=== PATIENT | male | born 1975 | race Caucasian/White ===

== ENCOUNTER 2022-08-27 16:41 | Outpatient (REF) | payer OTHER, SELFPAY ==
[2022-08-27 16:59] LABS: MANUAL DIFF FLAG NO
[2022-08-27 17:05] LABS: Basophils Percent Auto 0.6 % (0-2); Eosinophils Absolute Auto 0.2 X10*3/uL (0.0-0.4); Eosinophils Percent Auto 2.9 % (0-4); Hematocrit 40.1 % (42.0-52.0); Hemoglobin 13.8 g/dl (14.0-18.0); Imm Gran Abs Auto 0.02 X10*3/uL (0.00-0.03); Imm Gran Pct Auto 0.3 % (0.0-0.4); Lymphocytes Absolute Auto 2.1 X10*3/uL (1.2-4.9); Lymphocytes Percent Auto 31.5 % (20-40); Mean Corpuscular HGB Conc 34.4 g/dl (31.0-36.0); Mean Corpuscular Hemoglobin 31.2 pg (27.0-33.0); Mean Corpuscular Volume 90.5 fL (80.0-98.0); Mean Platelet Volume 9.6 fL (9.4-12.4); Monocytes Absolute Auto 0.9 X10*3/uL (0.1-1.2); Monocytes Percent Auto 12.5 % (2-11); Neutrophils Absolute Auto 3.5 x10*3/uL (2.0-8.3); Neutrophils Percent Auto 52.2 % (45-73); Platelet Count 229 X10*3/uL (160-400); Red Blood Count 4.43 X10*6/uL (4.60-5.80); White Blood Count 6.8 X10*3/uL (4.8-10.8)
[2022-08-27 18:05] LABS: Erythrocyte Sedimentation Rate 7 MM/HR (0-15)
[2022-08-27 18:09] LABS: Alanine Aminotransferase 23 U/L (0-40); Albumin Level 4.2 g/dL (3.5-5.0); Alkaline Phosphatase 77 U/L (39-117); Anion Gap 12 (12-20); Bilirubin Total 1.3 mg/dL (0.0-1.0); C Reactive Protein 0.19 mg/dL (< or = 0.50); Chloride 107 mmol/L (96-108); Estimated Glomerular Filt Rate > 60; Potassium 3.8 mmol/L (3.3-5.1); Sodium 141 mmol/L (135-145); Total Protein 6.8 g/dL (6.5-8.0)
[2022-08-27 18:13] LABS: Aspartate Amino Transferase 21 U/L (5-37); Blood Urea Nitrogen 14 mg/dL (9-16); Calcium 9.4 mg/dL (8.4-10.2); Carbon Dioxide 26 mmol/L (22-29); Glucose Random 92 mg/dL (60-115)
[2022-08-28 07:43] LABS: HBS Num1 22.72 mIU/mL (0-7.99); HBc Num1 0.13 S/CO (0.00-0.79); HBsAGNum1 0.37 S/CO (0.00-0.99); Hepatitis B Core Antibody Nonreactive (Nonreactive); Hepatitis B Surface Antigen Negative (Negative); ~Hepatitis B Surface Antibody REACTIVE (Nonreactive)
[2022-08-29 11:18] LABS: TS Negative Control Passed; TS Panel A 2; TS Panel B 1; TS Positive Control Passed; TSpotTB Negative (Negative)
[2022-09-08 00:04] LABS: Adalimumab Drug Level 1.1 mcg/mL; Anti-Adalimumab Antibody 27 AU (<10)
== END 2022-08-27 16:42 | disposition home or self-care (01) ==
LOC: HO.LAB 16:41
PROVIDERS: PCP Internal Medicine; Visit Provider Internal Medicine
DX: Z11.1 Encounter for screening for respiratory tuberculosis (principal); K50.00 Crohn's disease of small intestine without complications; Z79.899 Other long term (current) drug therapy
CPT/HCPCS: 36415; 80053; 80145; 83520; 85025; 85652; 86140; 86481; 86704; 86706; 87340

== ENCOUNTER 2022-08-29 07:47 | Outpatient (REF) | payer OTHER, SELFPAY ==
[2022-08-29 09:09] LABS: CDiff Gene PCR NEGATIVE (Negative)
[2022-08-29 09:11] LABS: Leukocytes Stool Qualitative NEGATIVE (NEGATIVE)
[2022-09-06 22:39] LABS: Calprotectin, Fecal 284 mcg/g
== END 2022-08-29 07:48 | disposition home or self-care (01) ==
LOC: HO.LNP 07:47
PROVIDERS: Visit Provider Internal Medicine
DX: Z13.89 Encounter for screening for other disorder (principal)
CPT/HCPCS: 83993; 87493; 89055

== ENCOUNTER 2022-09-03 09:32 | Outpatient (REF) | payer OTHER, SELFPAY ==
[2022-09-03 11:27] LABS: Adenovirus F 40/41 Not Detected (Not Detect.); Astrovirus Not Detected (Not Detect.); Campylobacter Not Detected (Not Detect.); Cryptosporidium Not Detected (Not Detect.); Cyclospora cayetanensis Not Detected (Not Detect.); E. coli EAEC Not Detected (Not Detect.); E. coli EPEC Not Detected (Not Detect.); E. coli ETEC Not Detected (Not Detect.); E. coli STEC Not Detected (Not Detect.); Entamoeba histolytica Not Detected (Not Detect.); Giardia lamblia Not Detected (Not Detect.); Plesiomonas shigelloides Not Detected (Not Detect.); Salmonella Not Detected (Not Detect.); Shigella sp./EIEC Not Detected (Not Detect.); Vibrio Not Detected (Not Detect.); Vibrio Cholerae Not Detected (Not Detect.); Yersinia enterocolitica Not Detected (Not Detect.)
[2022-09-03 11:28] LABS: Norovirus GI/GII Detected (Not Detect.)
[2022-09-03 11:29] LABS: Rotavirus A Not Detected (Not Detect.); Sapovirus Not Detected (Not Detect.)
== END 2022-09-03 09:33 | disposition home or self-care (01) ==
LOC: HO.LNP 09:32
PROVIDERS: Visit Provider Internal Medicine
DX: Z13.89 Encounter for screening for other disorder (principal)
CPT/HCPCS: 87507

== ENCOUNTER 2022-09-14 07:35 | Outpatient (REF) | payer OTHER, SELFPAY ==
[2022-09-14 08:08] LABS: MANUAL DIFF FLAG NO
[2022-09-14 08:39] LABS: Basophils Percent Auto 0.5 % (0-2); Eosinophils Absolute Auto 0.1 X10*3/uL (0.0-0.4); Eosinophils Percent Auto 1.1 % (0-4); Hemoglobin 13.6 g/dl (14.0-18.0); Imm Gran Abs Auto 0.05 X10*3/uL (0.00-0.03); Imm Gran Pct Auto 0.6 % (0.0-0.4); Lymphocytes Absolute Auto 2.7 X10*3/uL (1.2-4.9); Lymphocytes Percent Auto 30.4 % (20-40); Mean Corpuscular HGB Conc 33.2 g/dl (31.0-36.0); Mean Corpuscular Volume 93.4 fL (80.0-98.0); Mean Platelet Volume 9.6 fL (9.4-12.4); Monocytes Absolute Auto 1.1 X10*3/uL (0.1-1.2); Monocytes Percent Auto 12.8 % (2-11); Neutrophils Absolute Auto 4.8 x10*3/uL (2.0-8.3); Neutrophils Percent Auto 54.6 % (45-73); Platelet Count 236 X10*3/uL (160-400); Red Blood Count 4.39 X10*6/uL (4.60-5.80); Red Cell Distribution Width 13.2 % (11.0-16.0); White Blood Count 8.8 X10*3/uL (4.8-10.8)
[2022-09-14 09:29] LABS: Alanine Aminotransferase 18 U/L (0-40); Albumin Level 3.6 g/dL (3.5-5.0); Alkaline Phosphatase 58 U/L (39-117); Anion Gap 12 (12-20); Aspartate Amino Transferase 14 U/L (5-37); Bilirubin Total 1.2 mg/dL (0.0-1.0); Blood Urea Nitrogen 15 mg/dL (9-16); Calcium 8.6 mg/dL (8.4-10.2); Carbon Dioxide 25 mmol/L (22-29); Chloride 111 mmol/L (96-108); Cholesterol 198 mg/dL; Estimated Glomerular Filt Rate > 60; Glucose Random 104 mg/dL (60-115); HDL Cholesterol 50 mg/dL; LDL Cholesterol Calculated 116 mg/dl; Potassium 3.5 mmol/L (3.3-5.1); Sodium 144 mmol/L (135-145); Total Protein 5.8 g/dL (6.5-8.0); Triglycerides 164 mg/dL
== END 2022-09-14 07:36 | disposition home or self-care (01) ==
LOC: HO.LAB 07:35
PROVIDERS: Absent Provider Internal Medicine; PCP Internal Medicine; Visit Provider Internal Medicine
DX: I10 Essential (primary) hypertension (principal); E78.2 Mixed hyperlipidemia; K50.00 Crohn's disease of small intestine without complications; Z79.624 Long term (current) use of inhibitors of nucleotide synthesis
CPT/HCPCS: 36415; 80053; 80061; 80299; 81335; 85025

== ENCOUNTER 2022-10-24 15:11 | Outpatient (REF) | payer OTHER, SELFPAY ==
[2022-10-24 15:22] LABS: MANUAL DIFF FLAG NO
[2022-10-24 15:41] LABS: Basophils Percent Auto 0.4 % (0-2); Eosinophils Percent Auto 0.2 % (0-4); Hematocrit 38.9 % (42.0-52.0); Hemoglobin 12.9 g/dl (14.0-18.0); Imm Gran Abs Auto 0.04 X10*3/uL (0.00-0.03); Imm Gran Pct Auto 0.5 % (0.0-0.4); Lymphocytes Absolute Auto 1.1 X10*3/uL (1.2-4.9); Lymphocytes Percent Auto 13.7 % (20-40); Mean Corpuscular HGB Conc 33.2 g/dl (31.0-36.0); Mean Corpuscular Hemoglobin 30.6 pg (27.0-33.0); Mean Corpuscular Volume 92.4 fL (80.0-98.0); Mean Platelet Volume 9.1 fL (9.4-12.4); Monocytes Absolute Auto 0.7 X10*3/uL (0.1-1.2); Monocytes Percent Auto 8.3 % (2-11); Neutrophils Absolute Auto 6.3 x10*3/uL (2.0-8.3); Neutrophils Percent Auto 76.9 % (45-73); Platelet Count 257 X10*3/uL (160-400); Red Blood Count 4.21 X10*6/uL (4.60-5.80); Red Cell Distribution Width 13.5 % (11.0-16.0); White Blood Count 8.2 X10*3/uL (4.8-10.8)
[2022-10-24 16:26] LABS: Alanine Aminotransferase 19 U/L (0-40); Alkaline Phosphatase 48 U/L (39-117); Aspartate Amino Transferase 12 U/L (5-37); Bilirubin Direct 0.3 mg/dL (0.0-0.5); Total Protein 6.5 g/dL (6.5-8.0)
[2022-10-24 16:49] LABS: Bilirubin Total 1.5 mg/dL (0.0-1.0)
== END 2022-10-24 15:12 | disposition home or self-care (01) ==
LOC: HO.LAB 15:11
PROVIDERS: PCP Internal Medicine; Visit Provider Internal Medicine
DX: K50.00 Crohn's disease of small intestine without complications (principal); Z79.624 Long term (current) use of inhibitors of nucleotide synthesis
CPT/HCPCS: 36415; 80076; 85025

== ENCOUNTER 2022-11-08 15:17 | Outpatient (REF) | payer OTHER, SELFPAY ==
[2022-11-08 15:26] LABS: MANUAL DIFF FLAG NO
[2022-11-08 15:47] LABS: Basophils Percent Auto 0.6 % (0-2); Eosinophils Absolute Auto 0.2 X10*3/uL (0.0-0.4); Eosinophils Percent Auto 2.9 % (0-4); Hematocrit 40.1 % (42.0-52.0); Hemoglobin 13.1 g/dl (14.0-18.0); Imm Gran Abs Auto 0.03 X10*3/uL (0.00-0.03); Imm Gran Pct Auto 0.4 % (0.0-0.4); Lymphocytes Absolute Auto 1.3 X10*3/uL (1.2-4.9); Lymphocytes Percent Auto 19.7 % (20-40); Mean Corpuscular HGB Conc 32.7 g/dl (31.0-36.0); Mean Corpuscular Hemoglobin 30.1 pg (27.0-33.0); Mean Corpuscular Volume 92.2 fL (80.0-98.0); Mean Platelet Volume 9.7 fL (9.4-12.4); Monocytes Absolute Auto 0.8 X10*3/uL (0.1-1.2); Monocytes Percent Auto 11.9 % (2-11); Neutrophils Absolute Auto 4.4 x10*3/uL (2.0-8.3); Neutrophils Percent Auto 64.5 % (45-73); Platelet Count 239 X10*3/uL (160-400); Red Blood Count 4.35 X10*6/uL (4.60-5.80); White Blood Count 6.8 X10*3/uL (4.8-10.8)
[2022-11-08 17:00] LABS: Alanine Aminotransferase 15 U/L (0-40); Alkaline Phosphatase 52 U/L (39-117); Aspartate Amino Transferase 12 U/L (5-37); Bilirubin Direct 0.3 mg/dL (0.0-0.5); Bilirubin Total 1.2 mg/dL (0.0-1.0); Total Protein 6.8 g/dL (6.5-8.0)
== END 2022-11-08 15:18 | disposition home or self-care (01) ==
LOC: HO.LABR 15:17
PROVIDERS: Visit Provider Internal Medicine
DX: K50.00 Crohn's disease of small intestine without complications (principal); Z79.624 Long term (current) use of inhibitors of nucleotide synthesis
CPT/HCPCS: 36415; 80076; 85025

== ENCOUNTER 2022-11-21 15:00 | Outpatient (REF) | payer OTHER, SELFPAY ==
[2022-11-21 15:12] LABS: MANUAL DIFF FLAG NO
[2022-11-21 16:26] LABS: Basophils Percent Auto 0.6 % (0-2); Eosinophils Absolute Auto 0.2 X10*3/uL (0.0-0.4); Eosinophils Percent Auto 3.4 % (0-4); Hematocrit 38.5 % (42.0-52.0); Hemoglobin 13.2 g/dl (14.0-18.0); Imm Gran Abs Auto 0.03 X10*3/uL (0.00-0.03); Imm Gran Pct Auto 0.4 % (0.0-0.4); Lymphocytes Absolute Auto 1.5 X10*3/uL (1.2-4.9); Lymphocytes Percent Auto 22.2 % (20-40); Mean Corpuscular HGB Conc 34.3 g/dl (31.0-36.0); Mean Corpuscular Hemoglobin 31.1 pg (27.0-33.0); Mean Corpuscular Volume 90.8 fL (80.0-98.0); Mean Platelet Volume 9.7 fL (9.4-12.4); Monocytes Absolute Auto 0.6 X10*3/uL (0.1-1.2); Monocytes Percent Auto 9.6 % (2-11); Neutrophils Absolute Auto 4.3 x10*3/uL (2.0-8.3); Neutrophils Percent Auto 63.8 % (45-73); Platelet Count 275 X10*3/uL (160-400); Red Blood Count 4.24 X10*6/uL (4.60-5.80); Red Cell Distribution Width 14.2 % (11.0-16.0); White Blood Count 6.7 X10*3/uL (4.8-10.8)
[2022-11-21 16:37] LABS: Alanine Aminotransferase 14 U/L (0-40); Albumin Level 3.9 g/dL (3.5-5.0); Alkaline Phosphatase 61 U/L (39-117); Aspartate Amino Transferase 13 U/L (5-37); Bilirubin Direct 0.2 mg/dL (0.0-0.5); Bilirubin Total 0.9 mg/dL (0.0-1.0); Total Protein 6.7 g/dL (6.5-8.0)
== END 2022-11-21 15:01 | disposition home or self-care (01) ==
LOC: HO.LABR 15:00
PROVIDERS: PCP Internal Medicine; Visit Provider Internal Medicine
DX: K50.00 Crohn's disease of small intestine without complications (principal); Z79.624 Long term (current) use of inhibitors of nucleotide synthesis
CPT/HCPCS: 36415; 80076; 85025

== ENCOUNTER 2022-12-27 15:04 | Outpatient (REF) | payer OTHER, SELFPAY ==
[2022-12-27 15:17] LABS: MANUAL DIFF FLAG NO
[2022-12-27 15:31] LABS: Basophils Percent Auto 0.4 % (0-2); Eosinophils Absolute Auto 0.1 X10*3/uL (0.0-0.4); Eosinophils Percent Auto 1.3 % (0-4); Hematocrit 40.1 % (42.0-52.0); Hemoglobin 13.5 g/dl (14.0-18.0); Imm Gran Abs Auto 0.04 X10*3/uL (0.00-0.03); Imm Gran Pct Auto 0.4 % (0.0-0.4); Lymphocytes Absolute Auto 1.6 X10*3/uL (1.2-4.9); Lymphocytes Percent Auto 16.7 % (20-40); Mean Corpuscular HGB Conc 33.7 g/dl (31.0-36.0); Mean Corpuscular Hemoglobin 31.2 pg (27.0-33.0); Mean Corpuscular Volume 92.6 fL (80.0-98.0); Mean Platelet Volume 9.4 fL (9.4-12.4); Monocytes Absolute Auto 0.7 X10*3/uL (0.1-1.2); Monocytes Percent Auto 7.9 % (2-11); Neutrophils Absolute Auto 6.8 x10*3/uL (2.0-8.3); Neutrophils Percent Auto 73.3 % (45-73); Platelet Count 279 X10*3/uL (160-400); Red Blood Count 4.33 X10*6/uL (4.60-5.80); Red Cell Distribution Width 14.8 % (11.0-16.0); White Blood Count 9.3 X10*3/uL (4.8-10.8)
[2022-12-27 16:34] LABS: Alanine Aminotransferase 10 U/L (0-40); Albumin Level 4.3 g/dL (3.5-5.0); Alkaline Phosphatase 65 U/L (39-117); Aspartate Amino Transferase 13 U/L (5-37); Bilirubin Direct 0.5 mg/dL (0.0-0.5); Bilirubin Total 2.2 mg/dL (0.0-1.0); Total Protein 6.9 g/dL (6.5-8.0)
[2023-01-02 14:32] LABS: 6-MMPN <500 (<5700); 6-TGN 282 (235-400)
== END 2022-12-27 15:05 | disposition home or self-care (01) ==
LOC: HO.LAB 15:04
PROVIDERS: PCP Internal Medicine; Visit Provider Internal Medicine
DX: K50.00 Crohn's disease of small intestine without complications (principal); Z79.624 Long term (current) use of inhibitors of nucleotide synthesis
CPT/HCPCS: 36415; 80076; 80299; 85025

== ENCOUNTER 2023-01-20 15:00 | Outpatient (REF) | payer OTHER, SELFPAY ==
[2023-01-20 15:12] LABS: MANUAL DIFF FLAG NO
[2023-01-20 16:27] LABS: Basophils Percent Auto 0.4 % (0-2); Eosinophils Absolute Auto 0.1 X10*3/uL (0.0-0.4); Eosinophils Percent Auto 0.8 % (0-4); Hematocrit 40.5 % (42.0-52.0); Hemoglobin 13.7 g/dl (14.0-18.0); Imm Gran Abs Auto 0.06 X10*3/uL (0.00-0.03); Imm Gran Pct Auto 0.6 % (0.0-0.4); Lymphocytes Absolute Auto 1.6 X10*3/uL (1.2-4.9); Lymphocytes Percent Auto 15.8 % (20-40); Mean Corpuscular HGB Conc 33.8 g/dl (31.0-36.0); Mean Corpuscular Hemoglobin 32.4 pg (27.0-33.0); Mean Corpuscular Volume 95.7 fL (80.0-98.0); Mean Platelet Volume 9.9 fL (9.4-12.4); Monocytes Absolute Auto 0.8 X10*3/uL (0.1-1.2); Monocytes Percent Auto 8.3 % (2-11); Neutrophils Absolute Auto 7.3 x10*3/uL (2.0-8.3); Neutrophils Percent Auto 74.1 % (45-73); Platelet Count 277 X10*3/uL (160-400); Red Blood Count 4.23 X10*6/uL (4.60-5.80); White Blood Count 9.8 X10*3/uL (4.8-10.8)
[2023-01-20 16:57] LABS: Alanine Aminotransferase 10 U/L (0-40); Albumin Level 4.1 g/dL (3.5-5.0); Alkaline Phosphatase 60 U/L (39-117); Aspartate Amino Transferase 15 U/L (5-37); Bilirubin Direct 0.3 mg/dL (0.0-0.5); Bilirubin Total 1.4 mg/dL (0.0-1.0); Total Protein 7.1 g/dL (6.5-8.0)
== END 2023-01-20 15:01 | disposition home or self-care (01) ==
LOC: HO.LABR 15:00
PROVIDERS: PCP Internal Medicine; Visit Provider Internal Medicine
DX: K50.00 Crohn's disease of small intestine without complications (principal); Z79.624 Long term (current) use of inhibitors of nucleotide synthesis
CPT/HCPCS: 36415; 80076; 85025

== ENCOUNTER 2023-04-08 11:32 | Outpatient (REF) | payer OTHER, SELFPAY ==
[2023-04-08 11:45] LABS: MANUAL DIFF FLAG NO
[2023-04-08 12:20] LABS: Basophils Absolute Auto 0.1 X10*3/uL (0.0-0.2); Basophils Percent Auto 0.6 % (0-2); Eosinophils Absolute Auto 0.2 X10*3/uL (0.0-0.4); Eosinophils Percent Auto 2.3 % (0-4); Hematocrit 43.4 % (42.0-52.0); Hemoglobin 14.6 g/dl (14.0-18.0); Imm Gran Abs Auto 0.09 X10*3/uL (0.00-0.03); Lymphocytes Absolute Auto 1.5 X10*3/uL (1.2-4.9); Lymphocytes Percent Auto 16.9 % (20-40); Mean Corpuscular HGB Conc 33.6 g/dl (31.0-36.0); Mean Corpuscular Hemoglobin 31.4 pg (27.0-33.0); Mean Corpuscular Volume 93.3 fL (80.0-98.0); Mean Platelet Volume 9.5 fL (9.4-12.4); Monocytes Absolute Auto 0.8 X10*3/uL (0.1-1.2); Monocytes Percent Auto 9.5 % (2-11); Neutrophils Percent Auto 69.7 % (45-73); Platelet Count 233 X10*3/uL (160-400); Red Blood Count 4.65 X10*6/uL (4.60-5.80); Red Cell Distribution Width 13.6 % (11.0-16.0); White Blood Count 8.7 X10*3/uL (4.8-10.8)
[2023-04-08 12:33] LABS: Alanine Aminotransferase 13 U/L (0-40); Albumin Level 4.4 g/dL (3.5-5.0); Alkaline Phosphatase 78 U/L (39-117); Aspartate Amino Transferase 12 U/L (5-37); Bilirubin Direct 0.3 mg/dL (0.0-0.5); Bilirubin Total 1.3 mg/dL (0.0-1.0); Total Protein 7.4 g/dL (6.5-8.0)
== END 2023-04-08 11:33 | disposition home or self-care (01) ==
LOC: HO.LAB 11:32
PROVIDERS: PCP Internal Medicine; Visit Provider Internal Medicine
DX: K50.00 Crohn's disease of small intestine without complications (principal); R19.7 Diarrhea, unspecified
CPT/HCPCS: 36415; 80076; 85025

== ENCOUNTER 2023-05-22 12:47 | Outpatient (REF) | payer OTHER, SELFPAY | END 2023-05-22 12:48 | disposition home or self-care (01) | LOC: HO.MDS 12:47 | PROVIDERS: PCP Internal Medicine; Visit Provider Internal Medicine | DX: K50.90 Crohn's disease, unspecified, without complications (principal) | CPT/HCPCS: 96365 ==

== ENCOUNTER 2023-07-18 13:13 | Outpatient (REF) | payer OTHER, SELFPAY ==
[2023-07-18 13:23] LABS: MANUAL DIFF FLAG NO
[2023-07-18 14:08] LABS: Basophils Percent Auto 0.3 % (0-2); Eosinophils Absolute Auto 0.1 X10*3/uL (0.0-0.4); Eosinophils Percent Auto 0.7 % (0-4); Hematocrit 39.8 % (42.0-52.0); Hemoglobin 13.5 g/dl (14.0-18.0); Imm Gran Abs Auto 0.04 X10*3/uL (0.00-0.03); Imm Gran Pct Auto 0.5 % (0.0-0.4); Lymphocytes Absolute Auto 1.2 X10*3/uL (1.2-4.9); Lymphocytes Percent Auto 15.6 % (20-40); Mean Corpuscular HGB Conc 33.9 g/dl (31.0-36.0); Mean Corpuscular Hemoglobin 31.7 pg (27.0-33.0); Mean Corpuscular Volume 93.4 fL (80.0-98.0); Mean Platelet Volume 9.8 fL (9.4-12.4); Monocytes Absolute Auto 0.5 X10*3/uL (0.1-1.2); Monocytes Percent Auto 6.4 % (2-11); Neutrophils Absolute Auto 5.7 x10*3/uL (2.0-8.3); Neutrophils Percent Auto 76.5 % (45-73); Platelet Count 235 X10*3/uL (160-400); Red Blood Count 4.26 X10*6/uL (4.60-5.80); Red Cell Distribution Width 13.7 % (11.0-16.0); White Blood Count 7.5 X10*3/uL (4.8-10.8)
[2023-07-18 14:43] LABS: Alanine Aminotransferase 12 U/L (0-40); Albumin Level 4.2 g/dL (3.5-5.0); Alkaline Phosphatase 67 U/L (39-117); Aspartate Amino Transferase 11 U/L (5-37); Bilirubin Direct 0.3 mg/dL (0.0-0.5); Total Protein 7.1 g/dL (6.5-8.0)
== END 2023-07-18 13:14 | disposition home or self-care (01) ==
LOC: HO.LAB 13:13
PROVIDERS: PCP Internal Medicine; Visit Provider Internal Medicine
DX: K50.00 Crohn's disease of small intestine without complications (principal); R19.7 Diarrhea, unspecified
CPT/HCPCS: 36415; 80076; 85025

== ENCOUNTER 2023-09-12 08:45 | Outpatient (REF) | payer OTHER, SELFPAY | END 2023-09-12 08:46 | disposition home or self-care (01) | LOC: HO.LAB 08:45 | PROVIDERS: PCP Internal Medicine; Visit Provider Internal Medicine | DX: K50.00 Crohn's disease of small intestine without complications (principal) | CPT/HCPCS: 36415; 80299; 82542 ==

== ENCOUNTER 2023-11-22 08:40 | Outpatient (REF) | payer OTHER, SELFPAY ==
[2023-11-22 08:50] LABS: MANUAL DIFF FLAG NO
[2023-11-22 09:09] LABS: Basophils Absolute Auto 0.1 X10*3/uL (0.0-0.2); Basophils Percent Auto 0.7 % (0-2); Eosinophils Absolute Auto 0.2 X10*3/uL (0.0-0.4); Eosinophils Percent Auto 2.9 % (0-4); Hematocrit 42.9 % (42.0-52.0); Hemoglobin 14.6 g/dl (14.0-18.0); Imm Gran Abs Auto 0.05 X10*3/uL (0.00-0.03); Imm Gran Pct Auto 0.7 % (0.0-0.4); Lymphocytes Absolute Auto 1.3 X10*3/uL (1.2-4.9); Lymphocytes Percent Auto 17.5 % (20-40); Mean Corpuscular Hemoglobin 31.5 pg (27.0-33.0); Mean Corpuscular Volume 92.5 fL (80.0-98.0); Mean Platelet Volume 9.3 fL (9.4-12.4); Monocytes Absolute Auto 0.9 X10*3/uL (0.1-1.2); Monocytes Percent Auto 12.5 % (2-11); Neutrophils Absolute Auto 4.8 x10*3/uL (2.0-8.3); Neutrophils Percent Auto 65.7 % (45-73); Platelet Count 240 X10*3/uL (160-400); Red Blood Count 4.64 X10*6/uL (4.60-5.80); Red Cell Distribution Width 14.8 % (11.0-16.0); White Blood Count 7.3 X10*3/uL (4.8-10.8)
[2023-11-22 09:30] LABS: Alanine Aminotransferase 10 U/L (0-40); Albumin Level 4.3 g/dL (3.5-5.0); Alkaline Phosphatase 79 U/L (39-117); Aspartate Amino Transferase 9 U/L (5-37); Bilirubin Direct 0.3 mg/dL (0.0-0.5); Bilirubin Total 1.3 mg/dL (0.0-1.0); Total Protein 7.1 g/dL (6.5-8.0)
== END 2023-11-22 08:41 | disposition home or self-care (01) ==
LOC: HO.LAB 08:40
PROVIDERS: PCP Internal Medicine; Visit Provider Internal Medicine
DX: K50.00 Crohn's disease of small intestine without complications (principal)
CPT/HCPCS: 36415; 80076; 85025

== ENCOUNTER 2024-02-28 07:56 | Outpatient (REF) | payer OTHER, SELFPAY ==
[2024-02-28 08:22] LABS: MANUAL DIFF FLAG NO
[2024-02-28 08:55] LABS: Basophils Percent Auto 0.4 % (0-2); Eosinophils Absolute Auto 0.1 X10*3/uL (0.0-0.4); Eosinophils Percent Auto 1.9 % (0-4); Hematocrit 42.4 % (42.0-52.0); Hemoglobin 14.3 g/dl (14.0-18.0); Imm Gran Abs Auto 0.04 X10*3/uL (0.00-0.03); Imm Gran Pct Auto 0.5 % (0.0-0.4); Lymphocytes Absolute Auto 1.2 X10*3/uL (1.2-4.9); Lymphocytes Percent Auto 15.9 % (20-40); Mean Corpuscular HGB Conc 33.7 g/dl (31.0-36.0); Mean Corpuscular Hemoglobin 30.8 pg (27.0-33.0); Mean Corpuscular Volume 91.4 fL (80.0-98.0); Mean Platelet Volume 9.8 fL (9.4-12.4); Monocytes Absolute Auto 0.7 X10*3/uL (0.1-1.2); Monocytes Percent Auto 9.3 % (2-11); Neutrophils Absolute Auto 5.3 x10*3/uL (2.0-8.3); Platelet Count 213 X10*3/uL (160-400); Red Blood Count 4.64 X10*6/uL (4.60-5.80); Red Cell Distribution Width 14.3 % (11.0-16.0); White Blood Count 7.4 X10*3/uL (4.8-10.8)
[2024-02-28 09:45] LABS: Alanine Aminotransferase 14 U/L (0-40); Albumin Level 4.3 g/dL (3.5-5.0); Alkaline Phosphatase 69 U/L (39-117); Aspartate Amino Transferase 15 U/L (5-37); Bilirubin Direct 0.5 mg/dL (0.0-0.5); Bilirubin Total 2.1 mg/dL (0.0-1.0); Total Protein 6.9 g/dL (6.5-8.0)
[2024-02-28 10:00] LABS: Vitamin B12 1502 pg/mL (200-900)
== END 2024-02-28 07:57 | disposition home or self-care (01) ==
LOC: HO.LAB 07:56
PROVIDERS: Visit Provider Internal Medicine
DX: K50.00 Crohn's disease of small intestine without complications (principal)
CPT/HCPCS: 36415; 80076; 80299; 82542; 82607; 85025

== ENCOUNTER 2024-05-08 09:46 | Outpatient (REF) | payer OTHER, SELFPAY ==
--- OUTSIDE RECORDS SUMMARY | 2024-05-08 09:49 | XMS_ITS ---
Author Name [facility] [place] [facility] [place] Address [address] [place] [address] Care Team Providers Care Equipment Inspector Name Role Phone KALEB DUFF Primary Care Provider Unavail able Selected Encounter This section includes the information on record at [place] for the Encounter. Date/Time Encounter Type Encounter Description Reason Provider Source Apr 26, 2024 02:00 PM OFFICE O/P EST HI 40 MIN MENTAL HEALTH CLINIC - IND ICD-10-CM 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, recurrent severe w/o psych features CLAUDE SAAB [facility] Encounter Template Text not used by [place] Assessments - Encounter Diagnoses This section includes the primary and secondary diagnoses documented for the Encounter. Date/Time Primary/Secondary Diagnosis Diagnosis Name Provider Source Apr 27, 2024 12:59 PM PRIMARY Major depressv disorder, recurrent severe w/o psych features CLAUDE SAAB [place] [facility] [place] [facility] Apr 27, 2024 12:59 PM SECONDARY Insomnia, unspecified [facility] [place] [facility] Plan of Treatment: Future Appointments (+ 6 months) and Future Tests (+/- 45 days) The Plan of Treatment section includes future care activities for the patient from all [place] treatmentfacilities. This section includes future appointments and future orders which are active, pending or scheduled. Future Appointments This section includes appointments that were scheduled to occur 6 months from the date of the Encounter, up to a maximum of 20 appointments. The data comes from all [place] [facility] Appointment Date/Time Appointment Type Appointme nt Facility Name Apr 30, 2024 08:30 AM AMBULATORY - PSYCHIATRY [facility] May 05, 2024 02:00 PM AMBULATORY - MEDICINE [facility] May 11, 2024 01:30 PM AMBULATORY - PSYCHIATRY [facility] May 17, 2024 08:30 AM AMBULATORY - PSYCHIATRY [facility] Jun 21, 2024 03:30 PM AMBULATORY - MEDICINE [facility] Active, Pending, and Scheduled Orders This section includes a listing of several types of active, pending, and scheduled orders, including clinic medications orders, diagnostic test orders, procedure orders and consult orders; where the start date of the order is 45 days before the date of the Encounter or 45 days after the date of theEncounter. The data comes from all [facility]. Test Date/Time Test Type Test Details Facility Name Mar 25, 2024 03:20 PM Consult Order COMMUNITY CARE-GI GENERAL Cons [facility] Apr 20, 2024 11:13 AM Consult Order PSYCHOTHERAPY BHIP/[facility] OUTPT Cons [facility] Apr 20, 2024 11:13 AM Consult Order PSYCHOTHERAPY BHIP/[facility] OUTPT Cons [facility] Apr 26, 2024 12:00 AM Laboratory - Chemistry Order TSH BLOOD (SST-SERUM) SP [facility] Social History: Smoking Status (Most current) and Tobacco Use (All prior to encounter date) This section includes the most current, and the historical, smoking and tobacco- related health factors from the [place] facility where the Encounter took place. Current Smoking Status This section includes the most current smoking, or tobacco-related health factor, from the [place] facility where the Encounter took place. Date/Time Current Smoking Status Comment Fely dahl Mar 18, 2024 10:00 AM VA-TOBACCO USE FOR DORI CIGARETTES [facility] Tobacco Use History This section includes a history of the smoking, or tobacco-related health factors, that were collected on or before the date of the Encounter. The data comes from the [place] facility where the Encounter took place. Date/Time Smoking Status/Tobac co Use Comment Facility Mar 18, 2024 10:00 AM [place]-TOBACCO USE FORMER OTHER TYPE Quit more than 15 years ago [place] [facility] Encounter Notes: All associated encounter notes This section contains the clinical notes associated to the Encounter. Date/Time Encounter Note(s) Provider Source Apr 26, 2024 02:08 PM MENTAL HEALTH INITIAL EVALUATION NOTE: LOCAL TITLE: CONSULT REPORT/MENTAL HEALTH INTAKE STANDARD TITLE: MENTAL HEALTH INITIAL EVALUATION NOTE DATE OF NOTE: APR 26, 2024@14:08 ENTRY DATE: APR 26, 2024@14:09:29 AUTHOR: VIOLA SAABIGNER: URGENCY: STATUS: COMPLETED OUTPATIENT MENTAL HEALTH CLINIC: INITIAL ASSESSMENT HPI: BRENNONGLADIS JONES, a 48 y/o male [place] previously diagnosed with MDD presents for Initial Assessment following recent discharge from [facility] acute INpatient unit for severe symptoms of depression and SI with plan. Discharge medications were Fluoxetine 40 mg 1x/day, Hydroxyzine 50 mg PRN and at bedtime and Melatonin 1 tablet at bedtime and discharge diagnosis was (per , MDD, severe, without psychotic features) reports that I'm still dealing with the depression and anxiety but feels that I've been doing better recently since discharge from [facility]. Still has significant [...] years but they doubled the dosage at [facility] to 40 mg; did not notice any [...] this medication was beneficial and well tolerated [place] reports daily use of cannabis. Feels that [...] fleeting thoughts related to the Spillway at [facility] but specifically denied intent or plan and [...] SI with intent and plan Documentation from [facility] is not available for review at this time Suicidal Acts and Self-Harm: SI with intent and plan in February, Denies any other suicide attemtps [place] prepared to take his life the day after Thanksgiving. He wrote a suicide note to his and went to the [facility] with the intention of jumping from the spillway. He self-interrupted when he saw deer. He did not want to defile such a beautiful place. He reported chronic SI without any previous attempts. He was sectioned to [facility] where he was inpatient for 6 days. HISTORY OF VIOLENCE/ASSAULTING OTHERS: denied FAMILY MENTAL HEALTH AND SUBSTANCE USE HISTORY: Not that I'm aware of any Lethal Means Safety Counselling LMSC was conducted. Denied access to firearms SOCIAL HISTORY: Per Uniform Outpatient Mental Health Assessment (04/19/2023), confirmed by during assessment is unaware of any family history in terms of MH issues or substancea buse. Born and raised in [place]. Mother had him at aged 16, at which time his bio father denied paternity. He was then raised believing faustino was bio father until actual bio father called him at age 13. Mom stepana maria around that time but they remained in touch. Both fathers are now . Mom recently moved to [place] with a boyfriend. Xenia and she are in touch but not close. No abuse in home but [place] acknowledges a pattern of being invalidated by mom or feeling like an inconvenience. Xenia has half sister he was raised with but they fell out of touch after father's . He believes she lives in [facility]. Xenia met his Annamarie about four years [...] in some way. 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 Was laid off last summer but has a new job working FT at [employer]. Job is very sedentary, which may be contributing to 's mental health issues. 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 03/18/2024August,CHERYL Tariq Posttraumatic stress disorder F43.1 03/18/2024August,CHERYL Tariq Crohns disease K50.90 03/18/2024August,CHERYL Tariq Depression F32.A 03/18/2024August,CHERYL Tariq Anxiety F41.9 03/18/2024August,CHERYL Tariq Insomnia G47.00 03/18/2024August,CHERYL Tariq ALLERGIES: Data on this list may not be complete. Please check JLV. FACILITY ALLERGY/ADR -------- No Remote Allergy/ADR Data available for this patient [facility] No Known Allergies [...] Neut %: 71.7 Lymph %: 12.1 L Keith %: 13.5 Eos %: 1.6 Baso %: 0.5 Neut, Abs: 5.74 Lymph, Abs: 0.97 L Keith, Abs: 1.08 Eos, Abs: 0.13 Baso, Abs: [...] of active SI is certainly concerning but convincingly denied intent or plan and referred to these as fleeting thoughts that concern infrequently. [place] convincingly denies intent or plan and confirms [...] in treatment and a strong support network. Xenia was also future oriented and goal directed during today's assessment. Demonstration of help-seeking behaviors and familial responsibilities are also strong protective factors. IMPRESSION: Xenia presents as polite, cooperative and treatment motivated [place] specified that symptoms of depression are most significant and salient MH symptom that he would like to prioritize in treatment. Did not notice any additional benefits with increased dose of fluoxetine but also did not note any side effects. [place] reports a strong response to previous trial [...] Will also initiate low dose doxepin as noted that disrupted sleep is also a significant concern at present. declined Problem-Solving Therapy for Suicide Prevention or Cognitive Behavioral Therapy for Suicide Prevention Consult at present. Is scheduled for Intake for both couples therapy as well as individual therapy and prefers to wait to discuss these options with his therapist. [place] was informed that cannabis use could conceivably be exacerbating MH symptoms and encouraged abstinence. confirmed knowledge of [facility] number ([phone]) and convincingly confirmed that he would utilize this resource or report to nearest ED if active SI reemerged. Also confirmed that he would contact This Provider, another HCP or utilize his identified supports in the event of active SI Patient is aware of how to access Walk-In MH clinic in [facility] during weekdays for immediate mental health needs if I am not available. Patient has capacity to make his own medication decisions at present time. agreed to contact This Provider for an earlier appointment if additional symptoms develop, side effects are encountered or additional MH needs emerge before next scheduled visit. declined need for a higher LOC at [...] well as common and severe side effects. comprehended all information discussed, had opportunity to ask questions which were answered to their satisfaction, and voluntarily and without duress agreed to trial as documented. CONTACT AND CRISIS INFO: informed that This Provider can be contacted at , [phone] or via Secure Messaging. We have reviewed the Crisis Hotline (648, dial #1 for line), and the has [...] court of law and presented to a sheet metal erector), and DOD access for active-duty service members. [...] Nurse Practitioner Signed: 04/27/2024 12:58 VIOLA SAAB [facility] [place] [facility]
--- OUTSIDE RECORDS SUMMARY | 2024-05-08 09:49 | XMS_ITS | Encounter Summary ---
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 Date/Time Primary/Secondary Diagnosis Diagnosis Name Provider Source Apr 20, 2024 09:35 AM PRIMARY Major depressv disorder, recurrent severe w/o psych features AJ POTTER [facility] Plan of Treatment: Future Appointments (+ 6 months) and Future Tests (+/- 45 days) The Plan of Treatment section includes future care activities for the patient from all [place] treatmentfacilities. This section includes future appointments and future orders which are active, pending or scheduled. Future Appointments This section includes appointments that were scheduled to occur 6 months from the date of the Encounter, up to a maximum of 20 appointments. The data comes from all [place] treatment facilities. Appointment Date/Time Appointment Type Appointme nt Facility Name Apr 26, 2024 02:00 PM AMBULATORY - PSYCHIATRY [facility] Apr 30, 2024 08:30 AM [facility] May 05, 2024 02:00 PM [facility]AT[facility] MED[facility] May 11, 2024 01:30 PM [facility] May 17, 2024 08:30 AM [facility] Jun 21, 2024 03:30 PM AMBULATORY - MEDICINE [facility] Active, Pending, and Scheduled Orders This section includes a listing of several types of active, pending, and scheduled orders, including clinic medications orders, diagnostic test orders, procedure orders and consult orders; where the start date of the order is 45 days before the date of the Encounter or 45 days after the date of theEncounter. The data comes from all [place] treatment facilities. Test Date/Time Test Type Test Details Facility Name Mar 25, 2024 03:20 PM Consult Order COMMUNITY CARE-GI GENERAL Cons Roof Truss Machine Tender's Choice [facility] Apr 20, 2024 11:13 AM Consult Order PSYCHOTHERAPY BHIP/NHM OUTPT Cons Roof Truss Machine Tender's Choice [facility] Apr 20, 2024 11:13 AM Consult Order PSYCHOTHERAPY BHIP/NHM OUTPT Cons Roof Truss Machine Tender's Choice [facility] Apr 26, 2024 12:00 AM Laboratory - Chemistry Order TSH BLOOD (SST-SERUM) [facility] Lab Results: +/- 30 days of the encounter This section includes the Chemistry and Hematology Lab Results on record with [place] for the patient. Radiology Reports and Pathology Reports are provided separately, in subsequent sections. Lab Results This section contains the Chemistry/Hematology Results that were resulted 30 days before or 30 daysafter the date of the Encounter. Date/Time Source Result Type Result - Unit Interpretation Reference Range Comment Mar 25, 2024 03:26 PM [facility] HEPATITIS A ANTIBODY (IgM) Specimen Type: SERUM Comment: Hepatitis A IgM: IgM anti-HAV [...] after acute Hepatitis A infection. Ordering Provider: JAMES DUFF Report Released Date/Time: Mar 25, 2024 03:17 PM Reporting Lab: [facility] [address] Performing Lab: [facility] [address] HEPATITIS A ANTIBODY (IgM) Non Reactive Non Reactive Mar 25, 2024 03:26 PM [facility] HEPATITIS B SURFACE ANTIBODY (HBsAb)-WH Specimen Type: SERUM No comment entered. Ordering Provider: JAMES DUFF Report Released Date/Time: Mar 25, 2024 03:17 PM Reporting Lab: [facility] [address] Performing Lab: [facility] Mar 25, 2024 03:26 PM [facility] VITAMIN D (25-OH) Specimen Type: SERUM No comment entered. Ordering Provider: JAMES DUFF Report Released Date/Time: Mar 25, 2024 03:17 PM Reporting Lab: [facility] [address] Performing Lab: [facility] [address] VITAMIN D (25-OH) 38 ng/mL 20-50 Mar 25, 2024 03:26 PM [facility] CBC AND DIFF (AUTO) Specimen Type: BLOOD No comment entered. Ordering Provider: JAMES DUFF Report Released Date/Time: Mar 25, 2024 03:17 PM Reporting Lab: [facility] [address] [address] Performing Lab: [place] [address] [address] WBC 8.01 10*3/uL 4.50-11.00 RBC 5.05 10*6/uL [...] 0.6 0.0-0.7 IMMATURE GRAN, ABS 0.05 10*3/uL 0.00-0.06 NRBC % 0.0 0.0-0.0 NRBC, ABS 0.00 10*3/uL 0.00-0.00 Mar 25, 2024 03:26 PM [facility] IRON & TIBC PANEL Specimen Type: SERUM No comment entered. Ordering Provider: JAMES DUFF Report Released Date/Time: Mar 25, 2024 03:17 PM Reporting Lab: [address] [address] Performing Lab: [address] [address] TIBC 458 ug/dL 204-475 IRON 98 ug/dL 40-160 Transferrin Saturation 21.4 20.0-50.0 Transferrin (TRF) 347 mg/dL 200-360 Mar 25, 2024 03:26 PM [facility] FERRITIN Specimen Type: SERUM No comment entered. Ordering Provider: JAMES DUFF Report Released Date/Time: Mar 25, 2024 03:17 PM Reporting Lab: [facility] [address] [facility] [address] Performing Lab: [facility] [address] [facility] [address] FERRITIN 53 ng/mL 20-300 Mar 25, 2024 03:26 PM [facility] HEPATITIS C ANTIBODY (HCV)-ARC Specimen Type: SERUM Comment: Hep C Ab: No HCV antibody detected. If recent infection is suspected or other evidence suggests HCV infection, consider HCV nucleic acid testing Ordering Provider: JAMES DUFF Report Released Date/Time: Mar 25, 2024 03:17 PM Reporting Lab: [facility] [address] [facility] [address] Performing Lab: [facility] [address] [facility] [address] HEPATITIS C ANTIBODY NON-REACTIVE NON-REACTIVE Mar 25, 2024 03:26 PM [facility] BASIC METABOLIC PANEL (non-fasting) Specimen Type: SERUM No comment entered. Ordering Provider: JAMES DUFF Report Released Date/Time: Mar 25, 2024 03:17 PM Reporting Lab: [facility] [address] [facility] [address] Performing Lab: [address] [address] UREA NITROGEN 13 mg/dL 7-25 GLUCOSE 100 mg/dL 65-100 SODIUM 140 mmol/L 135-145 POTASSIUM 3.6 mmol/L 3.5-5.0 CHLORIDE 104 mmol/L 100-110 CO2 24 meq/L 20-30 CREATININE, Serum 0.86 mg/dL 0.50-1.40 eGFR(CKD-EPI 2020) >90 mL/min >60 Mar 25, 2024 03:26 PM [facility] BASIC METABOLIC PANEL (fasting) Specimen Type: SERUM No comment entered. Ordering Provider: JAMES DUFF Report Released Date/Time: Mar 25, 2024 03:17 PM Reporting Lab: [facility] [address] [facility] [address] Performing Lab: [facility] [address] [facility] [address] UREA NITROGEN 13 mg/dL 7-25 GLUCOSE 100 mg/dL 65-100 SODIUM 140 mmol/L 135-145 POTASSIUM 3.6 mmol/L 3.5-5.0 CHLORIDE 104 mmol/L 100-110 CO2 24 meq/L 20-30 CREATININE, Serum 0.86 mg/dL 0.50-1.40 eGFR(CKD-EPI 2020) >90 mL/min >60 Mar 25, 2024 03:26 PM [facility] LIVER FUNCTION Specimen Type: SERUM No comment entered. Ordering Provider: JAMES DUFF Report Released Date/Time: Mar 25, 2024 03:17 PM Reporting Lab: [facility] [address] [facility] [address] Performing Lab: [address] [address] PROTEIN,TOTAL 7.7 g/dL 6.0-8.3 ALBUMIN 4.4 g/dL 3.5-5.0 ALKALINE PHOSPHATASE 80 U/L 40-150 AST 11 U/L 5-34 ALT 14 U/L BILIRUBIN, TOTAL 1.3 mg/dL H 0.2-1.2 BILIRUBIN, DIRECT 0.4 mg/dL 0-0.5 Mar 25, 2024 03:26 PM [facility] LIPID PANEL FASTING Specimen Type: SERUM No comment entered. Ordering Provider: JAMES DUFF Report Released Date/Time: Mar 25, 2024 03:17 PM Reporting Lab: [facility] [address] [facility] [address] Performing Lab: [address] [address] CHOLESTEROL 217 mg/dL H TRIGLYCERIDE 256 mg/dL H 0-150 LDL calculated 121 mg/dL 0-129 CHOL/HDL 4.8 HDL CHOLESTEROL 45 mg/dL 40-60 Mar 25, 2024 03:26 PM [facility] HIV 1&2 Ag/Ab SCREEN Specimen Type: SERUM Comment: Hep C Ab: No HCV antibody detected. If recent infection is suspected or other evidence suggests HCV infection, consider HCV nucleic acid testing Ordering Provider: JAMES DUFF Report Released Date/Time: Mar 25, 2024 03:17 PM Reporting Lab: [address] [address] Performing Lab: [address] [address] HIV 1&2 Ag/Ab SCREEN NON-REACTIVE Nonreactive Social History: Smoking Status (Most current) and Tobacco Use (All prior to encounter date) This section includes the most current, and the historical, smoking and tobacco- related health factors from the [place] facility where the Encounter took place. Current Smoking Status This section includes the most current smoking, or tobacco-related health factor, from the [place] facility where the Encounter took place. Date/Time Current Smoking Status Comment [facility] Mar 18, 2024 10:00 AM VA-TOBACCO USE FOR DORI CIGARETTES [facility] Tobacco Use History This section includes a history of the smoking, or tobacco-related health factors, that were collected on or before the date of the Encounter. The data comes from the [place] facility where the Encounter took place. Date/Time Smoking Status/Tobac co Use Comment Facility Mar 18, 2024 10:00 AM VA-TOBACCO USE FORMER OTHER TYPE Quit more than 15 years ago [facility] Encounter Notes: All associated encounter notes This section contains the clinical notes associated to the Encounter. Date/Time Encounter Note(s) Provider Source Apr 20, 2024 10:47 AM SUICIDE PREVENTION RISK ASSESSMENT SCREENING NOTE: LOCAL TITLE: SUICIDE RISK EVALUATION - COMPREHENSIVE STANDARD TITLE: SUICIDE PREVENTION RISK ASSESSMENT SCREENING NOT DATE OF NOTE: APR 20, 2024@10:47 ENTRY DATE: APR 20, 2024@10:47:58 AUTHOR: AJ POTTER COSIGNER: URGENCY: STATUS: COMPLETED Comprehensive Suicide Risk [...] once every other week on average The [place] did not have suicidal intent at the time of the most recent ideation. The did not have a suicide plan at the time of the most recent ideation. The most recent suicidal ideation was the most severe ideation within the last 30 days. The does not have access to lethal means (firearms) The [place] does not have access to other lethal means. Suicidal Behavior The [place] has not made any suicide attempts since the last [place] Comprehensive Suicide Risk Evaluation was completed. The did not report any prior preparatory behaviors that have not been previously documented. Warning Signs The following warning signs are currently present for the [place]: None noted Additional past warning signs include: [...] and engagement with health care Comment: completed [facility] intake and consults are in for individual counseling, couples counseling, and med consult Reports motivation for medical treatment Comment: [place] feels optimistic about care Access to and engagement with mental health care Reports motivation for mental health treatment Has a significant other Hope for the future Protective personal traits or beliefs Clinical Impressions: The clinical impression of acute risk is Intermediate ACUTE Risk. As evidenced by: Continues to have SI but denies intent or plan. [place] is motivated to begin outpatient MH treatment and has protective factors. The clinical impression of chronic risk is Intermediate CHRONIC Risk. As evidenced by: Agrees to safety plan. Is taking steps to address chronic risk factors and is able to identify protective factors. Suicide Risk Mitigation Plan: This treatment and care plan was developed in collaboration with the [place]. Risk Mitigation Plan: Strategies for Managing Risk in OUTPATIENT setting Suicide Lead Generation Representative alerted for consideration of a Patient Record Flag Category I High Risk for Suicide. Increase frequency of suicide risk and symptom monitoring Consult/Referral to additional services and support Refer to evidence based psychotherapy Refer to psychiatry/medication assessment or management Provide with phone number for [place]'s Crisis Line: Dial [phone] (Press 1), Text to [phone], or Chat Educate on emergency services Re-evaluation: Due to the dynamic nature of some warning signs, risk and protective factors, suicide risk should be routinely re-evaluated. These risk management strategies were chosen to address [place]'s current presentation and feasible treatment options within the system of care. This plan should be re-evaluated over time. /prashanth/ Aj Potter [facility] Inter Com Servicer Signed: 04/20/2024 11:08 AJ POTTER [place] [facility] [place] [facility] Apr 19, 2024 03:21 PM MENTAL HEALTH CONS ULT: LOCAL TITLE: CONSULT REPORT/UNIFORM OUTPATIENT MENTAL HEALTH ASS STANDARD TITLE: MENTAL HEALTH CONSULT DATE OF NOTE: APR 19, 2024@15:21 ENTRY DATE: APR 19, 2024@15:22:09 AUTHOR: AJ POTTER EXP COSIGNER: URGENCY: STATUS: COMPLETED Uniform Outpatient Mental Health Assessment I. IDENTIFYING INFORMATION: GLADIS WILLETT Dec [id number] SERVICE CONNECTED % - NONE FOUND MARITAL STATUS - Referral source: [facility]IC Present at time of intake: [place] [X] Family member [ ] Supportive person(s) Name: Language Preference:Japanese Language Spoken:Japanese II. PRESENTING SITUATION: A. What brings you into Mental Health at this time: I had a recent suicide attempt. Right after Thanksgiving, I was sectioned at [facility] for six days. B. What are some [...] towards beginning or end of day. Prefers [facility]. III: ASSESSMENT: A. Do you have concerns about past or current mental health symptoms or problems: Yes [X] No [ ] If yes, please describe: Xenia is concerned about his mental health given his suicide attempt two months ago that resulted in an inpatient stay at [facility]. Though he hoped to heal during that stay, he realized it was instead geared toward immediate safety and discharge planning. Since discharging, Xenia has met with [facility] counselor 3x for interim care. Describes depressed/anxious [...] is negative for intent or plan. [facility] is active in CPRS and suicide safety plan is on file. Xenia's presentation appears related to how things are going with partner. For example, the suicide attempt came after they were in conflict and partner made a rejecting statement towards him. reports she can get angry, it's hard [...] describe: [X] Hospitalizations (when, where, etc.): recent [facility] stay in early Mar 2024 after suicide attempt [X] Medication trials (what, when, doses, etc.): Upon [facility] D/C: Fluoxetine 40 mg 1x/day, Hydroxyzine 50 [...] checked Regarding the motivation for treatment, estimate [place]'s stage of change with respect to this [...] none Regarding the motivation for treatment, estimate [place]'s stage of change with respect to this [...] or substancea buse. Born and raised in [facility] [place]. Mother had him at aged 16, at which time his bio father denied paternity. He was then raised believing faustino was bio father until actual bio father called him at age 13. Mom carolinad around that time but they remained in touch. Both fathers are now . Mom recently moved to [place] with a boyfriend. Xenia and she are in touch but not close. No abuse in home but [place] acknowledges a pattern of being invalidated by mom or feeling like an inconvenience. Xenia has half sister he was raised with but they fell out of touch after father's . He believes she lives in [facility]. Xenia met his Annamarie about four [...] environmental contaminants): [employer], did a tour in [facility] [place] and saw combat, discharged in 1996, exposure [...] Supports, your healthy or positive relationships: Annamarie, has no close friends otherwise H: What is your educational history or current goals: Graduated HS. May consider further schooling if necessary for employment goals. I. What is your employment history or current goals: [place] would like to enter a helping profession and help Veterans in some way. 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 Was laid off last summer but has a new job working FT at [employer]. Job is very sedentary, which may be contributing to [place]'s mental health issues. J. Do you have a legal history (incarcerations, probation, parole, divorce, child custody issues): remote DUI (20+ years ago) K. What is your level of orthodoxy or spiritual fulfillment: not orthodoxy or spiritual L. How do you culturally [...] Tariq Depression F32.A 03/18/2024August,CHERYL Tariq Anxiety F41.9 03/18/2024AugustCHERYL Insomnia G47.00 03/18/2024August,CHERYL Tariq Other medical problems [...] contact Mood/Affect:Anxious, Responsive and Congruent w/mood, Depressed Energy:Other: says his energy is low. Sleep:Early awakening, [...] SUMMARY AND IMPRESSIONS: 48 y/o male [employer] [place] presents to [facility] to address depressive sx and recent suicide attempt. discharged from [facility] in March 2024 with a new medication regimen and would like to continue med consult and start individual and/or couples counseling. His situation is complicated by Chrons diagnosis and marital conflict. VIII: NEXT STEPS: A: How can we work to meet your goals: would like to put in consults for [...] counseling, and med consult. /prashanth/ JONNY Owen [facility] Inter Com Servicer Signed: 04/20/2024 10:43 AJ POTTER [place] [facility]
--- OUTSIDE RECORDS SUMMARY | 2024-05-08 09:49 | XMS_ITS ---
Author Name [facility] [place] [facility] Address [address] [place] [id number] Care Team Providers Care Etl Data Architect Name Role Phone KALEB DUFF Primary Care Provider Unavail able Selected Encounter This section includes the information on record at [place] for the Encounter. Date/Time Encounter Type Encounter Description Reason Provider Source Apr 19, 2024 01:30 PM Outpatient Encounter [facility] AJ POTTER Encounter Template Text not used by [place] Plan of Treatment: Future Appointments (+ 6 months) and Future Tests (+/- 45 days) The Plan of Treatment section includes future care activities for the patient from all [place] treatmentfacilities. This section includes future appointments and future orders which are active, pending or scheduled. Future Appointments This section includes appointments that were scheduled to occur 6 months from the date of the Encounter, up to a maximum of 20 appointments. The data comes from all [place] treatment facilities. Appointment Date/Time Appointment Type Appointme nt Facility Name Apr 26, 2024 02:00 PM AMBULATORY [place]RY [place] [facility] [place] [facility] Apr 30, 2024 08:30 AM AMBULATORY [place] [facility] [place] [facility] May 05, 2024 02:00 PM AMBULATORY - MEDICINE [place] [facility] [place] [facility] May 11, 2024 01:30 PM AMBULATORY [place] [facility] [place] [facility] May 17, 2024 08:30 AM AMBULATORY - PSYCHIATRY [facility] Jun 21, 2024 03:30 PM AMBULATORY - MEDICINE [facility] Active, Pending, and Scheduled Orders This section includes a listing of several types of active, pending, and scheduled orders, including clinic medications orders, diagnostic test orders, procedure orders and consult orders; where the start date of the order is 45 days before the date of the Encounter or 45 days after the date of theEncounter. The data comes from all [place] treatment facilities. Test Date/Time Test Type Test Details Facility Name Mar 25, 2024 03:20 PM Consult Order COMM[facility]ITY [facility]ARE-GI GENERAL [facility] [employer] [facility] Apr 20, 2024 11:13 AM Consult Order PSYCHOTHERAPY BHIP/[facility] OUTPT [facility] [employer] [place] Apr 20, 2024 11:13 AM Consult Order PSYCHOTHERAPY BHIP/[facility] OUTPT Cons [employer] [place] Apr 26, 2024 12:00 AM Laboratory - Chemistry Order TSH BLOOD (SST-SERUM) SP [facility] Lab Results: +/- 30 days of the encounter This section includes the Chemistry and Hematology Lab Results on record with [place] for the patient. Radiology Reports and Pathology Reports are provided separately, in subsequent sections. Lab Results This section contains the Chemistry/Hematology Results that were resulted 30 days before or 30 daysafter the date of the Encounter. Date/Time Source Result Type Result - Unit Interpretation Reference Range Comment Mar 25, 2024 03:26 PM [facility] HEPATITIS A ANTIBODY (IgM) Specimen Type: [...] Mar 25, 2024 03:17 PM Reporting [facility] [address] [facility] [address] Performing Lab: [facility]USE[address] [address] HEPATITIS A ANTIBODY (IgM) Non Reactive Non Reactive Mar 25, 2024 03:26 PM [facility] HEPATITIS B SURFACE ANTIBODY (HBsAb)-WH Specimen Type: SERUM No comment entered. Ordering Provider: JAMES DUFF Report Released Date/Time: Mar 25, 2024 03:17 PM Reporting Lab: [facility] [address] [facility] [address] Performing Lab: [facility] Mar 25, 2024 03:26 PM [facility] VITAMIN D (25-OH) Specimen Type: SERUM No comment entered. Ordering Provider: JAMES DUFF Report Released Date/Time: Mar 25, 2024 03:17 PM Reporting [facility]: [facility] [address] [facility] [address] Performing Lab: [facility] [address] [facility] [address] VITAMIN D (25-OH) 38 ng/mL 20-50 Mar 25, 2024 03:26 PM [facility] CBC AND DIFF (AUTO) Specimen Type: BLOOD No comment entered. Ordering Provider: JAMES DUFF Report Released Date/Time: Mar 25, 2024 03:17 PM Reporting Lab: [facility] [address] [facility] [address] Performing Lab: [facility]ITALUSE[address] [address] WBC 8.01 10*3/uL 4.50-11.00 RBC 5.05 10*6/uL [...] 10*3/uL 0.00-0.00 Mar 25, 2024 03:26 PM [facility] IRON & TIBC PANEL Specimen Type: SERUM No comment entered. Ordering Provider: JAMES DUFF Report Released Date/Time: Mar 25, 2024 03:17 PM Reporting Lab: [address] [address] Performing Lab: [address] [address] TIBC 458 ug/dL 204-475 IRON 98 ug/dL 40-160 Transferrin Saturation 21.4 20.0-50.0 Transferrin (TRF) 347 mg/dL 200-360 Mar 25, 2024 03:26 PM [facility] FERRITIN Specimen Type: SERUM No comment entered. Ordering Provider: JAMES DUFF F Report Released Date/Time: Mar 25, 2024 03:17 PM Reporting Lab: [address] [address] Performing Lab: [facility] [address] [facility] [address] FERRITIN 53 ng/mL 20-300 Mar 25, 2024 03:26 PM [facility] HEPATITIS C ANTIBODY (HCV)-ARC Specimen Type: SERUM Comment: Hep C Ab: No HCV antibody detected. If recent infection is suspected or other evidence suggests HCV infection, consider HCV nucleic acid testing Ordering Provider: JAMES DUFF Report Released Date/Time: Mar 25, 2024 03:17 PM Reporting Lab: [facility] [address] [facility] [address] Performing Lab: [address] [address] HEPATITIS C ANTIBODY NON-REACTIVE NON-REACTIVE Mar 25, 2024 03:26 PM [facility] BASIC METABOLIC PANEL (non-fasting) Specimen Type: SERUM No comment entered. Ordering Provider: JAMES DUFF Report Released Date/Time: Mar 25, 2024 03:17 PM Reporting Lab: [address] [address] Performing Lab: [address] [address] UREA NITROGEN 13 mg/dL 7-25 GLUCOSE 100 mg/dL 65-100 SODIUM 140 mmol/L 135-145 POTASSIUM 3.6 mmol/L 3.5-5.0 CHLORIDE 104 mmol/L 100-110 CO2 24 meq/L 20-30 CREATININE, Serum 0.86 mg/dL 0.50-1.40 eGFR(CKD-EPI 2020) >90 mL/min >60 Mar 25, 2024 03:26 PM [facility] BASIC METABOLIC PANEL (fasting) Specimen Type: SERUM No comment entered. Ordering Provider: JAMES DUFF Report Released Date/Time: Mar 25, 2024 03:17 PM Reporting Lab: [address] [address] Performing Lab: [facility] [address] [address] UREA NITROGEN 13 mg/dL 7-25 GLUCOSE 100 mg/dL 65-100 SODIUM 140 mmol/L 135-145 POTASSIUM 3.6 mmol/L 3.5-5.0 CHLORIDE 104 mmol/L 100-110 CO2 24 meq/L 20-30 CREATININE, Serum 0.86 mg/dL 0.50-1.40 eGFR(CKD-EPI 2020) >90 mL/min >60 Mar 25, 2024 03:26 PM [facility] LIVER FUNCTION Specimen Type: SERUM No comment entered. Ordering Provider: JAMES DUFF Report Released Date/Time: Mar 25, 2024 03:17 PM Reporting Lab: [address] [address] Performing Lab: [address] [address] PROTEIN,TOTAL 7.7 g/dL 6.0-8.3 ALBUMIN 4.4 g/dL 3.5-5.0 ALKALINE PHOSPHATASE 80 U/L 40-150 AST 11 U/L 5-34 ALT 14 U/L BILIRUBIN, TOTAL 1.3 mg/dL H 0.2-1.2 BILIRUBIN, DIRECT 0.4 mg/dL 0-0.5 Mar 25, 2024 03:26 PM [facility] LIPID PANEL FASTING Specimen Type: SERUM No comment entered. Ordering Provider: JAMES DUFF Report Released Date/Time: Mar 25, 2024 03:17 PM Reporting Lab: [address] [address] Performing Lab: [address] [address] CHOLESTEROL 217 mg/dL H TRIGLYCERIDE 256 mg/dL H 0-150 LDL calculated 121 mg/dL 0-129 CHOL/HDL 4.8 HDL CHOLESTEROL 45 mg/dL 40-60 Mar 25, 2024 03:26 PM [facility] HIV 1&2 Ag/Ab SCREEN Specimen Type: SERUM Comment: Hep C Ab: No HCV antibody detected. If recent infection is suspected or other evidence suggests HCV infection, consider HCV nucleic acid testing Ordering Provider: JAMES DUFF Report Released Date/Time: Mar 25, 2024 03:17 PM Reporting Lab: [facility] [address] [facility] [address] Performing Lab: [address] [address] HIV 1&2 Ag/Ab SCREEN NON-REACTIVE Nonreactive Social History: Smoking Status (Most current) and Tobacco Use (All prior to encounter date) This section includes the most current, and the historical, smoking and tobacco- related health factors from the [place] facility where the Encounter took place. Current Smoking Status This section includes the most current smoking, or tobacco-related health factor, from the [place] facility where the Encounter took place. Date/Time Current Smoking Status Comment Facil it Mar 18, 2024 10:00 AM VA-TOBACCO USE FOR DORI CIGARETTES [facility] Tobacco Use History This section includes a history of the smoking, or tobacco-related health factors, that were collected on or before the date of the Encounter. The data comes from the [place] facility where the Encounter took place. Date/Time Smoking Status/Tobac co Use Comment Facility Mar 18, 2024 10:00 AM VA-TOBACCO USE FORMER OTHER TYPE Quit more than 15 years ago [facility] Encounter Notes: All associated encounter notes This section contains the clinical notes associated to the Encounter. Date/Time Encounter Note(s) Provider Source Apr 19, 2024 01:34 PM MENTAL HEALTH CONS ULT: LOCAL TITLE: MENTAL HEALTH CONSULT NOTE STANDARD TITLE: MENTAL HEALTH CONSULT DATE OF NOTE: APR 19, 2024@13:34:16 ENTRY DATE: APR 19, 2024@13:34:16 AUTHOR: AJ POTTER EXP COSIGNER: URGENCY: STATUS: COMPLETED Hobson Anxiety Inventory Date Given: 04/19/2024 Clinician: Aj Potter Location: [facility] : Zeke Negrete SSN: [id number] : [birth year]) Gender: Man DARIELA Score: 19 indicates moderate anxiety. The overall range is 0 to 63 with moderate anxiety between 16 - 25. 0-7 Minimal level of anxiety 8-15 Mild anxiety 16-25 Moderate anxiety 26-63 Severe anxiety Questions and answers 1. Mildly (1 point) 2. Not at all(0 points) 3. Not at all(0 points) 4. Moderately (2 points) 5. Mildly (1 point) 6. Mildly (1 point) 7. Moderately (2 points) 8. Not at all(0 points) 9. Not at all(0 points) 10. Severely (3 points) 11. Not at all(0 points) 12. Moderately (2 points) 13. Moderately (2 points) 14. Not at all(0 points) 15. Not at all(0 points) 16. Not at all(0 points) 17. Not at all(0 points) 18. Severely (3 points) 19. Not at all(0 points) 20. Mildly (1 point) 21. Mildly (1 point) Copyright (c) 1993 [employer] Hardik Hobson. Reproduced, adapted and translated with permission of Publisher [employer] All rights reserved. Information contained in this note is based on a self-report assessment and is not sufficient to use alone for diagnostic purposes. Assessment results should be verified for accuracy and used in conjunction with other diagnostic activities and procedures. /prashanth/ JONNY Owen [facility] Natural Resource Officer Signed: 04/20/2024 10:44 AJ POTTER [place] [facility] [place] [facility]
--- OUTSIDE RECORDS SUMMARY | 2024-05-08 09:50 | XMS_ITS | Patient Health Record ---
Author Organization [facility] Address [address] [place] [address] Care Team Providers Care Gravel Hauler Name Role Phone Freddy Gonzales Primary Care Provider Un available GottliebJulio Unavailable [phone] ALLERGIES No Known Allergies RESULTS Component Value Reference Range Notes Complete Blood Count Auto Di ff Reviewed date:07/18/2023 03:35:42 PM Interpretation: Performing Lab:[facility], [address] [place] [phone] Notes/Report: White Blood Count 7.5 4.8-10.8 X10*3/uL Red Blood Count 4.26 4.60-5.80 X10*6/uL Hemoglobin 13.5 14.0-18.0 g/dl Hematocrit 39.8 42.0-52.0 % Mean Corpuscular Volume 93.4 80.0-98.0 fL Mean Corpuscular Hemoglobin 31.7 27.0-33.0 pg Mean Corpuscular HGB Conc 33.9 31.0-36.0 g/dl Red Cell Distribution Width 13.7 11.0-16.0 % Platelet Count 235 160-400 X10*3/uL Mean Platelet Volume 9.8 9.4-12.4 fL Neutrophils Percent Auto 76.5 45-73 % Imm Gran Pct Auto 0.5 0.0-0.4 % Lymphocytes Percent Auto 15.6 20-40 % Monocytes Percent Auto 6.4 2-11 % Eosinophils Percent Auto 0.7 0-4 % Basophils Percent Auto 0.3 0-2 % NRBC Pct Auto 0.0 0.0-0.2 /100WBC Neutrophils Absolute Auto 5.7 2.0-8.3 x10*3/u L Imm Gran Abs Auto 0.04 0.00-0.03 X10*3/uL Lymphocytes Absolute Auto 1.2 1.2-4.9 X10*3/u L Monocytes Absolute Auto 0.5 0.1-1.2 X10*3/uL Eosinophils Absolute Auto 0.1 0.0-0.4 X10*3/u L Basophils Absolute Auto 0.0 0.0-0.2 X10*3/uL NRBC Abs Auto 0.000 0.0-0.012 X10*3/uL Liver Panel Reviewed date:07/26/2023 11:43:06 PM Interpretation: Performing Lab:[facility], [address] [place] [phone] Notes/Report: Bilirubin Total 1.0 0.0-1.0 mg/dL Bilirubin Direct 0.3 0.0-0.5 mg/dL Aspartate Amino Transferase 11 5-37 U/L Alanine Aminotransferase 12 0-40 U/L Total Protein 7.1 6.5-8.0 g/dL Albumin Level 4.2 3.5-5.0 g/dL Alkaline Phosphatase 67 39-117 U/L Krystle Watts UST Reviewed date:09/20/2023 09:04:45 PM Interpretation: Performing Lab:[facility], [address] [place] [phone] Notes/Report: Krystle Watts UST SEE NOTE SEE SCA NNED RESULTS IN EMR Complete Blood Count Auto Di ff Reviewed date:11/22/2023 03:01:57 PM Interpretation: Performing Lab:[facility], [address] [place] [phone] Notes/Report: White Blood Count 7.3 4.8-10.8 X10*3/uL Red Blood Count 4.64 4.60-5.80 X10*6/uL Hemoglobin 14.6 14.0-18.0 g/dl Hematocrit 42.9 42.0-52.0 % Mean Corpuscular Volume 92.5 80.0-98.0 fL Mean Corpuscular Hemoglobin 31.5 27.0-33.0 pg Mean Corpuscular HGB Conc 34.0 31.0-36.0 g/dl Red Cell Distribution Width 14.8 11.0-16.0 % Platelet Count 240 160-400 X10*3/uL Mean Platelet Volume 9.3 9.4-12.4 fL Neutrophils Percent Auto 65.7 45-73 % Imm Gran Pct Auto 0.7 0.0-0.4 % Lymphocytes Percent Auto 17.5 20-40 % Monocytes Percent Auto 12.5 2-11 % Eosinophils Percent Auto 2.9 0-4 % Basophils Percent Auto 0.7 0-2 % NRBC Pct Auto 0.0 0.0-0.2 /100WBC Neutrophils Absolute Auto 4.8 2.0-8.3 x10*3/u L Imm Gran Abs Auto 0.05 0.00-0.03 X10*3/uL Lymphocytes Absolute Auto 1.3 1.2-4.9 X10*3/u L Monocytes Absolute Auto 0.9 0.1-1.2 X10*3/uL Eosinophils Absolute Auto 0.2 0.0-0.4 X10*3/u L Basophils Absolute Auto 0.1 0.0-0.2 X10*3/uL NRBC Abs Auto 0.000 0.0-0.012 X10*3/uL Liver Panel Reviewed date:11/25/2023 12:41:38 AM Interpretation: Performing Lab:[address] [phone] Notes/Report: Bilirubin Total 1.3 0.0-1.0 mg/dL Bilirubin Direct 0.3 0.0-0.5 mg/dL Aspartate Amino Transferase 9 5-37 U/L Alanine Aminotransferase 10 0-40 U/L Total Protein 7.1 6.5-8.0 g/dL Albumin Level 4.3 3.5-5.0 g/dL Alkaline Phosphatase 79 39-117 U/L Complete Blood Count Auto Di ff Reviewed date:02/28/2024 11:21:24 AM Interpretation: Performing Lab:[address] [phone] Notes/Report: White Blood Count 7.4 4.8-10.8 X10*3/uL Red Blood Count 4.64 4.60-5.80 X10*6/uL Hemoglobin 14.3 14.0-18.0 g/dl Hematocrit 42.4 42.0-52.0 % Mean Corpuscular Volume 91.4 80.0-98.0 fL Mean Corpuscular Hemoglobin 30.8 27.0-33.0 pg Mean Corpuscular HGB Conc 33.7 31.0-36.0 g/dl Red Cell Distribution Width 14.3 11.0-16.0 % Platelet Count 213 160-400 X10*3/uL Mean Platelet Volume 9.8 9.4-12.4 fL Neutrophils Percent Auto 72.0 45-73 % Imm Gran Pct Auto 0.5 0.0-0.4 % Lymphocytes Percent Auto 15.9 20-40 % Monocytes Percent Auto 9.3 2-11 % Eosinophils Percent Auto 1.9 0-4 % Basophils Percent Auto 0.4 0-2 % NRBC Pct Auto 0.0 0.0-0.2 /100WBC Neutrophils Absolute Auto 5.3 2.0-8.3 x10*3/u L Imm Gran Abs Auto 0.04 0.00-0.03 X10*3/uL Lymphocytes Absolute Auto 1.2 1.2-4.9 X10*3/u L Monocytes Absolute Auto 0.7 0.1-1.2 X10*3/uL Eosinophils Absolute Auto 0.1 0.0-0.4 X10*3/u L Basophils Absolute Auto 0.0 0.0-0.2 X10*3/uL NRBC Abs Auto 0.000 0.0-0.012 X10*3/uL Liver Panel Reviewed date:02/28/2024 11:21:42 AM Interpretation: Performing Lab:[facility], [address] [place] [phone] Notes/Report: Bilirubin Total 2.1 0.0-1.0 mg/dL Slight Icte marina. Bilirubin Direct 0.5 0.0-0.5 mg/dL Slight Ict erus. Aspartate Amino Transferase 15 5-37 U/L Alanine Aminotransferase 14 0-40 U/L Total Protein 6.9 6.5-8.0 g/dL Albumin Level 4.3 3.5-5.0 g/dL Alkaline Phosphatase 69 39-117 U/L Vitamin B12 Reviewed date:02/28/2024 11:27:16 AM Interpretation: Performing Lab:[facility], [address] [place] [phone] Notes/Report: Vitamin B12 1502 200-900 pg/mL NORMAL 200-900 PG/ML INDETERMINATE 160-199 PG/ML DEFICIENT < 160 PG/ML Krystle Watts UST Reviewed date:03/20/2024 04:16:06 PM Interpretation: Performing Lab:[facility], [address] [place] [phone] Notes/Report: Krystle Watts UST SEE NOTE SEE SCA NNED RESULTS IN EMR REASON FOR REFERRAL Referring Provider First Name Freddy Referring Provider Last Name Indira Referring Provider Speciality Internal M edicine Referred Organization [facility] Referred Provider Julio Gottlieb Referred Address [address] [place] [phone], Referred Provider Specialty Gastroentero logy Referral Priority Routine MEDICATIONS Medication SIG (Take, Route, Frequency, Duration) Notes Start Date End Date Status azaTHIOprine 50 MG TAKE 3 TABLETS BY MO UTH DAILY Active Budesonide 3 MG 2 capsules Act monroe FLUoxetine HCl 40 MG TAKE 1 CAPSULE BY M OUTH EVERY DAY Orally Active buPROPion HCl ER (SR) 150 MG 1 tablet in the morning Orally Once a day for 30 day(s) Active Aspirin 81 Not-Takin g Mesalamine ER 500 MG TAKE 2 CAPSULES BY MOUTH 4 TIMES A DAY for 90 Not-Taking Omeprazole 40 MG TAKE 1 CAPSULE BY MO UTH EVERY DAY (30 MINUTES BEFORE MORNING MEAL) Oral Active Lisinopril-hydroCHLOROth iazide 10-12.5 MG TAKE 1 TABLET BY MOUTH EVERY DAY Oral for 90 Active Stelara 90 MG/ML 1 Subcutaneous Every 4 weeks 04/24/2023 Active hydrOXYzine HCl 50 MG 1 tablet as needed Orally Once a day for 30 day(s) Active IMMUNIZATIONS Vaccine Route Administration Date Status Comme nts Influenza Unknown 04/02/2022 Administered Influenza Unknown 03/02/2024 Administered SOCIAL HISTORY Tobacco Use: Social History Observation Description Date Details (start date - stop date) Former Smoker NA - NA Sex Assigned At : Social History Observation Description Sex Assigned At Unknown Tobacco Use/Smoking Question Answer Notes Patient is a former smoker How long has it been since you last smoked? > 10 years Alcohol Screen Question Answer Notes Did you have a drink containing alcohol in the p ast year? No Points 0 Interpretation Negative PROBLEMS Problem Type ICD Code Onset Dates Problem Status W/U Status Risk SNOMED Code Notes Problem Crohn's disease of small intestine without complication (K50.00) Active confirmed 94061483 Problem Diarrhea, unspecified type (R19.7) Active confirmed 59718791 Problem Crohn''s disease of small intestine without complication (K50.00) Active confirmed Crohn's disease of small intestine (66680932) Problem Encounter for snf current azathioprine therapy (Z79.624) Active confirmed 635876417 VITAL SIGNS Temperature 97.8 degrees Fahrenheit 05/05/2024 Blood pressure diastolic 00 mm Hg 05/05/2024 Height 69 in 05/05/2024 Blood pressure systolic 000 mm Hg 05/05/2024 Weight 193 lbs 05/05/2024 BMI 28.50 kg/m2 05/05/2024 Encounters Encounter Location Date Provider Diagnosis [facility] [address] [place] [phone] 10/08/2023 Julio Gottlieb [facility] [address] [place] [phone] 01/07/2024 Julio Gottlieb Crohn's disease of small intestine without complication K50.00 and Diarrhea, unspecified type R19.7 [facility] [address] [place] [phone] 05/05/2024 Julio Gottlieb Crohn's disease of small intestine without complication K50.00 [facility] [address] [place] [phone] 07/18/2023 Julio Gottlieb Crohn''s disease of small intestine without complication K50.00 [facility] [address] [place] [phone] 09/20/2023 Julio Gottlieb [facility] [address] [place] [phone] 10/06/2023 Julio Gottlieb Crohn''s disease of small intestine without complication K50.00 [facility] [address] [place] [phone] 10/29/2023 Julio Gottlieb [facility] [address] [place] [address] 03/19/2024 Julio Gottlieb ASSESSMENTS Encounter Date Diagnosis Assessment Notes Treatment Notes Treatment Clinical Notes 01/07/2024 Crohn's disease of small intestine without complication (ICD-10 - K50.00) Start using 2 Imodium every morning and 2 every afternoon on a daily and regular basis Minimize junk food Continue the Vitamins but add a Calcium supplement 01/07/2024 Diarrhea, unspecified type (ICD-10 - R19.7) 05/05/2024 Crohn's disease of small intestine without complication (ICD-10 - K50.00) Start using 2 Imodium every morning and 2 every afternoon on a daily and regular basis Minimize junk food Continue the Vitamins and Calcium supplement 07/18/2023 Crohn''s disease of small intestine without complication (ICD-10 - K50.00) 10/06/2023 Crohn''s disease of small intestine without complication (ICD-10 - K50.00) PLAN OF TREATMENT Pending Test Test Name Order Date CHEM 7 PROFILE 08/27/2022 LIVER PROFILE 10/06/2023 LIVER PROFILE 08/27/2022 LIVER PROFILE 04/08/2023 LIVER PROFILE 09/21/2022 LIVER PROFILE 05/05/2024 LIVER PROFILE 12/04/2022 CRP 08/27/2022 CBC w DIFF 12/04/2022 CBC w DIFF 10/06/2023 CBC w DIFF 04/08/2023 CBC w DIFF 08/27/2022 CBC w DIFF 09/21/2022 CBC w DIFF 05/05/2024 SED RATE (ESR) 08/27/2022 HEPATITIS B PROFILE 08/27/2022 PROMETHEUS THIOPURINE METABOLITES (TPMT) 12/04/2022 HUMIRA LEVEL/AB (ADALIMUMAB LEVEL/AB) STOOL WBC 08/27/2022 Vitamin B12 01/07/2024 Prom[facility] Anser UST 01/07/2024 [facility] Anser UST 07/18/2023 Prom Thiopurine Metabolites 09/03/2022 [facility] TPMT Enzyme 09/03/2022 [facility] TPMT Genetics 09/03/2022 CDiff with Reflex to PCR 08/27/2022 GI PANEL 08/27/2022 Next Appt Details Provider Name:Julio Gottlieb , 01/12/2025 04:20:00 PM, [address], [address], [place], [address], Insurance Providers Payer Name Payer Address Payer Phone Subscriber Number Group Number Insured Name Patient Relationship to Insured Coverage Start Date Coverage End Date [facility] [employer] [address] [place] [address] [id number] GLADIS WILLETT Self - patient is the insured MEDICAL (GENERAL) HISTORY Medical History History ICD Code Denies ME,DM,CVA,Lung disease,renal dise ase Hypertension COVID 03/2023 hospitalized Pancreatitis in 2009-unclear etiology-no EtOH Depression Crohn's disease diagnosed in July of 2021. His colonoscopy at that time by Dr. Huang revealed some stricturing and inflammation at the ileocecal valve, but with a completely normal colon. He has been on a combination of azathioprine and Humira every other week since the summer. He was initially treated with a course of prednisone and azathioprine at the time of his initial diagnosis. CT scan at the time of his diagnosis revealed evidence of inflammation and wall thickening in the terminal ileum, but without any sign of stricture, obstruction, fistula, nor abscess. EGD in July of 2021 reveale d some changes of mild reflux at the gastroesophageal junction with biopsies negative for Guillermo's esophagus. The stomach and duodenum appeared normal. Humira stopped in 09/2022 due to nondetec table levels and a + antibody Azathioprine increased from 100 to 150mg QD in 09/2022 due to low levels and normal metabolism studies. Azathioprine levels in November were in a better therapeutic range. Pentasa started in Summer 2022 + Norovirus and increased Cr ohn's sx in 08/2022-treated with a course of prednisone with good relief He was started on budesonide in November 2022 due to a relapse in symptoms off of prednisone. Started on Stelara 04/2023 an d increased injections to every 4 weeks in 10/2023--Stelara levels were in a therapeutic range of 9 in February of 2024 and with negative antibodies Surgical History Surgery Date(Month/Year)
--- OUTSIDE RECORDS SUMMARY | 2024-05-08 09:50 | XMS_ITS | Encounter Summary ---
Author Name [facility] Organization [facility] Address [address] [place] [address] Care Team Providers Care Electronic Communications Technician Name Role Phone KALEB DUFF Primary Care Provider Unavail able Selected Encounter This section includes the information on record at [place] for the Encounter. Date/Time Encounter Type Encounter Description Reason Provider Source Apr 05, 2024 08:00 AM PSYTX W PT 30 [facility]ES [facility] - IND ICD-10-CM F32.A Depression, unspecified MAYRA HAYES Martha Encounter Template Text not used by [place] Assessments - Encounter Diagnoses This section includes the primary and secondary diagnoses documented for the Encounter. Date/Time Primary/Secondary Diagnosis Diagnosis Name Provider Source Apr 05, 2024 09:57 AM PRIMARY Depression, unspecified MAYAR HAYES [facility] Plan of Treatment: Future Appointments (+ 6 months) and Future Tests (+/- 45 days) The Plan of Treatment section includes future care activities for the patient from all [place] treatmentfacilities. This section includes future appointments and future orders which are active, pending or scheduled. Future Appointments This section includes appointments that were scheduled to occur 6 months from the date of the Encounter, up to a maximum of 20 appointments. The data comes from all [place] treatment facilities. Appointment Date/Time Appointment Type Appointme nt Facility Name Apr 15, 2024 08:00 AM AMBULATORY - PSYCHIATRY [facility] Apr 19, 2024 01:00 PM AMBULATORY - PS[place]CHIATRY [place] [facility] [place] [facility] Apr 26, 2024 02:00 PM AMBULATORY - PSYCHIATRY [facility] [place] [facility] Apr 30, 2024 08:30 AM AMBULATORY - PSYCHIATRY [facility] [place] [facility] May 05, 2024 02:00 PM [facility] May 11, 2024 01:30 PM [facility] May 17, 2024 08:30 AM [facility] Jun 21, 2024 03:30 PM [facility] Active, Pending, and Scheduled Orders This section includes a listing of several types of active, pending, and scheduled orders, including clinic medications orders, diagnostic test orders, procedure orders and consult orders; where the start date of the order is 45 days before the date of the Encounter or 45 days after the date of theEncounter. The data comes from all [place] treatment facilities. Test Date/Time Test Type Test Details Facility Name Mar 25, 2024 03:20 PM Consult Order COMMUNITY CARE-GI GENERAL Cons [employer]man's Choice [facility] Apr 20, 2024 11:13 AM Consult Order PSYCHOTHERAPY BHIP/NHM OUTPT [employer] Choice [facility] Apr 20, 2024 11:13 AM Consult Order PSYCHOTHERAPY BHIP/NHM OUTPT [employer] Choice [facility] Apr 26, 2024 12:00 AM Laboratory - Chemistry Order TSH BLOOD (SST[facility]SERUM) [facility] Lab Results: +/- 30 days of the encounter This section includes the Chemistry and Hematology Lab Results on record with [place] for the patient. Radiology Reports and Pathology Reports are provided separately, in subsequent sections. Lab Results This section contains the Chemistry/Hematology Results that were resulted 30 days before or 30 daysafter the date of the Encounter. Date/Time Source Result Type Result - Unit Interpretation Reference Range Comment Mar 25, 2024 03:26 PM [facility] HEPATITIS A ANTIBODY (IgM) Specimen Type: [...] Mar 25, 2024 03:17 PM Reporting Lab: [address] [address] Performing Lab: [address] [address] HEPATITIS A ANTIBODY (IgM) Non Reactive Non Reactive Mar 25, 2024 03:26 PM [facility] HEPATITIS B SURFACE ANTIBODY (HBsAb)-WH Specimen Type: SERUM No comment entered. Ordering Provider: JAMES DUFF Report Released Date/Time: Mar 25, 2024 03:17 PM Reporting Lab: [address] [address] Performing Lab: [facility] Mar 25, 2024 03:26 PM [facility] VITAMIN D (25-OH) Specimen Type: SERUM No comment entered. Ordering Provider: JAMES DUFF Report Released Date/Time: Mar 25, 2024 03:17 PM Reporting Lab: [address] [address] Performing Lab: [address] [address] VITAMIN D (25-OH) 38 ng/mL 20-50 Mar 25, 2024 03:26 PM [facility] CBC AND DIFF (AUTO) Specimen Type: BLOOD No comment entered. Ordering Provider: JAMES DUFF Report Released Date/Time: Mar 25, 2024 03:17 PM Reporting Lab: [facility] [address] [facility] [address] Performing Lab: [address] [address] WBC 8.01 10*3/uL 4.50-11.00 RBC 5.05 10*6/uL [...] 10*3/uL 0.00-0.00 Mar 25, 2024 03:26 PM [facility] IRON & TIBC PANEL Specimen Type: SERUM No comment entered. Ordering Provider: JAMES DUFF Report Released Date/Time: Mar 25, 2024 03:17 PM Reporting Lab: [address] [address] Performing Lab: [address] [place] [address] TIBC 458 ug/dL 204-475 IRON 98 ug/dL 40-160 Transferrin Saturation 21.4 20.0-50.0 Transferrin (TRF) 347 mg/dL 200-360 Mar 25, 2024 03:26 PM [facility] FERRITIN Specimen Type: SERUM No comment entered. Ordering Provider: JAMES DUFF Report Released Date/Time: Mar 25, 2024 03:17 PM Reporting Lab: [address] [address] Performing Lab: [address] [address] FERRITIN 53 ng/mL 20-300 Mar 25, 2024 03:26 PM [facility] HEPATITIS C ANTIBODY (HCV)-ARC Specimen Type: SERUM Comment: Hep C Ab: No HCV antibody detected. If recent infection is suspected or other evidence suggests HCV infection, consider HCV nucleic acid testing Ordering Provider: JAMES DUFF Report Released Date/Time: Mar 25, 2024 03:17 PM Reporting Lab: [address] [address] Performing Lab: [address] [address] HEPATITIS C ANTIBODY NON-REACTIVE NON-REACTIVE Mar 25, 2024 03:26 PM [facility] BASIC METABOLIC PANEL (non-fasting) Specimen Type: SERUM No comment entered. Ordering Provider: JAMES DUFF Report Released Date/Time: Mar 25, 2024 03:17 PM Reporting Lab: [address] [address] Performing Lab: [address] [address] UREA NITROGEN 13 mg/dL 7-25 GLUCOSE 100 mg/dL 65-100 SODIUM 140 mmol/L 135-145 POTASSIUM 3.6 mmol/L 3.5-5.0 CHLORIDE 104 mmol/L 100-110 CO2 24 meq/L 20-30 CREATININE, Serum 0.86 mg/dL 0.50-1.40 eGFR(CKD-EPI 2020) >90 mL/min >60 Mar 25, 2024 03:26 PM [facility] BASIC METABOLIC PANEL (fasting) Specimen Type: SERUM No comment entered. Ordering Provider: JAMES DUFF Report Released Date/Time: Mar 25, 2024 03:17 PM Reporting Lab: [address] [address] Performing Lab: [address] [address] UREA NITROGEN 13 mg/dL 7-25 GLUCOSE 100 mg/dL 65-100 SODIUM 140 mmol/L 135-145 POTASSIUM 3.6 mmol/L 3.5-5.0 CHLORIDE 104 mmol/L 100-110 CO2 24 meq/L 20-30 CREATININE, Serum 0.86 mg/dL 0.50-1.40 eGFR(CKD-EPI 2020) >90 mL/min >60 Mar 25, 2024 03:26 PM [facility] LIVER FUNCTION Specimen Type: SERUM No comment entered. Ordering Provider: JAMES DUFF Report Released Date/Time: Mar 25, 2024 03:17 PM Reporting Lab: [facility] [address] [facility] [address] Performing Lab: [address] [address] PROTEIN,TOTAL 7.7 g/dL 6.0-8.3 ALBUMIN 4.4 g/dL 3.5-5.0 ALKALINE PHOSPHATASE 80 U/L 40-150 AST 11 U/L 5-34 ALT 14 U/L BILIRUBIN, TOTAL 1.3 mg/dL H 0.2-1.2 BILIRUBIN, DIRECT 0.4 mg/dL 0-0.5 Mar 25, 2024 03:26 PM [facility] LIPID PANEL FASTING Specimen Type: SERUM No comment entered. Ordering Provider: JAMES DUFF Report Released Date/Time: Mar 25, 2024 03:17 PM Reporting Lab: [facility] [address] [facility] [address] Performing Lab: [address] [address] CHOLESTEROL 217 mg/dL H TRIGLYCERIDE 256 mg/dL H 0-150 LDL calculated 121 mg/dL 0-129 CHOL/HDL 4.8 HDL CHOLESTEROL 45 mg/dL 40-60 Mar 25, 2024 03:26 PM [facility] HIV 1&2 Ag/Ab SCREEN Specimen Type: SERUM Comment: Hep C Ab: No HCV antibody detected. If recent infection is suspected or other evidence suggests HCV infection, consider HCV nucleic acid testing Ordering Provider: JAMES DUFF Report Released Date/Time: Mar 25, 2024 03:17 PM Reporting Lab: [address] [address] Performing Lab: [address] [address] HIV 1&2 Ag/Ab SCREEN NON-REACTIVE Nonreactive Social History: Smoking Status (Most current) and Tobacco Use (All prior to encounter date) This section includes the most current, and the historical, smoking and tobacco- related health factors from the [place] facility where the Encounter took place. Current Smoking Status This section includes the most current smoking, or tobacco-related health factor, from the [place] facility where the Encounter took place. Date/Time Current Smoking Status Comment Fely merida Mar 18, 2024 10:00 AM VA-TOBACCO USE FOR DORI CIGARETTES [facility] Tobacco Use History This section includes a history of the smoking, or tobacco-related health factors, that were collected on or before the date of the Encounter. The data comes from the [place] facility where the Encounter took place. Date/Time Smoking Status/Tobac co Use Comment Facility Mar 18, 2024 10:00 AM VA-TOBACCO USE FORMER OTHER TYPE Quit more than 15 years ago [facility] Encounter Notes: All associated encounter notes This section contains the clinical notes associated to the Encounter. Date/Time Encounter Note(s) Provider Source Apr 05, 2024 08:16 AM TELEHEALTH NOTE: LOCAL TITLE: [place] [facility] PSYCHOLOGY NOTE STANDARD TITLE: TELEHEALTH NOTE DATE OF NOTE: APR 05, 2024@08:16 ENTRY DATE: APR 05, 2024@08:16:38 AUTHOR: MAYRA HAYES COSIGNER: URGENCY: STATUS: COMPLETED Date of session: April 05, 2024 Duration of session: 30 minutes Diagnosis: MDD, recurrent, severe Presenting Problem ( report): Xenia presented to [facility] via [facility] for interim care as he was recently placed on a HRF for suicide after recent SI with plan and intent that led to [facility] at [facility] in [place], [place]. Course of Session: shared that he is trying to stay [...] is still there. Specific mental health/clinical interventions: [place] and this fiction and nonfiction prose writer explored different coping strategies that he could implement. Discussed thought records and ways to process thoughts outside of the cognitive feedback loop. [place] and this fiction and nonfiction prose writer also discussed light movement that can be [...] indication of formal thought disorder. Risk Assessment: denied SI today. See CSRE from 04/01 Date of next planned contact: RTC on 04/15 @8am -------- [facility] ([facility] Standard Documentation [facility] Clinician Resources Only: E911 (Emergency Call Relay Center): [phone] [place] [employer] Crisis Line - 988 then press #1. [place] Suicide Coordinator [phone], Ext. [phone]; Back-up Ext. [phone] [place] Police, Ted STEVENSON [phone] Introduction: Visit is being conducted by [place] [facility]. identified with 2 identifiers: [X] Full Name [X] Date of [ ] [place] ID Card Emergency Plan: [place] confirmed and/or provided the following information in case of emergency or technology failure. PATIENT PHONE - NONE FOUND PHONE NUMBER [CELLULAR] - [phone] Is patient phone number correct, if not, enter below: [place]'s phone number: GLADIS WILLETT [address], [place], [address] [place]'s present location and address for appointment: Above Address 's emergency contact name and phone number: on file [place] reported that location is private and safe: Yes Informed Consent: [place] informed of the risks and benefits of Telehealth video care. has the right to refuse video services. If refuses video visit, a [id number] visit will be scheduled. [place] verbalized consent for this video visit: Yes provided consent for any other persons present for visit: N/A If yes, who and relationship to patient: Secure visit: Visit was locked for security and privacy:Yes /prashanth/ Mayra Hayes Psy.D. Psychologist Signed: 04/05/2024 09:57 MAYRA HAYES [place] [facility]
--- OUTSIDE RECORDS SUMMARY | 2024-05-08 09:50 | XMS_ITS | Continuity of Care Document ---
Author Name [facility] Organization [facility] Care Team Providers Care Catcher Helper Name Role Phone [facility] Unavailable Unavailable Problems Combined list of problems from Department of Defense and Veterans Affairs facilities. It does not include entries that were removed or entered in error. Problem Status Onset Date Problem Type Date of Resolution Comments Source Anxiety Active Condition [facility] Crohns disease Active Condition Mar Entered By: CHERYL VICENTE Comment: of small intestine without complication [facility] Depression Active Condition [facility] Ess[facility] hypertension Active Condition [facility] Insomnia Active Condition [facility] Posttraumatic stress disorder Active Condition [facility] Diagnosis: ICD-10-CM F43.10 Post-traumatic stress disorder, unspecified Active Diagnosis [facility] Diagnosis: ICD-10-CM 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, 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 Diagnosis [facility] Diagnosis: ICD-10-CM F32.A Depression, unspecified Active Diagnosis [facility] Diagnosis: ICD-10-CM K50.90 Crohn's disease, unspecified, without complications Active Diagnosis [facility] Diagnosis: ICD-10-CM I10 Essential (primary) hypertension Active Diagnosis [facility] Diagnosis: ICD-10-CM Z71.9 Counseling, unspecified Active Diagnosis [facility] Medications Combined list of outpatient medications from Department of Defense and Veterans Affairs facilities.Medications provided include 1) outpatient medications from the last 15 months, and 2) patient-reported medications. Medication Details Route Status Patient Instructions Prescription Expires Prescription Number Last Dispense Date Ordering Provider Order Date Order Qty Source BUPROPION HCL 150MG 24HR TAB,SA TAKE ONE TABLET BY MOUTH EVERY MORNING FOR 7 DAYS, THEN TAKE TWO TABLETS EVERY MORNING MOOD ORAL ACTIVE 05/26/2024 [id number] VIOLA SAAB 2024 53 [facility] DOXEPIN 6MG TAB TAKE ONE TABLET BY MOUTH AT BEDTIME NEEDED FOR INSOMNIA ORAL ACTIVE 04/27/2025 [id number] 5 VIOLA SAAB 2024 30 [facility] FLUOXETINE HCL 20MG CAP TAKE TWO CAPSULES BY MOUTH ONCE DAILY FOR DEPRESSI ON AND ANXIETY ORAL ACTIVE 04/27/2025 [id number] 5 VIOLA SAAB 2024 60 [facility] HYDROCHLORO THIAZIDE 12.5MG/ANKITA NOPRIL 10MG TAB TAKE 1 TABLET BY MOUTH ONCE DAILY FOR HIGH BLOOD PRESSURE ORAL ACTIVE 03/26/2025 [id number] KALEB DUFF 2023 90 [facility] HYDROXYZINE HCL 50MG TAB TAKE ONE TABLET BY MOUTH TWICE DAILY NEEDED ANXIETY ORAL ACTIVE 04/27/2025 [id number] 5 VIOLA SAAB 2024 60 [facility] Immunizations Combined list of available immunizations from the Department of Defense and Veterans Affairs facilities. Immunization Series Date Given Administered By Site Reaction Lot Number CVX Code Drug Meat Selector Status Comments Source COVID-19 (MODERNA), MRNA, LNP-S, PF, 50 MCG/0.5 ML (AGES 12+ YEARS) 4 2023 ALLYSON العلي LEFT DELTO ID [id number] 312 [facility] INFLUENZA, SPLIT VIRUS, TRIVALENT, PF 2023 ALLYSON العلي LEFT DELTO ID [id number] 140 complet ed [facility] COVID-19 (MODERNA), MRNA, LNP-S, PF, 100 MCG/0.5ML DOSE OR 50 MCG/0.25ML DOSE 3 2020 207 complet ed Lot#: [id number] Mfr: [employer] [facility] COVID-19 (MODERNA), MRNA, LNP-S, PF, 100 MCG/0.5ML DOSE OR 50 MCG/0.25ML DOSE 2 2020 207 complet ed Lot#: [id number] Mfr: [employer] [facility] COVID-19 (MODERNA), MRNA, LNP-S, PF, 100 MCG/0.5ML DOSE OR 50 MCG/0.25ML DOSE 1 2020 207 complet ed Lot#: [id number] Mfr: [employer] [facility] Results Combined list of recent chemistry, hematology and other laboratory results from Department of Defense and Veterans Affairs, ranging from 15 months to all on record, depending upon the facility. Order Name Results Value Reference Range Date Interpretation Specimen Comments Source HEPATITI S A ANTIBODY (IgM) HEPATITIS A VIRUS IGM AB [PRESENCE] IN SERUM Non Reactive 03/25 Specimen Type: SERUM Comment: Hepatitis A IgM: [...] after acute Hepatitis A infection. Ordering Provider: Yifan DUFF Report Released Date/Time: Mar 25, 2024 03:17 PM Reporting Lab: [facility] [address] [facility] [address] Performing Lab[facility] [address] [facility] VITAMIN D (25-OH) 25-HYDROXY VITAMIN D3 [MASS/VOLU ME] IN SERUM OR PLASMA 38 ng/mL 20 - 50 03/25 Specimen Type: SERUM No comment entered. Ordering Provider: Yifan DUFF Report Released Date/Time: Mar 25, 2024 03:17 PM Reporting Lab: [facility] [address] [facility] [address] Performing Lab[facility] [address] [facility] [address] [facility] CBC AND DIFF (AUTO) LEUKOCYTES [#/VOLUME] IN BLOOD BY AUTOMATED COUNT 8.01 10*3/uL 4.50 - 11.00 03/25 Specimen Type: BLOOD No comment entered. Ordering Provider: Yifan DUFF Report Released Date/Time: Mar 25, 2024 03:17 PM Reporting Lab: [facility] [address] [facility] [address] Performing Lab: [facility] [address] [facility] [address] [facility] CBC AND DIFF (AUTO) ERYTHROCYT ES [#/VOLUME] IN BLOOD BY AUTOMATED COUNT 5.05 10*6/uL 4.23 - 5.66 03/25 Specimen Type: BLOOD No comment entered. Ordering Provider: Yifan DUFF Report Released Date/Time: Mar 25, 2024 03:17 PM Reporting Lab: [facility] [address] [facility] [address] Performing Lab: [facility] [address] [facility] [address] [facility] CBC AND DIFF (AUTO) HEMOGLOBIN [MASS/VOLU ME] IN BLOOD 15.6 g/dL 12.8 - 17 03/25 Specimen Type: BLOOD No comment entered. Ordering Provider: Yifan DUFF Report Released Date/Time: Mar 25, 2024 03:17 PM Reporting Lab: [facility] [address] [facility] [address] Performing Lab: [facility] [address] [facility] [address] [facility] CBC AND DIFF (AUTO) HEMATOCRIT [VOLUME FRACTION] OF BLOOD BY AUTOMATED COUNT 45.7 39.2 - 50.4 03/25 Specimen Type: BLOOD No comment entered. Ordering Provider: Yifan DUFF Report Released Date/Time: Mar 25, 2024 03:17 PM Reporting Lab: [facility] [place] [facility] [address] [facility] [address] Performing Lab: [facility] [place] [facility] [address] [facility] [address] [facility] CBC AND DIFF (AUTO) MCV [ENTITIC VOLUME] BY AUTOMATED COUNT 90.5 fL 82 - 99 03/25 Specimen Type: BLOOD No comment entered. Ordering Provider: Yifan DUFF Report Released Date/Time: Mar 25, 2024 03:17 PM Reporting Lab: [facility] [place] [facility] [address] [facility] [address] Performing Lab: [facility] [place] [facility] [address] [facility] [address] [facility] [place] [facility] CBC AND DIFF (AUTO) MCHC [MASS/VOLU ME] BY AUTOMATED COUNT 34.1 g/dL 30.8 - 35.1 03/25 Specimen Type: BLOOD No comment entered. Ordering Provider: Yifan DUFF Report Released Date/Time: Mar 25, 2024 03:17 PM Reporting Lab: [facility] [place] [facility] [address] [facility] [address] Performing Lab: [facility] [place] [facility] [address] [facility] [address] [facility] [place] [facility] CBC AND DIFF (AUTO) PLATELETS [#/VOLUME] IN BLOOD BY AUTOMATED COUNT 262 10*3/uL 140 - 360 03/25 Specimen Type: BLOOD No comment entered. Ordering Provider: Yifan DUFF Report Released Date/Time: Mar 25, 2024 03:17 PM Reporting Lab: [facility] [place] [facility] [address] [facility] [address] Performing Lab: [facility] [place] [facility] [address] [facility] [address] [facility] CBC AND DIFF (AUTO) ERYTHROCYT E DISTRIBUTI ON WIDTH [RATIO] BY AUTOMATED COUNT 13.8 12.0 - 16.0 03/25 Specimen Type: BLOOD No comment entered. Ordering Provider: Yifan DUFF Report Released Date/Time: Mar 25, 2024 03:17 PM Reporting Lab: [facility] [facility] [address] [facility] [address] Performing Lab: [facility] [place] [facility] [address] [facility] [address] [facility] CBC AND DIFF (AUTO) MONOCYTES [#/VOLUME] IN BLOOD BY AUTOMATED COUNT 1.08 10*3/uL 0.30 - 1.10 03/25 Specimen Type: BLOOD No comment entered. Ordering Provider: Yifan DUFF Report Released Date/Time: Mar 25, 2024 03:17 PM Reporting Lab: [facility] [place] [facility] [address] [facility] [address] Performing Lab: [facility] [place] [facility] [address] [facility] [address] [facility] CBC AND DIFF (AUTO) MCH [ENTITIC MASS] BY AUTOMATED COUNT 30.9 pg 26.2 - 32.6 03/25 Specimen Type: BLOOD No comment entered. Ordering Provider: Yifan DUFF Report Released Date/Time: Mar 25, 2024 03:17 PM Reporting Lab: [facility] [place] [facility] [address] [facility] [address] Performing Lab: [facility] [place] [facility] [address] [facility] [address] [facility] CBC AND DIFF (AUTO) NEUTROPHIL S/100 LEUKOCYTES IN BLOOD BY AUTOMATED COUNT 71.7 43.7 - 75.8 03/25 Specimen Type: BLOOD No comment entered. Ordering Provider: Yifan DUFF Report Released Date/Time: Mar 25, 2024 03:17 PM Reporting Lab: [facility] [address] [facility] [address] Performing Lab: [facility] [address] [facility] [address] [facility] CBC AND DIFF (AUTO) LYMPHOCYTE S/100 LEUKOCYTES IN BLOOD BY AUTOMATED COUNT 12.1 14.0 - 42.3 03/25 L Specimen Type: BLOOD No comment entered. Ordering Provider: Yifan DUFF Report Released Date/Time: Mar 25, 2024 03:17 PM Reporting Lab: [facility] [address] [facility] [address] Performing Lab: [facility] [address] [facility] [address] [facility] CBC AND DIFF (AUTO) MONOCYTES/ 100 LEUKOCYTES IN BLOOD BY AUTOMATED COUNT 13.5 5.1 - 13.7 03/25 Specimen Type: BLOOD No comment entered. Ordering Provider: Yifan DUFF Report Released Date/Time: Mar 25, 2024 03:17 PM Reporting Lab: [facility] [address] [facility] [address] Performing Lab: [facility] [address] [facility] [address] [facility] CBC AND DIFF (AUTO) EOSINOPHIL S/100 LEUKOCYTES IN BLOOD BY AUTOMATED COUNT 1.6 0.4 - 6.8 03/25 Specimen Type: BLOOD No comment entered. Ordering Provider: Yifan DUFF Report Released Date/Time: Mar 25, 2024 03:17 PM Reporting Lab: [facility] [address] [facility] [address] Performing Lab: [facility] [address] [facility] [address] [facility] CBC AND DIFF (AUTO) BASOPHILS/ 100 LEUKOCYTES IN BLOOD BY AUTOMATED COUNT 0.5 0.1 - 2.0 03/25 Specimen Type: BLOOD No comment entered. Ordering Provider: Yifan DUFF Report Released Date/Time: Mar 25, 2024 03:17 PM Reporting Lab: [facility] [facility] [address] [facility] [address] Performing Lab: [facility] [address] [address] [facility] CBC AND DIFF (AUTO) NEUTROPHIL S [#/VOLUME] IN BLOOD BY AUTOMATED COUNT 5.74 10*3/uL 2.20 - 7.60 03/25 Specimen Type: BLOOD No comment entered. Ordering Provider: Yifan DUFF Report Released Date/Time: Mar 25, 2024 03:17 PM Reporting Lab: [facility] [place] [address] [address] Performing Lab: [facility] [address] [address] [facility] CBC AND DIFF (AUTO) LYMPHOCYTE S [#/VOLUME] IN BLOOD BY AUTOMATED COUNT 0.97 10*3/uL 1.00 - 3.20 03/25 L Specimen Type: BLOOD No comment entered. Ordering Provider: Yifan DUFF Report Released Date/Time: Mar 25, 2024 03:17 PM Reporting Lab: [facility] [address] [address] Performing Lab: [facility] [address] [address] [facility] CBC AND DIFF (AUTO) EOSINOPHIL S [#/VOLUME] IN BLOOD BY AUTOMATED COUNT 0.13 10*3/uL 0.03 - 0.44 03/25 Specimen Type: BLOOD No comment entered. Ordering Provider: Yifan DUFF Report Released Date/Time: Mar 25, 2024 03:17 PM Reporting Lab: [facility] [place] [address] [address] Performing Lab: [facility] [facility] [address] [facility] [address] [facility] CBC AND DIFF (AUTO) BASOPHILS [#/VOLUME] IN BLOOD BY AUTOMATED COUNT 0.04 10*3/uL 0.01 - 0.13 03/25 Specimen Type: BLOOD No comment entered. Ordering Provider: Yifan DUFF Report Released Date/Time: Mar 25, 2024 03:17 PM Reporting Lab: [facility] [facility] [address] [facility] [address] Performing Lab: [facility] [facility] [address] [facility] [address] [facility] CBC AND DIFF (AUTO) IMMATURE GRANULOCYT ES/100 LEUKOCYTES IN BLOOD BY AUTOMATED COUNT 0.6 0.0 - 0.7 03/25 Specimen Type: BLOOD No comment entered. Ordering Provider: Yifan DUFF Report Released Date/Time: Mar 25, 2024 03:17 PM Reporting Lab: [facility] [address] [address] Performing Lab: [facility] [facility] [address] [facility] [address] [facility] CBC AND DIFF (AUTO) IMMATURE GRANULOCYT ES [#/VOLUME] IN BLOOD 0.05 10*3/uL 0.00 - 0.06 03/25 Specimen Type: BLOOD No comment entered. Ordering Provider: Yifan DUFF Report Released Date/Time: Mar 25, 2024 03:17 PM Reporting Lab: [facility] [address] [address] Performing Lab: [facility] [address] [address] [facility] CBC AND DIFF (AUTO) NRBC % 0.0 0.0 - 0.0 03/25 Specimen Type: BLOOD No comment entered. Ordering Provider: Yifan DUFF Report Released Date/Time: Mar 25, 2024 03:17 PM Reporting Lab: [facility] [address] [facility] [address] Performing Lab: [facility] [address] [facility] [address] [facility] CBC AND DIFF (AUTO) NRBC, ABS 0.00 10*3/uL 0.00 - 0.00 03/25 Specimen Type: BLOOD No comment entered. Ordering Provider: Yifan DUFF Report Released Date/Time: Mar 25, 2024 03:17 PM Reporting Lab: [facility] [facility] [address] [facility] [address] Performing Lab: [facility] [facility] [address] [facility] [address] [facility] IRON & TIBC PANEL IRON BINDING CAPACITY [MASS/VOLU ME] IN SERUM OR PLASMA 458 ug/dL 204 - 475 03/25 Specimen Type: SERUM No comment entered. Ordering Provider: Yifan DUFF Report Released Date/Time: Mar 25, 2024 03:17 PM Reporting Lab: [facility] [facility] [address] [facility] [address] Performing Lab: [facility] [facility] [address] [facility] [address] [facility] IRON & TIBC PANEL IRON [MASS/VOLU ME] IN SERUM OR PLASMA 98 ug/dL 40 - 160 03/25 Specimen Type: SERUM No comment entered. Ordering Provider: Yifan DUFF Report Released Date/Time: Mar 25, 2024 03:17 PM Reporting Lab: [facility] [address] [facility] [address] Performing Lab: [facility] [facility] [address] [facility] [address] [facility] IRON & TIBC PANEL IRON/IRON BINDING CAPACITY.T OTAL [MASS RATIO] IN SERUM OR PLASMA 21.4 20.0 - 50.0 03/25 Specimen Type: SERUM No comment entered. Ordering Provider: Yifan DUFF Report Released Date/Time: Mar 25, 2024 03:17 PM Reporting Lab: [facility] [facility] [address] [facility] [address] Performing Lab: [facility] [place] [address] [address] [facility] IRON & TIBC PANEL TRANSFERRI N [MASS/VOLU ME] IN SERUM OR PLASMA 347 mg/dL 200 - 360 03/25 Specimen Type: SERUM No comment entered. Ordering Provider: Yifan DUFF Report Released Date/Time: Mar 25, 2024 03:17 PM Reporting Lab: [facility] [place] [address] [address] Performing Lab: [facility] [place] [address] [address] [facility] FERRITIN FERRITIN [MASS/VOLU ME] IN SERUM OR PLASMA 53 ng/mL 20 - 300 03/25 Specimen Type: SERUM No comment entered. Ordering Provider: Yifan DUFF Report Released Date/Time: Mar 25, 2024 03:17 PM Reporting Lab: [facility] [place] [address] [address] Performing Lab: [facility] [place] [address] [address] [facility] HEPATITI S C ANTIBODY (HCV)-AR C HEPATITIS C VIRUS AB [PRESENCE] IN SERUM NON-REAC TIVE 03/25 Specimen Type: SERUM Comment: Hep C Ab: No HCV antibody detected. If recent infection is suspected or other evidence suggests HCV infection, consider HCV nucleic acid testing Ordering Provider: Yifan DUFF Report Released Date/Time: Mar 25, 2024 03:17 PM Reporting Lab: [facility] [place] [address] [address] Performing Lab: [facility] [place] [facility] [address] [facility] [address] [facility] BASIC METABOLI C PANEL (non-fas ting) UREA NITROGEN [MASS/VOLU ME] IN SERUM OR PLASMA 13 mg/dL 7 - 25 03/25 Specimen Type: SERUM No comment entered. Ordering Provider: Yifan DUFF Report Released Date/Time: Mar 25, 2024 03:17 PM Reporting Lab: [facility] [place] [facility] [address] [facility] [address] Performing Lab: [facility] [address] [address] [facility] BASIC METABOLI C PANEL (non-fas ting) GLUCOSE [MASS/VOLU ME] IN SERUM OR PLASMA 100 mg/dL 65 - 100 03/25 Specimen Type: SERUM No comment entered. Ordering Provider: Yifan DUFF Report Released Date/Time: Mar 25, 2024 03:17 PM Reporting Lab: [facility] [address] [address] Performing Lab: [facility] [address] [address] [facility] BASIC METABOLI C PANEL (non-fas ting) SODIUM [MOLES/VOL UME] IN SERUM OR PLASMA 140 mmol/L 135 - 145 03/25 Specimen Type: SERUM No comment entered. Ordering Provider: Yifan DUFF Report Released Date/Time: Mar 25, 2024 03:17 PM Reporting Lab: [facility] [place] [address] [address] Performing Lab: [facility] [place] [address] [address] [facility] BASIC METABOLI C PANEL (non-fas ting) POTASSIUM [MOLES/VOL UME] IN SERUM OR PLASMA 3.6 mmol/L 3.5 - 5.0 03/25 Specimen Type: SERUM No comment entered. Ordering Provider: Yifan DUFF Report Released Date/Time: Mar 25, 2024 03:17 PM Reporting Lab: [facility] [place] [facility] [address] [facility] [address] Performing Lab: [facility] [address] [address] [facility] [place] [facility] BASIC METABOLI C PANEL (non-fas ting) CHLORIDE [MOLES/VOL UME] IN SERUM OR PLASMA 104 mmol/L 100 - 110 03/25 Specimen Type: SERUM No comment entered. Ordering Provider: Yifan DUFF Report Released Date/Time: Mar 25, 2024 03:17 PM Reporting Lab: [facility] [address] [address] Performing Lab: [facility] [address] [address] [facility] BASIC METABOLI C PANEL (non-fas ting) CARBON DIOXIDE, TOTAL [MOLES/VOL UME] IN SERUM OR PLASMA 24 meq/L 20 - 30 03/25 Specimen Type: SERUM No comment entered. Ordering Provider: Yifan DUFF Report Released Date/Time: Mar 25, 2024 03:17 PM Reporting Lab: [facility] [place] [address] [address] Performing Lab: [facility] [place] [address] [address] [facility] BASIC METABOLI C PANEL (non-fas ting) CREATININE [MASS/VOLU ME] IN SERUM OR PLASMA 0.86 mg/dL 0.50 - 1.40 03/25 Specimen Type: SERUM No comment entered. Ordering Provider: Yifan DUFF Report Released Date/Time: Mar 25, 2024 03:17 PM Reporting Lab: [facility] [address] [address] Performing Lab: [facility] [place] [facility] [address] [facility] [address] [facility] [place] [facility] BASIC METABOLI C PANEL (non-fas ting) GLOMERULAR FILTRATION RATE/1.73 SQ M.PREDICTE D [VOLUME RATE/AREA] IN SERUM, PLASMA OR BLOOD BY CREATININE -BASED FORMULA (CKD-EPI 2020) >90mL/mi n 60 03/25 Specimen Type: SERUM No comment entered. Ordering Provider: Yifan DFUF Report Released Date/Time: Mar 25, 2024 03:17 PM Reporting Lab: [facility] [address] [facility] [phone] Performing Lab: [facility] TRN [facility]STITUTEUSE[address] [address] [facility]ITALRCEN[facility] BASIC METABOLI C PANEL (fasting ) UREA NITROGEN [MASS/VOLU ME] IN SERUM OR PLASMA 13 mg/dL 7 - 25 03/25 Specimen Type: SERUM No comment entered. Ordering Provider: Yifan DUFF Report Released Date/Time: Mar 25, 2024 03:17 PM Reporting Lab: [facility] TRN [facility]STITUTEUS[facility] [address] [facility] [address] Performing Lab: [place] [facility] WSTRN [facility] [place] [address] [facility] [address] [facility] TRN [facility]USE [facility] BASIC METABOLI C PANEL (fasting ) GLUCOSE [MASS/VOLU ME] IN SERUM OR PLASMA 100 mg/dL 65 - 100 03/25 Specimen Type: SERUM No comment entered. Ordering Provider: Yifan DUFF Report Released Date/Time: Mar 25, 2024 03:17 PM Reporting Lab: [facility] [place] [facility] [place] [address] [facility] [address] Performing Lab: [facility] W[facility]N [facility] [place] [address] [facility] [phone] [facility]RL TRN [facility]USE [facility] BASIC METABOLI C PANEL (fasting ) SODIUM [MOLES/VOL UME] IN SERUM OR PLASMA 140 mmol/L 135 - 145 03/25 Specimen Type: SERUM No comment entered. Ordering Provider: Yifan DUFF Report Released Date/Time: Mar 25, 2024 03:17 PM Reporting Lab: [facility] [place] [facility] [address] [facility] [address] Performing Lab: [facility] [address] [address] [facility] [facility] BASIC METABOLI C PANEL (fasting ) POTASSIUM [MOLES/VOL UME] IN SERUM OR PLASMA 3.6 mmol/L 3.5 - 5.0 03/25 Specimen Type: SERUM No comment entered. Ordering Provider: Yifan DUFF Report Released Date/Time: Mar 25, 2024 03:17 PM Reporting Lab: [facility] [address] [address] Performing Lab: [facility] [address] [address] [facility] [place] [facility] BASIC METABOLI C PANEL (fasting ) CHLORIDE [MOLES/VOL UME] IN SERUM OR PLASMA 104 mmol/L 100 - 110 03/25 Specimen Type: SERUM No comment entered. Ordering Provider: Yifan DUFF Report Released Date/Time: Mar 25, 2024 03:17 PM Reporting Lab: [facility] [address] [address] Performing Lab: [facility] [place] [address] [address] [facility] [place] [facility] BASIC METABOLI C PANEL (fasting ) CARBON DIOXIDE, TOTAL [MOLES/VOL UME] IN SERUM OR PLASMA 24 meq/L 20 - 30 03/25 Specimen Type: SERUM No comment entered. Ordering Provider: Yifan DUFF Report Released Date/Time: Mar 25, 2024 03:17 PM Reporting Lab: [facility] [place] [address] [address] Performing Lab: [facility] [place] [facility] [address] [facility] [address] [facility] [place] [facility] BASIC METABOLI C PANEL (fasting ) CREATININE [MASS/VOLU ME] IN SERUM OR PLASMA 0.86 mg/dL 0.50 - 1.40 03/25 Specimen Type: SERUM No comment entered. Ordering Provider: Yifan DUFF Report Released Date/Time: Mar 25, 2024 03:17 PM Reporting Lab: [facility] [place] [facility] [address] [facility] [address] Performing Lab: [facility] [place] [facility] [address] [facility] [address] [facility] [place] [facility] BASIC METABOLI C PANEL (fasting ) GLOMERULAR FILTRATION RATE/1.73 SQ M.PREDICTE D [VOLUME RATE/AREA] IN SERUM, PLASMA OR BLOOD BY CREATININE -BASED FORMULA (CKD-EPI 2020) >90mL/mi n 60 03/25 Specimen Type: SERUM No comment entered. Ordering Provider: Yifan DUFF Report Released Date/Time: Mar 25, 2024 03:17 PM Reporting Lab: [facility] [place] [facility] [address] [facility] [address] Performing Lab: [facility] [place] [facility] [address] [facility] [address] [facility] [place] [facility] LIVER FUNCTION PROTEIN [MASS/VOLU ME] IN SERUM OR PLASMA 7.7 g/dL 6.0 - 8.3 03/25 Specimen Type: SERUM No comment entered. Ordering Provider: Yifan DUFF Report Released Date/Time: Mar 25, 2024 03:17 PM Reporting Lab: [facility] [place] [facility] [address] [facility] [address] Performing Lab: [facility] [place] [address] [address] [facility] [place] [facility] LIVER FUNCTION ALBUMIN [MASS/VOLU ME] IN SERUM OR PLASMA 4.4 g/dL 3.5 - 5.0 12/12 /2024 Specimen Type: SERUM No comment entered. Ordering Provider: Yifan DUFF Report Released Date/Time: Mar 25, 2024 03:17 PM Reporting Lab: [facility] [place] [facility] [address] [facility] [address] Performing Lab: [facility] [place] [facility] [address] [facility] [address] [facility] [place] [facility] LIVER FUNCTION ALKALINE PHOSPHATAS E [ENZYMATIC ACTIVITY/V OLUME] IN SERUM OR PLASMA 80 U/L 40 - 150 03/25 Specimen Type: SERUM No comment entered. Ordering Provider: Yifan DUFF Report Released Date/Time: Mar 25, 2024 03:17 PM Reporting Lab: [facility] [place] [facility] [address] [facility] [address] Performing Lab: [facility] [place] [address] [address] [facility] [place] [facility] LIVER FUNCTION ASPARTATE AMINOTRANS FERASE [ENZYMATIC ACTIVITY/V OLUME] IN SERUM OR PLASMA 11 U/L 5 - 34 03/25 Specimen Type: SERUM No comment entered. Ordering Provider: Yifan DUFF Report Released Date/Time: Mar 25, 2024 03:17 PM Reporting Lab: [facility] [place] [facility] [address] [facility] [address] Performing Lab: [facility] [place] [facility] [address] [facility] [address] [facility] [place] [facility] LIVER FUNCTION ALANINE AMINOTRANS FERASE [ENZYMATIC ACTIVITY/V OLUME] IN SERUM OR PLASMA 14 U/L 03/25 Specimen Type: SERUM No comment entered. Ordering Provider: Yifan DUFF Report Released Date/Time: Mar 25, 2024 03:17 PM Reporting Lab: [facility] [place] [facility] [address] [facility] [address] Performing Lab: [facility] [place] [facility] [address] [facility] [address] [facility] [place] [facility] LIVER FUNCTION BILIRUBIN. TOTAL [MASS/VOLU ME] IN SERUM OR PLASMA 1.3 mg/dL 0.2 - 1.2 03/25 H Specimen Type: SERUM No comment entered. Ordering Provider: Yifan DUFF Report Released Date/Time: Mar 25, 2024 03:17 PM Reporting Lab: [facility] [place] [facility] [address] [facility] [address] Performing Lab: [facility] [place] [facility] [address] [facility] [address] [facility] [place] [facility] LIVER FUNCTION BILIRUBIN. DIRECT [MASS/VOLU ME] IN SERUM OR PLASMA 0.4 mg/dL 0 - 0.5 03/25 Specimen Type: SERUM No comment entered. Ordering Provider: Yifan DUFF Report Released Date/Time: Mar 25, 2024 03:17 PM Reporting Lab: [facility] [place] [facility] [address] [facility] [address] Performing Lab: [facility] [place] [facility] [address] [facility] [address] [facility] [place] [facility] Vital Signs Combined list of inpatient and outpatient Vital Signs from Department of Defense and Veterans Affairs, ranging from 12 months to all on record, depending upon the facility. Vital Sign Value Date Comments Source SYSTOLIC BLOOD PRESSURE 142 03/25/20 24 14:07:58 [facility] [place] [facility] DIASTOLIC BLOOD PRESSURE 88 024 14:07:58 [facility] [place] [facility] PULSE OXIMETRY 96 03/25/2024 14:07:58 [facility] WEIGHT 191 03/25/2024 14:07:58 [facility] BMI 28kg/m2 03/25/2024 14:07:58 [facility] PAIN 0 03/25/2024 14:07:58 [facility] HEIGHT 69 03/25/2024 14:07:58 [facility] [place] [facility] TEMPERATURE 97.8 03/25/2024 14:07:58 [facility] PULSE 77 03/25/2024 14:07:58 [facility] RESPIRATION 16 03/25/2024 14:07:58 [facility] SYSTOLIC BLOOD PRESSURE 152 03/18/20 24 10:59:29 [facility] DIASTOLIC BLOOD PRESSURE 87 024 10:59:29 [facility] PULSE OXIMETRY 97 03/18/2024 10:59:29 [facility] WEIGHT 190.9 03/18/2024 10:59:29 [facility] BMI 28kg/m2 03/18/2024 10:59:29 [facility] PAIN 3 03/18/2024 10[facility]59:29 [facility] HEIGHT 69 03/18/2024 10:59:29 [facility] TEMPERATURE 98.1 03/18/2024 10:59:29 [facility] PULSE 72 03/18/2024 10:59:29 [facility] RESPIRATION 20 03/18/2024 10:59:29 [facility] [place] [facility] Encounters Combined list of: 1) Encounters from Department of Veterans Affairs facilities going back up to thelast 18 months. 2) Encounters from the Department of Defense facilities going back up to 280 months. Location Location Details Encounter Type Encounter Number Reason For Visit Attending Provider ADM Date DC Date Status Disposition Source [facility] Out[facility] Encounter [id number] 03/18 [facility] OFF/OP EST AUGUST X REQ PHY/QHP [id number] Diagnos is: ICD-10- CM Z71.9 Shoe Lacer ing, unspeci fied
AMEE WAYNE E 03/18 [facility] PRO PHONE CALL 11-20 MIN [id number] 1. Diagnos is: ICD-10- CM K50.90 Crohn's disease , unspeci fied, without complic ations< br/> JADA ANGELES 03/25 [facility] OFFICE O/P NEW MOD 45 MIN [id number] Diagnos is: ICD-10- CM I10 Essenti al (primar y) hyperte nsion<b r/> KALEB DUFF 03/25 [facility] PSYTX W PT 45 MINUTES [id number] Diagnos is: ICD-10- CM F32.A Depress ion, unspeci fied
Dar OCHOA M 04/01 [facility] Outpatient Encounter [id number] 04/01 [facility] PSYTX W PT 30 MINUTES [id number] Diagnos is: ICD-10- CM F32.A Depress ion, unspeci fied
Dar OCHOA 04/05 [facility] PSYTX W PT 30 MINUTES [id number] Diagnos is: ICD-10- CM F32.A Depress ion, unspeci fied
Dar OCHOA M 04/15 [facility] PSYCH DIAGNOSTIC EVALUATION [id number] Diagnos is: ICD-10- CM F33.2 Major depress v disorde r, recurre nt severe w/o psych feature s
AJ EDWARDS N 04/19 [facility] En[facility] [id number] AJ EDWARDS N 04/19 [facility] Encounter [id number] AJ EDWARDS N 04/19 [facility] Encounter [id number] AJ EDWARDS N 04/19 [facility] Out[facility] Encounter [id number] [facility] OFFICE O/P EST HI 40 MIN [id number] Diagnos is: ICD-10- CM F33.2 Major depress v disorde r, recurre nt severe w/o psych feature s
Jason SAAB 04/26 [facility] PSYTX W PT 30 MINUTES [id number] Diagnos is: ICD-10- CM F43.10 Post-tr aumatic stress disorde r, unspeci fied
Dar OCHOA 04/30 [facility] FAMILY PSYTX W/PT 50 MIN [id number] Diagnos is: ICD-10- CM F43.10 Post-tr aumatic stress disorde r, unspeci fied
Dar OCHOA 05/07 [facility] [place] Social History Combined list of available smoking, tobacco, and other social history from Department of Defense and Veterans Affairs facilities. Social History Type Response Date Comment Source Tobacco smoking status NHIS VA-TOBACCO USE FORMER CIGARETTES 03/18/2024 [facility] [place] [facility] History of tobacco use VA-TOBACCO USE FORMER OTHER TYPE 03/18/2024 Quit more than 15 years ago [facility] [place] [facility] Plan of Care List of future care activities from Department of Veterans Affairs facilities. Additional future care activities may be listed in the Assessment and Plan section. Date/Time Care Activity Care Activity Detail Facili ty 05/10/2024 AMBULATORY - PSYCHIATRY AMBULATORY - PSYC HIATRY [facility] [place] [facility] 05/11/2024 AMBULATORY - PSYCHIATRY AMBULATORY - PSYC HIATRY [facility] [place] [facility] 05/17/2024 AMBULATORY - PSYCHIATRY AMBULATORY - PSYC HIATRY [facility] [place] [facility] 06/21/2024 AMBULATORY - MEDICINE AMBULATORY - MEDICI NE [facility] [place] [facility] 03/25/2024 Consult Order COMMUNITY CARE-G I GENERAL Cons Client Services Representative's Choice [facility] [place] [facility] 04/20/2024 Consult Order PSYCHOTHERAPY BH IP/NHM OUTPT Cons Client Services Representative's Choice [facility] [place] [facility] 04/26/2024 Laboratory - Visually Impaired Teacher ry Order TSH BLOOD (SST-SERUM) SP [facility] [place] [facility]
--- OUTSIDE RECORDS SUMMARY | 2024-05-08 09:50 | XMS_ITS ---
Author Name [facility] Organization [facility] Address [address] [place] [address] Care Team Providers Care Rock Duster Name Role Phone KALEB DUFF Primary Care Provider Unavail able Selected Encounter This section includes the information on record at DC for the Encounter. Date/Time Encounter Type Encounter Description Reason Provider Source Apr 15, 2024 08:00 AM PSYTX W PT 30 [facility]UTES [facility] - IND ICD-10-CM F32.A Depression, unspecified ARIELA HAYES Martha Encounter Template Text not used by DC Assessments - Encounter Diagnoses This section includes the primary and secondary diagnoses documented for the Encounter. Date/Time Primary/Secondary Diagnosis Diagnosis Name Provider Source Apr 15, 2024 10:09 AM PRIMARY Depression, unspecified ARIELA HAYES [facility] Plan of Treatment: Future Appointments (+ 6 months) and Future Tests (+/- 45 days) The Plan of Treatment section includes future care activities for the patient from all [place] treatmentfacilities. This section includes future appointments and future orders which are active, pending or scheduled. Future Appointments This section includes appointments that were scheduled to occur 6 months from the date of the Encounter, up to a maximum of 20 appointments. The data comes from all [place] treatment facilities. Appointment Date/Time Appointment Type Appointme nt Facility Name Apr 19, 2024 01:00 PM AMBULATORY - PSYCHIATRY [facility] Apr 26, 2024 02:00 PM [facility] Apr 30, 2024 08:30 AM [facility] May 05, 2024 02:00 PM AMBULATORY - MEDICINE [facility] May 11, 2024 01:30 PM [facility] May 17, 2024 08:30 AM [facility] Jun 21, 2024 03:30 PM AMBULATORY - MEDICINE [facility] Active, Pending, and Scheduled Orders This section includes a listing of several types of active, pending, and scheduled orders, including clinic medications orders, diagnostic test orders, procedure orders and consult orders; where the start date of the order is 45 days before the date of the Encounter or 45 days after the date of theEncounter. The data comes from all [place] treatment facilities. Test Date/Time Test Type Test Details Facility Name Mar 25, 2024 03:20 PM Consult Order COMMUNITY CARE-GI GENERAL Cons Bottler[facility] Choice [facility] Apr 20, 2024 11:13 AM Consult Order PSYCHOTHERAPY BHIP/NHM OUTPT Cons Bottler[facility] Choice [facility] Apr 20, 2024 11:13 AM Consult Order PSYCHOTHERAPY BHIP/NHM OUTPT Cons Bottler[facility] Choice [facility] Apr 26, 2024 12:00 AM Laboratory - Chemistry Order TSH BLOOD (SST-SERUM) [facility] Lab Results: +/- 30 days of the encounter This section includes the Chemistry and Hematology Lab Results on record with DC for the patient. Radiology Reports and Pathology Reports are provided separately, in subsequent sections. Lab Results This section contains the Chemistry/Hematology Results that were resulted 30 days before or 30 daysafter the date of the Encounter. Date/Time Source Result Type Result - Unit Interpretation Reference Range Comment Mar 25, 2024 03:26 PM [facility] HEPATITIS A ANTIBODY (IgM) Specimen Type: SERUM [...] Mar 25, 2024 03:17 PM Reporting Lab: [address] [address] Performing Lab: [address] [address] HEPATITIS A ANTIBODY (IgM) Non Reactive Non Reactive Mar 25, 2024 03:26 PM [facility] HEPATITIS B SURFACE ANTIBODY (HBsAb)-WH Specimen Type: SERUM No comment entered. Ordering Provider: JAMES DUFF Report Released Date/Time: Mar 25, 2024 03:17 PM Reporting Lab: [address] [address] Performing Lab: [facility] Mar 25, 2024 03:26 PM [facility] VITAMIN D (25-OH) Specimen Type: SERUM No comment entered. Ordering Provider: JAMES DUFF Report Released Date/Time: Mar 25, 2024 03:17 PM Reporting Lab: [address] [address] Performing Lab: [address] [address] VITAMIN D (25-OH) 38 ng/mL 20-50 Mar 25, 2024 03:26 PM [facility] CBC AND DIFF (AUTO) Specimen Type: BLOOD No comment entered. Ordering Provider: JAMES DUFF Report Released Date/Time: Mar 25, 2024 03:17 PM Reporting Lab: [address] [place] [address] Performing Lab: [facility] [address] [facility] [address] WBC 8.01 10*3/uL 4.50-11.00 RBC 5.05 10*6/uL [...] 10*3/uL 0.00-0.00 Mar 25, 2024 03:26 PM [facility] IRON & TIBC PANEL Specimen Type: SERUM No comment entered. Ordering Provider: JAMES DUFF Report Released Date/Time: Mar 25, 2024 03:17 PM Reporting Lab: [facility] [address] [facility] [address] Performing Lab: [address] [address] TIBC 458 ug/dL 204-475 IRON 98 ug/dL 40-160 Transferrin Saturation 21.4 20.0-50.0 Transferrin (TRF) 347 mg/dL 200-360 Mar 25, 2024 03:26 PM [facility] FERRITIN Specimen Type: SERUM No comment entered. Ordering Provider: JAMES DUFF Report Released Date/Time: Mar 25, 2024 03:17 PM Reporting Lab: [facility] [address] [facility] [address] Performing Lab: [facility] [address] [facility] [address] FERRITIN 53 ng/mL 20-300 Mar 25, 2024 03:26 PM [facility] HEPATITIS C ANTIBODY (HCV)-ARC Specimen Type: SERUM Comment: Hep C Ab: No HCV antibody detected. If recent infection is suspected or other evidence suggests HCV infection, consider HCV nucleic acid testing Ordering Provider: JAMES DUFF Report Released Date/Time: Mar 25, 2024 03:17 PM Reporting Lab: [facility] [address] [facility] [address] Performing Lab: [facility] [address] [facility] [address] HEPATITIS C ANTIBODY NON-REACTIVE NON-REACTIVE Mar 25, 2024 03:26 PM [facility] BASIC METABOLIC PANEL (non-fasting) Specimen Type: SERUM No comment entered. Ordering Provider: JAMES DUFF Report Released Date/Time: Mar 25, 2024 03:17 PM Reporting Lab: [facility] [address] [facility] [address] Performing Lab: [address] [address] UREA NITROGEN 13 mg/dL 7-25 GLUCOSE 100 mg/dL 65-100 SODIUM 140 mmol/L 135-145 POTASSIUM 3.6 mmol/L 3.5-5.0 CHLORIDE 104 mmol/L 100-110 CO2 24 meq/L 20-30 CREATININE, Serum 0.86 mg/dL 0.50-1.40 eGFR(CKD-EPI 2020) >90 mL/min >60 Mar 25, 2024 03:26 PM [facility] BASIC METABOLIC PANEL (fasting) Specimen Type: SERUM No comment entered. Ordering Provider: JAMES DUFF Report Released Date/Time: Mar 25, 2024 03:17 PM Reporting Lab: [facility] [address] [address] Performing Lab: [facility] [address] [address] UREA NITROGEN 13 mg/dL 7-25 GLUCOSE 100 mg/dL 65-100 SODIUM 140 mmol/L 135-145 POTASSIUM 3.6 mmol/L 3.5-5.0 CHLORIDE 104 mmol/L 100-110 CO2 24 meq/L 20-30 CREATININE, Serum 0.86 mg/dL 0.50-1.40 eGFR(CKD-EPI 2020) >90 mL/min >60 Mar 25, 2024 03:26 PM [facility] LIVER FUNCTION Specimen Type: SERUM No comment entered. Ordering Provider: JAMES DUFF Report Released Date/Time: Mar 25, 2024 03:17 PM Reporting Lab: [address] [address] Performing Lab: [address] [address] PROTEIN,TOTAL 7.7 g/dL 6.0-8.3 ALBUMIN 4.4 g/dL 3.5-5.0 ALKALINE PHOSPHATASE 80 U/L 40-150 AST 11 U/L 5-34 ALT 14 U/L BILIRUBIN, TOTAL 1.3 mg/dL H 0.2-1.2 BILIRUBIN, DIRECT 0.4 mg/dL 0-0.5 Mar 25, 2024 03:26 PM [facility] LIPID PANEL FASTING Specimen Type: SERUM No comment entered. Ordering Provider: JAMES DUFF Report Released Date/Time: Mar 25, 2024 03:17 PM Reporting Lab: [facility] [address] Performing Lab: [address] [address] CHOLESTEROL 217 mg/dL H TRIGLYCERIDE 256 mg/dL H 0-150 LDL calculated 121 mg/dL 0-129 CHOL/HDL 4.8 HDL CHOLESTEROL 45 mg/dL 40-60 Mar 25, 2024 03:26 PM [facility] HIV 1&2 Ag/Ab SCREEN Specimen Type: SERUM Comment: Hep C Ab: No HCV antibody detected. If recent infection is suspected or other evidence suggests HCV infection, consider HCV nucleic acid testing Ordering Provider: JAMES DUFF Report Released Date/Time: Mar 25, 2024 03:17 PM Reporting Lab: [address] [address] Performing Lab: [address] [address] HIV 1&2 Ag/Ab SCREEN NON-REACTIVE Nonreactive Social History: Smoking Status (Most current) and Tobacco Use (All prior to encounter date) This section includes the most current, and the historical, smoking and tobacco- related health factors from the [place] facility where the Encounter took place. Current Smoking Status This section includes the most current smoking, or tobacco-related health factor, from the [place] facility where the Encounter took place. Date/Time Current Smoking Status Comment Fely merida Mar 18, 2024 10:00 AM VA-TOBACCO USE FOR DORI CIGARETTES [facility] Tobacco Use History This section includes a history of the smoking, or tobacco-related health factors, that were collected on or before the date of the Encounter. The data comes from the DC facility where the Encounter took place. Date/Time Smoking Status/Tobac co Use Comment Facility Mar 18, 2024 10:00 AM VA-TOBACCO USE FORMER OTHER TYPE Quit more than 15 years ago [facility] Encounter Notes: All associated encounter notes This section contains the clinical notes associated to the Encounter. Date/Time Encounter Note(s) Provider Source Apr 15, 2024 10:03 AM TELEHEALTH NOTE: LOCAL TITLE: DC VIDEO CONNECT PSYCHOLOGY NOTE STANDARD TITLE: TELEHEALTH NOTE DATE OF NOTE: APR 15, 2024@10:03 ENTRY DATE: APR 15, 2024@10:03:55 AUTHOR: ARIELA HAYES COSIGNER: URGENCY: STATUS: COMPLETED Date of session: April 15, 2024 Duration of session: 30 minutes Diagnosis: MDD, recurrent, severe Presenting Problem ([place] report): Xenia presented to [facility] via [facility] for interim care as he was recently placed on a HRF for suicide after recent SI with plan and intent that led to [facility] at [facility] in [place], [place]. Course of Session: Xenia shared that he had a difficult week given the holidays are never a good time for him and the anniversary of his father's was yesterday. [place] shared he has been isolating more in the spare bedroom playing videogames. Specific mental health/clinical interventions: and this fha underwriter explored helpful vs unhelpful ways of coping when feeling depressed. This fha underwriter reinforced the use of video games and explored with him ways he can cope when the weather is bad and he can't access those coping strategies. [place] identified utilizing his more and discussed barriers to this. and this fha underwriter role played ways he can communicate his need for specific support to his . [place] agreed to try this with his . [...] indication of formal thought disorder. Risk Assessment: Xenia denied SI today. See CSRE from 04/01 Date of next planned contact: [facility] as needed -------- [facility] ([facility]) Standard Documentation [facility] Clinician Resources Only: E911 (Emergency Call Relay Center): [phone] National Veterans Crisis Line - 988 then press #1. [facility] Suicide Coordinator [phone], Ext. [phone]; Back-up Ext. [phone] [place] , Ted STEVENSON [phone] Introduction: Visit is being conducted by [place] Video Connect. identified with 2 identifiers: [X] Full Name [X] Date of [ ] VA ID Card Emergency Plan: confirmed and/or provided the following information in case of emergency or technology failure. PATIENT PHONE - NONE FOUND PHONE NUMBER [CELLULAR] - [phone] Is patient phone number correct, if not, enter below: [place]'s phone number: GLADIS WILLETT [address] [place] [address], [phone] 's present location and address for appointment: Above Address [place]'s emergency contact name and phone number: on file reported that location is private and safe: Yes Informed Consent: informed of the risks and benefits of Telehealth video care. has the right to refuse video services. If refuses video visit, a [id number] visit will be scheduled. [place] verbalized consent for this video visit: Yes [place] provided consent for any other persons present for visit: N/A If yes, who and relationship to patient: Secure visit: Visit was locked for security and privacy:Yes /prashanth/ Ariela Hayes Psy.D. Psychologist Signed: 04/15/2024 10:09 ARIELA HAYES [facility]
--- OUTSIDE RECORDS SUMMARY | 2024-05-08 09:50 | XMS_ITS | Clinical Summary ---
Author Organization [facility] Address [address] [place] [address] Care Team Providers Care Mds Nurse Name Role Phone Unavailable Primary Care Provider Unavailabl e Social History Tobacco Use Types Packs/Day Years Used Date Smoking Tobacco: Never Assessed Sex and Gender Information Value Date Recorded Sex Assigned at Not on file Gender Identity Male 11/22/2021 12:27 PM EDT Sexual Orientation Not on file Plan of Treatment Health Maintenance Due Date Last Done Comments Hepatitis C Virus Screening 1975 HIV Screening 12/29/1988 DTaP/Tdap/Td Vaccines (1 - Tdap) 12/29/1994 Hepatitis B Vaccines (1 of 3 - 19+ 3-dose series) 12/29/1994 Colonoscopy 12/29/2020 Influenza Vaccine 11/13/2023 COVID-19 Vaccine ( - 2023-2 5 season) 2023 Pneumococcal Vaccine: Pediat ana (0-5 Years) and At-Risk Patients (6 to 49 Years) Aged Out No longer eligible b ased on patient's age to complete this topic
--- OUTSIDE RECORDS SUMMARY | 2024-05-08 09:50 | XMS_ITS ---
Author Organization [facility] Address [address] [place] [address] Care Team Providers Care Etl Analyst Name Role Phone Freddy Gonzales Primary Care Provider Un available Julio Gottlieb Unavailable [phone] REASON FOR VISIT Patient presents today for crohns MEDICATIONS Medication SIG (Take, Route, Frequency, Duration) Notes Start Date End Date Status azaTHIOprine 50 MG TAKE 3 TABLETS BY MO UTH DAILY Active Budesonide 3 MG 2 capsules Act monroe Mesalamine ER 500 MG TAKE 2 CAPSULES BY MOUTH 4 TIMES A DAY for 90 Not-Taking Omeprazole 40 MG TAKE 1 CAPSULE BY MO UTH EVERY DAY (30 MINUTES BEFORE MORNING MEAL) Oral Active Stelara 90 MG/ML 1 Subcutaneous Every 4 weeks 04/24/2023 Active FLUoxetine HCl 40 MG TAKE 1 CAPSULE BY M OUTH EVERY DAY Orally Active buPROPion HCl ER (SR) 150 MG 1 tablet in the morning Orally Once a day for 30 day(s) Active Aspirin 81 Not-Takin g Lisinopril-hydroCHLOROth iazide 10-12.5 MG TAKE 1 TABLET BY MOUTH EVERY DAY Oral for 90 Active hydrOXYzine HCl 50 MG 1 tablet as needed Orally Once a day for 30 day(s) Active SOCIAL HISTORY Tobacco Use: Social History Observation [...] ast year? No Points 0 Interpretation Negative VITAL SIGNS BMI 28.50 kg/m2 05/05/2024 Blood pressure systolic 000 mm Hg 05/05/19 25 Blood pressure diastolic 00 mm Hg 025 Height 69 in 05/05/2024 Temperature 97.8 degrees Fahrenheit 05/05/19 25 Weight 193 lbs 05/05/2024 Encounters Encounter Location Date Provider Diagnosis [facility] [address] [place] [address] 05/05/2024 Julio Gottlieb Crohn's disease of small intestine without complication K50.00 ASSESSMENTS Encounter Date Diagnosis Assessment Notes Treatment Notes Treatment Clinical Notes 05/05/2024 Crohn's disease of small intestine without complication (ICD-10 - K50.00) Start using 2 Imodium every morning and 2 every afternoon on a daily and regular basis Minimize junk food Continue the Vitamins and Calcium supplement PLAN OF TREATMENT Medication Medication Name Sig Start Date Stop Date Notes azaTHIOprine 50 MG TAKE 3 TABLETS BY MOUTH DAILY Budesonide 3 MG 2 capsules Omeprazole 40 MG TAKE 1 CAPSULE BY MO UT EVERY DAY (30 MINUTES BEFORE MORNING MEAL) Oral Stelara 90 MG/ML 1 Subcutaneous Every 4 weeks 04/24/2023 Treatment Notes Assessment Notes Crohn's disease of small int estine without complication Start using 2 Imodium every morning and 2 every afternoon on a daily and regular basis Minimize junk food Continue the Vitamins and Calcium supplement Pending Test Test Name Order Date LIVER PROFILE 05/05/2024 CBC w DIFF 05/05/2024 Next Appt Details Follow Up: 2024, Mk n: Provider Name:Julio Gottlieb , 01/12/2025 04:20:00 PM, [address], [address], [place], [address],
--- OUTSIDE RECORDS SUMMARY | 2024-05-08 09:50 | XMS_ITS ---
Author Name [facility] [place] Organization [place] Address [address] [place] [id number] Care Team Providers Care Photo Mask Processor Name Role Phone KALEB DUFF Primary Care Provider Unavail able Selected Encounter This section includes the information on record at [place] for the Encounter. Date/Time Encounter Type Encounter Description Reason Provider Source Apr 19, 2024 01:28 PM Outpatient Encounter MENTAL HEALTH [facility] ROSA POTTER Encounter Template Text not used by [place] Plan of Treatment: Future Appointments (+ 6 months) and Future Tests (+/- 45 days) The Plan of Treatment section includes future care activities for the patient from all [place] treatmentfacilities. This section includes future appointments and future orders which are active, pending or scheduled. Future Appointments This section includes appointments that were scheduled to occur 6 months from the date of the Encounter, up to a maximum of 20 appointments. The data comes from all [place] treatment facilities. Appointment Date/Time Appointment Type Appointme nt Facility Name Apr 26, 2024 02:00 PM AMBULATORY - [place]IATRY [place] [facility] [place] [facility] Apr 30, 2024 08:30 AM AMBULATORY - PSYCHIATRY [place] [facility] [place] [facility] May 05, 2024 02:00 PM AMBULATORY - MEDICINE [place] [facility] [place] [facility] May 11, 2024 01:30 PM AMBULATORY - PSYCHIATRY [place] [facility] [place] [facility] May 17, 2024 08:30 AM AMBULATORY - PSYCHIATRY [facility] Jun 21, 2024 03:30 PM AMBULATORY - MEDICINE [facility] Active, Pending, and Scheduled Orders This section includes a listing of several types of active, pending, and scheduled orders, including clinic medications orders, diagnostic test orders, procedure orders and consult orders; where the start date of the order is 45 days before the date of the Encounter or 45 days after the date of theEncounter. The data comes from all [place] treatment facilities. Test Date/Time Test Type Test Details Facility Name Mar 25, 2024 03:20 PM Consult Order COMMUNITY CARE-GI GENERAL Cons [employer] [facility] Apr 20, 2024 11:13 AM Consult Order PSYCHOTHERAPY BHIP/NHM OUTPT Cons [employer] [facility] Apr 20, 2024 11:13 AM Consult Order PSYCHOTHERAPY BHIP/NHM OUTPT Cons [employer] [facility] Apr 26, 2024 12:00 AM Laboratory - Chemistry Order TSH BLOOD (SST-SERUM) SP [facility] Lab Results: +/- 30 days of the encounter This section includes the Chemistry and Hematology Lab Results on record with [place] for the patient. Radiology Reports and Pathology Reports are provided separately, in subsequent sections. Lab Results This section contains the Chemistry/Hematology Results that were resulted 30 days before or 30 daysafter the date of the Encounter. Date/Time Source Result Type Result - Unit Interpretation Reference Range Comment Mar 25, 2024 03:26 PM [facility] HEPATITIS A ANTIBODY (IgM) Specimen Type: SERUM [...] Mar 25, 2024 03:17 PM Reporting Lab: [facility] [address] [facility] [address] Performing Lab: [facility]ITALR[facility]ALTHN [facility]ITALUSE[address] [address] HEPATITIS A ANTIBODY (IgM) Non Reactive Non Reactive Mar 25, 2024 03:26 PM [facility] HEPATITIS B SURFACE ANTIBODY (HBsAb)-WH Specimen Type: SERUM No comment entered. Ordering Provider: JAMES DUFF Report Released Date/Time: Mar 25, 2024 03:17 PM Reporting Lab: [facility]ITALR[facility]N [facility]ITALUSEBERTR[facility] [address] [facility] [address] Performing Lab: [facility]ITALRCR[facility]N [facility]ITALUSEBER[facility] Mar 25, 2024 03:26 PM [facility] VITAMIN D (25-OH) Specimen Type: SERUM No comment entered. Ordering Provider: JAMES DUFF Report Released Date/Time: Mar 25, 2024 03:17 PM Reporting Lab: [facility] [address] [facility] [address] Performing Lab: [facility]N [facility]ITALUSEBERTR[facility] [address] [facility] [address] VITAMIN D (25-OH) 38 ng/mL 20-50 Mar 25, 2024 03:26 PM [facility] CBC AND DIFF (AUTO) Specimen Type: BLOOD No comment entered. Ordering Provider: JAMES DUFF Report Released Date/Time: Mar 25, 2024 03:17 PM Reporting Lab: [facility]ITALRCR[facility]N [facility]ITALUSEBERTR[facility] [address] [facility] [address] Performing Lab: [facility]ITALRCROSSBR[facility]ALTHN [facility]ITALUSE[address] [address] WBC 8.01 10*3/uL 4.50-11.00 RBC 5.05 10*6/uL [...] 10*3/uL 0.00-0.00 Mar 25, 2024 03:26 PM [facility] IRON & TIBC PANEL Specimen Type: SERUM No comment entered. Ordering Provider: JAMES DUFF Report Released Date/Time: Mar 25, 2024 03:17 PM Reporting Lab: [address] [address] Performing Lab: [address] [address] TIBC 458 ug/dL 204-475 IRON 98 ug/dL 40-160 Transferrin Saturation 21.4 20.0-50.0 Transferrin (TRF) 347 mg/dL 200-360 Mar 25, 2024 03:26 PM [facility] FERRITIN Specimen Type: SERUM No comment entered. Ordering Provider: JAMES DUFF F Report Released Date/Time: Mar 25, 2024 03:17 PM Reporting Lab: [address] [address] Performing Lab: [facility] [address] [facility] [address] FERRITIN 53 ng/mL 20-300 Mar 25, 2024 03:26 PM [facility] HEPATITIS C ANTIBODY (HCV)-ARC Specimen Type: SERUM Comment: Hep C Ab: No HCV antibody detected. If recent infection is suspected or other evidence suggests HCV infection, consider HCV nucleic acid testing Ordering Provider: JAMES DUFF Report Released Date/Time: Mar 25, 2024 03:17 PM Reporting Lab: [facility] [address] [facility] [address] Performing Lab: [address] [address] HEPATITIS C ANTIBODY NON-REACTIVE NON-REACTIVE Mar 25, 2024 03:26 PM [facility] BASIC METABOLIC PANEL (non-fasting) Specimen Type: SERUM No comment entered. Ordering Provider: JAMES DUFF Report Released Date/Time: Mar 25, 2024 03:17 PM Reporting Lab: [address] [address] Performing Lab: [address] [address] UREA NITROGEN 13 mg/dL 7-25 GLUCOSE 100 mg/dL 65-100 SODIUM 140 mmol/L 135-145 POTASSIUM 3.6 mmol/L 3.5-5.0 CHLORIDE 104 mmol/L 100-110 CO2 24 meq/L 20-30 CREATININE, Serum 0.86 mg/dL 0.50-1.40 eGFR(CKD-EPI 2020) >90 mL/min >60 Mar 25, 2024 03:26 PM [facility] BASIC METABOLIC PANEL (fasting) Specimen Type: SERUM No comment entered. Ordering Provider: JAMES DUFF Report Released Date/Time: Mar 25, 2024 03:17 PM Reporting Lab: [address] [address] Performing Lab: [facility] [address] [address] UREA NITROGEN 13 mg/dL 7-25 GLUCOSE 100 mg/dL 65-100 SODIUM 140 mmol/L 135-145 POTASSIUM 3.6 mmol/L 3.5-5.0 CHLORIDE 104 mmol/L 100-110 CO2 24 meq/L 20-30 CREATININE, Serum 0.86 mg/dL 0.50-1.40 eGFR(CKD-EPI 2020) >90 mL/min >60 Mar 25, 2024 03:26 PM [facility] LIVER FUNCTION Specimen Type: SERUM No comment entered. Ordering Provider: JAMES DUFF Report Released Date/Time: Mar 25, 2024 03:17 PM Reporting Lab: [address] [address] Performing Lab: [address] [address] PROTEIN,TOTAL 7.7 g/dL 6.0-8.3 ALBUMIN 4.4 g/dL 3.5-5.0 ALKALINE PHOSPHATASE 80 U/L 40-150 AST 11 U/L 5-34 ALT 14 U/L BILIRUBIN, TOTAL 1.3 mg/dL H 0.2-1.2 BILIRUBIN, DIRECT 0.4 mg/dL 0-0.5 Mar 25, 2024 03:26 PM [facility] LIPID PANEL FASTING Specimen Type: SERUM No comment entered. Ordering Provider: JAMES DUFF Report Released Date/Time: Mar 25, 2024 03:17 PM Reporting Lab: [address] [address] Performing Lab: [address] [address] CHOLESTEROL 217 mg/dL H TRIGLYCERIDE 256 mg/dL H 0-150 LDL calculated 121 mg/dL 0-129 CHOL/HDL 4.8 HDL CHOLESTEROL 45 mg/dL 40-60 Mar 25, 2024 03:26 PM [facility] HIV 1&2 Ag/Ab SCREEN Specimen Type: SERUM Comment: Hep C Ab: No HCV antibody detected. If recent infection is suspected or other evidence suggests HCV infection, consider HCV nucleic acid testing Ordering Provider: JAMES DUFF Report Released Date/Time: Mar 25, 2024 03:17 PM Reporting Lab: [facility] [address] [facility] [address] Performing Lab: [address] [address] HIV 1&2 Ag/Ab SCREEN NON-REACTIVE Nonreactive Social History: Smoking Status (Most current) and Tobacco Use (All prior to encounter date) This section includes the most current, and the historical, smoking and tobacco- related health factors from the [place] facility where the Encounter took place. Current Smoking Status This section includes the most current smoking, or tobacco-related health factor, from the [place] facility where the Encounter took place. Date/Time Current Smoking Status Comment Facil it Mar 18, 2024 10:00 AM VA-TOBACCO USE FOR DORI CIGARETTES [facility] Tobacco Use History This section includes a history of the smoking, or tobacco-related health factors, that were collected on or before the date of the Encounter. The data comes from the [place] facility where the Encounter took place. Date/Time Smoking Status/Tobac co Use Comment Facility Mar 18, 2024 10:00 AM VA-TOBACCO USE FORMER OTHER TYPE Quit more than 15 years ago [facility] Encounter Notes: All associated encounter notes This section contains the clinical notes associated to the Encounter. Date/Time Encounter Note(s) Provider Source Apr 19, 2024 01:28 PM MENTAL HEALTH CONS ULT: LOCAL TITLE: MENTAL HEALTH CONSULT NOTE STANDARD TITLE: MENTAL HEALTH CONSULT DATE OF NOTE: APR 19, 2024@13:28:12 ENTRY DATE: APR 19, 2024@13:28:12 AUTHOR: ROSA POTTER EXP COSIGNER: URGENCY: STATUS: COMPLETED Patient Health Questionnaire - 9 (PHQ-9) Date Given: 04/19/2024 Clinician: Rosa Potter Location: [facility]//[facility]/mbraymundo [place]: Gladis Negrete SSN: [id number] : [birth year] ([birth year]) Gender: Man PHQ-9 Depression Scale Score: 19 The total score may range from 0 to 27. Total Score Depression Severity 1-4 Minimal depression 5-9 Mild depression 10-14 Moderate depression 15-19 Moderately severe depression 20-27 Severe depression Questions and Answers Over the last 2 weeks, how often have you been bothered by any of the following problems? 1. Little interest or pleasure in doing things More than half the days 2. Feeling down, depressed, or hopeless More than half the days 3. Trouble falling or staying asleep, or sleeping too much Nearly every day 4. Feeling tired or having little energy Nearly every day 5. Poor appetite or overeating Nearly every day 6. Feeling bad about yourself or that you are a failure or have let yourself or your family down More than half the days 7. Trouble concentrating on things, such as reading the newspaper or watching television More than half the days 8. Moving or speaking so slowly that other people could have noticed. Or the opposite being so fidgety or restless that you have been moving around a lot more than usual More than half the days 9. Thoughts that you would be better off or of hurting yourself in some way Not at all 10. If you checked off any problems, how DIFFICULT have these problems made it for you to do your work, take care of things at home or get along with other people? Extremely difficult Information contained in this note is based on a self report assessment and is not sufficient to use alone for diagnostic purposes. Assessment results should be verified for accuracy and used in conjunction with other diagnostic activities. Copyright 2001 [employer]. All rights reserved. Reproduced with permission of [employer]. DHAVAL is a trademark of [employer] /prashanth/ JONNY Owen [employer] [facility] R[facility] Signed: 04/20/2024 10:44 ROSA POTTER [place] [facility]
--- OUTSIDE RECORDS SUMMARY | 2024-05-08 09:50 | XMS_ITS | Encounter Summary ---
Author Name [facility] [place] Address [address] [place] [id number] Care Team Providers Care Rn Cvicu Name Role Phone KALEB DUFF Primary Care Provider Unavail able Selected Encounter This section includes the information on record at [place] for the Encounter. Date/Time Encounter Type Encounter Description Reason Pro vider Source Apr 22, 2024 12:19 PM Outpatient Encounter [facility] Encounter Template Text not used by [place] Plan of Treatment: Future Appointments (+ 6 months) and Future Tests (+/- 45 days) The Plan of Treatment section includes future care activities for the patient from all [place] treatmentfacilities. This section includes future appointments and future orders which are active, pending or scheduled. Future Appointments This section includes appointments that were scheduled to occur 6 months from the date of the Encounter, up to a maximum of 20 appointments. The data comes from all [place] treatment facilities. Appointment Date/Time Appointment Type Appointme nt Facility Name Apr 26, 2024 02:00 PM AMBULATORY - [place]IATRY [place] [facility] [place] [facility] Apr 30, 2024 08:30 AM AMBULATORY - PSYCHIATRY [place] [facility] [place] [facility] May 05, 2024 02:00 PM AMBULATORY - MEDICINE [place] [facility] [place] [facility] May 11, 2024 01:30 PM AMBULATORY - PSYCHIATRY [place] [facility] [place] [facility] May 17, 2024 08:30 AM AMBULATORY - PSYCHIATRY [facility] Jun 21, 2024 03:30 PM AMBULATORY - MEDICINE [facility] Active, Pending, and Scheduled Orders This section includes a listing of several types of active, pending, and scheduled orders, including clinic medications orders, diagnostic test orders, procedure orders and consult orders; where the start date of the order is 45 days before the date of the Encounter or 45 days after the date of theEncounter. The data comes from all [place] treatment facilities. Test Date/Time Test Type Test Details Facility Name Mar 25, 2024 03:20 PM Consult Order COMMUNITY CARE-GI GENERAL Cons [employer] Apr 20, 2024 11:13 AM Consult Order PSYCHOTHERAPY BHIP/NH[facility] OUTPT [facility] [employer] [facility] Apr 20, 2024 11:13 AM Consult Order PSYCHOTHERAPY BHIP/[facility] OUTPT Cons [employer] [facility] Apr 26, 2024 12:00 AM Laboratory - Chemistry Order TSH BLOOD (SST-SERUM) SP [facility] Lab Results: +/- 30 days of the encounter This section includes the Chemistry and Hematology Lab Results on record with [place] for the patient. Radiology Reports and Pathology Reports are provided separately, in subsequent sections. Lab Results This section contains the Chemistry/Hematology Results that were resulted 30 days before or 30 daysafter the date of the Encounter. Date/Time Source Result Type Result - Unit Interpretation Reference Range Comment Mar 25, 2024 03:26 PM [facility] HEPATITIS A ANTIBODY (IgM) Specimen Type: SERUM [...] Mar 25, 2024 03:17 PM Reporting Lab: [facility]ITALN [facility]ITAL[facility] [address] [facility] [address] Performing Lab: [facility]ITALR[facility]OSPITALN [facility]ITALUSE[address] [address] HEPATITIS A ANTIBODY (IgM) Non Reactive Non Reactive Mar 25, 2024 03:26 PM [facility] HEPATITIS B SURFACE ANTIBODY (HBsAb)-[facility] Specimen Type: SERUM No comment entered. Ordering Provider: JAMES DUFF Report Released Date/Time: Mar 25, 2024 03:17 PM Reporting Lab: [facility] [address] [facility] [address] Performing Lab: [facility] Mar 25, 2024 03:26 PM [facility] VITAMIN D (25-OH) Specimen Type: SERUM No comment entered. Ordering Provider: JAMES DUFF Report Released Date/Time: Mar 25, 2024 03:17 PM Reporting Lab: [facility] [address] [facility] [address] Performing Lab: [facility] [address] [address] VITAMIN D (25-OH) 38 ng/mL 20-50 Mar 25, 2024 03:26 PM [facility] CBC AND DIFF (AUTO) Specimen Type: BLOOD No comment entered. Ordering Provider: JAMES DUFF Report Released Date/Time: Mar 25, 2024 03:17 PM Reporting Lab: [facility] [address] [facility] [address] Performing Lab: [facility]ITAL[facility] [address] WBC 8.01 10*3/uL 4.50-11.00 RBC 5.05 10*6/uL [...] 10*3/uL 0.00-0.00 Mar 25, 2024 03:26 PM [facility] IRON & TIBC PANEL Specimen Type: SERUM No comment entered. Ordering Provider: JAMES DUFF Report Released Date/Time: Mar 25, 2024 03:17 PM Reporting Lab: [address] [address] Performing Lab: [address] [address] TIBC 458 ug/dL 204-475 IRON 98 ug/dL 40-160 Transferrin Saturation 21.4 20.0-50.0 Transferrin (TRF) 347 mg/dL 200-360 Mar 25, 2024 03:26 PM [facility] FERRITIN Specimen Type: SERUM No comment entered. Ordering Provider: JAMES DUFF F Report Released Date/Time: Mar 25, 2024 03:17 PM Reporting Lab: [address] [address] Performing Lab: [facility] [address] [facility] [address] FERRITIN 53 ng/mL 20-300 Mar 25, 2024 03:26 PM [facility] HEPATITIS C ANTIBODY (HCV)-ARC Specimen Type: SERUM Comment: Hep C Ab: No HCV antibody detected. If recent infection is suspected or other evidence suggests HCV infection, consider HCV nucleic acid testing Ordering Provider: JAMES DUFF Report Released Date/Time: Mar 25, 2024 03:17 PM Reporting Lab: [facility] [address] [facility] [address] Performing Lab: [address] [address] HEPATITIS C ANTIBODY NON-REACTIVE NON-REACTIVE Mar 25, 2024 03:26 PM [facility] BASIC METABOLIC PANEL (non-fasting) Specimen Type: SERUM No comment entered. Ordering Provider: JAMES DUFF Report Released Date/Time: Mar 25, 2024 03:17 PM Reporting Lab: [address] [address] Performing Lab: [address] [address] UREA NITROGEN 13 mg/dL 7-25 GLUCOSE 100 mg/dL 65-100 SODIUM 140 mmol/L 135-145 POTASSIUM 3.6 mmol/L 3.5-5.0 CHLORIDE 104 mmol/L 100-110 CO2 24 meq/L 20-30 CREATININE, Serum 0.86 mg/dL 0.50-1.40 eGFR(CKD-EPI 2020) >90 mL/min >60 Mar 25, 2024 03:26 PM [facility] BASIC METABOLIC PANEL (fasting) Specimen Type: SERUM No comment entered. Ordering Provider: JAMES DUFF Report Released Date/Time: Mar 25, 2024 03:17 PM Reporting Lab: [address] [address] Performing Lab: [address] [place] [address] UREA NITROGEN 13 mg/dL 7-25 GLUCOSE 100 mg/dL 65-100 SODIUM 140 mmol/L 135-145 POTASSIUM 3.6 mmol/L 3.5-5.0 CHLORIDE 104 mmol/L 100-110 CO2 24 meq/L 20-30 CREATININE, Serum 0.86 mg/dL 0.50-1.40 eGFR(CKD-EPI 2020) >90 mL/min >60 Mar 25, 2024 03:26 PM [facility] LIVER FUNCTION Specimen Type: SERUM No comment entered. Ordering Provider: JAMES DUFF Report Released Date/Time: Mar 25, 2024 03:17 PM Reporting Lab: [address] [address] Performing Lab: [address] [address] PROTEIN,TOTAL 7.7 g/dL 6.0-8.3 ALBUMIN 4.4 g/dL 3.5-5.0 ALKALINE PHOSPHATASE 80 U/L 40-150 AST 11 U/L 5-34 ALT 14 U/L BILIRUBIN, TOTAL 1.3 mg/dL H 0.2-1.2 BILIRUBIN, DIRECT 0.4 mg/dL 0-0.5 Mar 25, 2024 03:26 PM [facility] LIPID PANEL FASTING Specimen Type: SERUM No comment entered. Ordering Provider: JAMES DUFF Report Released Date/Time: Mar 25, 2024 03:17 PM Reporting Lab: [address] [address] Performing Lab: [address] [address] CHOLESTEROL 217 mg/dL H TRIGLYCERIDE 256 mg/dL H 0-150 LDL calculated 121 mg/dL 0-129 CHOL/HDL 4.8 HDL CHOLESTEROL 45 mg/dL 40-60 Mar 25, 2024 03:26 PM [facility] HIV 1&2 Ag/Ab SCREEN Specimen Type: SERUM Comment: Hep C Ab: No HCV antibody detected. If recent infection is suspected or other evidence suggests HCV infection, consider HCV nucleic acid testing Ordering Provider: JAMES DUFF Report Released Date/Time: Mar 25, 2024 03:17 PM Reporting Lab: [facility] [address] [facility] [address] Performing Lab: [facility] [address] [facility] [address] HIV 1&2 Ag/Ab SCREEN NON-REACTIVE Nonreactive Social History: Smoking Status (Most current) and Tobacco Use (All prior to encounter date) This section includes the most current, and the historical, smoking and tobacco- related health factors from the [place] facility where the Encounter took place. Current Smoking Status This section includes the most current smoking, or tobacco-related health factor, from the [place] facility where the Encounter took place. Date/Time Current Smoking Status Comment [facility] it Mar 18, 2024 10:00 AM VA-TOBACCO USE FOR DORI CIGARETTES [facility] Tobacco Use History This section includes a history of the smoking, or tobacco-related health factors, that were collected on or before the date of the Encounter. The data comes from the [place] facility where the Encounter took place. Date/Time Smoking Status/Tobac co Use Comment Facility Mar 18, 2024 10:00 AM VA-TOBACCO USE FORMER OTHER TYPE Quit more than 15 years ago [facility] Encounter Notes: All associated encounter notes This section contains the clinical notes associated to the Encounter. Date/Time Encounter Note(s) Provider Source Apr 22, 2024 12:19 PM MENTAL HEALTH CONS ULT: LOCAL TITLE: SUICIDE PREVENTION HIGH RISK FLAG CONSULT RESPONSE STANDARD TITLE: MENTAL HEALTH CONSULT DATE OF NOTE: APR 22, 2024@12:19 ENTRY DATE: APR 22, 2024@12:19:53 AUTHOR: MARCOS YAN EXP COSIGNER: URGENCY: STATUS: COMPLETED Suicide Prevention Consult for High Risk Flag Placement Progress Note Template Suicide Prevention has reviewed this consult for consideration of placing a Patient Record Flag for High Risk for Suicide (HRS-PRF). Suicide Prevention affirms there is a HRS-PRF already in place and will continue to manage the flag. Explain: already has a HRF on his chart and the [facility] SP team will continue to monitor the . /prashanth/ BOB KITCHENSW Suicide Cattle Broker Signed: 04/22/2024 12:20 Receipt Acknowledged By: 04/23/2024 08:13 /prahsanth/ Rosa Potter, [facility] Address Change Clerk 04/23/2024 07:16 /prashanth/ KEN GOODWIN, [facility] SUICIDE DOCUMENTATION SUPERVISOR 04/22/2024 16:09 /prashanth/ NICOLE LINCOLN, [facility] SUICIDE DOCUMENTATION SUPERVISOR MARCOS YAN CNTL [facility]ITALCarol [facility]
--- OUTSIDE RECORDS SUMMARY | 2024-05-08 09:50 | XMS_ITS | Encounter Summary ---
Author Name [facility] [place] [facility] [place] Organization [facility] [place] [facility] [place] Address [address] [place] [address] Care Team Providers Care Newspaper Copy Editor Name Role Phone KALEB DUFF Primary Care Provider Unavail able Selected Encounter This section includes the information on record at [place] for the Encounter. Date/Time Encounter Type Encounter Description Reason Provider Source Apr 30, 2024 08:30 AM PSYTX W PT 30 MINUTES [facility] - IND ICD-10-CM F43.10 Post-traumatic stress disorder, unspecified ARIELA HAYES [facility] Encounter Template Text not used by [place] Assessments - Encounter Diagnoses This section includes the primary and secondary diagnoses documented for the Encounter. Date/Time Primary/Secondary Diagnosis Diagnosis Name Provider Source Apr 30, 2024 04:38 PM PRIMARY Post-traumatic stress disorder, unspecified GUICHO HAYES [facility] Apr 30, 2024 04:38 PM SECONDARY Problems in relationship with spouse or partner GUICHO HAYES [facility] Plan of Treatment: Future Appointments (+ 6 months) and Future Tests (+/- 45 days) The Plan of Treatment section includes future care activities for the patient from all [place] treatmentfacilities. This section includes future appointments and future orders which are active, pending or scheduled. Future Appointments This section includes appointments that were scheduled to occur 6 months from the date of the Encounter, up to a maximum of 20 appointments. The data comes from all [facility]. Appointment Date/Time Appointment Type Appointme nt Facility Name May 05, 2024 02:00 PM AMBULATORY - MEDICINE [facility] May 11, 2024 01:30 PM AMBULATORY - PSYCHIATRY [facility] May 17, 2024 08:30 AM AMBULATORY - PSYCHIATRY [facility] Jun 21, 2024 03:30 PM AMBULATORY - MEDICINE [facility] Active, Pending, and Scheduled Orders This section includes a listing of several types of active, pending, and scheduled orders, including clinic medications orders, diagnostic test orders, procedure orders and consult orders; where the start date of the order is 45 days before the date of the Encounter or 45 days after the date of theEncounter. The data comes from all [facility]. Test Date/Time Test Type Test Details Facility Name Mar 25, 2024 03:20 PM Consult Order COMMUNITY CARE-GI GENERAL Cons Clerk [facility] Apr 20, 2024 11:13 AM Consult Order PSYCHOTHERAPY BHIP/[facility] OUTPT Cons Clerk [facility] Apr 20, 2024 11:13 AM Consult Order PSYCHOTHERAPY BHIP/[facility] OUTPT Cons Clerk [facility] Apr 26, 2024 12:00 AM Laboratory - Chemistry Order TSH BLOOD (SST-SERUM) SP [facility] Social History: Smoking Status (Most current) and Tobacco Use (All prior to encounter date) This section includes the most current, and the historical, smoking and tobacco- related health factors from the [place] facility where the Encounter took place. Current Smoking Status This section includes the most current smoking, or tobacco-related health factor, from the [place] facility where the Encounter took place. Date/Time Current Smoking Status Comment Facil ity Mar 18, 2024 10:00 AM VA-TOBACCO USE FOR DORI CIGARETTES [facility] Tobacco Use History This section includes a history of the smoking, or tobacco-related health factors, that were collected on or before the date of the Encounter. The data comes from the [place] facility where the Encounter took place. Date/Time Smoking Status/Tobac co Use Comment Facility Mar 18, 2024 10:00 AM VA-TOBACCO USE FORMER OTHER TYPE Quit more than 15 years ago [place] [facility] [place] [facility] Encounter Notes: All associated encounter notes [...] reporting situations, duty to warn and protect, Cabezas Warning,(if treatment team finds patient to be an acute danger to himself or others, that this information could be relayed to a court of law and presented to a eye physician), and [facility] access for active duty service members. Provided Suicide Prevention Hotline number, and other contact numbers as necessary. DURATION OF SESSION: 50 minutes SESSION CONTENT: This was the first session between the couple and this entry writer. Time was spent discussing limits of confidentiality, setting session boundaries, discussing documentation within [place]'s chart about sessions, etc. Time was also spent establishing rapport with the couple and establishing a brief history on their relationship and current presenting problem with communication and conflict resolution. The couple and this entry writer started to develop goals for treatment around this and were able to come up with a plan of working toward being able to communicate during conflict in a respectable way where resolution is able to be accomplished. In addition, the couple would like to be able to bring up emotions/concerns without fear of conflict. The couple and this entry writer discussed the plan to meet individually [...] reported. DSM5 DIAGNOSES: relationship distress with spouse; with PTSD diagnosis. Plan: RTC on 05/07 @8:30am [facility] ([facility]) Standard Documentation [facility] Clinician Resources Only: E911 (Emergency Call Relay Center): [phone] National Veterans Crisis Line - 988 then press #1. CWJason Suicide Coordinator [phone], Ext. [phone]; Back-up Ext. [phone] [place] Police, LUCIAJason, Daniela [phone] Introduction: Visit is being conducted by [place] [facility] Connect. identified with 2 identifiers: [X] Full Name [X] Date of [ ] VA ID Card Emergency Plan: confirmed and/or provided the following information in case of emergency or technology failure. PATIENT PHONE - NONE FOUND PHONE NUMBER [CELLULAR] - [phone] Is patient phone number correct, if not, enter below: 's phone number: GLADIS CHERYGLE [address] [place] [address], [phone] [place] present location and address for appointment: Above address [place]'s emergency contact name and phone number: on file [place] reported that location is private and safe: Yes Informed Consent: [place] informed of the risks and benefits of Telehealth video care. has the right to refuse video services. If refuses video visit, a [id number] visit will be scheduled. verbalized consent for this video visit: Yes [place] provided consent for any other persons present for visit: Yes If yes, who and relationship to patient:-Annamarie Secure visit: Visit was locked for security and privacy:Yes /prashanth/ Ariela Hayes Psy.D. Psychologist Signed: 04/30/2024 16:39 ARIELA HAYES [place] [facility]
--- OUTSIDE RECORDS SUMMARY | 2024-05-08 09:50 | XMS_ITS ---
Author Organization [facility] Address [address] [place] [id number] Care Team Providers Care Envelope Addresser Name Role Phone Freddy Gonzales Primary Care Provider Un available Julio Gottlieb Unavailable [phone] ALLERGIES No Known Allergies REASON FOR VISIT Patient presents today for colitis MEDICATIONS Medication SIG (Take, Route, Frequency, Duration) Notes Start Date End Date Status Stelara 90 MG/ML 1 Subcutaneous Every 4 weeks for 84 days 09/24/2023 Active Mesalamine ER 500 MG TAKE 2 CAPSULES BY MOUTH 4 TIMES A DAY for 90 Active Stelara 90 MG/ML 1 Subcutaneous Every 8 weeks for 56 days 04/24/2023 Active Budesonide 3 MG TAKE 3 CAPSULES BY M OUTH DAILY for 90 Active azaTHIOprine 50 MG TAKE 3 TABLETS BY MO UTH DAILY for 90 Active Lisinopril-hydroCHLOROthia zide 10-12.5 MG TAKE 1 TABLET BY MOUTH EVERY DAY Oral for 90 Active FLUoxetine HCl 20 MG TAKE 1 CAPSULE BY M OUTH EVERY DAY Oral for 90 Active Omeprazole 40 MG TAKE 1 CAPSULE BY MO UTH EVERY DAY (30 MINUTES BEFORE MORNING MEAL) Oral for 90 Active Aspirin 81 Active SOCIAL HISTORY Tobacco Use: Social History [...] Points 0 Interpretation Negative VITAL SIGNS BMI 28.09 kg/m2 01/07/2024 Blood pressure systolic 000 mm Hg 01/07/20 24 Blood pressure diastolic 00 mm Hg 024 Height 69 in 01/07/2024 Temperature 98.2 degrees Fahrenheit 01/07/20 24 Weight 190 lb 4 oz lbs 01/07/2024 Encounters Encounter Location Date Provider Diagnosis [facility] [address] [place] [address] 01/07/2024 Julio Gottlieb Crohn's disease of small intestine without complication K50.00 and Diarrhea, unspecified type R19.7 ASSESSMENTS Encounter Date Diagnosis Assessment Notes Treatment Notes Treatment Clinical Notes 01/07/2024 Crohn's disease of small intestine without complication (ICD-10 - K50.00) Start using 2 Imodium every morning and 2 every afternoon on a daily and regular basis Minimize junk food Continue the Vitamins but add a Calcium supplement 01/07/2024 Diarrhea, unspecified type (ICD-10 - R19.7) PLAN OF TREATMENT Treatment Notes Assessment Notes Crohn's disease of small int estine without complication Start using 2 Imodium every morning and 2 every afternoon on a daily and regular basis Minimize junk food Continue the Vitamins but add a Calcium supplement Pending Test Test Name Order Date Vitamin B12 01/07/2024 [facility] UST 01/07/2024 Next Appt Details Follow Up: 3-4 months, Reaso n: Provider Name:Julio Gottlieb , 01/12/2025 04:20:00 PM, [address], [address], [place], [address], Progress Notes * Examination Category Sub-Category Detail Notes General Examination GENERAL APPEARANCE: pleasant , well nourished, well developed, in no acute distress HEAD: EYES: sclera non-icteric EARS: NOSE: THROAT: NECK/THYROID: no cervical lymphade nopathy, neck supple HEART: S1, S2 normal CHEST: LUNGS: clear to auscultatio n bilaterally ABDOMEN: normal bowel sounds, no guarding or rigidity, no guarding or rigidity, no masses palpable, soft, nontender, nondistended NEUROLOGIC: alert and oriented SKIN: nonjaundiced, no spi brian angiomata EXTREMITIES: no edema PERIPHERAL PULSES: BACK: BREASTS: MUSCULOSKELETAL: MALE GENITOURINARY: LYMPH NODES: RECTAL EXAM: FEMALE GENITOURINARY: ORAL CAVITY: mucosa moist
--- OUTSIDE RECORDS SUMMARY | 2024-05-08 09:50 | XMS_ITS ---
Author Name [facility] [place] Organization [facility] [place] Address [address] [place] [address] Care Team Providers Care Pipelaying Fitter Name Role Phone KALEB DUFF Primary Care Provider Unavail able Selected Encounter This section includes the information on record at [place] for the Encounter. Date/Time Encounter Type Encounter Description Reason Provider Source May 07, 2024 08:30 AM FAMILY PSYTX W/PT 50 MIN [facility] - IND ICD-10-CM F43.10 Post-traumatic stress disorder, unspecified ARIELA HAYES [facility] Encounter Template Text not used by [place] Assessments - Encounter Diagnoses This section includes the primary and secondary diagnoses documented for the Encounter. Date/Time Primary/Secondary Diagnosis Diagnosis Name Provider Source May 07, 2024 01:27 PM PRIMARY Post-traumatic stress disorder, unspecified GUICHO HAYES [place] [facility] [place] [facility] May 07, 2024 01:27 PM SECONDARY Problems in relationship with spouse or partner [facility] [place] [facility] Plan of Treatment: Future Appointments (+ 6 months) and Future Tests (+/- 45 days) The Plan of Treatment section includes future care activities for the patient from all [place] treatmentfacilities. This section includes future appointments and future orders which are active, pending or scheduled. Future Appointments This section includes appointments that were scheduled to occur 6 months from the date of the Encounter, up to a maximum of 20 appointments. The data comes from all [place] treatment facilities. Appointment Date/Time Appointment Type Appointme nt Facility Name May 10, 2024 09:00 AM AMBULATORY - PSYCHIATRY [facility] May 11, 2024 01:30 PM [facility] May 17, 2024 08:30 AM AMBULATORY - PSYCHIATRY [facility] Jun 21, 2024 03:30 PM AMBULATORY - MEDICINE [facility] Active, Pending, and Scheduled Orders This section includes a listing of several types of active, pending, and scheduled orders, including clinic medications orders, diagnostic test orders, procedure orders and consult orders; where the start date of the order is 45 days before the date of the Encounter or 45 days after the date of theEncounter. The data comes from all [facility]. Test Date/Time Test Type Test Details Facility Name Mar 25, 2024 03:20 PM Consult Order COMMUNITY CARE-GI GENERAL Cons Valve [facility] Apr 20, 2024 11:13 AM Consult Order PSYCHOTHERAPY BHIP/[facility] OUTPT Cons Valve [facility] Apr 20, 2024 11:13 AM Consult Order PSYCHOTHERAPY BHIP/[facility] OUTPT Cons Valve [facility] Apr 26, 2024 12:00 AM Laboratory - Chemistry Order TSH BLOOD (SST-SERUM) SP [facility] Social History: Smoking Status (Most current) and Tobacco Use (All prior to encounter date) This section includes the most current, and the historical, smoking and tobacco- related health factors from the [place] facility where the Encounter took place. Current Smoking Status This section includes the most current smoking, or tobacco-related health factor, from the [place] facility where the Encounter took place. Date/Time Current Smoking Status Comment Facil ity Mar 18, 2024 10:00 AM VA-TOBACCO USE FOR DORI CIGARETTES [facility] Tobacco Use History This section includes a history of the smoking, or tobacco-related health factors, that were collected on or before the date of the Encounter. The data comes from the [place] facility where the Encounter took place. Date/Time Smoking Status/Tobac co Use Comment Facility Mar 18, 2024 10:00 AM VA-TOBACCO USE FORMER OTHER TYPE Quit more than 15 years ago [place] [facility] [place] [facility] Encounter Notes: All associated encounter notes This section contains the clinical notes associated to the Encounter. Date/Time Encounter Note(s) Provider Source May 07, 2024 01:25 PM MENTAL HEALTH NOTE : LOCAL TITLE: BEHAVIORAL COUPLES THERAPY NOTE STANDARD TITLE: MENTAL HEALTH NOTE DATE OF NOTE: MAY 07, 2024@13:25 ENTRY DATE: MAY 07, 2024@13:25:41 AUTHOR: ARIELA HAYES COSIGNER: URGENCY: STATUS: COMPLETED INFORMED CONSENT TO PARTICIPATE IN SESSION: At beginning of session reviewed rights and limits of confidentiality, mandatory reporting situations, duty to warn and protect, Cabezas Warning,(if treatment team finds patient to be an acute danger to himself or others, that this information could be relayed to a court of law and presented to a dealer relationship manager), and [facility] access for active duty service members. Provided Suicide Prevention Hotline number, and other contact numbers as necessary. DURATION OF SESSION: 50 minutes SESSION CONTENT: This auto service writer met with each partner individually as part of the second assessment session before starting couples therapy. Each partner was given 30 minutes to review assessment measures completed individually and discuss specific examples of communication issues/conflict that has led to the desire goal of gaining communication skills to improve conflict resolution. The couple was reminded that moving forward this auto service writer will not meet with them individually and that treatment will happen within the couple dyad. Each partner expressed understanding of this. MENTAL STATUS AND BEHAVIORAL OBSERVATIONS: The couple was polite and cooperative. Each partner was able to participate in the session in an effective and productive manner. No safety concerns were reported. DSM5 DIAGNOSES: relationship distress with spouse; [place] with PTSD diagnosis. Plan: RTC on 05/10 @8:30am [facility] ([facility]) Standard Documentation [facility] Clinician Resources Only: E911 (Emergency Call Relay Center): [phone] National Veterans Crisis Line - 988 then press #1. CWJason Suicide Coordinator [phone], Ext. [phone]; Back-up Ext. [phone] [place] Police, Daniela STEVENSON [phone] Introduction: Visit is being conducted by [place] Video Connect. [place] identified with 2 identifiers: [X] Full Name [X] Date of [ ] VA ID Card Emergency Plan: confirmed and/or provided the following information in case of emergency or technology failure. PATIENT PHONE - NONE FOUND PHONE NUMBER [CELLULAR] - [phone] Is patient phone number correct, if not, enter below: 's phone number: GLADIS WILLETT [address] [place], [place], [address] 's present location and address for appointment: Above address [place]'s emergency contact name and phone number: on file [place] reported that location is private and safe: Yes Informed Consent: informed of the risks and benefits of Telehealth video care. has the right to refuse video services. If refuses video visit, a [id number] visit will be scheduled. [place] verbalized consent for this video visit: Yes provided consent for any other persons present for visit: Yes If yes, who and relationship to patient:-Annamarie Secure visit: Visit was locked for security and privacy:Yes /prashanth/ Ariela Hayes Psy.D. Psychologist Signed: 05/07/2024 14:10 [facility]A [facility]ES [place] [facility]
--- OUTSIDE RECORDS SUMMARY | 2024-05-08 09:50 | XMS_ITS | Encounter Summary ---
Author Name [facility] [place] [facility] [place] Address [address] [place] [address] Care Team Providers Care Spiral Spring Winder Name Role Phone KALEB DUFF Primary Care Provider Unavail able Selected Encounter This section includes the information on record at [place] for the Encounter. Date/Time Encounter Type Encounter Description Reason Provider Source Apr 01, 2024 08:30 AM PSYTX W PT 45 MINUTES [facility] - IND ICD-10-CM F32.A Depression, unspecified MAYRA HAYES Martha Encounter Template Text not used by [place] Assessments - Encounter Diagnoses This section includes the primary and secondary diagnoses documented for the Encounter. Date/Time Primary/Secondary Diagnosis Diagnosis Name Provider Source Apr 01, 2024 09:48 AM PRIMARY Depression, unspecified MAYRA HAYES [facility] Plan of Treatment: Future Appointments (+ 6 months) and Future Tests (+/- 45 days) The Plan of Treatment section includes future care activities for the patient from all [place] treatmentfacilities. This section includes future appointments and future orders which are active, pending or scheduled. Future Appointments This section includes appointments that were scheduled to occur 6 months from the date of the Encounter, up to a maximum of 20 appointments. The data comes from all [place] treatment facilities. Appointment Date/Time Appointment Type Appointme nt Facility Name Apr 05, 2024 08:00 AM AMBULATORY - PSYCHIATRY [facility] Apr 15, 2024 08:00 AM [facility]ORY [facility] [place] [facility] Apr 19, 2024 01:00 PM AMBULATORY - PS[facility]IATRY [facility] [place] [facility] Apr 26, 2024 02:00 PM AMBULATORY - PS[facility]IATRY [facility] [place] [facility] Apr 30, 2024 08:30 AM AMBULATORY - PS[facility]CHIATRY [facility] [place] [facility] May 05, 2024 02:00 PM AMBULATORY - MEDICINE [facility] [place] [facility] May 11, 2024 01:30 PM AMBULATORY - PS[facility]CHIATRY [facility] [place] [facility] May 17, 2024 08:30 AM AMBULATORY - PS[facility]CHIATRY [facility] [place] [facility] Jun 21, 2024 03:30 PM [facility] Active, Pending, and Scheduled Orders This section includes a listing of several types of active, pending, and scheduled orders, including clinic medications orders, diagnostic test orders, procedure orders and consult orders; where the start date of the order is 45 days before the date of the Encounter or 45 days after the date of theEncounter. The data comes from all [place] treatment facilities. Test Date/Time Test Type Test Details Facility Name Mar 25, 2024 03:20 PM Consult Order COMMUNITY CARE-GI GENERAL Cons Audio Visual Collections Coordinator's Choice [facility] [place] [facility] Apr 20, 2024 11:13 AM Consult Order PSYCHOTHERAPY BHIP/NHM OUTPT Cons Audio Visual Collections Coordinator's Choice [facility] [place] [facility] Apr 20, 2024 11:13 AM Consult Order PSYCHOTHERAPY BHIP/NHM OUTPT Cons Audio Visual Collections Coordinator's Choice [facility] [place] [facility] Apr 26, 2024 12:00 AM Laboratory - Chemistry Order TSH BLOOD (SST-SERUM) [facility] Lab Results: +/- 30 days of the encounter This section includes the Chemistry and Hematology Lab Results on record with [facility] for the patient. Radiology Reports and Pathology Reports are provided separately, in subsequent sections. Lab Results This section contains the Chemistry/Hematology Results that were resulted 30 days before or 30 daysafter the date of the Encounter. Date/Time Source Result Type Result - Unit Interpretation Reference Range Comment Mar 25, 2024 03:26 PM [facility] HEPATITIS A ANTIBODY (IgM) Specimen Type: [...] Mar 25, 2024 03:17 PM Reporting Lab: [address] [phone] Performing Lab: [address] [address] HEPATITIS A ANTIBODY (IgM) Non Reactive Non Reactive Mar 25, 2024 03:26 PM [facility] HEPATITIS B SURFACE ANTIBODY (HBsAb)-WH Specimen Type: SERUM No comment entered. Ordering Provider: JAMES DUFF Report Released Date/Time: Mar 25, 2024 03:17 PM Reporting Lab: [address] [address] Performing Lab: [facility] Mar 25, 2024 03:26 PM [facility] VITAMIN D (25-OH) Specimen Type: SERUM No comment entered. Ordering Provider: JAMES DUFF Report Released Date/Time: Mar 25, 2024 03:17 PM Reporting Lab: [address] [address] Performing Lab: [address] [address] VITAMIN D (25-OH) 38 ng/mL 20-50 Mar 25, 2024 03:26 PM [facility] CBC AND DIFF (AUTO) Specimen Type: BLOOD No comment entered. Ordering Provider: JAMES DUFF Report Released Date/Time: Mar 25, 2024 03:17 PM Reporting Lab: [address] [address] Performing Lab: [address] [address] WBC 8.01 10*3/uL 4.50-11.00 RBC 5.05 10*6/uL [...] 10*3/uL 0.00-0.00 Mar 25, 2024 03:26 PM [facility] IRON & TIBC PANEL Specimen Type: SERUM No comment entered. Ordering Provider: JAMES DUFF Report Released Date/Time: Mar 25, 2024 03:17 PM Reporting Lab: [address] [address] Performing Lab: [facility] [address] [address] TIBC 458 ug/dL 204-475 IRON 98 ug/dL 40-160 Transferrin Saturation 21.4 20.0-50.0 Transferrin (TRF) 347 mg/dL 200-360 Mar 25, 2024 03:26 PM [facility] FERRITIN Specimen Type: SERUM No comment entered. Ordering Provider: JAMES DUFF Report Released Date/Time: Mar 25, 2024 03:17 PM Reporting Lab: [address] [address] Performing Lab: [address] [address] FERRITIN 53 ng/mL 20-300 Mar 25, 2024 03:26 PM [facility] HEPATITIS C ANTIBODY (HCV)-ARC Specimen Type: SERUM Comment: Hep C Ab: No HCV antibody detected. If recent infection is suspected or other evidence suggests HCV infection, consider HCV nucleic acid testing Ordering Provider: JAMES DUFF Report Released Date/Time: Mar 25, 2024 03:17 PM Reporting Lab: [address] [address] Performing Lab: [address] [address] HEPATITIS C ANTIBODY NON-REACTIVE NON-REACTIVE Mar 25, 2024 03:26 PM [facility] BASIC METABOLIC PANEL (non-fasting) Specimen Type: SERUM No comment entered. Ordering Provider: JAMES DUFF Report Released Date/Time: Mar 25, 2024 03:17 PM Reporting Lab: [address] [address] Performing Lab: [address] [address] UREA NITROGEN 13 mg/dL 7-25 GLUCOSE 100 mg/dL 65-100 SODIUM 140 mmol/L 135-145 POTASSIUM 3.6 mmol/L 3.5-5.0 CHLORIDE 104 mmol/L 100-110 CO2 24 meq/L 20-30 CREATININE, Serum 0.86 mg/dL 0.50-1.40 eGFR(CKD-EPI 2020) >90 mL/min >60 Mar 25, 2024 03:26 PM [facility] BASIC METABOLIC PANEL (fasting) Specimen Type: SERUM No comment entered. Ordering Provider: JAMES DUFF Report Released Date/Time: Mar 25, 2024 03:17 PM Reporting Lab: [address] [address] Performing Lab: [address] [address] UREA NITROGEN 13 mg/dL 7-25 GLUCOSE 100 mg/dL 65-100 SODIUM 140 mmol/L 135-145 POTASSIUM 3.6 mmol/L 3.5-5.0 CHLORIDE 104 mmol/L 100-110 CO2 24 meq/L 20-30 CREATININE, Serum 0.86 mg/dL 0.50-1.40 eGFR(CKD-EPI 2020) >90 mL/min >60 Mar 25, 2024 03:26 PM [facility] LIVER FUNCTION Specimen Type: SERUM No comment entered. Ordering Provider: JAMES DUFF Report Released Date/Time: Mar 25, 2024 03:17 PM Reporting Lab: [address] [address] Performing Lab: [address] [address] PROTEIN,TOTAL 7.7 g/dL 6.0-8.3 ALBUMIN 4.4 g/dL 3.5-5.0 ALKALINE PHOSPHATASE 80 U/L 40-150 AST 11 U/L 5-34 ALT 14 U/L BILIRUBIN, TOTAL 1.3 mg/dL H 0.2-1.2 BILIRUBIN, DIRECT 0.4 mg/dL 0-0.5 Mar 25, 2024 03:26 PM [facility] LIPID PANEL FASTING Specimen Type: SERUM No comment entered. Ordering Provider: JAMES DUFF Report Released Date/Time: Mar 25, 2024 03:17 PM Reporting Lab: [facility] [address] [address] Performing Lab: [address] [address] CHOLESTEROL 217 mg/dL H TRIGLYCERIDE 256 mg/dL H 0-150 LDL calculated 121 mg/dL 0-129 CHOL/HDL 4.8 HDL CHOLESTEROL 45 mg/dL 40-60 Mar 25, 2024 03:26 PM [facility] HIV 1&2 Ag/Ab SCREEN Specimen Type: SERUM Comment: Hep C Ab: No HCV antibody detected. If recent infection is suspected or other evidence suggests HCV infection, consider HCV nucleic acid testing Ordering Provider: JAMES DUFF Report Released Date/Time: Mar 25, 2024 03:17 PM Reporting Lab: [address] [phone] Performing Lab: [address] [address] HIV 1&2 Ag/Ab SCREEN NON-REACTIVE Nonreactive Social History: Smoking Status (Most current) and Tobacco Use (All prior to encounter date) This section includes the most current, and the historical, smoking and tobacco- related health factors from the [place] facility where the Encounter took place. Current Smoking Status This section includes the most current smoking, or tobacco-related health factor, from the [place] facility where the Encounter took place. Date/Time Current Smoking Status Comment Fely dahl Mar 18, 2024 10:00 AM VA-TOBACCO USE FOR DORI CIGARETTES [facility] Tobacco Use History This section includes a history of the smoking, or tobacco-related health factors, that were collected on or before the date of the Encounter. The data comes from the [place] facility where the Encounter took place. Date/Time Smoking Status/Tobac co Use Comment Facility Mar 18, 2024 10:00 AM [place]-TOBACCO USE FORMER OTHER TYPE Quit more than 15 years ago [facility] Encounter Notes: All associated encounter notes [...] you feel better? Name: liz Phone number: [phone] What public places, groups, or social events help you feel better? Examples of social settings include community events, beaches, king, coffee shops, malls, churches, clubs, 12 step meetings, aftercare groups, support groups, Veterans organizations, [facility] center social events. 1. [place] 2. 3. 4. 5. 6. Step 4: Family Members or Friends Who May Offer Help Who are friends or family members who should be included in your plan? Name: Annamarie Phone number: [phone] Step 5: Professionals and Agencies to Contact for Help Who are the mental health professionals or professional peer supports who should be included in your plan? Please list the numbers you would call in the order you would call them. Name: Dr. Mayra Hayes Phone number: [phone] Veterans Crisis Line: Dial 988 then Press 1 Veterans Crisis Line Text Messaging Service: 005443 Veterans Crisis Line: https://www.veteranscrisi Brightblue.net/chat Call 911 in an emergency If you need to go to an urgent care center or emergency room, where will you go? Facility name: [facility] Facility address: [address] [place] [address] Facility phone number: [phone] [facility] site-specific emergency numbers: Step 6: Making the Environment Safe Ways to make my environment safer and barriers I will use to protect myself from these potentially lethal means: n/a [place] has access to firearms in their home or elsewhere: No has access to opioids: No These are the people who will help me protect myself from having access to dangerous items: Name: n/a Phone: n/a 's current, physical address: [address] [place] [address] [place]'s current phone number: [phone] Other Resources: - [employer] Hope Box smartphone application (create a hope box to remember good things in one's life) - DreamD[employer]theconnection[employer]Lumatic (source of [place]-related resources and information) - Safety Plan in [facility] C[facility]: www.ptsd.[place].gov/appvid/nuzhat charles/ptsdcoach_app.asp - Safety Plan in [facility] Video: https://www.youtube.com/w atch?v=GZf6clnkE3L I have received a copy of this Safety Plan. I have given permission and my family member/caregiver/friend has been given a copy of this Safety Plan. Family member/caregiver/friend did not participate in this safety planning session. Reason: not available /prashanth/ Mayra Hayes Psy.D. Psychologist Signed: 04/01/2024 09:55 Receipt Acknowledged By: 04/01/2024 09:57 /prashanth/ KEN [facility]WIN [facility] SUICIDE CONDUIT MECHANIC * AWAITING SIGNATURE * LAWCJ DodgeMARCOS 04/01/2024 16:15 /es/ NICOLE LINCOLN [facility] SUICIDE CONDUIT MECHANIC MAYRA HAYES [facility] [place] [facility] Apr 01, 2024 09:33 AM SUICIDE PREVENTION RISK ASSESSMENT SCREENING NOTE: LOCAL TITLE: SUICIDE RISK EVALUATION - COMPREHENSIVE STANDARD TITLE: SUICIDE PREVENTION RISK ASSESSMENT SCREENING NOT DATE OF NOTE: APR 01, 2024@09:33 ENTRY DATE: APR 01, 2024@09:33:31 AUTHOR: MAYRA HAYES COSIGNER: URGENCY: STATUS: COMPLETED Comprehensive Suicide Risk Evaluation This is a new suicide risk evaluation. Suicidal Ideation The most recent thoughts of engaging in suicide-related behavior were within the past 30 days. prepared to take his life the day after Thanksgiving. He wrote a suicide note to his and went to the [facility] with the intention of jumping from the spillway. He self-interrupted when he saw deer. He did not want to defile such a beautiful place. He reported chronic SI without any previous attempts. He was sectioned to [facility] where he was inpatient for 6 days. The had suicidal intent at the time of the most recent ideation. Description of intent: Had the desire to kill himself The [place] had a suicide plan at the time of the most recent ideation. Describe: Jump off spillway at [facility] The most recent suicidal ideation was the most severe ideation within the last 30 days. The [place] does not have access to lethal means (firearms) The [place] does not have access to other lethal means. Suicide Behavior The did not report any prior suicide attempts that have not been previously documented. The did not report any prior preparatory behaviors that have not been previously documented. Warning Signs The following warning signs are currently present for the [place]: Suicidal communication Please describe: suicide letter Preparations [...] Comment: Has recently established primary care with [place] and attended appts on 03/17 Reports motivation for mental health treatment Comment: Scheduled today's appt to establish care with mental health at [place] Has a significant other Comment: who he [...] receive mental health treatment since discharge from [facility]. He was able to develop a [...] plan was developed in collaboration with the . Risk Mitigation Plan: Strategies for Managing Risk in OUTPATIENT setting Suicide Hub Borer alerted for consideration of a Patient Record Flag Category I High Risk for Suicide. Complete or update [place]'s safety plan Increase frequency of suicide risk and symptom monitoring Describe: Scheduled [facility] appts until connected to [facility] Address barriers to treatment engagement By: Consults placed for med mgt and therapy Discuss with [place] ways to increase a sense of purpose and meaning Discuss with ways to increase social connections/social supports Schedule for follow-up appointments Comment/Date: 04/06 @12:30pm Provide with phone number for 's Crisis Line: Dial 553 (Press 1), Text to 645105, or Chat Educate on emergency services Educate on smartphone VA applications and websites Re-evaluation: Due to the [...] Acknowledged By: 04/01/2024 09:55 /prashanth/ KEN GOODWIN [facility] SUICIDE CONDUIT MECHANIC * AWAITING SIGNATURE * MARCOS YAN 04/01/2024 16:14 /prashanth/ NICOLE LINCOLN [facility] SUICIDE CONDUIT MECHANIC MAYRA HAYES [facility] [place] [facility] Apr 01, 2024 08:32 AM TELEHEALTH NOTE: LOCAL TITLE: [place] VIDEO CONNECT PSYCHOLOGY NOTE STANDARD TITLE: TELEHEALTH NOTE DATE OF NOTE: APR 01, 2024@08:32 ENTRY DATE: APR 01, 2024@08:33:01 AUTHOR: MAYRA HAYES EXP COSIGNER: URGENCY: STATUS: COMPLETED [place] VIDEO CONNECT PSYCHOLOGY NOTE Has ADDENDA Date of session: April 01, 2024 Duration of session: 60 minutes Diagnosis: MDD, recurrent, severe Presenting Problem ( report): [facility] with [facility] after recent SI with plan and intent that led to Sec 12 at [facility] in [place], [place]. Course of Session: Xenia shared that he lost a friend a couple days before [place]. He was having a hard time with the loss and decided to leave [place] early. His was upset by this and made a comment to him that he shouldn't be so upset about his friend. They got into an argument and the day after [place] she told him to return any Yocasta gifts that he may have bought her. Xenia was already feeling lonely, hopeless, and a lack of purpose. He reported writing his a suicide note and driving to the [employer] with the plan to jump off the [...] for him and the sectioned him to [facility] where he was inpatient for 6 days. He was discharged on 03/17 and stated the discharge plan was for him to follow-up with the [facility] to establish care. Specific mental health/clinical interventions: This procedure writer completed CSRE and safety plan with [place]. Safety plan was provided electronically to . Treatment options were explored and appropriate consults were placed, including consideration for [facility] for suicide. Treatment planning: Consults placed to establish care with NATHALIA Suarez. Mental Status/Clinical Impression: arrived on time and was unaccompanied for his appointment. He was alert and fully oriented. Thinking was logical and goal-directed. Auditory comprehension appeared intact. His mood was anxious with congruent affect. was cooperative, polite, and engaged. He exhibited intact insight and deficit awareness. There were no hallucinations or other indication of formal thought disorder. Risk Assessment: denied SI today. See CSRE and safety plan. Date of next planned contact: RTC on 04/06 @12:30pm -------- [place] [employer] ([facility]) Standard Documentation [facility] Clinician Resources Only: E911 (Emergency Call Relay Center): [phone] National Veterans Crisis Line - 988 then press #1. [facility] Suicide Coordinator [phone], Ext. [phone]; Back-up Ext. [phone] [place] Police, Daniela STEVENSON [phone] Introduction: Visit is being conducted by [place] [employer]. [place] identified with 2 identifiers: [X] Full Name [X] Date of [ ] VA ID Card Emergency Plan: confirmed and/or provided the following information in case of emergency or technology failure. PATIENT PHONE - NONE FOUND PHONE NUMBER [CELLULAR] - [phone] Is patient phone number correct, if not, enter below: [place]'s phone number: GLADIS JONES BRENNON [address], [place], [address] [place]'s present location and address for appointment: Above Address [place]'s emergency contact name and phone number: on file reported that location is private and safe: Yes Informed Consent: [place] informed of the risks and benefits of Telehealth video care. [place] has the right to refuse video services. If refuses video visit, a [id number] visit will be scheduled. [place] verbalized consent for this video visit: Yes provided consent for any other persons present for visit: N/A If yes, who and relationship to patient: Secure visit: Visit was locked for security and privacy:Yes /es/ Mayra Hayes Psy.D. Psychologist Signed: 04/01/2024 10:19 04/01/2024 ADDENDUM STATUS: COMPLETED RN called [facility] in [place] to request medical records for continuity of care f/u. RN was redirected to their Medical Records dept ([phone]). RN left detailed VM with MR dept and gave direct ext ([phone]) + fax# ([phone]) to return call and send records JOSE. /prashanth/ PEDRO SALAMANCA MSN, RN [facility] REGISTERED NURSE Signed: 04/01/2024 11:12 MAYRA HAYES [facility]
--- OUTSIDE RECORDS SUMMARY | 2024-05-08 09:50 | XMS_ITS ---
Author Name [facility] Organization [facility] [place] Address [address] [place] [id number] Care Team Providers Care Senior Ux Designer Name Role Phone KALEB DUFF Primary Care Provider Unavail able Selected Encounter This section includes the information on record at [place] for the Encounter. Date/Time Encounter Type Encounter Description Reason Provider Source Apr 19, 2024 01:36 PM Outpatient Encounter [facility] ROSA POTTER Encounter Template Text not used by [place] Plan of Treatment: Future Appointments (+ 6 months) and Future Tests (+/- 45 days) The Plan of Treatment section includes future care activities for the patient from all [place] treatmentfacilities. This section includes future appointments and future orders which are active, pending or scheduled. Future Appointments This section includes appointments that were scheduled to occur 6 months from the date of the Encounter, up to a maximum of 20 appointments. The data comes from all [place] treatment facilities. Appointment Date/Time Appointment Type Appointme nt Facility Name Apr 26, 2024 02:00 PM AM[place]ULATORY [place] [facility] [place] [facility] Apr 30, 2024 08:30 AM AMBUL[facility] [place] [facility] [place] [facility] May 05, 2024 02:00 PM AMBULATORY [place]ICINE [place] [facility] [place] [facility] May 11, 2024 01:30 PM [facility] [place] [facility] [place] [facility] May 17, 2024 08:30 AM AMBULATORY - PSYCHIATRY [facility] Jun 21, 2024 03:30 PM AMBULATORY - MEDICINE [facility] Active, Pending, and Scheduled Orders This section includes a listing of several types of active, pending, and scheduled orders, including clinic medications orders, diagnostic test orders, procedure orders and consult orders; where the start date of the order is 45 days before the date of the Encounter or 45 days after the date of theEncounter. The data comes from all [place] treatment facilities. Test Date/Time Test Type Test Details Facility Name Mar 25, 2024 03:20 PM Consult Order COMMUNITY CARE-GI GENERAL Cons Malted Milk [facility] Apr 20, 2024 11:13 AM Consult Order PSYCHOTHERAPY BHIP/[facility]M OUTPT Cons Malted Milk [facility] Apr 20, 2024 11:13 AM Consult Order PSYCHOTHERAPY BHIP/NHM OUTPT Cons Malted Milk [facility] Apr 26, 2024 12:00 AM Laboratory - Chemistry Order TSH BLOOD (SST-SERUM) SP [facility] Lab Results: +/- 30 days of the encounter This section includes the Chemistry and Hematology Lab Results on record with [place] for the patient. Radiology Reports and Pathology Reports are provided separately, in subsequent sections. Lab Results This section contains the Chemistry/Hematology Results that were resulted 30 days before or 30 daysafter the date of the Encounter. Date/Time Source Result Type Result - Unit Interpretation Reference Range Comment Mar 25, 2024 03:26 PM [facility] HEPATITIS A ANTIBODY (IgM) Specimen [...] Mar 25, 2024 03:17 PM Reporting Lab[facility] [address] [facility] [address] Performing Lab: [facility] [address] HEPATITIS A ANTIBODY (IgM) Non Reactive Non Reactive Mar 25, 2024 03:26 PM [facility] HEPATITIS B SURFACE ANTIBODY (HBsAb)-WH Specimen Type: SERUM No comment entered. Ordering Provider: JAMES DUFF Report Released Date/Time: Mar 25, 2024 03:17 PM Reporting Lab: [facility] [address] [facility] [address] Performing Lab: [facility] Mar 25, 2024 03:26 PM [facility] VITAMIN D (25-OH) Specimen Type: SERUM No comment entered. Ordering Provider: JAMES DUFF Report Released Date/Time: Mar 25, 2024 03:17 PM Reporting [facility] [address] [facility] [address] Performing [facility]: [facility] [address] [facility] [address] VITAMIN D (25-OH) 38 ng/mL 20-50 Mar 25, 2024 03:26 PM [facility] CBC AND DIFF (AUTO) Specimen Type: BLOOD No comment entered. Ordering Provider: JAMES DUFF Report Released Date/Time: Mar 25, 2024 03:17 PM Reporting Lab: [facility] [address] [facility] [address] Performing Lab: [facility]ENTERUSE[address] [address] WBC 8.01 10*3/uL 4.50-11.00 RBC 5.05 10*6/uL [...] 10*3/uL 0.00-0.00 Mar 25, 2024 03:26 PM [facility] IRON & TIBC PANEL Specimen Type: SERUM No comment entered. Ordering Provider: JAMES DUFF Report Released Date/Time: Mar 25, 2024 03:17 PM Reporting Lab: [address] [address] Performing Lab: [address] [address] TIBC 458 ug/dL 204-475 IRON 98 ug/dL 40-160 Transferrin Saturation 21.4 20.0-50.0 Transferrin (TRF) 347 mg/dL 200-360 Mar 25, 2024 03:26 PM [facility] FERRITIN Specimen Type: SERUM No comment entered. Ordering Provider: JAMES DUFF F Report Released Date/Time: Mar 25, 2024 03:17 PM Reporting Lab: [address] [address] Performing Lab: [facility] [address] [facility] [address] FERRITIN 53 ng/mL 20-300 Mar 25, 2024 03:26 PM [facility] HEPATITIS C ANTIBODY (HCV)-ARC Specimen Type: SERUM Comment: Hep C Ab: No HCV antibody detected. If recent infection is suspected or other evidence suggests HCV infection, consider HCV nucleic acid testing Ordering Provider: JAEMS DUFF Report Released Date/Time: Mar 25, 2024 03:17 PM Reporting Lab: [facility] [address] [facility] [address] Performing Lab: [address] [address] HEPATITIS C ANTIBODY NON-REACTIVE NON-REACTIVE Mar 25, 2024 03:26 PM [facility] BASIC METABOLIC PANEL (non-fasting) Specimen Type: SERUM No comment entered. Ordering Provider: JAMES DUFF Report Released Date/Time: Mar 25, 2024 03:17 PM Reporting Lab: [address] [address] Performing Lab: [address] [address] UREA NITROGEN 13 mg/dL 7-25 GLUCOSE 100 mg/dL 65-100 SODIUM 140 mmol/L 135-145 POTASSIUM 3.6 mmol/L 3.5-5.0 CHLORIDE 104 mmol/L 100-110 CO2 24 meq/L 20-30 CREATININE, Serum 0.86 mg/dL 0.50-1.40 eGFR(CKD-EPI 2020) >90 mL/min >60 Mar 25, 2024 03:26 PM [facility] BASIC METABOLIC PANEL (fasting) Specimen Type: SERUM No comment entered. Ordering Provider: JAMES DUFF Report Released Date/Time: Mar 25, 2024 03:17 PM Reporting Lab: [address] [address] Performing Lab: [facility] [address] [address] UREA NITROGEN 13 mg/dL 7-25 GLUCOSE 100 mg/dL 65-100 SODIUM 140 mmol/L 135-145 POTASSIUM 3.6 mmol/L 3.5-5.0 CHLORIDE 104 mmol/L 100-110 CO2 24 meq/L 20-30 CREATININE, Serum 0.86 mg/dL 0.50-1.40 eGFR(CKD-EPI 2020) >90 mL/min >60 Mar 25, 2024 03:26 PM [facility] LIVER FUNCTION Specimen Type: SERUM No comment entered. Ordering Provider: JAMES DUFF Report Released Date/Time: Mar 25, 2024 03:17 PM Reporting Lab: [address] [address] Performing Lab: [address] [address] PROTEIN,TOTAL 7.7 g/dL 6.0-8.3 ALBUMIN 4.4 g/dL 3.5-5.0 ALKALINE PHOSPHATASE 80 U/L 40-150 AST 11 U/L 5-34 ALT 14 U/L BILIRUBIN, TOTAL 1.3 mg/dL H 0.2-1.2 BILIRUBIN, DIRECT 0.4 mg/dL 0-0.5 Mar 25, 2024 03:26 PM [facility] LIPID PANEL FASTING Specimen Type: SERUM No comment entered. Ordering Provider: JAMES DUFF Report Released Date/Time: Mar 25, 2024 03:17 PM Reporting Lab: [address] [address] Performing Lab: [address] [address] CHOLESTEROL 217 mg/dL H TRIGLYCERIDE 256 mg/dL H 0-150 LDL calculated 121 mg/dL 0-129 CHOL/HDL 4.8 HDL CHOLESTEROL 45 mg/dL 40-60 Mar 25, 2024 03:26 PM [facility] HIV 1&2 Ag/Ab SCREEN Specimen Type: SERUM Comment: Hep C Ab: No HCV antibody detected. If recent infection is suspected or other evidence suggests HCV infection, consider HCV nucleic acid testing Ordering Provider: JAMES DUFF Report Released Date/Time: Mar 25, 2024 03:17 PM Reporting Lab: [facility] [address] [facility] [address] Performing Lab: [address] [address] HIV 1&2 Ag/Ab SCREEN NON-REACTIVE Nonreactive Social History: Smoking Status (Most current) and Tobacco Use (All prior to encounter date) This section includes the most current, and the historical, smoking and tobacco- related health factors from the [place] facility where the Encounter took place. Current Smoking Status This section includes the most current smoking, or tobacco-related health factor, from the [place] facility where the Encounter took place. Date/Time Current Smoking Status Comment Facil it Mar 18, 2024 10:00 AM [place]-TOBACCO USE FOR DORI CIGARETTES [facility] Tobacco Use History This section includes a history of the smoking, or tobacco-related health factors, that were collected on or before the date of the Encounter. The data comes from the [place] facility where the Encounter took place. Date/Time Smoking Status/Tobac co Use Comment Facility Mar 18, 2024 10:00 AM [place]-TOBACCO USE FORMER OTHER TYPE Quit more than 15 years ago [facility] Encounter Notes: All associated encounter notes This section contains the clinical notes associated to the Encounter. Date/Time Encounter Note(s) Provider Source Apr 19, 2024 01:36 PM MENTAL HEALTH CONS ULT: LOCAL TITLE: MENTAL HEALTH CONSULT NOTE STANDARD TITLE: MENTAL HEALTH CONSULT DATE OF NOTE: APR 19, 2024@13:36:09 ENTRY DATE: APR 19, 2024@13:36:09 AUTHOR: ROSA POTTER EXP COSIGNER: URGENCY: STATUS: COMPLETED [place] Suicide Severity Rating Scale (C-SSRS) Date Given: 04/19/2024 Clinician: Rosa Potter Location: [facility] : Zeke Negrete SSN: [id number] : [birth year] (48) Gender: Man Suicidal Ideation in Past Month: Yes - Suicidal thoughts Method/Plan/Intent in Past Month: No method, no specific plan, and no intent Suicidal Behavior: Recent Suicidal Behavior (<3 months) CORDOVA INDICATORS: This administration indicates presence of RECENT SUICIDAL BEHAVIOR. The presence of ANY suicidal behavior (suicide attempt, interrupted attempt, aborted attempt and preparatory behavior) in the past 3 months indicates clear need for further assessment and clinical management. Questions and Answers: 1. Over the past month, have you wished you were or wished you could go to sleep and not wake up? Yes 2. Over the past month, have you had any actual thoughts of killing yourself? Yes 3. Over the past month, have you been thinking about how you might do this? No 4. Over the past month, have you had these thoughts and had some intention of acting on them? No 5. Over the past month, have you started to work out or worked out the details of how to kill yourself? No 6. If yes, at any time in the past month did you intend to carry out this plan? Not asked (due to responses to other questions) 7. In your lifetime, have you ever done anything, started to do anything, or prepared to do anything to end your life (for example, collected pills, obtained a gun, gave away valuables, went to the roof but didn't jump)? Yes 8. If yes, was this within the past 3 months? Yes [place]-Suicide Severity Rating Scale (C-SSRS) ?? 2016 [facility]. Scale may be reproduced without permission. Information contained in this note is based on a self-report assessment and is not sufficient to use alone for diagnostic purposes. Assessment results should be verified for accuracy and used in conjunction with other diagnostic activities. /prashanth/ Rosa Potter CRIMINAL RESEARCH SPECIALIST [facility] Fiber Optics Supervisor Signed: 04/20/2024 10:44 [facility] POTTER [place] [facility]
--- OUTSIDE RECORDS SUMMARY | 2024-05-08 09:51 | XMS_ITS ---
Author Organization [facility] Address [address] [place] [address] [address] [place] [phone] Care Team Providers Care Caisson Worker Name Role Phone Freddy Gonzales Primary Care Provider Un available Julio Gottlieb Unavailable [phone] REASON FOR VISIT needs medical records/ update Encounters Encounter Location Date Provider Diagnosis [facility] [address] [place] [address] [address] [place] [address] 03/19/2024 Julio Gottlieb PLAN OF TREATMENT Next Appt Details Provider Name:Julio Gottlieb , 01/12/2025 04:20:00 PM, [address] [place] [address], [address], [place], [address],
[2024-05-08 10:01] LABS: MANUAL DIFF FLAG NO
[2024-05-08 10:10] LABS: Basophils Absolute Auto 0.1 X10*3/uL (0.0-0.2); Basophils Percent Auto 0.8 % (0-2); Eosinophils Absolute Auto 0.2 X10*3/uL (0.0-0.4); Eosinophils Percent Auto 2.5 % (0-4); Hematocrit 42.3 % (42.0-52.0); Hemoglobin 14.3 g/dl (14.0-18.0); Imm Gran Abs Auto 0.03 X10*3/uL (0.00-0.03); Imm Gran Pct Auto 0.5 % (0.0-0.4); Lymphocytes Percent Auto 16.1 % (20-40); Mean Corpuscular HGB Conc 33.8 g/dl (31.0-36.0); Mean Corpuscular Hemoglobin 31.4 pg (27.0-33.0); Mean Platelet Volume 9.1 fL (9.4-12.4); Monocytes Absolute Auto 0.8 X10*3/uL (0.1-1.2); Monocytes Percent Auto 11.9 % (2-11); Neutrophils Absolute Auto 4.4 x10*3/uL (2.0-8.3); Neutrophils Percent Auto 68.2 % (45-73); Platelet Count 239 X10*3/uL (160-400); Red Blood Count 4.55 X10*6/uL (4.60-5.80); Red Cell Distribution Width 14.7 % (11.0-16.0); White Blood Count 6.4 X10*3/uL (4.8-10.8)
[2024-05-08 11:46] LABS: Alanine Aminotransferase 16 U/L (0-40); Albumin Level 4.2 g/dL (3.5-5.0); Alkaline Phosphatase 76 U/L (39-117); Aspartate Amino Transferase 13 U/L (5-37); Bilirubin Direct 0.2 mg/dL (0.0-0.5); Bilirubin Total 0.8 mg/dL (0.0-1.0); Total Protein 7.3 g/dL (6.5-8.0)
== END 2024-05-08 09:47 | disposition home or self-care (01) ==
LOC: HO.LAB 09:46
PROVIDERS: PCP Physician Assistant; Visit Provider Internal Medicine
DX: K50.00 Crohn's disease of small intestine without complications (principal)
CPT/HCPCS: 36415; 80076; 85025

== ENCOUNTER 2024-12-11 08:21 | Outpatient (REF) | payer OTHER, SELFPAY ==
--- OUTSIDE RECORDS SUMMARY | 2023-10-08 12:20 | XMS_ITS ---
Author Organization [facility] Address [address] [place] [phone] Care Team Providers [employer] Representative Name Role Phone Freddy Gonzales Primary Care Provider Un available Julio Gottlieb [phone] REASON FOR VISIT Patient presents today for crohn's Encounters Encounter Location Date Provider Diagnosis [facility] [address] [place] [address] [place] [phone] 10/08/2023 Julio Gottlieb Plan Of Treatment Next Appt Details Provider Name:Julio Gottlieb , 01/12/2025 04:20:00 PM, [address] [place] [address], [address], [place], [phone], Progress Notes * SUE WILLETTOB:1975 (48 yo M)Acc No.[id number]:10/08/2023 Progress Notes Patient: Randy WHITTINGTONGLADIS ISBELL Provider: Mikaela Gottlieb MD :1975 A ge:47 Y S ex:Male Date:10/08/2023 Address:[address] [place], [place] [id number] Pcp:German Barth Subjective: * Chief Complaints: * 1 . Patient presents today for crohn's. * Medical History: Objective: * Vitals: Assessment: Plan: * Treatment: * * The named appointment provid er may or may not be the originator of this progress note, and it is not deemed complete until electronically signed by the appointment provider. Sign off status: Pending * Provider: Mikaela Gottlieb MD Date: 0 10/08/2023 Generated for Edi mary/Elizabeth/Man on: 0 12/11/2024 08:29 AM EDT
--- OUTSIDE RECORDS SUMMARY | 2024-04-01 04:30 | XMS_ITS ---
Author Name [facility] [facility] [place] [facility] [place] [facility] [place] Address [address] [place] [address] Care Team Providers Care Meter Attendant Name Role Phone KALEB DUFF Primary Care Provider Unavail able Insurance Providers: All historical and current Section Date Range: From patient's date of to the date document was created. This section includes the names of all active insurance providers for the patient. Insurance Provider Type of Coverage Plan Name Start of Policy Coverage End of Policy Coverage Group Number Member ID Insurance Provider's Telephone Number Policy Rene's Name Patient's Relationship to Policy Rene CIGNA HIGH DEDUCTIBL E HEALTH PLAN W/HEALTH SAVINGS [facility]OUNT [facility] Apr 14, 2024 [id number] [facility] [phone] Lexie MARTIN SPOUSE CIGNA HIGH DEDUCTIBL E HEALTH PLAN W/HEALTH SAVINGS ACCOUNT [facility] Apr 14, 2024 [id number] [facility] ADRIANA WILLETT SPOUSE CIGNA HIGH DEDUCTIBL E HEALTH PLAN W/HEALTH SAVINGS ACCOUNT [facility] September 08, 2023 [id number] ADRIANA WILLETT SPOUSE CIGNA BEHAVIORAL HEALTH MENTAL HEALTH [facility] Apr 14, 2024 [id number] [facility] Lexie MARTIN SPOUSE [facility] Apr 14, 2024 [id number] GABRIELA WILLETT PATIENT [employer] ([id number]) PRESCRIPT ION [facility]UAL [facility] Apr 14, 2024 [id number] GABRIELA WILLETT PATIENT MEDCO (EXPRESS SCRIPTS) PRESCRIPT ION CIGNA /MEDC O HSA Apr 14, 2024 [id number] GABRIELA WILLETT SPOUSE Selected Encounter This section includes the information on record at [place] for the Encounter. Date/Time Encounter Type Encounter Description Reason Provider Source Apr 01, 2024 08:30 AM PSYTX W PT 45 MINUTES [facility] - IND ICD-10-CM F32.A Depression, unspecified MAYRA HAYES Martha Encounter Template Text not used by [place] Assessments - Encounter Diagnoses This section includes the primary and secondary diagnoses documented for the Encounter. Date/Time Primary/Secondary Diagnosis Diagnosis Name Provider Source Nov 03, 2024 11:10 AM PRIMARY Depression, unspecified [facility] Plan of Treatment: Future Appointments (+ 6 months) and Future Tests (+/- 45 days) The Plan of Treatment section includes future care activities for the patient from all [place] treatmentfacilities. This section includes future appointments and future orders which are active, pending or scheduled. Future Appointments This section includes appointments that were scheduled to occur 6 months from the date of the Encounter, up to a maximum of 20 appointments. The data comes from all [place] treatment facilities. Appointment Date/Time Appointment Type Appointme nt Facility Name Apr 05, 2024 08:00 AM [facility] Apr 15, 2024 08:00 AM [facility]UL[facility] [place] [facility] [place] [facility] Apr 19, 2024 01:00 PM AMBULATORY - [place]IATRY [place] [facility] [place] [place] [facility] Apr 26, 2024 02:00 PM AMBULATORY - PS[place]CHIATRY [place] [facility] [place] [facility] Apr 30, 2024 08:30 AM [facility] May 05, 2024 02:00 PM [facility] [place] [facility] May 07, 2024 08:30 AM AMBULATORY - PS[facility]IATRY [facility] [place] [place] [facility] May 10, 2024 09:00 AM AMBULATORY [facility] [place] [facility] May 11, 2024 01:30 PM AMBULAT[facility] [place] [facility] May 17, 2024 08:30 AM AMB[facility] [place] [facility] May 21, 2024 08:00 AM AMBULAT[facility] [place] [facility] Jun 03, 2024 09:00 AM AMBULATORY [facility] [place] [facility] Jun 04, 2024 08:30 AM AMBULATORY - PS[facility]CHIATRY [facility] [place] [place] [facility] Jun 14, 2024 08:30 AM AMBULATORY - PSYCHIATRY [facility] [place] [place] [facility] Jun 21, 2024 08:30 AM AMBULATORY - PS[facility]CHIATRY [facility] [place] [place] [facility] Jun 21, 2024 03:30 PM AM[facility]ULATORY [facility]IC[facility] [place] [facility] Jun 22, 2024 08:30 AM AMBULATORY - PSYCHIATRY [facility] [place] [place] [facility] Jul 02, 2024 09:00 AM AMBULATORY - PSYCHIATRY [facility] [place] [facility] Jul 05, 2024 09:00 AM AMBULATORY - PSYCHIATRY [facility] [place] [facility] Jul 22, 2024 08:30 AM AMBULATORY - PS[facility]CHIATRY [facility] [place] [place] [facility] Active, Pending, and Scheduled Orders This section includes a listing of several types of active, pending, and scheduled orders, including clinic medications orders, diagnostic test orders, procedure orders and consult orders; where the start date of the order is 45 days before the date of the Encounter or 45 days after the date of theEncounter. The data comes from all [place] treatment facilities. Test Date/Time Test Type Test Details Facility Name Apr 26, 2024 12:00 AM Laboratory - Chemi stry Order TSH BLOOD (SST-SERUM) [facility] [place] [place] [facility] Lab Results: +/- 30 days of the encounter This section includes the Chemistry and Hematology Lab Results on record with [place] for the patient. Radiology Reports and Pathology Reports are provided separately, in subsequent sections. Lab Results This section contains the Chemistry/Hematology Results that were resulted 30 days before or 30 daysafter the date of the Encounter. Date/Time Source Result Type Result - Unit Interpretation Reference Range Specimen Type Comment Mar 25, 2024 03:26 PM [facility] HEPATITIS A ANTIBODY (IgM) SERUM Specimen Typ e: SERUM Comment: Hepatitis A IgM: IgM anti-HAV not detected. Does not exclude the possibility of exposure to or infection with HAV. Levels of IgM anti HAV may be below the cutoff in early infection. Hep B Surface Ab: A 'Reactive' result indicates HBsAb results >/= 12.0 mIU/mL and immunity to HBV infection. A Reactive result ( Positive prior to 01/25/13) indicates recent infection with Hepatitis A virus. Hepatitis A IgM antibodies may persist for 3-6 months after acute Hepatitis A infection. Ordering Provider: BRUCE DUFF AM Report Released Date/Time: Mar 25, 2024 03:17 PM Reporting Lab: [address] [address] Performing Lab: [address] [address] HEPATITIS A ANTIBODY (IgM) Non Reactive Non Reactive Mar 25, 2024 03:26 PM [facility] HEPATITIS B SURFACE ANTIBODY (HBsAb)-WH SERUM Specimen Type: SERUM No comment entered. Ordering Provider: KALEB DUFF Report Released Date/Time: Mar 25, 2024 03:17 PM Reporting Lab: [address] [address] Performing Lab: [facility] Mar 25, 2024 03:26 PM [facility] VITAMIN D (25-[place]) SERUM Specimen Type: SERUM No comment entered. Ordering Provider: KALEB DUFF Report Released Date/Time: Mar 25, 2024 03:17 PM Reporting Lab: [address] [address] Performing Lab: [facility] [address] [facility] [address] VITAMIN D (25-[place]) 38 ng/mL 20-50 Mar 25, 2024 03:26 PM [facility] IRON & TIBC PANEL SERUM Specimen Type: SERUM No comment entered. Ordering Provider: KALEB DUFF Report Released Date/Time: Mar 25, 2024 03:17 PM Reporting Lab: [facility] [address] [facility] [address] Performing Lab: [facility] [address] [facility] [address] TIBC 458 ug/dL 204-475 IRON 98 ug/dL 40-160 Transferrin Saturation 21.4 20.0-50.0 Transferrin (TRF) 347 mg/dL 200-360 Mar 25, 2024 03:26 PM [facility] FERRITIN SERUM Specimen Type: SERUM No comment entered. Ordering Provider: KALEB DUFF Report Released Date/Time: Mar 25, 2024 03:17 PM Reporting Lab: [facility] [address] [facility] [address] Performing Lab: [facility] [address] [facility] [address] FERRITIN 53 ng/mL 20-300 Mar 25, 2024 03:26 PM [facility] HEPATITIS C ANTIBODY (HCV)-ARC SERUM Specimen Type: SERUM Comment: Hep C Ab: No HCV antibody detected. If recent infection is suspected or other evidence suggests HCV infection, consider HCV nucleic acid testing Ordering Provider: KALEB DUFF Report Released Date/Time: Mar 25, 2024 03:17 PM Reporting Lab: [facility] [address] [facility] [address] Performing Lab: [facility] [address] [facility] [address] HEPATITIS C ANTIBODY NON-REACTIVE NON-RE ACTIVE Mar 25, 2024 03:26 PM [facility] CBC AND DIFF (AUTO) BLOOD Specimen Type: BLOO D No comment entered. Ordering Provider: KALEB DUFF Report Released Date/Time: Mar 25, 2024 03:17 PM Reporting Lab: [facility] [address] [facility] [address] Performing Lab: [facility] [address] [facility] [address] WBC 8.01 10*3/uL 4.50-11.00 RBC 5.05 10*6/uL 4.23-5.66 HGB 15.6 g/dL 12.8-17 HCT 45.7 39.2-50.4 MCV 90.5 fL 82-99 MCHC 34.1 g/dL 30.8-35.1 PLT 262 10*3/uL 140-360 RDW-CV 13.8 12.0-16.0 MONO, ABS 1.08 10*3/uL 0.30-1.10 MCH 30.9 pg 26.2-32.6 NEUT % 71.7 43.7-75.8 LYMPH % 12.1 L 14.0-42.3 MONO % 13.5 5.1-13.7 EOS % 1.6 0.4-6.8 BASO % 0.5 0.1-2.0 NEUT, ABS 5.74 10*3/uL 2.20-7.60 LYMPH, ABS 0.97 10*3/uL L 1.00-3.20 EOS, ABS 0.13 10*3/uL 0.03-0.44 BASO, ABS 0.04 10*3/uL 0.01-0.13 IMMATURE GRAN % 0.6 0.0-0.7 IMMATURE GRAN, ABS 0.05 10*3/uL 0.00-0.0 6 NRBC % 0.0 0.0-0.0 NRBC, ABS 0.00 10*3/uL 0.00-0.00 Mar 25, 2024 03:26 PM [facility] BASIC METABOLIC PANEL (non-fasting) SERUM Spe cimen Type: SERUM No comment entered. Ordering Provider: KALEB DUFF Report Released Date/Time: Mar 25, 2024 03:17 PM Reporting Lab: [facility] [address] [facility] [address] Performing Lab: [facility] [address] [facility] [address] UREA NITROGEN 13 mg/dL 7-25 GLUCOSE 100 mg/dL 65-100 SODIUM 140 mmol/L 135-145 POTASSIUM 3.6 mmol/L 3.5-5.0 CHLORIDE 104 mmol/L 100-110 CO2 24 meq/L 20-30 CREATININE, Serum 0.86 mg/dL 0.50-1.40 eGFR(CKD-EPI 2020) >90 mL/min >60 Mar 25, 2024 03:26 PM [facility] BASIC METABOLIC PANEL (fasting) SERUM Specime n Type: SERUM No comment entered. Ordering Provider: KALEB DUFF Report Released Date/Time: Mar 25, 2024 03:17 PM Reporting Lab: [address] [address] Performing Lab: [address] [address] UREA NITROGEN 13 mg/dL 7-25 GLUCOSE 100 mg/dL 65-100 SODIUM 140 mmol/L 135-145 POTASSIUM 3.6 mmol/L 3.5-5.0 CHLORIDE 104 mmol/L 100-110 CO2 24 meq/L 20-30 CREATININE, Serum 0.86 mg/dL 0.50-1.40 eGFR(CKD-EPI 2020) >90 mL/min >60 Mar 25, 2024 03:26 PM [facility] LIVER FUNCTION SERUM Specimen Type: SERUM No comment entered. Ordering Provider: KALEB DUFF Report Released Date/Time: Mar 25, 2024 03:17 PM Reporting Lab: [address] [address] Performing Lab: [address] [address] PROTEIN,TOTAL 7.7 g/dL 6.0-8.3 ALBUMIN 4.4 g/dL 3.5-5.0 ALKALINE PHOSPHATASE 80 U/L 40-150 AST 11 U/L 5-34 ALT 14 U/L BILIRUBIN, TOTAL 1.3 mg/dL H 0.2-1.2 BILIRUBIN, DIRECT 0.4 mg/dL 0-0.5 Mar 25, 2024 03:26 PM [facility] LIPID PANEL FASTING SERUM Specimen Type: SERU M No comment entered. Ordering Provider: KALEB DUFF Report Released Date/Time: Mar 25, 2024 03:17 PM Reporting Lab: [facility] [address] [facility] [address] Performing Lab: [address] [address] CHOLESTEROL 217 mg/dL H TRIGLYCERIDE 256 mg/dL H 0-150 LDL calculated 121 mg/dL 0-129 CHOL/HDL 4.8 HDL CHOLESTEROL 45 mg/dL 40-60 Mar 25, 2024 03:26 PM [facility] HIV 1&2 Ag/Ab SCREEN SERUM Specimen Type: SER UM Comment: Hep C Ab: No HCV antibody detected. If recent infection is suspected or other evidence suggests HCV infection, consider HCV nucleic acid testing Ordering Provider: KALEB DUFF Report Released Date/Time: Mar 25, 2024 03:17 PM Reporting Lab: [address] [address] Performing Lab: [address] [address] HIV 1&2 Ag/Ab SCREEN NON-REACTIVE Nonrea ctive Social History: Smoking Status (Most current) and Tobacco Use (All prior to encounter date) This section includes the most current, and the historical, smoking and tobacco- related health factors from the [place] facility where the Encounter took place. Current Smoking Status This section includes the most current smoking, or tobacco-related health factor, from the [place] facility where the Encounter took place. Date/Time Current Smoking Status Comment Fely merida Mar 18, 2024 10:00 AM VA-TOBACCO USE FOR DORI CIGARETTES [facility] Tobacco Use History This section includes a history of the smoking, or tobacco-related health factors, that were collected on or before the date of the Encounter. The data comes from the [place] facility where the Encounter took place. Date/Time Smoking Status/Tobac co Use Comment Facility Mar 18, 2024 10:00 AM VA-TOBACCO USE FORMER OTHER TYPE Quit more than 15 years ago [place] [facility] [place] [facility] Encounter Notes: All associated encounter notes This section contains the clinical notes associated to the Encounter. Date/Time Encounter Note(s) Provider Source Apr 01, 2024 09:48 AM SUICIDE PREVENTION NOTE: LOCAL TITLE: SUICIDE PREVENTION SAFETY PLAN STANDARD TITLE: SUICIDE PREVENTION NOTE DATE OF NOTE: APR 01, 2024@09:48 ENTRY DATE: APR 01, 2024@09:48:59 AUTHOR: MAYRA HAYES COSIGNER: URGENCY: STATUS: COMPLETED SAFETY PLAN Please follow the steps described below on your Safety Plan. If you are experiencing a medical or mental health emergency, please call 911, at any time. If you are unable to reach your safety contacts or you are in crisis, please call the Veterans Crisis Line (Dial 988 then Press 1). Step 1: Triggers, Risk Factors and Warning Signs How will you know when you are in crisis and that the Safety Plan should be used? What are your personal red flags? 1. hopelessness 2. loneliness 3. I want to dissappear 4. Feeling like I have no purpose 5. Step 2: Internal Coping Strategies What can you do, on your own, to help you stay safe and not act on your suicidal thoughts or urges in the future? What have you done in the past to stay safe? 1. Take a walk in nature 2. Make a playlist of songs that make me feel good 3. Some form of light exercise 4. 5. Step 3: Social Contacts Who May Distract from the Crisis Other than mental health providers and counselors, who can you contact who helps take your mind off your problems or helps you feel better? Name: liz Phone number: [phone] What public places, groups, or social events help you feel better? Examples of social settings include community events, beaches, king, coffee shops, malls, churches, clubs, 12 step meetings, aftercare groups, support groups, Veterans organizations, [facility] social events. 1. [place] 2. 3. 4. 5. 6. Step 4: Family Members or Friends Who May Offer Help Who are friends or family members who should be included in your plan? Name: Annamarie Phone number: [phone] Step 5: Professionals and Agencies to Contact for Help Who are the mental health professionals or professional peer supports who should be included in your plan? Please list the numbers you would call in the order you would call them. Name: Dr. Mayra Hayes Phone number: [phone] Veterans Crisis Line: Dial 988 then Press 1 Veterans Crisis Line Text Messaging Service: 783598 Veterans Crisis Line: https://www.veteranscrisi Rootdown.net/chat Call 911 in an emergency If you need to go to an urgent care center or emergency room, where will you go? Facility name: [facility] Facility address: [address] [place] [address] Facility phone number: [phone] Local [place] site-specific emergency numbers: Step 6: Making the Environment Safe Ways to make my environment safer and barriers I will use to protect myself from these potentially lethal means: n/a has access to firearms in their home or elsewhere: No [place] has access to opioids: No These are the people who will help me protect myself from having access to dangerous items: Name: n/a Phone: n/a [place]'s current, physical address: [address] [place] [id number] [place]'s current phone number: [phone] Other Resources: - Virtual Hope Box smartphone application (create a hope box to remember good things in one's life) - DTVCasttheMail'Insidenection.CityHour (source of [place]-related resources and information) - Safety Plan in PTSD Informatics Pharmacist: www.ptsd.va.gov/appvid/nuzhat charles/ptsdcoach_app.asp - Safety Plan in PTSD Informatics Pharmacist Video: https://www.youShoutOmatic.com/w atch?v=QCh5naecN1I I have received a copy of this Safety Plan. I have given permission and my family member/caregiver/friend has been given a copy of this Safety Plan. Family member/caregiver/friend did not participate in this safety planning session. Reason: not available /prashanth/ Mayra Hayes Psy.D. Psychologist Signed: 04/01/2024 09:55 Receipt Acknowledged By: 04/01/2024 09:57 /es/ KEN GOODWIN [facility] SUICIDE WET CHEMISTRY ANALYST 05/13/2024 15:51 /es/ MARCOS YAN [facility] Suicide Bus Person 04/01/2024 16:15 /es/ NICOLE LINCOLN, [facility] SUICIDE WET CHEMISTRY ANALYST MAYRA HAYES [place] [facility] [place] [facility] Apr 01, 2024 09:33 AM SUICIDE PREVENTION RISK ASSESSMENT SCREENING NOTE: LOCAL TITLE: SUICIDE RISK EVALUATION - COMPREHENSIVE STANDARD TITLE: SUICIDE PREVENTION RISK ASSESSMENT SCREENING NOT DATE OF NOTE: APR 01, 2024@09:33 ENTRY DATE: APR 01, 2024@09:33:31 AUTHOR: MAYRA HAYES EXP COSIGNER: URGENCY: STATUS: COMPLETED Comprehensive Suicide Risk Evaluation This is a new suicide risk evaluation. Suicidal Ideation The most recent thoughts of engaging in suicide-related behavior were within the past 30 days. prepared to take his life the day after Thanksgi. He wrote a suicide note to his and went to the [facility] with the intention of jumping from the spillway. He self-interrupted when he saw deer. He did not want to defile such a beautiful place. He reported chronic SI without any previous attempts. He was sectioned to [facility] where he was inpatient for 6 days. The [place] had suicidal intent at the time of the most recent ideation. Description of intent: Had the desire to kill himself The had a suicide plan at the time of the most recent ideation. Describe: Jump off spillway at [facility] The most recent suicidal ideation was the most severe ideation within the last 30 days. The [place] does not have access to lethal means (firearms) The [place] does not have access to other lethal means. Suicide Behavior The did not report any prior suicide attempts that have not been previously documented. The [place] did not report any prior preparatory behaviors that have not been previously documented. Warning Signs The following warning signs are currently present for the : Suicidal communication Please describe: suicide letter Preparations for suicide Hopelessness Increased isolation Other warning signs not listed or comments: Comment: feeling loss of support from loved ones Additional past warning signs include: Risk Factors Recent psychosocial stressors Please Describe: relationship issues with Psychological conditions or symptoms Please Describe: chronic depression Losses Please Describe: friend several days prior to escalation in suicidal thoughts Medical conditions and health-related problems Please Describe: Chron's disease Protective Factors and Reasons for Living Access to and engagement with health care Comment: Has recently established primary care with [place] and attended appts on 03/17 Reports motivation for mental health treatment Comment: Scheduled today's appt to establish care with mental health at [place] Has a significant other Comment: who he feels has been supportive since incident Hope for the future Comment: Wants to live and get help Protective personal traits or beliefs Comment: help-seeking Strong desire to live Comment: Looking for ways to fulfill purposeful living Clinical Impressions: The clinical impression of acute risk is Intermediate ACUTE Risk. As evidenced by: Motivation to receive mental health treatment since discharge from [facility]. He was able to develop a safety plan and explore ways of increasing hope and purpose in life. The clinical impression of chronic risk is Intermediate CHRONIC Risk. As evidenced by: Reported chronic SI and depression with recent suicidal behavior that was self-interrupted. Has protective factors and wants to get treatment. Suicide Risk Mitigation Plan: --- This treatment and care plan was developed in collaboration with the [place]. Risk Mitigation Plan: Strategies for Managing Risk in OUTPATIENT setting Suicide Bus Person alerted for consideration of a Patient Record Flag Category I High Risk for Suicide. Complete or update [place]'s safety plan Increase frequency of suicide risk and symptom monitoring Describe: Scheduled [facility] appts until connected to [facility] Address barriers to treatment engagement By: Consults placed for med mgt and therapy Discuss with [place] ways to increase a sense of purpose and meaning Discuss with ways to increase social connections/social supports Schedule for follow-up appointments Comment/Date: 04/06 @12:30pm Provide [place] with phone number for 's Crisis Line: Dial 988 (Press 1), Text to [phone], or Chat Educate [place] on emergency services Educate [place] on smartphone [place] applications and websites Re-evaluation: Due to the dynamic nature of some warning signs, risk and protective factors, suicide risk should be routinely re-evaluated. These risk management strategies were chosen to address 's current presentation and feasible treatment options within the system of care. This plan should be re-evaluated over time. /prashanth/ Mayra Hayes Psy.D. Psychologist Signed: 04/01/2024 09:48 Receipt Acknowledged By: 04/01/2024 09:55 /prashanth/ KEN GOODWIN [facility] SUICIDE WET CHEMISTRY ANALYST 08/26/2024 13:59 /prashanth/ MARCOS YAN [facility] Suicide Bus Person 04/01/2024 16:14 /es/ NICOLE LINCOLN [facility] SUICIDE WET CHEMISTRY ANALYST MAYRA HAYES [place] [facility] [place] [facility] Apr 01, 2024 08:32 AM TELEHEALTH NOTE: LOCAL TITLE: [place] VIDEO CONNECT PSYCHOLOGY NOTE STANDARD TITLE: TELEHEALTH NOTE DATE OF NOTE: APR 01, 2024@08:32 ENTRY DATE: APR 01, 2024@08:33:01 AUTHOR: MAYRA HAYES EXP COSIGNER: URGENCY: STATUS: COMPLETED [place] VIDEO CONNECT PSYCHOLOGY NOTE Has ADDENDA Date of session: April 01, 2024 Duration of session: 60 minutes Diagnosis: MDD, recurrent, severe Presenting Problem ( report): presented to [facility] recent [facility] with plan and intent that led to Sec 12 at [facility] in [place], [place]. Course of Session: [place] shared that he lost a friend a couple days before Devon. He was having a hard time with the loss and [facility] His was upset by this and made a comment to him that he shouldn't be so upset about his friend. They got into an argument and the day after Devon she told him to return any Branch gifts that he may have bought her. Xenia was already feeling lonely, hopeless, and a lack of purpose. He reported writing his a suicide note and driving to the [place] with the plan to jump off the spillway. When he looked down, he saw deer and reported that he did not want to defile the beauty of the place . He picked up his phone and listened to a voicemail his had left him. He reported that he could hear the hurt in her voice so he drove home. His had the police waiting for him and the sectioned him to [facility] where he was inpatient for 6 days. He was discharged on 03/17 and stated the discharge plan was for him [facility]. Specific mental health/clinical interventions: This grant writer completed CSRE and safety plan with . Safety plan was provided electronically to . Treatment options were explored and appropriate consults were placed, including consideration for HRF for suicide. Treatment planning: Consults placed to establish care with NATHALIA Suarez. Mental Status/Clinical Impression: Corinth arrived on time and was unaccompanied for his appointment. He was alert and fully oriented. Thinking was logical and goal-directed. Auditory comprehension appeared intact. His mood was anxious with congruent affect. was cooperative, polite, and engaged. He exhibited intact insight and deficit awareness. There were no hallucinations or other indication of formal thought disorder. Risk Assessment: Corinth denied SI today. See CSRE and safety plan. Date of next planned contact: RTC on 04/06 @12:30pm -------- [employer] ([facility]) Standard Documentation [facility] Clinician Resources Only: E911 (Emergency Call Relay Center): [phone] National Veterans Crisis Line - 074 then press #1. [place] Suicide Coordinator [phone], Ext. [phone]; Back-up Ext. [phone] [place] Police, Daniela STEVENSON [phone] Introduction: Visit is being conducted by [facility]. identified with 2 identifiers: [X] Full Name [X] Date of [ ] VA ID Card Emergency Plan: Corinth confirmed and/or provided the following information in case of emergency or technology failure. PATIENT PHONE - NONE FOUND PHONE NUMBER [CELLULAR] - [phone] Is patient phone number correct, if not, enter below: 's phone number: GLADIS WILLETT [address], [place], [address] 's present location and address for appointment: Above Address Corinth's emergency contact name and phone number: on file Corinth reported that location is private and safe: Yes Informed Consent: informed of the risks and benefits of Telehealth video care. has the right to refuse video services. If refuses video visit, a [id number] visit will be scheduled. Corinth verbalized consent for this video visit: Yes provided consent for any other persons present for visit: N/A If yes, who and relationship to patient: Secure visit: Visit was locked for security and privacy:Yes /es/ Mayra Hayes Psy.D. Psychologist Signed: 04/01/2024 10:19 04/01/2024 ADDENDUM STATUS: COMPLETED RN called [facility] in [place] to request medical records for continuity of care f/u. RN was redirected to their Medical Records dept ([phone]). RN left detailed VM with MR dept and gave direct ext ([phone]) + fax# ([phone]) to return call and send records JOSE. /prashanth/ PEDRO SALAMANCA MSN, RN [facility] REGISTERED NURSE Signed: 04/01/2024 11:12 MAYRA HAYES [place] [facility]
--- OUTSIDE RECORDS SUMMARY | 2024-04-05 04:00 | XMS_ITS ---
Author Name [facility] [place] [facility] [place] [facility] [place] Address [address] [place] [address] Care Team Providers Care Image Archivist Name Role Phone KALEB DUFF Primary Care [...] DEDUCTIBL E HEALTH PLAN W/HEALTH SAVINGS [facility] Apr 14, 2024 [id number] [facility] Lexie MARTIN SPOUSE CIGNA HIGH DEDUCTIBL E HEALTH PLAN W/HEALTH SAVINGS ACCOUNT [place] [facility] Apr 14, 2024 [id number] [facility] ADRIANA WILLETT SPOUSE CIGNA HIGH DEDUCTIBL E HEALTH PLAN W/HEALTH SAVINGS ACCOUNT [facility] [facility] September 08, 2023 [id number] ADRIANA WILLETT SPOUSE CIGNA BEHAVIORAL HEALTH MENTAL HEALTH [facility] [facility] Apr 14, 2024 [id number] [facility] Lexie MARTIN SPOUSE [facility] MENTAL HEALTH [facility] [facility] Apr 14, 2024 [id number] GABRIELA WILLETT PATIENT [employer] ([id number]) PRESCRIPT ION [place] [facility] Apr 14, 2024 [id number] GABRIELA WILLETT PATIENT [employer] (EXPRESS S[employer]IPTS) PRESCRIPT ION [employer]IG[employer] /MEDC O [facility] Apr 14, 2024 [id number] GABRIELA WILLETT SPOUSE Selected Encounter This section includes the information on record at [place] for the Encounter. Date/Time Encounter Type Encounter Description Reason Provider Source Apr 05, 2024 08:00 AM PSYTX W PT 30 MINUTES [facility] - IND ICD-10-CM F32.A Depression, unspecified ARIELA HAYES Martha Encounter Template Text not used by [place] Assessments - Encounter Diagnoses This section includes the primary and secondary diagnoses documented for the Encounter. Date/Time Primary/Secondary Diagnosis Diagnosis Name Provider Source Nov 03, 2024 11:11 AM PRIMARY Depression, unspecified [facility] [place] [facility] Plan of Treatment: Future Appointments (+ 6 months) and Future Tests (+/- 45 days) The Plan of Treatment section includes future care activities for the patient from all [place] treatmentfacilities. This section includes future appointments and future orders which are active, pending or scheduled. Future Appointments This section includes appointments that were scheduled to occur 6 months from the date of the Encounter, up to a maximum of 20 appointments. The data comes from all [place] treatment facilities. Appointment Date/Time Appointment Type Appointme nt Facility Name Apr 15, 2024 08:00 AM AMBULATORY - PSYCHIATRY [place] [facility] [place] [facility] Apr 19, 2024 01:00 PM AMBULATORY - PSYCHIATRY [place] [facility] [place] [facility] Apr 26, 2024 02:00 PM AMBULATORY - PSYCHIATRY [place] [facility] [place] [facility] Apr 30, 2024 08:30 AM AMBULATORY - PSYCHIATRY [place] [facility] [place] [facility] May 05, 2024 02:00 PM AMBULATORY - MEDICINE [place] [facility] [place] [facility] May 07, 2024 08:30 AM AMBULATORY - PS[facility]ATRY [facility] [place] [facility] May 10, 2024 09:00 AM AMBULATORY - [...] PSYCHIATRY [facility] [place] [facility] Jun 14, 2024 08:30 AM AMBULATORY - PSYCHIATRY [facility] [place] [facility] Jun 21, 2024 08:30 AM AMBULATORY - PSYCHIATRY [facility] [place] [facility] Jun 21, 2024 03:30 PM AMBULATORY - MEDICINE [facility] [place] [facility] Jun 22, 2024 08:30 AM AMBULATORY - PSYCHIATRY [facility] [place] [facility] Jul 02, 2024 09:00 AM AMBULATORY - PSYCHIATRY [facility] [place] [facility] Jul 05, 2024 09:00 AM AMBULATORY - PSYCHIATRY [facility] [place] [facility] Jul 22, 2024 08:30 AM AMBULATORY - PSYCHIATRY [facility] [place] [facility] Jul 26, 2024 08:30 AM AMBULATORY - PSYCHIATRY [facility] [place] [facility] Active, Pending, and Scheduled Orders This section includes a listing of several types of active, pending, and scheduled orders, including clinic medications orders, diagnostic test orders, procedure orders and consult orders; where the start date of the order is 45 days before the date of the Encounter or 45 days after the date of theEncounter. The data comes from all [place] treatment facilities. Test Date/Time Test Type Test Details Facility Name Apr 26, 2024 12:00 AM Laboratory - Chemi stry Order TSH BLOOD (SST-SERUM) [facility] [place] [facility] Lab Results: +/- 30 days of the encounter This section includes the Chemistry and Hematology Lab Results on record with [place] for the patient. Radiology Reports and Pathology Reports are provided separately, in subsequent sections. Lab Results This section contains the Chemistry/Hematology Results that were resulted 30 days before or 30 daysafter the date of the Encounter. Date/Time Source Result Type Result - Unit Interpretation Reference Range Specimen Type Comment Mar 25, 2024 03:26 PM [facility] HEPATITIS A ANTIBODY (IgM) SERUM Specimen [...] Mar 25, 2024 03:17 PM Reporting Lab: [address] [address] Performing Lab: [address] [address] HEPATITIS A ANTIBODY (IgM) Non Reactive Non Reactive Mar 25, 2024 03:26 PM [facility] HEPATITIS B SURFACE ANTIBODY (HBsAb)-WH SERUM Specimen Type: SERUM No comment entered. Ordering Provider: KALEB DUFF Report Released Date/Time: Mar 25, 2024 03:17 PM Reporting Lab: [address] [address] Performing Lab: [facility] Mar 25, 2024 03:26 PM [facility] VITAMIN D (25-[place]) SERUM Specimen Type: SERUM No comment entered. Ordering Provider: KALEB DUFF Report Released Date/Time: Mar 25, 2024 03:17 PM Reporting Lab: [address] [address] Performing Lab: [facility] [address] [facility] [address] VITAMIN D (25-[place]) 38 ng/mL 20-50 Mar 25, 2024 03:26 PM [facility] IRON & TIBC PANEL SERUM Specimen Type: SERUM No comment entered. Ordering Provider: KALEB DUFF Report Released Date/Time: Mar 25, 2024 03:17 PM Reporting Lab: [facility] [address] [facility] [address] Performing Lab: [facility] [address] [facility] [address] TIBC 458 ug/dL 204-475 IRON 98 ug/dL 40-160 Transferrin Saturation 21.4 20.0-50.0 Transferrin (TRF) 347 mg/dL 200-360 Mar 25, 2024 03:26 PM [facility] FERRITIN SERUM Specimen Type: SERUM No comment entered. Ordering Provider: KALEB DUFF Report Released Date/Time: Mar 25, 2024 03:17 PM Reporting Lab: [facility] [address] [facility] [address] Performing Lab[facility] [address] [facility] [address] FERRITIN 53 ng/mL 20-300 Mar 25, 2024 03:26 PM [facility] HEPATITIS C ANTIBODY (HCV)-ARC SERUM Specimen Type: SERUM Comment: Hep C Ab: No HCV antibody detected. If recent infection is suspected or other evidence suggests HCV infection, consider HCV nucleic acid testing Ordering Provider: KALEB DUFF Report Released Date/Time: Mar 25, 2024 03:17 PM Reporting Lab: [facility] [address] [facility] [address] Performing Lab: [facility] [address] [facility] [address] HEPATITIS C ANTIBODY NON-REACTIVE NON-RE ACTIVE Mar 25, 2024 03:26 PM [facility] CBC AND DIFF (AUTO) BLOOD Specimen Type: BLOO D No comment entered. Ordering Provider: KALEB DUFF Report Released Date/Time: Mar 25, 2024 03:17 PM Reporting Lab: [facility] [address] [facility] [address] Performing Lab: [facility] [address] [facility] [address] WBC 8.01 10*3/uL 4.50-11.00 RBC 5.05 10*6/uL [...] 10*3/uL 0.00-0.00 Mar 25, 2024 03:26 PM [facility] BASIC METABOLIC PANEL (non-fasting) SERUM Spe cimen Type: SERUM No comment entered. Ordering Provider: KALEB DUFF Report Released Date/Time: Mar 25, 2024 03:17 PM Reporting Lab: [facility] [address] [facility] [address] Performing Lab: [facility] [address] [facility] [address] UREA NITROGEN 13 mg/dL 7-25 GLUCOSE 100 mg/dL 65-100 SODIUM 140 mmol/L 135-145 POTASSIUM 3.6 mmol/L 3.5-5.0 CHLORIDE 104 mmol/L 100-110 CO2 24 meq/L 20-30 CREATININE, Serum 0.86 mg/dL 0.50-1.40 eGFR(CKD-EPI 2020) >90 mL/min >60 Mar 25, 2024 03:26 PM [facility] BASIC METABOLIC PANEL (fasting) SERUM Specime n Type: SERUM No comment entered. Ordering Provider: KALEB DUFF Report Released Date/Time: Mar 25, 2024 03:17 PM Reporting Lab: [address] [address] Performing Lab: [address] [address] UREA NITROGEN 13 mg/dL 7-25 GLUCOSE 100 mg/dL 65-100 SODIUM 140 mmol/L 135-145 POTASSIUM 3.6 mmol/L 3.5-5.0 CHLORIDE 104 mmol/L 100-110 CO2 24 meq/L 20-30 CREATININE, Serum 0.86 mg/dL 0.50-1.40 eGFR(CKD-EPI 2020) >90 mL/min >60 Mar 25, 2024 03:26 PM [facility] LIVER FUNCTION SERUM Specimen Type: SERUM No comment entered. Ordering Provider: KALEB DUFF Report Released Date/Time: Mar 25, 2024 03:17 PM Reporting Lab: [address] [address] Performing Lab: [address] [address] PROTEIN,TOTAL 7.7 g/dL 6.0-8.3 ALBUMIN 4.4 g/dL 3.5-5.0 ALKALINE PHOSPHATASE 80 U/L 40-150 AST 11 U/L 5-34 ALT 14 U/L BILIRUBIN, TOTAL 1.3 mg/dL H 0.2-1.2 BILIRUBIN, DIRECT 0.4 mg/dL 0-0.5 Mar 25, 2024 03:26 PM [facility] LIPID PANEL FASTING SERUM Specimen Type: SERU M No comment entered. Ordering Provider: KALEB DUFF Report Released Date/Time: Mar 25, 2024 03:17 PM Reporting Lab: [facility] [address] [facility] [address] Performing Lab: [address] [address] CHOLESTEROL 217 mg/dL H TRIGLYCERIDE 256 mg/dL H 0-150 LDL calculated 121 mg/dL 0-129 CHOL/HDL 4.8 HDL CHOLESTEROL 45 mg/dL 40-60 Mar 25, 2024 03:26 PM [facility] HIV 1&2 Ag/Ab SCREEN SERUM Specimen Type: SER UM Comment: Hep C Ab: No HCV antibody detected. If recent infection is suspected or other evidence suggests HCV infection, consider HCV nucleic acid testing Ordering Provider: KALEB DUFF Report Released Date/Time: Mar 25, 2024 03:17 PM Reporting Lab: [address] [address] Performing Lab: [address] [address] HIV 1&2 Ag/Ab SCREEN NON-REACTIVE Nonrea ctive Social History: Smoking Status (Most current) and Tobacco Use (All prior to encounter date) This section includes the most current, and the historical, smoking and tobacco- related health factors from the [place] facility where the Encounter took place. Current Smoking Status This section includes the most current smoking, or tobacco-related health factor, from the [place] facility where the Encounter took place. Date/Time Current Smoking Status Comment Fely merida Mar 18, 2024 10:00 AM VA-TOBACCO USE FOR DORI CIGARETTES [facility] Tobacco Use History This section includes a history of the smoking, or tobacco-related health factors, that were collected on or before the date of the Encounter. The data comes from the [place] facility where the Encounter took place. Date/Time Smoking Status/Tobac co Use Comment Facility Mar 18, 2024 10:00 AM VA-TOBACCO USE FORMER OTHER TYPE Quit more than 15 years ago [place] [facility] [place] [facility] Encounter Notes: All associated encounter notes This section contains the clinical notes associated to the Encounter. Date/Time Encounter Note(s) Provider Source Apr 05, 2024 08:16 AM TELEHEALTH NOTE: LOCAL TITLE: [place] [facility] PSYCHOLOGY NOTE STANDARD TITLE: TELEHEALTH NOTE DATE OF NOTE: APR 05, 2024@08:16 ENTRY DATE: APR 05, 2024@08:16:38 AUTHOR: ARIELA HAYES COSIGNER: URGENCY: STATUS: COMPLETED Date of session: April 05, 2024 Duration of session: 30 minutes Diagnosis: MDD, recurrent, severe Presenting Problem (Transfer report): Xenia presented to [facility] via [facility] for interim care as he was recently placed on a HRF for suicide after recent SI with plan and intent that led to [facility] at [facility] in [place], [place]. Course of Session: Xenia shared that he is trying to stay busy and not in his hand. He is finding it hard as he feels he needs to find ways to cope that work better than compartmentalizing . He has been playing videogames and that helps but when he stops he feels that everything he was trying to get away from is still there. Specific mental health/clinical interventions: and this functional tester typewriters explored different coping strategies that he could implement. Discussed thought records and ways to process thoughts outside of the cognitive feedback loop. Xenia and this functional tester typewriters also discussed light movement that can be done inside such as yoga. He was also made aware of HRF for suicide flag and to cancel any appts he cannot attend. Treatment planning: He is scheduled for an intake and med consult with NATHALIA Suarez. Mental Status/Clinical Impression: Xenia arrived on time and was unaccompanied for his appointment. He was alert and fully oriented. Thinking was logical and goal-directed. Auditory comprehension appeared intact. His mood was anxious with congruent affect. Xenia was cooperative, polite, and engaged. He exhibited intact insight and deficit awareness. There were no hallucinations or other indication of formal thought disorder. Risk Assessment: Transfer denied SI today. See CSRE from 04/01 Date of next planned contact: RTC on 04/15 @8am -------- [facility] ([facility]) Standard Documentation [facility] Clinician Resources Only: E911 (Emergency Call Relay Center): [phone] National Veterans Crisis Line - 988 then press #1. [place] Suicide Coordinator [phone], Ext. [phone]; Back-up Ext. [phone] [place] Police, [place], Dainela [phone] Introduction: Visit is being conducted by [place] [facility]. Transfer identified with 2 identifiers: [X] Full Name [X] Date of [ ] [place] ID Card Emergency Plan: confirmed and/or provided the following information in case of emergency or technology failure. PATIENT PHONE - NONE FOUND PHONE NUMBER [CELLULAR] - [phone] Is patient phone number correct, if not, enter below: Transfer's phone number: GLADIS WILLETT [address] [place] [address], [phone] 's present location and address for appointment: Above Address Transfer's emergency contact name and phone number: on file reported that location is private and safe: Yes Informed Consent: Transfer informed of the risks and benefits of Telehealth video care. Transfer has the right to refuse video services. If refuses video visit, a [id number] visit will be scheduled. Transfer verbalized consent for this video visit: Yes Transfer provided consent for any other persons present for visit: N/A If yes, who and relationship to patient: Secure visit: Visit was locked for security and privacy:Yes /prashanth/ Ariela Hayes Psy.D. Psychologist Signed: 04/05/2024 09:57 ARIELA HAYES [place] [facility] [place] [facility]
--- OUTSIDE RECORDS SUMMARY | 2024-04-15 04:00 | XMS_ITS ---
Author Name [facility] [facility] [place] Address [address] [place] [address] Care Team Providers Care Hand Quilter Name Role Phone KALEB DUFF Primary Care [...] DEDUCTIBL E HEALTH PLAN W/HEALTH SAVINGS [facility] Apr 14, 2024 [id number] [facility] Lexie MARTIN SPOUSE CIGNA HIGH DEDUCTIBL E HEALTH PLAN W/HEALTH SAVINGS ACCOUNT [facility] Apr 14, 2024 [id number] [facility] ADRIANA WILLETT SPOUSE CIGNA HIGH DEDUCTIBL E HEALTH PLAN W/HEALTH SAVINGS ACCOUNT [facility] September 08, 2023 [id number] ADRIANA WILLETT SPOUSE CIGNA BEHAVIORAL HEALTH MENTAL HEALTH [facility] Apr 14, 2024 [id number] [facility] Lexie MARTIN SPOUSE [facility]ALTH [facility] Apr 14, 2024 [id number] GABRIELA WILLETT PATIENT [employer] ([id number]) PRESCRIPT ION [facility] Apr 14, 2024 [id number] BRENNONGABRIELA ISBELL PATIENT [employer] (EXPRESS SCRIPTS) PRESCRIPT ION CIGNA /MEDC O HSA Apr 14, 2024 [id number] GABRIELA WILLETT SPOUSE Selected Encounter This section includes the information on record at [place] for the Encounter. Date/Time Encounter Type Encounter Description Reason Provider Source Apr 15, 2024 08:00 AM PSYTX W PT 30 MINUTES [facility] - IND ICD-10-CM F32.A Depression, unspecified MAYRA HAYES Martha Encounter Template Text not used by [place] Assessments - Encounter Diagnoses This section includes the primary and secondary diagnoses documented for the Encounter. Date/Time Primary/Secondary Diagnosis Diagnosis Name Provider Source Jun 04, 2024 12:58 PM PRIMARY Depression, unspecified MAYRA HAYES [facility] [place] [facility] Plan of Treatment: Future Appointments (+ 6 months) and Future Tests (+/- 45 days) The Plan of Treatment section includes future care activities for the patient from all [place] treatmentfacilities. This section includes future appointments and future orders which are active, pending or scheduled. Future Appointments This section includes appointments that were scheduled to occur 6 months from the date of the Encounter, up to a maximum of 20 appointments. The data comes from all [place] treatment facilities. Appointment Date/Time Appointment Type Appointme nt Facility Name Apr 19, 2024 01:00 PM AMBULATORY - PSYCHIATRY [facility] [place] [facility] Apr 26, 2024 02:00 PM AMBULATORY - PSYCHIATRY [facility] [place] [facility] Apr 30, 2024 08:30 AM AMBULATORY - PSYCHIATRY [facility] [place] [facility] May 05, 2024 02:00 PM AMBULATORY - MEDICINE [facility] [place] [facility] May 07, 2024 08:30 AM AMBULATORY - PSYCHIATRY [facility] [place] [facility] May 10, 2024 09:00 AM AMBULATORY - [...] PS[facility] [place] Jun 21, 2024 08:30 AM AMBULATORY - [facility]AT[facility] Jun 21, 2024 03:30 PM AMBULATORY [facility] Jun 22, 2024 08:30 AM AMBULATORY - PS[facility]IATRY [facility] Jul 02, 2024 09:00 AM AMBULATORY - PS[facility]IATRY [facility] Jul 05, 2024 09:00 AM AMBULATORY - [facility]IATRY [facility] Jul 22, 2024 08:30 AM AMBULATORY - PSYCHIATRY [facility] [place] [facility] Jul 26, 2024 08:30 AM AMBULATORY - PSYCHIATRY [facility] [place] [facility] Jul 26, 2024 03:30 PM AMBULATORY - MEDICINE [facility] [place] [facility] Active, Pending, and Scheduled Orders This section includes a listing of several types of active, pending, and scheduled orders, including clinic medications orders, diagnostic test orders, procedure orders and consult orders; where the start date of the order is 45 days before the date of the Encounter or 45 days after the date of the Encounter. The data comes from all [place] treatment facilities. Test Date/Time Test Type Test Details Facility Name Apr 26, 2024 12:00 AM Laboratory - Chemi stry Order TSH BLOOD (SST-SERUM) [facility] [place] [facility] Lab Results: +/- 30 days of the encounter This section includes the Chemistry and Hematology Lab Results on record with [place] for the patient. Radiology Reports and Pathology Reports are provided separately, in subsequent sections. Lab Results This section contains the Chemistry/Hematology Results that were resulted 30 days before or 30 daysafter the date of the Encounter. Date/Time Source Result Type Result - Unit Interpretation Reference Range Specimen Type Comment Mar 25, 2024 03:26 PM [facility] HEPATITIS B SURFACE ANTIBODY (HBsAb)-WH SERUM Specimen Type: SERUM No comment entered. Ordering Provider: BRUCE DUFF AM Report Released Date/Time: Mar 25, 2024 03:17 PM Reporting Lab: [address] [address] Performing Lab: [facility] Mar 25, 2024 03:26 PM [facility] HEPATITIS A ANTIBODY (IgM) SERUM Specimen Typ [...] Mar 25, 2024 03:17 PM Reporting Lab: [address] [address] Performing Lab: [address] [address] HEPATITIS A ANTIBODY (IgM) Non Reactive Non Reactive Mar 25, 2024 03:26 PM [facility] VITAMIN D (25-OH) SERUM Specimen Type: SERUM No comment entered. Ordering Provider: KALEB DUFF Report Released Date/Time: Mar 25, 2024 03:17 PM Reporting Lab: [address] [address] Performing Lab: [facility] [address] [facility] [address] VITAMIN D (25-OH) 38 ng/mL 20-50 Mar 25, 2024 03:26 PM [facility] IRON & TIBC PANEL SERUM Specimen Type: SERUM No comment entered. Ordering Provider: KALEB DUFF Report Released Date/Time: Mar 25, 2024 03:17 PM Reporting [facility] [address] [facility] [address] Performing Lab: [facility] [address] [facility] [address] TIBC 458 ug/dL 204-475 IRON 98 ug/dL 40-160 Transferrin Saturation 21.4 20.0-50.0 Transferrin (TRF) 347 mg/dL 200-360 Mar 25, 2024 03:26 PM [facility] FERRITIN SERUM Specimen Type: SERUM No comment entered. Ordering Provider: KALEB DUFF Report Released Date/Time: Mar 25, 2024 03:17 PM Reporting Lab: [facility] [address] [facility] [address] Performing Lab: [facility] [address] [address] FERRITIN 53 ng/mL 20-300 Mar 25, 2024 03:26 PM [facility] CBC AND DIFF (AUTO) BLOOD Specimen Type: BLOO D No comment entered. Ordering Provider: KALEB DUFF Report Released Date/Time: Mar 25, 2024 03:17 PM Reporting Lab: [facility] [address] [facility] [address] Performing Lab: [facility] [address] [address] WBC 8.01 10*3/uL 4.50-11.00 RBC 5.05 10*6/uL [...] 10*3/uL 0.00-0.00 Mar 25, 2024 03:26 PM [facility] HEPATITIS C ANTIBODY (HCV)-ARC SERUM Specimen Type: SERUM Comment: Hep C Ab: No HCV antibody detected. If recent infection is suspected or other evidence suggests HCV infection, consider HCV nucleic acid testing Ordering Provider: KALEB DUFF Report Released Date/Time: Mar 25, 2024 03:17 PM Reporting Lab: [address] [address] Performing Lab: [address] [address] HEPATITIS C ANTIBODY NON-REACTIVE NON-RE ACTIVE Mar 25, 2024 03:26 PM [facility] BASIC METABOLIC PANEL (non-fasting) SERUM Spe cimen Type: SERUM No comment entered. Ordering Provider: KALEB DUFF Report Released Date/Time: Mar 25, 2024 03:17 PM Reporting Lab: [address] [address] Performing Lab: [facility] [address] [facility] [address] UREA NITROGEN 13 mg/dL 7-25 GLUCOSE 100 mg/dL 65-100 SODIUM 140 mmol/L 135-145 POTASSIUM 3.6 mmol/L 3.5-5.0 CHLORIDE 104 mmol/L 100-110 CO2 24 meq/L 20-30 CREATININE, Serum 0.86 mg/dL 0.50-1.40 eGFR(CKD-EPI 2020) >90 mL/min >60 Mar 25, 2024 03:26 PM [facility] BASIC METABOLIC PANEL (fasting) SERUM Specime n Type: SERUM No comment entered. Ordering Provider: KALEB DUFF Report Released Date/Time: Mar 25, 2024 03:17 PM Reporting Lab: [address] [address] Performing Lab: [address] [address] UREA NITROGEN 13 mg/dL 7-25 GLUCOSE 100 mg/dL 65-100 SODIUM 140 mmol/L 135-145 POTASSIUM 3.6 mmol/L 3.5-5.0 CHLORIDE 104 mmol/L 100-110 CO2 24 meq/L 20-30 CREATININE, Serum 0.86 mg/dL 0.50-1.40 eGFR(CKD-EPI 2020) >90 mL/min >60 Mar 25, 2024 03:26 PM [facility] LIPID PANEL FASTING SERUM Specimen Type: SERU M No comment entered. Ordering Provider: KALEB DUFF Report Released Date/Time: Mar 25, 2024 03:17 PM Reporting Lab: [address] [address] Performing Lab: [address] [address] CHOLESTEROL 217 mg/dL H TRIGLYCERIDE 256 mg/dL H 0-150 LDL calculated 121 mg/dL 0-129 CHOL/HDL 4.8 HDL CHOLESTEROL 45 mg/dL 40-60 Mar 25, 2024 03:26 PM [facility] LIVER FUNCTION SERUM Specimen Type: SERUM No comment entered. Ordering Provider: KALEB DUFF Report Released Date/Time: Mar 25, 2024 03:17 PM Reporting Lab: [address] [address] Performing Lab: [address] [address] PROTEIN,TOTAL 7.7 g/dL 6.0-8.3 ALBUMIN 4.4 g/dL 3.5-5.0 ALKALINE PHOSPHATASE 80 U/L 40-150 AST 11 U/L 5-34 ALT 14 U/L BILIRUBIN, TOTAL 1.3 mg/dL H 0.2-1.2 BILIRUBIN, DIRECT 0.4 mg/dL 0-0.5 Mar 25, 2024 03:26 PM [facility] HIV 1&2 Ag/Ab SCREEN SERUM Specimen Type: SER UM Comment: Hep C Ab: No HCV antibody detected. If recent infection is suspected or other evidence suggests HCV infection, consider HCV nucleic acid testing Ordering Provider: KALEB DUFF Report Released Date/Time: Mar 25, 2024 03:17 PM Reporting Lab: [address] [address] Performing Lab: [address] [address] HIV 1&2 Ag/Ab SCREEN NON-REACTIVE Nonrea ctive Social History: Smoking Status (Most current) and Tobacco Use (All prior to encounter date) This section includes the most current, and the historical, smoking and tobacco- related health factors from the [place] facility where the Encounter took place. Current Smoking Status This section includes the most current smoking, or tobacco-related health factor, from the [place] facility where the Encounter took place. Date/Time Current Smoking Status Comment [facility] Mar 18, 2024 10:00 AM VA-TOBACCO USE FOR DORI CIGARETTES [facility] Tobacco Use History This section includes a history of the smoking, or tobacco-related health factors, that were collected on or before the date of the Encounter. The data comes from the [place] facility where the Encounter took place. Date/Time Smoking Status/Tobac co Use Comment Facility Mar 18, 2024 10:00 AM VA-TOBACCO USE FORMER OTHER TYPE Quit more than 15 years ago [facility] [place] [facility] Encounter Notes: All associated encounter notes This section contains the clinical notes associated to the Encounter. Date/Time Encounter Note(s) Provider Source Apr 15, 2024 10:03 AM TELEHEALTH NOTE: LOCAL TITLE: [facility] PSYCHOLOGY NOTE STANDARD TITLE: TELEHEALTH NOTE DATE OF NOTE: APR 15, 2024@10:03 ENTRY DATE: APR 15, 2024@10:03:55 AUTHOR: MAYRA HAYES COSIGNER: URGENCY: STATUS: COMPLETED Date of session: April 15, 2024 Duration of session: 30 minutes Diagnosis: MDD, recurrent, severe Presenting Problem ( report): Xenia presented to [facility] via [facility] for interim care as he was recently placed on a HRF for suicide after recent SI with plan and intent that led to [facility] at [facility] in [place], [place]. Course of Session: Xenia shared that he had a difficult week given the holidays are never a good time for him and the anniversary of his father's was yesterday. [place] shared he has been isolating more in the spare bedroom playing videogames. Specific mental health/clinical interventions: and this field underwriter explored helpful vs unhelpful ways of coping when feeling depressed. This field underwriter reinforced the use of video games and explored with him ways he can cope when the weather is bad and he can't access those coping strategies. identified utilizing his more and discussed barriers to this. Xenia and this field underwriter role played ways he can communicate his need for specific support to his . [place] agreed to try this with his . Treatment planning: He is scheduled for an intake and med consult with NATHALIA Suarez. Mental Status/Clinical Impression: Xenia arrived on time and was unaccompanied for his appointment. He was alert and fully oriented. Thinking was logical and goal-directed. Auditory comprehension appeared intact. His mood was depressed with congruent affect. Xenia was cooperative, polite, and engaged. He exhibited intact insight and deficit awareness. There were no hallucinations or other indication of formal thought disorder. Risk Assessment: [place] denied SI today. See CSRE from 04/01 Date of next planned contact: [facility] as needed -------- [facility] Standard Documentation [facility] Clinician Resources Only: E911 (Emergency Call Relay Center): [phone] National [employer] Crisis Line - 988 then press #1. [place] Suicide Coordinator [phone], Ext. [phone]; Back-up Ext. [phone] [place] Police, LUCIAJason, Daniela [phone] Introduction: Visit is being conducted by [place] [facility]. [place] identified with 2 identifiers: [X] Full Name [X] Date of [ ] [facility] ID Card Emergency Plan: confirmed and/or provided the following information in case of emergency or technology failure. PATIENT PHONE - NONE FOUND PHONE NUMBER [CELLULAR] - [phone] Is patient phone number correct, if not, enter below: 's phone number: GLADIS WILLETT [address] [place] [address], [phone] 's present location and address for appointment: Above Address [place]'s emergency contact name and phone number: on file reported that location is private and safe: Yes Informed Consent: informed of the risks and benefits of Telehealth video care. [place] has the right to refuse video services. If refuses video visit, a [id number] visit will be scheduled. verbalized consent for this video visit: Yes [place] provided consent for any other persons present for visit: N/A If yes, who and relationship to patient: Secure visit: Visit was locked for security and privacy:Yes /prashanth/ Marya Hayes Psy.D. Psychologist Signed: 04/15/2024 10:09 MAYRA HAYES [facility]
--- OUTSIDE RECORDS SUMMARY | 2024-04-19 09:00 | XMS_ITS ---
Author Name [facility] (ID) Organization [facility] (ID) Address [address] [place] [id number] Care Team Providers Care Payroll Human Resources Assistant Name Role Phone KALEB DUFF Primary Care [...] DEDUCTIBL E HEALTH PLAN W/HEALTH SAVINGS [facility] Apr 14, 2024 [id number] [facility] Lexie MARTIN SPOUSE CIGNA HIGH DEDUCTIBL E HEALTH PLAN W/HEALTH SAVINGS ACCOUNT [facility] Apr 14, 2024 [id number] [facility]7 ADRIANA WILLETT SPOUSE CIGNA HIGH DEDUCTIBL E HEALTH PLAN W/HEALTH SAVINGS ACCOUNT [facility] September 08, 2023 [id number] [phone] ADRIANA WILLETT SPOUSE CIGNA BEHAVIORAL HEALTH [facility] Apr 14, 2024 [id number] [facility] Lexie MARTIN SPOUSE [facility] Apr 14, 2024 [id number] GABRIELA WILLETT PATIENT [employer] ([id number]) PRESCRIPT ION [facility] Apr 14, 2024 [id number] [phone] GABRIELA WILLETT PATIENT MEDCO (EXPRESS SCRIPTS) PRESCRIPT ION CIGNA /MEDC O [facility] Apr 14, 2024 [id number] [phone] GABRIELA WILLETT SPOUSE Selected Encounter This section includes the information on record at ID for the Encounter. Date/Time Encounter Type Encounter Description Reason Provider Source Apr 19, 2024 01:00 PM PSYCH DIAGNOSTIC EVALUATION [facility] - IND ICD-10-CM 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, recurrent severe w/o psych features AJ EDWARDS E Encounter Template Text not used by ID Assessments - Encounter Diagnoses This section includes the primary and secondary diagnoses documented for the Encounter. Date/Time Primary/Secondary Diagnosis Diagnosis Name Provider Source Jun 04, 2024 12:46 PM PRIMARY Major depressv disorder, recurrent severe w/o psych features AJ [facility]ARDS [facility] Plan of Treatment: Future Appointments (+ 6 months) and Future Tests (+/- 45 days) The Plan of Treatment section includes future care activities for the patient from all ID treatmentfacilities. This section includes future appointments and future orders which are active, pending or scheduled. Future Appointments This section includes appointments that were scheduled to occur 6 months from the date of the Encounter, up to a maximum of 20 appointments. The data comes from all ID treatment facilities. Appointment Date/Time Appointment Type Appointme nt Facility Name Apr 26, 2024 02:00 PM AMBULATORY - PSYCHIATRY [facility] [place] [facility] Apr 30, 2024 08:30 AM AMBULATORY - PSYCHIATRY [facility] [place] [facility] May 05, 2024 02:00 PM AMBULATORY - MEDICINE ID [facility] [place] [facility] May 07, 2024 08:30 AM AMBULATORY - PSYCHIATRY [facility] [place] [facility] May 10, 2024 09:00 AM AMBULATORY - PSYCHIATRY [facility] [place] [facility] May 11, 2024 01:30 PM AMBULATORY - [...] PSYCHIATRY [facility] [place] [facility] Jul 26, 2024 08:30 AM AMBULATORY - PSYCHIATRY [facility] [place] [facility] Jul 26, 2024 03:30 PM AMBULATORY - MEDICINE [facility] [place] [facility] Jul 28, 2024 08:30 AM AMBULATORY - PSYCHIATRY [facility] [place] [facility] Active, Pending, and Scheduled Orders This section includes a listing of several types of active, pending, and scheduled orders, including clinic medications orders, diagnostic test orders, procedure orders and consult orders; where the start date of the order is 45 days before the date of the Encounter or 45 days after the date of theEncounter. The data comes from all ID treatment facilities. Test Date/Time Test Type Test Details Facility Name Apr 26, 2024 12:00 AM Laboratory - Chemi stry Order TSH BLOOD (SST-SERUM) [facility] [place] [facility] Lab Results: +/- 30 days of the encounter This section includes the Chemistry and Hematology Lab Results on record with ID for the patient. Radiology Reports and Pathology Reports are provided separately, in subsequent sections. Lab Results This section contains the Chemistry/Hematology Results that were resulted 30 days before or 30 daysafter the date of the Encounter. Date/Time Source Result Type Result - Unit Interpretation Reference Range Specimen Type Comment Mar 25, 2024 03:26 PM [facility] HEPATITIS B SURFACE ANTIBODY (HBsAb)-WH SERUM Specimen Type: SERUM No comment entered. Ordering Provider: BRUCE DUFF AM Report Released Date/Time: Mar 25, 2024 03:17 PM Reporting Lab: [address] [address] Performing Lab: [facility] Mar 25, 2024 03:26 PM [facility] HEPATITIS A ANTIBODY (IgM) SERUM Specimen [...] Mar 25, 2024 03:17 PM Reporting Lab: [address] [address] Performing Lab: [address] [address] HEPATITIS A ANTIBODY (IgM) Non Reactive Non Reactive Mar 25, 2024 03:26 PM [facility] VITAMIN D (25-OH) SERUM Specimen Type: SERUM No comment entered. Ordering Provider: KALEB DUFF Report Released Date/Time: Mar 25, 2024 03:17 PM Reporting Lab: [address] [address] Performing Lab: [facility] [place] [facility] [address] [facility] [address] VITAMIN D (25-OH) 38 ng/mL 20-50 Mar 25, 2024 03:26 PM [facility] IRON & TIBC PANEL SERUM Specimen Type: SERUM No comment entered. Ordering Provider: KALEB DUFF Report Released Date/Time: Mar 25, 2024 03:17 PM Reporting Lab: [facility] [place] [facility] [address] [facility] [address] Performing Lab: [facility] [place] [facility] [address] [facility] [address] TIBC 458 ug/dL 204-475 IRON 98 ug/dL 40-160 Transferrin Saturation 21.4 20.0-50.0 Transferrin (TRF) 347 mg/dL 200-360 Mar 25, 2024 03:26 PM [facility] FERRITIN SERUM Specimen Type: SERUM No comment entered. Ordering Provider: KALEB DUFF Report Released Date/Time: Mar 25, 2024 03:17 PM Reporting Lab: [facility] [address] [facility] [address] Performing Lab: [facility] [address] [facility] [address] FERRITIN 53 ng/mL 20-300 Mar 25, 2024 03:26 PM [facility] CBC AND DIFF (AUTO) BLOOD Specimen Type: BLOO D No comment entered. Ordering Provider: KALEB DUFF Report Released Date/Time: Mar 25, 2024 03:17 PM Reporting Lab: [facility]RPRAT[facility]TR[facility] [address] [facility] [address] Performing Lab: [facility]ITALRPRATTVIL[facility]ITALTRN [facility] [address] [facility] [address] WBC 8.01 10*3/uL 4.50-11.00 RBC 5.05 10*6/uL [...] 10*3/uL 0.00-0.00 Mar 25, 2024 03:26 PM [facility] HEPATITIS C ANTIBODY (HCV)-ARC SERUM Specimen Type: SERUM Comment: Hep C Ab: No HCV antibody detected. If recent infection is suspected or other evidence suggests HCV infection, consider HCV nucleic acid testing Ordering Provider: KALEB DUFF Report Released Date/Time: Mar 25, 2024 03:17 PM Reporting Lab: [facility] [address] [facility] [address] Performing Lab: [address] [address] HEPATITIS C ANTIBODY NON-REACTIVE NON-RE ACTIVE Mar 25, 2024 03:26 PM [facility] BASIC METABOLIC PANEL (fasting) SERUM Specime n Type: SERUM No comment entered. Ordering Provider: KALEB DUFF Report Released Date/Time: Mar 25, 2024 03:17 PM Reporting Lab: [address] [address] Performing Lab: [address] [address] UREA NITROGEN 13 mg/dL 7-25 GLUCOSE 100 mg/dL 65-100 SODIUM 140 mmol/L 135-145 POTASSIUM 3.6 mmol/L 3.5-5.0 CHLORIDE 104 mmol/L 100-110 CO2 24 meq/L 20-30 CREATININE, Serum 0.86 mg/dL 0.50-1.40 eGFR(CKD-EPI 2020) >90 mL/min >60 Mar 25, 2024 03:26 PM [facility] BASIC METABOLIC PANEL (non-fasting) SERUM Spe cimen Type: SERUM No comment entered. Ordering Provider: KALEB DUFF Report Released Date/Time: Mar 25, 2024 03:17 PM Reporting Lab: [address] [address] Performing Lab: [address] [address] UREA NITROGEN 13 mg/dL 7-25 GLUCOSE 100 mg/dL 65-100 SODIUM 140 mmol/L 135-145 POTASSIUM 3.6 mmol/L 3.5-5.0 CHLORIDE 104 mmol/L 100-110 CO2 24 meq/L 20-30 CREATININE, Serum 0.86 mg/dL 0.50-1.40 eGFR(CKD-EPI 2020) >90 mL/min >60 Mar 25, 2024 03:26 PM [facility] LIVER FUNCTION SERUM Specimen Type: SERUM No comment entered. Ordering Provider: KALEB DUFF Report Released Date/Time: Mar 25, 2024 03:17 PM Reporting Lab: [address] [address] Performing Lab: [address] [address] PROTEIN,TOTAL 7.7 g/dL 6.0-8.3 ALBUMIN 4.4 g/dL 3.5-5.0 ALKALINE PHOSPHATASE 80 U/L 40-150 AST 11 U/L 5-34 ALT 14 U/L BILIRUBIN, TOTAL 1.3 mg/dL H 0.2-1.2 BILIRUBIN, DIRECT 0.4 mg/dL 0-0.5 Mar 25, 2024 03:26 PM [facility] LIPID PANEL FASTING SERUM Specimen Type: SERU M No comment entered. Ordering Provider: KALEB DUFF Report Released Date/Time: Mar 25, 2024 03:17 PM Reporting Lab: [facility] [address] [facility] [address] Performing Lab: [address] [address] CHOLESTEROL 217 mg/dL H TRIGLYCERIDE 256 mg/dL H 0-150 LDL calculated 121 mg/dL 0-129 CHOL/HDL 4.8 HDL CHOLESTEROL 45 mg/dL 40-60 Mar 25, 2024 03:26 PM [facility] HIV 1&2 Ag/Ab SCREEN SERUM Specimen Type: SER UM Comment: Hep C Ab: No HCV antibody detected. If recent infection is suspected or other evidence suggests HCV infection, consider HCV nucleic acid testing Ordering Provider: KALEB DUFF Report Released Date/Time: Mar 25, 2024 03:17 PM Reporting Lab: [address] [address] Performing Lab: [address] [address] HIV 1&2 Ag/Ab SCREEN NON-REACTIVE Nonrea ctive Social History: Smoking Status (Most current) and Tobacco Use (All prior to encounter date) This section includes the most current, and the historical, smoking and tobacco- related health factors from the ID facility where the Encounter took place. Current Smoking Status This section includes the most current smoking, or tobacco-related health factor, from the ID facility where the Encounter took place. Date/Time Current Smoking Status Comment Fely dahl Mar 18, 2024 10:00 AM VA-TOBACCO USE FOR DORI CIGARETTES [facility] Tobacco Use History This section includes a history of the smoking, or tobacco-related health factors, that were collected on or before the date of the Encounter. The data comes from the ID facility where the Encounter took place. Date/Time Smoking Status/Tobac co Use Comment Facility Mar 18, 2024 10:00 AM ID-TOBACCO USE FORMER OTHER TYPE Quit more than 15 years ago [facility] [place] [facility] Encounter Notes: All associated encounter notes This section contains the clinical notes associated to the Encounter. Date/Time Encounter Note(s) Provider Source Apr 20, 2024 10:47 AM SUICIDE PREVENTION RISK ASSESSMENT SCREENING NOTE: LOCAL TITLE: SUICIDE RISK EVALUATION - COMPREHENSIVE STANDARD TITLE: SUICIDE PREVENTION RISK ASSESSMENT SCREENING NOT DATE OF NOTE: APR 20, 2024@10:47 ENTRY DATE: APR 20, 2024@10:47:58 AUTHOR: JA EDWARDS EXP COSIGNER: URGENCY: STATUS: COMPLETED Comprehensive Suicide Risk Evaluation --------- This is an update to an existing suicide risk evaluation. The validity of the information contained within this evaluation is not in question. Suicidal Ideation The most recent thoughts of engaging in suicide-related behavior were within the past 30 days. passing suicidal ideation, particularly when encountering a seemingly intractable barrier, no intent or plan present, occurrence once every other week on average The [facility] did not have suicidal intent at the time of the most recent ideation. The did not have a suicide plan at the time of the most recent ideation. The most recent suicidal ideation was the most severe ideation within the last 30 days. The [facility] does not have access to lethal means (firearms) The does not have access to other lethal means. Suicidal Behavior The has not made any suicide attempts since the last ID Comprehensive Suicide Risk Evaluation was completed. The did not report any prior preparatory behaviors that have not been previously documented. Warning Signs The following warning signs are currently present for the [facility]: None noted Additional past warning signs include: Risk Factors History of suicidal behavior(s) Comment: preparatory behaviors in Feb 2024 Recent psychosocial stressors Please Describe: relationship problems History of mental health hospitalization Please Describe: inpatient stay in Feb 2024 after attempt Psychological conditions or symptoms Please Describe: MDD Medical conditions and health-related problems Please Describe: Crohns Disease Protective Factors and Reasons for Living Access to and engagement with health care Comment: completed [facility] intake and consults are in for individual counseling, couples counseling, and med consult Reports motivation for medical treatment Comment: [facility] feels optimistic about care Access to and engagement with mental health care Reports motivation for mental health treatment Has a significant other Hope for the future Protective personal traits or beliefs Clinical Impressions: The clinical impression of acute risk is Intermediate ACUTE Risk. As evidenced by: Continues to have SI but denies intent or plan. [facility] is motivated to begin outpatient MH treatment and has protective factors. The clinical impression of chronic risk is Intermediate CHRONIC Risk. As evidenced by: Agrees to safety plan. Is taking steps to address chronic risk factors and is able to identify protective factors. Suicide Risk Mitigation Plan: This treatment and care plan was developed in collaboration with the [facility]. Risk Mitigation Plan: Strategies for Managing Risk in OUTPATIENT setting Suicide Color Mixer alerted for consideration of a Patient Record Flag Category I High Risk for Suicide. Increase frequency of suicide risk and symptom monitoring Consult/Referral to additional services and support Refer to evidence based psychotherapy Refer to psychiatry/medication assessment or management Provide [facility] with phone number for 's Crisis Line: Dial 986 (Press 1), Text to [phone], or Chat Educate [facility] on emergency services Re-evaluation: Due to the dynamic nature of some warning signs, risk and protective factors, suicide risk should be routinely re-evaluated. These risk management strategies were chosen to address [facility]'s current presentation and feasible treatment options within the system of care. This plan should be re-evaluated over time. /prashanth/ JONNY Owen [facility] Knitting Inspector Signed: 04/20/2024 11:08 AJ EDWARDS [facility] [place] [facility] Apr 19, 2024 03:21 PM MENTAL HEALTH CONS ULT: LOCAL TITLE: CONSULT REPORT/UNIFORM OUTPATIENT MENTAL HEALTH ASS STANDARD TITLE: MENTAL HEALTH CONSULT DATE OF NOTE: APR 19, 2024@15:21 ENTRY DATE: APR 19, 2024@15:22:09 AUTHOR: AJ EDWARDS EXP COSIGNER: URGENCY: STATUS: COMPLETED Uniform Outpatient Mental Health Assessment I. IDENTIFYING INFORMATION: GLADIS WILLETT Dec [phone] SERVICE CONNECTED % - NONE FOUND MARITAL STATUS - Referral source: [facility] Present at time of intake: [place] [X] Family member [ ] Supportive person(s) Name: Language Preference:Lithuanian Language Spoken:Lithuanian II. PRESENTING SITUATION: A. What brings you into Mental Health at this time: I had a recent suicide attempt. Right after Thanks[place], I was sectioned at [facility] for six days. B. What are some of your goals for treatment: being happy again, which would look like fewer MH sx, more nature and community, and less conflict with C. What are some of your strengths: loyal, honest, dependable D. What are the obstacles or challenges preventing you from meeting your goals?: work schedule; He works M-F 8:30 to 5. He can request off for appointments but needs them to be towards beginning or end of day. Prefers [facility]. III: ASSESSMENT: A. Do you have concerns about past or current mental health symptoms or problems: Yes [X] No [ ] If yes, please describe: Xenia is concerned about his mental health given his suicide attempt two months ago that resulted in an inpatient stay at [facility]. Though he hoped to heal during that stay, he realized it was instead geared toward immediate safety and discharge planning. Since discharging, Xenia has met with [facility] counselor 3x for interim care. Describes depressed/anxious mood, loss of interest/pleasure, overeating and subsequent weight gain, feelings of hopelessness, frequent sleep disruption (finds it hard to fall and stay asleep and has frequent anxiety dreams), and continued SI (no plan or intent). SI has been enduring for 20 years but this was first attempt. PHQ9 indicates a score of 19-moderately severe depression. DARIELA is 19, indicating moderate anxiety. And PCL-5 is a positive screen. C-SSRS is negative for intent or plan. [facility] is active in CPRS and suicide safety plan is on file. [facility]'s presentation appears related to how things are going with partner. For example, the suicide attempt came after they were in conflict and partner made a rejecting statement towards him. W[facility]rop reports she can get angry, it's hard to calm her down, and she can become mean. No safety concerns presently. has been in long-term therapy and is restarting individual counseling. Both are open to couples counseling. How do you see these concerns impacting past and current quality of life (School, Work, Family, Housing, Finances, Social life, Legal): employment, family, social life B. Have you previously been involved in Mental Health treatment: Yes [X] No [ ] If yes, please check all that apply and describe: [X] Hospitalizations (when, where, etc.): recent [facility] stay in early Mar 2024 after suicide attempt [X] Medication trials (what, when, doses, etc.): Upon [facility] D/C: Fluoxetine 40 mg 1x/day, Hydroxyzine 50 mg PRN and at bedtime, Melatonin 1 tablet at bedtime [X] Therapy trials (type, when, etc.): met a few times with an [facility] counselor through his work pre-pandemic but did not find it helpful. He reports success in his recent sessions with Dr. Hayes, stating, she challenges me and that is really helpful. C. Do you have concerns about current or past substance use: Yes [ ] No [X] If yes, please identify 's primary and secondary substances of choice: ALCOHOL Age of onset: 18 Method of aquiring substance: legal purchase Means of use: drinking Pattern of use: rare-a few times per year Duration (how long have you been using for the most recent episode): since age 18 Frequency: 2-3 times a year Amount: 1-2 beers Last use: not asked What was you longest period of sobriety?: n/a Check all that apply with respect to this substance: none apply in respect to this substance Depending on how many boxes were checked above, indicate the severity level: no boxes checked Regarding the motivation for treatment, estimate 's stage of change with respect to this substance: N/A Which withdrawl symptoms have you had when you tried to stop using substance? none noted CANNABIS Age of onset: 18 Method of aquiring substance: legal purchase, has medical card Means of use: smoking Pattern of use: daily use Duration (how long have you been using for the most recent episode): since age 18 Frequency: daily Amount: 2.5 mg/day Last use: today What was you longest period of sobriety?: weeks or months Check all that apply with respect to this substance: no boxed checked Depending on how many boxes were checked above, indicate the severity level: no severity level indicated Regarding the motivation for treatment, estimate 's stage of change with respect to this substance: is not interested in ceasing cannabis use Which withdrawl symptoms have you had when you tried to stop using substance? none noted TOBACCO Age of onset: 18 Method of aquiring substance: legal purchase Means of use: smoking Pattern of use: none now; hx use Duration (how long have you been using for the most recent episode): not using now Frequency: none now, was a daily smoker in past Amount: none now, smoked 1ppd in past Last use: 15 years ago What was you longest period of sobriety?: 15 years Check all that apply with respect to this substance: no boxes checked Depending on how many boxes were checked above, indicate the severity level: none Regarding the motivation for treatment, estimate [facility]'s stage of change with respect to this substance: is not using tobacco at all Which withdrawl symptoms have you had when you tried to stop using substance? none indicated IV: PERSONAL HISTORY/INFORMATION: A. Biological/Social History (including: relevant developmental history, family of origin, sexual/physical/emotional traumas, cultural factors, applicable sexual history): Xenia is unaware of any family history in terms of MH issues or substancea buse. Born and raised in [facility]. Mother had him at aged 16, at which time his bio father denied paternity. He was then raised believing stepdad was bio father until actual bio father called him at age 13. Mom stepdad around that time but they remained in touch. Both fathers are now . Mom recently moved to [place] with a boyfriend. [facility] and she are in touch but not close. No abuse in home but acknowledges a pattern of being invalidated by mom or feeling like an inconvenience. Xenia has half sister he was raised with but they fell out of touch after father's . He believes she lives in [facility]. met his Annamarie about four years ago and they in fall 2023. He moved from an apartment into her home. Annamarie has three adult children from a previous relationship. One daughter, aged 22, is now living in the home with her boyfriend. Xenia was not expecting this to be the household makeup when he moved in but feels little agency to change it given it is not his home and these are her children. has no children and no previous marriages. B. 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 What provides you with sense of value or quality of life: pets (cats and dog), Grateful D. What are some accomplishments that you feel a sense of pride about: getting E. What brings you enjoyment: boating, music, video games, hiking, metal detecting F. Are you comfortable with your current living arrangement (Have you ever been homelessness or at risk for homelessness): yes; no G. What are your social or community Supports, your healthy or positive relationships: Annamarie, Xenia has no close friends otherwise H: What is your educational history or current goals: Graduated HS. May consider further schooling if necessary for employment goals. I. What is your employment history or current goals: [facility] would like to enter a helping profession and help Veterans in some way. 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 Was laid off last summer but has a new job working FT at [employer]. Job is very sedentary, which may be contributing to 's mental health issues. J. Do you have a legal history (incarcerations, probation, parole, divorce, child custody issues): remote DUI (20+ years ago) K. What is your level of confucianism or spiritual fulfillment: not confucianism or spiritual L. How do you culturally identify? Can you anticipate any particular cultural on treatment? no impact anticipated M. Is there anybody you would like involved in the planning or delivery of your care: Annamarie, , comm auth in place N. Do you have concerns for your safety or the safety of others (domestic violence, abuse/neglect, etc): no O. Have you ever been in a situation where you felt you were taken advantage of or exploited, particularly by someone in a position of power? not asked P. Income source: employment V. PHYSICAL HEALTH SCREENING A. Do you have any past or current medical concerns: Yes [X] No [ ] Active Problem Essential hypertension I10. 03/18/2024August,CHERYL Tariq Posttraumatic stress disorder F43.1 03/18/2024August,CHERYL Tariq Crohns disease K50.90 03/18/2024August,CHERYL Tariq Depression F32.A 03/18/2024August,CHERYL P Anxiety F41.9 03/18/2024August,CHERYL P Insomnia G47.00 03/18/2024August,CHERYL Tariq Other medical problems not listed above: HBP B. Date of last physical exam:August 2023 C.Are you experiencing pain: Rating (0-10: 3 Comment on pain rating: pain in abdomen from Crohns Disease D. Nutritional screening - Have you experienced any of the following: Food Allergies? Yes, describe:nuts Significant (+/- 10lbs) gain or loss in the last three months? Yes, describe: gained weight recently due to overeating at night Decrease in food intake/appetite? No, describe: Notable Dental problems? No, describe: Significant change in eating habits (purging, restricting, etc.)? No, describe: E. How do you see these concerns impacting on past and current quality of life (School, Work, Family, Housing, Finances, Social life, Legal, etc): employment, social life are impacted due to nature of Crohns sx Active Outpatient Medications (including Supplies): HCTZ 12.5/LISINOPRIL 10MG TAB TAKE 1 TABLET BY MOUTH ONCE ACTIVE DAILY Indication: FOR HIGH BLOOD PRESSURE : MENTAL STATUS / SUBJECTIVE COMPLAINTS: (check all that apply): Appearance:Neatly groomed, Appropriate to season Behavior:Appropriate, Pleasant, Anxious, Maintained good eye contact Mood/Affect:Anxious, Responsive and Congruent w/mood, Depressed Energy:Other:Winthrop says his energy is low. Sleep:Early awakening, Sleep onset insomnia, Frequent disruption Orientation: Oriented to person: Yes Oriented to place: Yes Oriented to time: Yes Stream of thought:Normal, No evidence of thought disorder, No overt psychosis, Denies Flashbacks, Denies Auditory/Visual Hallucinations Speech:Normal Insight / Judgment:Normal : DSM5 DIAGNOSES: Major Depressive Disorder, recurrent, Severe, w/o psychotic features F33.2 needs further assessment related to Anxiety and PTSD VII: SUMMARY AND IMPRESSIONS: 48 y/o male [employer] Winthrop presents to [facility] to address depressive sx and recent suicide attempt. Winthrop discharged from [facility] in March 2024 with a new medication regimen and would like to continue med consult and start individual and/or couples counseling. His situation is complicated by Chrons diagnosis and marital conflict. VIII: NEXT STEPS: A: How can we work to meet your goals: Winthrop would like to put in consults for individual counseling, couples counseling, and med consult B: What would like to see happen next: meeting with a counselor C: Recommendations: [X]Provided psychoeducation on the role of Measurement Based Care (MBC)and administered the following measures: PHQ9, DARIELA, C-SSRS, PCL-5 (results are in MH sx section) [X]Based on measurement outcomes, the following plan was discussed and agreed upon: TW enters consults for individual psychotherapy, couples counseling, and med consult. /prashanth/ JONNY Owen [facility] Knitting Inspector Signed: 04/20/2024 10:43 JA EDWARDS [facility]
--- OUTSIDE RECORDS SUMMARY | 2024-04-26 10:00 | XMS_ITS | Encounter Summary ---
Author Name [facility] Organization [facility] Address [address] [place] [id number] Care Team Providers Care Creel Clerk Name Role Phone KALEB DUFF Primary Care [...] HEALTH PLAN W/HEALTH SAVINGS ACCOUNT MASS [facility] Apr 14, 2024 [id number] [facility]9 Lexie MARTIN SPOUSE CIGNA HIGH DEDUCTIBL E HEALTH PLAN W/HEALTH SAVINGS ACCOUNT MASS UTUAL [facility] Apr 14, 2024 [id number] [facility] ADRIANA WILLETT SPOUSE CIGNA HIGH DEDUCTIBL E HEALTH PLAN W/HEALTH SAVINGS ACCOUNT MASSM UTUAL [facility] September 08, 2023 [id number] ADRIANA WILLETT SPOUSE CIGNA BEHAVIORAL HEALTH MENTAL HEALTH MAS[facility] UTUAL [facility] Apr 14, 2024 [id number] [facility] Lexie MARTIN SPOUSE [facility] MENTAL HEALTH MASSM UTUAL [facility] Apr 14, 2024 [id number] GABRIELA WILLTET PATIENT [employer] ([id number]) PRESCRIPT ION MASSM UTUAL [facility] Apr 14, 2024 [id number] GABRIELA WILLETT PATIENT [employer] ([employer]) PRESCRIPT ION CIGNA /MEDC O [facility] Apr 14, 2024 K4UA [id number] GABRIELA WILLETT SPOUSE Selected Encounter This section includes the information on record at ID for the Encounter. Date/Time Encounter Type Encounter Description Reason Provider Source Apr 26, 2024 02:00 PM OFF/OP CONSLTJ NEW/EST HI 55 [facility] - IND ICD-10-CM 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, recurrent severe w/o psych features CLAUDE SAAB E Encounter Template Text not used by ID Assessments - Encounter Diagnoses This section includes the primary and secondary diagnoses documented for the Encounter. Date/Time Primary/Secondary Diagnosis Diagnosis Name Provider Source Jun 04, 2024 12:51 PM PRIMARY Major depressv disorder, recurrent severe w/o psych features [facility] Jun 04, 2024 12:51 PM SECONDARY Insomnia, unspecified CLAUDE SAAB [facility] Plan of Treatment: Future Appointments [...] Appointment Type Appointme nt Facility Name Apr 30, 2024 08:30 AM AMBULATORY - PSYCHIATRY [facility] May 05, 2024 02:00 PM [facility] May 07, 2024 08:30 AM [facility] May 10, 2024 09:00 AM AMBULATORY - PS[facility]CHIATRY [facility] [place] [facility] May 11, 2024 01:30 PM AMBULATORY - PSYCHIATRY [facility] [place] [facility] May 17, 2024 08:30 AM AMBULATORY - PSYCHIATRY [facility] [place] [facility] May 21, 2024 08:00 AM AMBULATORY - PSYCHIATRY [facility] [place] [facility] Jun 03, 2024 09:00 AM AMBULATORY - PSYCHIATRY [facility] [place] [facility] Jun 04, 2024 08:30 AM AMBULATORY - PSYCHIATRY [facility] [place] [facility] Jun 14, 2024 08:30 AM AMBULATORY - PSYCHIATRY [facility] [place] [facility] Jun 21, 2024 08:30 AM AMBULATORY - PSYCHIATRY [facility] [place] [facility] Jun 21, 2024 03:30 PM AMBULATORY - MEDICINE [facility] [place] [facility] Jun 22, 2024 08:30 AM AMBULATORY - PSYCHIATRY [facility] [place] [facility] Jul 02, 2024 09:00 AM AMBULATORY - PSYCHIATRY [facility] [place] [facility] Jul 05, 2024 09:00 AM AMBULATORY - PSYCHIATRY [facility] [place] [facility] Jul 22, 2024 08:30 AM AMBULATORY - PSYCHIATRY [facility] [place] [facility] Jul 26, 2024 08:30 AM AMBULATORY - PSYCHIATRY [facility] [place] [facility] Jul 26, 2024 03:30 PM AMBULATORY - MEDICINE [facility] [place] [facility] Jul 28, 2024 08:30 AM AMBULATORY - PSYCHIATRY [facility] [place] [facility] Aug 02, 2024 03:00 PM AMBULATORY - MEDICINE [facility] Active, Pending, and Scheduled Orders This section [...] - Chemi stry Order TSH BLOOD (SST-SERUM) SP [facility] Social History: Smoking Status (Most current) and [...] took place. Date/Time Current Smoking Status Comment Facil ity Mar 18, 2024 10:00 AM VA-TOBACCO USE FOR DORI CIGARETTES [facility] Tobacco Use History This section includes a history of the smoking, or tobacco-related health factors, that were collected on or before the date of the Encounter. The data comes from the ID facility where the Encounter took place. Date/Time Smoking Status/Tobac co Use Comment Facility Mar 18, 2024 10:00 AM ID-TOBACCO USE FORMER OTHER TYPE Quit more than 15 years ago [facility] Encounter Notes: All associated encounter notes This section contains the clinical notes associated to the Encounter. Date/Time Encounter Note(s) Provider Source Apr 26, 2024 02:08 PM MENTAL HEALTH INITIAL EVALUATION NOTE: LOCAL TITLE: CONSULT REPORT/MENTAL HEALTH INTAKE STANDARD TITLE: MENTAL HEALTH INITIAL EVALUATION NOTE DATE OF NOTE: APR 26, 2024@14:08 ENTRY DATE: APR 26, 2024@14:09:29 AUTHOR: VIOLA SAAB COSIGNER: URGENCY: STATUS: COMPLETED OUTPATIENT MENTAL HEALTH CLINIC: INITIAL ASSESSMENT HPI: GLADIS WILLETT, a 48 y/o male Dilworth previously diagnosed with MDD presents for Initial Assessment following recent discharge from [facility] acute INpatient unit for severe symptoms of depression and SI with plan. Discharge medications were Fluoxetine 40 mg 1x/day, Hydroxyzine 50 mg PRN and at bedtime and Melatonin 1 tablet at bedtime and discharge diagnosis was (per , MDD, severe, without psychotic features) Dilworth reports that I'm still dealing with the depression and anxiety but feels that I've been doing better recently since discharge from [facility]. Still has significant residual symptoms of both depression and anxiety and specifies that depression is worse than anxiety at present. Depression is constantly there at baseline but seems to be worse this time of year and estimates severity to be 7.5/10. Endorses sad/depressed mood lasting most of the day, nearly every day; lethargy, avolition, anhedonia, difficulties with concentration, disrupted sleep and despair. Notes that Crohn's Disease also contributes to depression Been on fluoxetine for about 10 years but they doubled the dosage at [facility] to 40 mg; did not notice any additional benefits with increased dose. Has been taking a capsule of HYDROXYZINE every morning and feels that it helps. It calms me down a little bit. Denies side effects. Sleep is broken. I don't get a lot of sleep. Sleeps 5 hours on a good night and often less with difficulties with both initiation and maintenance. Also endorses symptoms of anxiety that include being fidgety. I can't sit still. Denies any Panic Attacks Reports trial of bupropion approximately 10 years ago and that this medication was beneficial and well tolerated Dilworth reports daily use of cannabis. Feels that it helps with mood and I think that it's a net positive in my life but does acknowledge that It has held me back in the past because it limited employment opportunities. Denies impairment or distress as the result of use. Denies escalating pattern of use or negative consequences as a result of use. Denies auditory or visual hallucinations, paranoia or delusions. Denies any recent episodes of miranda/hypomania and specifically denies discrete episodes of increased energy, irritability, impulsivity and/or expansive affect lasting several days. I have had occasional thoughts but they only last a second but I was quickly able to suppress them. agreed that these are fleeting thoughts related to the [place] [place] but specifically denied intent or plan and emphasized that these were fleeting thoughts without any specific planning with regards to time or mode of transportation. Such thoughts occur Maybe once a week. Agrees that he would reach out for help if symptoms worsened and tell his , call the [facility] or utilize other resources identified in his safety plan from 04/01/24. Notes that his is a very strong protective factor. Denied thoughts of harming others. SUBSTANCE USE: Tobacco: denied Alcohol: once or twice per year Narcotics: denied Cannabis: daily; two grams per day on average PSYCHIATRIC HISTORY: Medication trials: BUPROPION Reports trial of bupropion approximately 10 years ago and that this medication was beneficial and well tolerated Inpatient Hospitalizations: March, for SI with intent and plan Documentation from [facility] is not available for review at this time Suicidal Acts and Self-Harm: SI with intent and plan in February, Denies any other suicide attemtps Xenia prepared to take his life the day after Thanksgiving. He wrote a suicide note to his and went to the [facility] [place] with the intention of jumping from the spillway. He self-interrupted when he saw deer. He did not want to defile such a beautiful place. He reported chronic SI without any previous attempts. He was sectioned to [facility] where he was inpatient for 6 days. HISTORY OF VIOLENCE/ASSAULTING OTHERS: denied FAMILY MENTAL HEALTH AND SUBSTANCE USE HISTORY: Not that I'm aware of any Lethal Means Safety Counselling LMSC was conducted. Denied access to firearms SOCIAL HISTORY: Per [facility] Outpatient Mental Health Assessment (04/19/2023), confirmed by during assessment Dilworth is unaware of any family history in terms of MH issues or substancea kerriee. Born and raised in [facility]. Mother had him at aged 16, at which time his bio father denied paternity. He was then raised believing faustino was bio father until actual bio father called him at age 13. Mom stepgabrielad around that time but they remained in touch. Both fathers are now . Mom recently moved to [place] with a boyfriend. Xenia and she are in touch but not close. No abuse in home but acknowledges a pattern of being invalidated by mom or feeling like an inconvenience. Xenia has half sister he was raised with but they fell out of touch after father's . He believes she lives in [facility]. Xenia met his Annamarie about four years ago [...] his home and these are her children. Xenia has no children and no previous marriages. Xenia would like to enter a helping profession and help Veterans in some way. 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 Was laid off last summer but has a new job working FT at [employer]. Job is very sedentary, which may be contributing to Dilworth's mental health issues. 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 03/18/2024August,CHERYL Tariq Posttraumatic stress disorder F43.1 03/18/2024August,CHERYL Tariq Crohns disease K50.90 03/18/2024August,CHERYL Tariq Depression F32.A 03/18/2024August,CHERYL Tariq Anxiety F41.9 03/18/2024August,CHERYL Tariq Insomnia G47.00 03/18/2024August,CHERYL Tariq ALLERGIES: Data on this list may not be complete. Please check JL. FACILITY ALLERGY/ADR -------- No Remote Allergy/ADR Data available for this patient [facility] No Known Allergies MEDICATIONS: reviewed and updated in CPRS Active Outpatient Medications (including Supplies): Active Outpatient Medications Status 1) HCTZ 12.5/LISINOPRIL 10MG TAB TAKE 1 TABLET BY MOUTH ONCE ACTIVE DAILY Indication: FOR HIGH BLOOD PRESSURE MENTAL STATUS EXAM: Appearance: consistent w/ stated age, appropriate grooming and hygiene Behavior: polite, cooperative and treatment motivated Motor: no tics, tremors, or abnormal movements Speech: normal rate, volume and articulation Thought process: logical, linear and coherent Thought content: denies hallucinations, delusions, or paranoia. No ideas of reference. No thoughts insertion. Denies homicidal thoughts. Denies suicidal ideation, intent or plan. Insight and Judgment: both intact Cognition: alert and oriented x 3, good attention, memory grossly intact to conversational testing Mood: depressed Affect: mood congruent; full and appropriate range LABS AND STUDIES: HEPATITIS C AB: NON-REACTIVE HIV Ag/Ab COMBO: NON-REACTIVE WBC: 8.01 RBC: 5.05 HGB: 15.6 HCT: 45.7 MCV: 90.5 MCHC: 34.1 RDW: 13.8 PLT: 262 MCH: 30.9 Neut %: 71.7 Lymph %: 12.1 L Hancock %: 13.5 Eos %: 1.6 Baso %: 0.5 Neut, Abs: 5.74 Lymph, Abs: 0.97 L Hancock, Abs: 1.08 Eos, Abs: 0.13 Baso, Abs: 0.04 Immature Granulocytes %: 0.6 Immature Granulocytes, Abs: 0.05 NRBC%: 0.0 NRBC#: 0.00 FERRITIN (WR): 53 VITAMIN D TOTAL: 38 HEPATITIS B SURFACE ANTIBODY: REACTIVE HEP A AB-IGM: Non Reactive GLUCOSE: 100 UREA NITROGEN: 13 SODIUM: 140 POTASSIUM: 3.6 CHLORIDE: 104 CO2: 24 CHOLESTEROL: 217 H PROTEIN,TOTAL: 7.7 ALBUMIN: 4.4 ALKALINE PHOSPHATASE: 80 SGOT: 11 SGPT: 14 TRIGLYCERIDE: 256 H LDL CHOL: 121 CHOL/HDL RATIO: 4.8 TIBC (WROX): 458 IRON (WROX): 98 HDL: 45 BILIRUBIN,TOT.: 1.3 H BILIRUBIN,DIR.: 0.4 CREATININE-EGFR: 0.86 TRANSFERRIN SATURATION: 21.4 Transferrin: 347 eGFR CKD-EPI 2020: >90 SAFETY ASSESSMENT: No acute or imminent safety concerns that would justify an involuntary hospitalization. Endorsement of active SI is certainly concerning but Dilworth convincingly denied intent or plan and referred to these as fleeting thoughts that concern infrequently. convincingly denies intent or plan and confirms willingness to reach out to supports identified in safety plan (from 04/01/24) were SI to escalate. Also notes familial responsibilities and his relationship with his as being a very strong protective factor. Denies thoughts of harming others Chronic and acute risk both elevated (INTERMEDIATE) by prior history of SI with preparatory behaviors and elevated symptoms of depression but risk is currently mitigated by engagement in treatment and a strong support network. Dilworth was also future oriented and goal directed during today's assessment. Demonstration of help-seeking behaviors and familial responsibilities are also strong protective factors. IMPRESSION: Xenia presents as polite, cooperative and treatment motivated specified that symptoms of depression are most significant and salient MH symptom that he would like to prioritize in treatment. Did not notice any additional benefits with increased dose of fluoxetine but also did not note any side effects. reports a strong response to previous trial of BUPROPION approximately ten years ago and agrees with plan to reinitiate this medication rather than continuing to tirate fluoxetine upwards at present. Discussed common and rare side effects of BUPROPION including tachycardia, agitation, dizziness, tremor, dry mouth, constipation, nausea, blurred vision, insomnia, weight loss, sweating, decreased appetite, seizures and headache. Denies prior hx of seizures Will also initiate low dose doxepin as Dilworth noted that disrupted sleep is also a significant concern at present. declined Problem-Solving Therapy for Suicide Prevention or Cognitive Behavioral Therapy for Suicide Prevention Consult at present. Is scheduled for Intake for both couples therapy as well as individual therapy and prefers to wait to discuss these options with his therapist. Xenia was informed that cannabis use could conceivably be exacerbating MH symptoms and encouraged abstinence. confirmed knowledge of [facility] number ([phone]) and convincingly confirmed that he would utilize this resource or report to nearest ED if active SI reemerged. Also confirmed that he would contact This Provider, another HCP or utilize his identified supports in the event of active SI Patient is aware of how to access Walk-In MH clinic in [facility] during weekdays for immediate mental health needs if I am not available. Patient has capacity to make his own medication decisions at present time. agreed to contact This Provider for an earlier appointment if additional symptoms develop, side effects are encountered or additional MH needs emerge before next scheduled visit. Dilworth declined need for a higher LOC at present; aware that he can present directly to for admission if he no longer feels capable of maintaining safety outside of a secure environment and confirmed that he would utilize this option were SI to reemerge No acute safety concerns necessitating an involuntary hospitalization Diagnosis: MDD, recurrent, severe w/o psychotic features Insomnia Disorder, unspecified R/O Cannabis Use Disorder PLAN: 1) CONTINUE Fluoxetine 40 mg PO DAILY 2) CONTINUE Hydroxyzine 50 mg PO PRN 3) INITIATE BUPROPION XR 150 MG PO DAILY FOR SEVEN DAYS THEN INCREASE TO 300 MG PO DAILY 4) INITIATE DOXEPIN 6 MG PO QHS PRN Labs: TSH Follow-Up: 05/17/24 Discussed risks and benefits of proposed medication treatments including FDA approved indications and off-label uses, as well as common and severe side effects. Dilworth comprehended all information discussed, had opportunity to ask questions which were answered to their satisfaction, and voluntarily and without duress agreed to trial as documented. CONTACT AND CRISIS INFO: informed that This Provider can be contacted at , [phone] or via Secure Messaging. We have reviewed the Crisis Hotline (524, dial #1 for line), and the has been instructed to call 911 or go to the nearest ED if acutely suicidal or experiencing a mental health emergency. INFORMED CONSENT REVIEWED: At beginning of session reviewed rights and limits of confidentiality, mandatory reporting situations, duty to warn and protect, risk of suicide or homicide, potential elder or child abuse/neglect and Cabezas Warning, (if treatment team finds patient to be an acute danger to himself or others, that this information could be relayed to a court of law and presented to a leather goods sales representative), and DOD access for active-duty service members. CODING: Total time today was 60 minutes, which included an in-person visit with the patient, providing counseling and education, and time spent reviewing the record, ordering meds, completing documentation, and coordinating care. CLINICAL REMINDERS: Medication Reconciliation: Outpatient: Has the patient been taking medications as documented in the EMLR? YES: The patient has been taking medications as documented in the EMLR. Essential Medication List for Review used to complete this medication reconciliation. INCLUDED IN THIS LIST: Alphabetical list of active outpatient prescriptions dispensed from this VA (local) and dispensed from another VA or DoD facility (remote) as well as inpatient orders (local, pending and active), local clinic medications, locally documented non-VA medications, and local prescriptions that have or been discontinued in the past 90 days. - All changes in medications, including all non-VA/Herbal/OTC medications were entered into CPRS. - If there were any medications the patient should no longer take, they were discontinued. - The patient/caregiver was instructed to update this list, discard old lists, and take this list to the next appointment, whether with a VA or non-VA provider. /prashanth/ VIOLA SAAB Psychiatric Mental Health Nurse Practitioner Signed: 04/27/2024 12:58 VIOLA SAAB ID [facility]
--- OUTSIDE RECORDS SUMMARY | 2024-04-30 04:30 | XMS_ITS | Encounter Summary ---
Author Name [facility] [place] [facility] [place] Address [address] [place] [address] Care Team Providers Care Order Packer Or Packager Name Role Phone KALEB DUFF Primary Care [...] DEDUCTIBL E HEALTH PLAN W/HEALTH SAVINGS [facility] Apr 14, 2024 [id number] [facility] Lexie MARTIN SPOUSE CIGNA HIGH DEDUCTIBL E HEALTH PLAN W/HEALTH SAVINGS ACCOUNT MASS UTUAL [facility] Apr 14, 2024 [id number] [facility] ADRIANA WILLETT SPOUSE CIGNA HIGH DEDUCTIBL E HEALTH PLAN W/HEALTH SAVINGS ACCOUNT MASSM UTUAL [facility] September 08, 2023 [id number] [phone] ADRIANA WILLETT SPOUSE CIGNA BEHAVIORAL HEALTH MENTAL HEALTH MASSM [facility]UAL [facility] Apr 14, 2024 [id number] [facility] Lexie MARTIN SPOUSE [facility] MENTAL HEALTH [facility] Apr 14, 2024 [id number] GABRIELA WILLETT PATIENT [employer] ([id number]) PRESCRIPT ION MASSM UTUAL [facility] Apr 14, 2024 [id number] GABRIELA WILLETT PATIENT MEDCO (EXPRESS SCRIPTS) PRESCRIPT ION CIGNA /MEDC O [facility] Apr 14, 2024 [id number] [phone] GABRIELA WILLETT SPOUSE Selected Encounter This section includes the information on record at [place] for the Encounter. Date/Time Encounter Type Encounter Description Reason Provider Source Apr 30, 2024 08:30 AM PSYTX W PT 30 MINUTES MENTAL [facility] CLINIC - IND ICD-10-CM F43.10 Post-traumatic stress disorder, unspecified ARIELA HAYES [facility] Encounter Template Text not used by [place] Assessments - Encounter Diagnoses This section includes the primary and secondary diagnoses documented for the Encounter. Date/Time Primary/Secondary Diagnosis Diagnosis Name Provider Source Jun 04, 2024 12:53 PM PRIMARY Post-traumatic stress disorder, unspecified [facility]ES [facility] Jun 04, 2024 12:53 PM SECONDARY Problems in relationship with spouse or partner GUICHO HAYES [facility] Plan of Treatment: Future Appointments (+ [...] Date/Time Appointment Type Appointme nt Facility Name May 05, 2024 02:00 PM AMBULATORY - MEDICINE [facility] May 07, 2024 08:30 AM [facility] May 10, 2024 09:00 AM [facility] May 11, 2024 01:30 PM [facility] [place] [facility] May 17, 2024 08:30 AM AMBULATORY [facility] [place] [facility] May 21, 2024 08:00 AM [facility] [place] [facility] Jun 03, 2024 09:00 AM AMBULATORY [facility] [place] [facility] Jun 04, 2024 08:30 AM AMBULATORY [facility] [place] [facility] Jun 14, 2024 08:30 AM AMBULATORY [facility]AT[facility] [place] [facility] Jun 21, 2024 08:30 AM AMBULATORY - [facility]IAT[facility] [place] [facility] Jun 21, 2024 03:30 PM AM[facility]ULATORY [facility]ICINE [facility] [place] [facility] Jun 22, 2024 08:30 AM AMBULATORY - PS[facility]CHIATRY [facility] [place] [facility] Jul 02, 2024 09:00 AM AMBULATORY - [facility]IATRY [facility] [place] [facility] Jul 05, 2024 09:00 AM AMBULATORY - [facility] [place] [facility] Jul 22, 2024 08:30 AM AMBULATORY - PS[facility]CHIATRY [facility] [place] [facility] Jul 26, 2024 08:30 AM AMBULATORY - PS[facility]CHIATRY [facility] [place] [facility] Jul 26, 2024 03:30 PM AMBULATORY [facility] MEDICINE [facility] [place] [facility] Jul 28, 2024 08:30 AM AMBULATORY - PS[facility]CHIATRY [facility] [place] [facility] Aug 02, 2024 03:00 PM AMBULATORY - MEDICINE [facility] Aug 02, 2024 05:00 PM AMBULATORY - NEUROLOGY [facility] [place] [facility] Active, Pending, and Scheduled Orders This [...] Chemi stry Order TSH BLOOD (SST-SERUM) SP [facility] Social History: Smoking Status (Most current) [...] place. Date/Time Current Smoking Status Comment Facil it Mar 18, 2024 10:00 AM VA-TOBACCO USE FOR DORI CIGARETTES [facility] Tobacco Use History This section includes a history of the smoking, or tobacco-related health factors, that were collected on or before the date of the Encounter. The data comes from the [place] facility where the Encounter took place. Date/Time Smoking Status/Tobac co Use Comment Facility Mar 18, 2024 10:00 AM [place]-TOBACCO USE FORMER OTHER TYPE Quit more than 15 years ago [facility] Encounter Notes: All associated encounter notes This section contains the clinical notes associated to the Encounter. Date/Time Encounter Note(s) Provider Source Apr 30, 2024 02:09 PM MENTAL HEALTH NOTE : LOCAL TITLE: BEHAVIORAL COUPLES THERAPY NOTE STANDARD TITLE: MENTAL HEALTH NOTE DATE OF NOTE: APR 30, 2024@14:09 ENTRY DATE: APR 30, 2024@14:09:32 AUTHOR: ARIELA HAYES COSIGNER: URGENCY: STATUS: COMPLETED INFORMED CONSENT TO PARTICIPATE IN SESSION: At beginning of session reviewed rights and limits of confidentiality, mandatory reporting situations, duty to warn and protect, [place] Warning,(if treatment team finds patient to be an acute danger to himself or others, that this information could be relayed to a court of law and presented to a tax services manager), and DOD access for active duty service members. Provided Suicide Prevention Hotline number, and other contact numbers as necessary. DURATION OF SESSION: 50 minutes SESSION CONTENT: This was the first session between the couple and this process description writer. Time was spent discussing limits of confidentiality, setting session boundaries, discussing documentation within 's chart about sessions, etc. Time was also spent establishing rapport with the couple and establishing a brief history on their relationship and current presenting problem with communication and conflict resolution. The couple and this process description writer started to develop goals for treatment around this and were able to come up with a plan of working toward being able to communicate during conflict in a respectable way where resolution is able to be accomplished. In addition, the couple would like to be able to bring up emotions/concerns without fear of conflict. The couple and this process description writer discussed the plan to meet individually next session for continued assessment sessions and then to come together to begin working on goals the following session. The couple was in agreement with this plan. MENTAL STATUS AND BEHAVIORAL OBSERVATIONS: The couple was polite and cooperative. They sat next to each other with some space. They were able to display laughter and agreement of goals. No safety concerns were reported. DSM5 DIAGNOSES: relationship distress with spouse; [place] with PTSD diagnosis. Plan: RTC on 05/07 @8:30am [place] [employer] ([facility]) Standard Documentation [facility] Clinician Resources Only: E911 (Emergency Call Relay Center): [phone] National Veterans Crisis Line - 988 then press #1. [facility] Suicide Coordinator [phone], Ext. [phone]; Back-up Ext. [phone] [place] Police, [place] Daniela [phone] Introduction: Visit is being conducted by [facility]. identified with 2 identifiers: [X] Full Name [X] Date of [ ] VA ID Card Emergency Plan: confirmed and/or provided the following information in case of emergency or technology failure. PATIENT PHONE - NONE FOUND PHONE NUMBER [CELLULAR] - [phone] Is patient phone number correct, if not, enter below: [place]'s phone number: GLADIS WILLETT [address] [place] [address], [phone] [place]'s present location and address for appointment: Above address [place]'s emergency contact name and phone number: on file [place] reported that location is private and safe: Yes Informed Consent: [place] informed of the risks and benefits of Telehealth video care. [place] has the right to refuse video services. If refuses video visit, a kbyu-jj-[id number] visit will be scheduled. verbalized consent for this video visit: Yes [place] provided consent for any other persons present for visit: Yes If yes, who and relationship to patient:-Annamarie Secure visit: Visit was locked for security and privacy:Yes /prashanth/ Ariela Hayes Psy.D. Psychologist Signed: 04/30/2024 16:39 ARIELA HAYES [place] [facility]
--- OUTSIDE RECORDS SUMMARY | 2024-05-17 04:30 | XMS_ITS | Encounter Summary ---
Author Name [facility] Organization [facility] [place] Address [address] [place] [address] Care Team Providers Care Pattern Drafter Name Role Phone KALEB DUFF Primary Care [...] DEDUCTIBL E HEALTH PLAN W/HEALTH SAVINGS [facility] Apr 14, 2024 [id number] [facility] Lexie MARTIN SPOUSE [employer] HIGH DEDUCTIBL E HEALTH PLAN W/HEALTH SAVINGS ACCOUNT [facility] Apr 14, 2024 [id number] [facility] [phone] ADRIANA WILLETT SPOUSE [employer]IG[employer] HIGH DEDUCTIBL E HEALTH PLAN W/HEALTH SAVINGS ACCOUNT [facility] September 08, 2023 [id number] ADRIANA WILLETT SPOUSE [employer] BEHAVIORAL HEALTH MENTAL HEALTH [place] [facility] Apr 14, 2024 [id number] [facility] [phone] Lexie MARTIN SPOUSE [facility] Apr 14, 2024 [id number] GABRIELA WILLETT PATIENT [employer] ([id number]) PRESCRIPT ION [facility] Apr 14, 2024 [id number] BRENNONGABRIELA ISBELL PATIENT [employer] ([employer]) PRESCRIPT ION CIGNA /MEDC O [facility] Apr 14, 2024 [id number] GABRIELA WILLETT SPOUSE Selected Encounter This section includes the information on record at [place] for the Encounter. Date/Time Encounter Type Encounter Description Reason Provider Source May 17, 2024 08:30 AM OFFICE O/P EST MOD 30 MIN MENTAL HEALTH CLINIC - IND ICD-10-CM 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, recurrent severe w/o psych features CLAUDE SAAB E Encounter Template Text not used by [place] Assessments - Encounter Diagnoses This section includes the primary and secondary diagnoses documented for the Encounter. Date/Time Primary/Secondary Diagnosis Diagnosis Name Provider Source Jun 04, 2024 12:43 PM PRIMARY Major depressv disorder, recurrent severe w/o psych features [facility] Jun 04, 2024 12:43 PM SECONDARY Insomnia, unspecified [facility] Plan of Treatment: Future Appointments (+ 6 months) and Future Tests (+/- 45 days) The Plan of Treatment section includes future care activities for the patient from all [facility]. This section includes future appointments and future orders which are active, pending or scheduled. Future Appointments This section includes appointments that were scheduled to occur 6 months from the date of the Encounter, up to a maximum of 20 appointments. The data comes from all [place] treatment facilities. Appointment Date/Time Appointment Type Appointme nt Facility Name May 21, 2024 08:00 AM AMBULATORY - PSYCHIATRY [facility] Jun 03, 2024 09:00 AM AMBULATORY - PSYCHIATRY [facility] Jun 04, 2024 08:30 AM [facility] Jun 14, 2024 08:30 AM [facility] [place] [facility] Jun 21, 2024 08:30 AM AMBULATORY [facility] [place] [facility] Jun 21, 2024 03:30 PM [facility] [place] [facility] Jun 22, 2024 08:30 AM AMBULATORY - PS[facility]CHIATRY [facility] [place] [facility] Jul 02, 2024 09:00 AM AMBULATORY - [facility]IAT[facility] [place] [facility] Jul 05, 2024 09:00 AM AMBULATORY - [facility]IAT[facility] [place] [facility] Jul 22, 2024 08:30 AM AMBULATORY - PS[facility]CHIAT[facility] [place] [facility] Jul 26, 2024 08:30 AM AMBULATORY - PS[facility]CHIATRY [facility] [place] [facility] Jul 26, 2024 03:30 PM AMBUL[facility]ORY [facility] [place] [facility] Jul 28, 2024 08:30 AM AMBULATORY - PSYCHIATRY [facility] [place] [facility] Aug 02, 2024 03:00 PM AMBULATORY - MEDICINE [facility] Aug 02, 2024 05:00 PM AMBULATORY - NEUROLOGY [facility] [place] [facility] August 12, 2024 08:30 AM AMBULATORY - PS[facility]CHIATRY [facility] [place] [facility] August 16, 2024 08:30 AM AMBULATORY - PS[facility]CHIATRY [facility] [place] [facility] August 19, 2024 03:30 PM AMBULATORY - PS[facility]CHIATRY [facility] [place] [facility] August 26, 2024 03:30 PM AMBULATORY - PSYCHIATRY [facility] [place] [facility] September 02, 2024 08:30 AM AMBULATORY - PS[facility]CHIATRY [facility] [place] [facility] Active, Pending, and Scheduled Orders This section includes a listing of several types of active, pending, and scheduled orders, including clinic medications orders, diagnostic test orders, procedure orders and consult orders; where the start date of the order is 45 days before the date of the Encounter or 45 days after the date of theEncounter. The data comes from all [place] treatment facilities. Test Date/Time Test Type Test Details Facility Name Apr 26, 2024 12:00 AM Laboratory - Chemi stry Order TSH BLOOD (SST-SERUM) SP [facility] Social History: Smoking Status (Most current) and Tobacco Use (All prior to encounter date) This section includes the most current, and the historical, smoking and tobacco- related health factors from the [place] facility where the Encounter took place. Current Smoking Status This section includes the most current smoking, or tobacco-related health factor, from the [place] facility where the Encounter took place. Date/Time Current Smoking Status Comment Facil it Mar 18, 2024 10:00 AM VA-TOBACCO USE FOR DORI CIGARETTES [facility] Tobacco Use History This section includes a history of the smoking, or tobacco-related health factors, that were collected on or before the date of the Encounter. The data comes from the [place] facility where the Encounter took place. Date/Time Smoking Status/Tobac co Use Comment Facility Mar 18, 2024 10:00 AM [place]-TOBACCO USE FORMER OTHER TYPE Quit more than 15 years ago [facility] Encounter Notes: All associated encounter notes This section contains the clinical notes associated to the Encounter. Date/Time Encounter Note(s) Provider Source May 17, 2024 08:34 AM PRIMARY CARE NURSE PRACTITIONER OUTPATIENT NOTE: LOCAL TITLE: NURSE PRACTITIONER OUTPATIENT NOTE STANDARD TITLE: PRIMARY CARE NURSE PRACTITIONER OUTPATIENT NOTE DATE OF NOTE: MAY 17, 2024@08:34 ENTRY DATE: MAY 17, 2024@08:34:41 AUTHOR: VIOLA SAAB COSIGNER: URGENCY: STATUS: COMPLETED OUTPATIENT MENTAL HEALTH CLINIC: FOLLOW-UP Visit is being conducted by [facility] [employer] [facility]. identified with 2 identifiers: Full Name Date of Emergency Plan: confirmed and/or provided the following information in case of emergency or technology failure. PATIENT PHONE - NONE FOUND PHONE NUMBER [CELLULAR] - [phone] Is patient phone number correct, if not, enter below: [place]'s phone number: GLADIS WILLETT [address], [place], [address] [place] present location and address for appointment: home 's emergency contact name and phone number: up to date in CPRS [place] reported that location is private and safe: yes HPI: GLADIS WILLETT, a 48 y/o male previously diagnosed with MDD presents for [facility] Follow-Up appointment. Last seen by This Provider on 04/26/24 [place] reports that mood has been Better, I think the Wellbutrin's definitely helping. Adds Haven't had the sense of unworthiness or hopeless ness lately. I'm still down but it's manageable. Scheduled to increase BUPROPION from 150 to 300 mg tomorrow. Symptoms of depression have been stable and they've decreased slightly but are still significant. estimates them to be a 6/10 in severity. Sleep's been better. Feels that DOXEPIN's been helpful. Feels that he's less reactive to triggers and notes benefit from therapy. [place] reports ongoing daily use of cannabis. Denies impairment or distress as the result of use. Denies escalating pattern of use or negative consequences as a result of use. Does note feel that it's negatively impacting mood Denies both active and passive SI in the interim since last appointment SUBSTANCE USE: Tobacco: denied Alcohol: once or twice per year Narcotics: denied Cannabis: daily; two grams per day on average PSYCHIATRIC HISTORY: Medication trials: BUPROPION Reports trial of bupropion approximately 10 years ago and that this medication was beneficial and well tolerated Inpatient Hospitalizations: March, for SI with intent and plan Documentation from [facility] is not available for review at this time Suicidal Acts and Self-Harm: SI with intent and plan in February, Denies any other suicide attemtps prepared to take his life the day after Thanksgiving. He wrote a suicide note to his and went to [facility] with the intention of jumping from the spillway. He self-interrupted when he saw deer. He did not want to defile such a beautiful place. He reported chronic SI without any previous attempts. He was sectioned to [facility] where he was inpatient for 6 days. HISTORY OF VIOLENCE/ASSAULTING OTHERS: denied FAMILY MENTAL HEALTH AND SUBSTANCE USE HISTORY: Not that I'm aware of any Lethal Means Safety Counselling LMWY was conducted. Denied access to firearms SOCIAL HISTORY: Per [facility] Outpatient Mental Health Assessment (04/19/2023), confirmed by [place] during assessment is unaware of any family history in terms of MH issues or substancea buse. Born and raised in [place] [facility] [place]. Mother had him at aged 16, at which time his bio father denied paternity. He was then raised believing faustino was bio father until actual bio father called him at age 13. Mom faustino around that time but they remained in touch. Both fathers are now . Mom recently moved to [place] with a boyfriend. and she are in touch but not close. No abuse in home but acknowledges a pattern of being invalidated by mom or feeling like an inconvenience. Xenia has half sister he was raised with but they fell out of touch after father's . He believes she lives in [facility]. Xenia met his Annamarie about four years [...] in some way. 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 Was laid off last summer but has a new job working FT at [employer]. Job is very sedentary, which may be contributing to [place]'s mental health issues. 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 03/18/2024August,CHERYL P Posttraumatic stress disorder F43.1 03/18/2024August,CHERYL P Crohns disease K50.90 03/18/2024August,CHERYL P Depression F32.A 03/18/2024August,CHERYL P Anxiety F41.9 03/18/2024August,CHERYL P Insomnia G47.00 03/18/2024August,CHERYL P ALLERGIES: Data on this list may not be complete. Please check [facility]. FACILITY ALLERGY/ADR -------- No Remote Allergy/ADR Data available for this patient [facility] [place] [facility] No Known Allergies MEDICATIONS: reviewed and updated in CPRS Active Outpatient Medications (including Supplies): Active Outpatient Medications Status 1) BUPROPION 150MG 24HR XL TAB (ONCE DAILY) TAKE ONE TABLET BY ACTIVE MOUTH EVERY MORNING FOR 7 DAYS, THEN TAKE TWO TABLETS EVERY MORNING Indication: MOOD 2) DOXEPIN 6MG TAB TAKE ONE TABLET BY MOUTH AT BEDTIME ACTIVE NEEDED FOR INSOMNIA Indication: SLEEP 3) FLUOXETINE HCL 20MG CAP TAKE TWO CAPSULES BY MOUTH ONCE ACTIVE DAILY FOR DEPRESSION AND ANXIETY Indication: MOOD 4) HCTZ 12.5/LISINOPRIL 10MG TAB TAKE 1 TABLET BY MOUTH ONCE ACTIVE DAILY Indication: FOR HIGH BLOOD PRESSURE 5) HYDROXYZINE HCL 50MG TAB TAKE ONE TABLET BY MOUTH TWICE ACTIVE DAILY NEEDED Indication: ANXIETY LABS AND STUDIES: HEPATITIS C AB: NON-REACTIVE HIV Ag/Ab COMBO: NON-REACTIVE WBC: 8.01 RBC: 5.05 HGB: 15.6 HCT: 45.7 MCV: 90.5 MCHC: 34.1 RDW: 13.8 PLT: 262 MCH: 30.9 Neut %: 71.7 Lymph %: 12.1 L [place] %: 13.5 Eos %: 1.6 Baso %: 0.5 Neut, Abs: 5.74 Lymph, Abs: 0.97 L [place], Abs: 1.08 Eos, Abs: 0.13 Baso, Abs: [...] concerns that would justify an involuntary hospitalization. Xenia denies active SI in interim since last appointment. [place] affirmed willingness to reach out to supports identified in safety plan (from 04/01/24) were SI to reemerge. Also notes familial responsibilities and his relationship with his as being a very strong protective factor. Denies thoughts of harming others Chronic risk (INTERMEDIATE) intermediate based on recent history of SI with preparatory behaviors, residual symptoms of depression and ongoing substance use but acute risk is currently low and mitigated by engagement in treatment and a strong support network. [place] was also future oriented and goal directed during today's assessment. Demonstration of help-seeking behaviors and familial responsibilities are also strong protective factors. IMPRESSION: [place] presents as polite, cooperative and treatment motivated is currently engaged in two different therapeutic modalities and appears to be highly engaged in treatment. Reports significant benefit from bupropion without side effects and plans to titrate this medication up to 300 mg tomorrow. Symptoms of depression have decreased but significant residual symptoms are still present. does not feel that cannabis is exacerbating MH symptoms but was strongly encouraged to consider at least a trial of abstinence as a retirement goal as substance use could conceivably be making symptoms of depression worse. Will consider titrating fluoxetine upwards at followup. reports that this medication was helpful when initiated 10 years ago but does not feel he got any additional benefit from recent titration to 40 mg No acute safety concerns Diagnosis: MDD, recurrent, severe w/o psychotic features Insomnia Disorder, unspecified R/O Cannabis Use Disorder PLAN: 1) CONTINUE Fluoxetine 40 mg PO DAILY 2) CONTINUE Hydroxyzine 50 mg PO PRN 3) INCREASE BUPROPION XR FROM 150 TO 300 MG PO DAILY 4) CONTINUE DOXEPIN 6 MG PO QHS PRN Labs: none today Follow-Up: 06/22/24 Discussed risks and benefits of proposed medication treatments including FDA approved indications and off-label uses, as well as common and severe side effects. [place] comprehended all information discussed, had opportunity to ask questions which were answered to their satisfaction, and voluntarily and without duress agreed to trial as documented. CONTACT AND CRISIS INFO: informed that This Provider can be contacted at , [phone] or via Secure Messaging. We have reviewed the Crisis Hotline (192, dial #1 for line), and the [place] has been instructed to call 911 or [...] court of law and presented to a general assignment reporter), and DOD access for active-duty service members. CODING: Total time today was 30 minutes, which included an in-person visit with [...] of active outpatient prescriptions dispensed from this [place] (local) and dispensed from another [facility] or [...] SAAB Psychiatric Mental Health Nurse Practitioner Signed: 05/18/2024 07:41 [facility]
--- OUTSIDE RECORDS SUMMARY | 2024-06-04 04:30 | XMS_ITS | Encounter Summary ---
Author Name [facility] [place] Address [address] [place] [address] Care Team Providers Care Maid Cleaning Cooking Name Role Phone KALEB DUFF Primary Care [...] HEALTH SERVICESUAL [facility]. GR[facility] Apr 14, 2024 [id number] [facility] Lexie MARTIN SPOUSE CIGNA HIGH DEDUCTIBL E HEALTH PLAN W/HEALTH SAVINGS ACCOUNT MASS UTUAL [facility] Apr 14, 2024 [id number] [facility] ADRIANA WILLETT SPOUSE CIGNA HIGH DEDUCTIBL E HEALTH PLAN W/HEALTH SAVINGS ACCOUNT MASSM UTUAL [facility] September 08, 2023 [id number] [phone] ADRIANA WILLETT SPOUSE CIGNA BEHAVIORAL HEALTH MENTAL HEALTH [facility]SM UTUAL [facility] Apr 14, 2024 [id number] [facility] Lexie MARTIN SPOUSE [facility] UTUAL [facility] Apr 14, 2024 [id number] GABRIELA WILLETT PATIENT EXPRESS SCRIPTS ([id number]) PRESCRIPT ION MASSM UTUAL [facility] Apr 14, 2024 [id number] [phone] GABRIELA WILLETT PATIENT MEDCO (EXPRESS SCRIPTS) PRESCRIPT ION CIGNA /MEDC O [facility] Apr 14, 2024 K4UA [id number] [phone] GABRIELA WILLETT SPOUSE Selected Encounter This section includes the information on [place] at [place] for the Encounter. Date/Time Encounter Type Encounter Description Reason Provider Source Jun 04, 2024 08:30 AM FAMILY PSYTX W/PT 50 MIN [facility]INIC - IND ICD-10-CM Z63.0 Problems in relationship with spouse or partner GUICHO HAYES [facility] Encounter Template Text not used by [place] Assessments - Encounter Diagnoses This section includes the primary and secondary diagnoses documented for the Encounter. Date/Time Primary/Secondary Diagnosis Diagnosis Name Provider Source Jun 15, 2024 02:52 PM PRIMARY Problems in relationship with spouse or partner [facility] Jun 15, 2024 02:52 PM SECONDARY Post-traumatic stress disorder, unspecified [facility] Plan of Treatment: Future Appointments (+ 6 months) and Future Tests (+/- 45 days) The Plan of Treatment section includes future care activities for the patient from all [place] treatmentfacill[facility]. This section includes future appointments and future orders which are active, pending or scheduled. Future Appointments This section includes appointments that were scheduled to occur 6 months from the date of the Encounter, up to a maximum of 20 appointments. The data comes from all [place] treatment facilities. Appointment Date/Time Appointment Type Appointme nt Facility Name Jun 14, 2024 08:30 AM [facility] Jun 21, 2024 08:30 AM [facility] Jun 21, 2024 03:30 PM AMBULATORY - MEDIC[facility] Jun 22, 2024 08:30 AM [facility] [place] [facility] Jul 02, 2024 09:00 AM AMBULATORY [facility] [place] [facility] Jul 05, 2024 09:00 AM AMBULATORY [facility]IAT[facility] [place] [facility] Jul 22, 2024 08:30 AM AMBULATORY [facility]IATRY [facility] [place] [facility] Jul 26, 2024 08:30 AM AMBULATORY [facility]IAT[facility] [place] [facility] Jul 26, 2024 03:30 PM AM[facility]ULATORY [facility]ICINE [facility] [place] [facility] Jul 28, 2024 08:30 AM AMBULATORY - PS[facility]CHIATRY [facility] [place] [facility] Aug 02, 2024 03:00 PM AMBULATORY - MEDICINE [facility] Aug 02, 2024 05:00 PM AMBULATORY - NEUROLOGY [facility] [place] [facility] August 12, 2024 08:30 AM AMBULATORY - PS[facility]CHIATRY [facility] [place] [facility] August 16, 2024 08:30 AM AMBULATORY - PS[facility]CHIATRY [facility] [place] [facility] August 19, 2024 03:30 PM AMBULATORY - PS[facility]CHIATRY [facility] [place] [facility] August 26, 2024 03:30 PM AMBULATORY - PS[facility]CHIATRY [facility] [place] [facility] September 02, 2024 08:30 AM AMBULATORY - PS[facility]CHIATRY [facility] [place] [facility] September 08, 2024 08:00 AM AMBULATORY - REHAB MEDICIN E [facility] [place] [facility] Sep 13, 2024 08:30 AM AMBULATORY - PS[facility]CHIATRY [facility] [place] [facility] Sep 16, 2024 08:30 AM AMBULATORY - PS[facility]CHIATRY [facility] [place] [facility] Active, Pending, and Scheduled Orders This section includes a listing of several types of active, pending, and scheduled orders, including clinic medications orders, diagnostic test orders, procedure orders and consult orders; where thestart date of the order is 45 days before the date of the Encounter or 45 days after the date of the Encounter. The data comes from all [place] treatment facilities. Test Date/Time Test Type Test Details Facility Name Apr 26, 2024 12:00 AM Laboratory - Chemi stry Order TSH BLOOD (SST-SERUM) SP [facility] Social History: Smoking Status (Most current) [...] took place. Date/Time Current Smoking Status Comment Facility Mar 18, 2024 10:00 AM CO-TOBACCO USE FORMER OTHER TYPE Quit more than 15 years ago [facility] Tobacco Use History This section includes a history of the smoking, or tobacco-related health factors, that were collected on or before the date of the Encounter. The data comes from the [place] facility where the Encounter took place. Date/Time Smoking Status/Tobac co Use Comment Facility Mar 18, 2024 10:00 AM CO-TOBACCO USE FORMER OTHER TYPE Quit more than 15 years ago [facility] Encounter Notes: All associated encounter notes This section contains the clinical notes associated to the Encounter. Date/Time Encounter Note(s) Provider Source Jun 04, 2024 09:24 AM MENTAL HEALTH NOTE : LOCAL TITLE: BEHAVIORAL COUPLES THERAPY NOTE STANDARD TITLE: MENTAL HEALTH NOTE DATE OF NOTE: JUN 04, 2024@09:24 ENTRY DATE: JUN 04, 2024@09:24:13 AUTHOR: ARIELA HAYES COSIGNER: URGENCY: STATUS: COMPLETED INFORMED CONSENT TO PARTICIPATE IN SESSION: At beginning of session reviewed rights and limits of confidentiality, mandatory reporting situations, duty to warn and protect, Cabezas Warning,(if treatment team finds patient to be an acute danger to himself or others, that this information could be relayed to a court of law and presented to a sweeper cleaner industrial), and DOD access for active duty service members. Provided Suicide Prevention Hotline number, and other contact numbers as necessary. DURATION OF SESSION: 50 minutes SESSION CONTENT: The couple signed on to their VVC session clearly tense and 's appeared distant and shut down. This screenplay writer inquired and shared that they were in conflict. This screenplay writer provided instructions on how this could be utilized as a way of practicing the communications skills in session to discuss the conflict. The couple agreed and this screenplay writer facilitated a conversation utilizing active listening, reflection, expressing emotions, and taking turns as speaker/listener. This screenplay writer also emphasized the difference in communication when disagreement is inevitable. The couple expressed how helpful the exercise was during today's session. MENTAL STATUS AND BEHAVIORAL OBSERVATIONS: The couple was polite and cooperative. 's was tearful and distant compared to past sessions. Geff expressed clear frustration. Both were able to communicate in an appropriate way. No safety concerns were reported. DSM5 DIAGNOSES: relationship distress with spouse; with PTSD diagnosis. Plan: RTC on 06/07 @8:30am [place] Video Connect (VVC) Standard Documentation VVC Clinician Resources Only: E911 (Emergency Call Relay Center): [phone] National [employer] Crisis Line - 988 then press #1. [facility] Suicide Coordinator [phone], Ext. [phone]; Back-up Ext. 2021 [place] Police, LUCIA, Daniela [phone] Introduction: Visit is being conducted by [place] [employer] Connect. Geff identified with 2 identifiers: [X] Full Name [X] Date of [ ] [place] ID Card Emergency Plan: Geff confirmed and/or provided the following information in case of emergency or technology failure. PATIENT PHONE - NONE FOUND PHONE NUMBER [CELLULAR] - [phone] Is patient phone number correct, if not, enter below: Geff's phone number: GLADIS WILLETT [address], [place], [address] Geff's present location and address for appointment: Above address Geff's emergency contact name and phone number: on file reported that location is private and safe: Yes Informed Consent: informed of the risks and benefits of Telehealth video care. has the right to refuse video services. If refuses video visit, a eyuh-cw-owcr visit will be scheduled. Geff verbalized consent for this video visit: Yes Geff provided consent for any other persons present for visit: Yes If yes, who and relationship to patient:-Annamarie Secure visit: Visit was locked for security and privacy:Yes /prashanth/ Ariela Hayes Psy.D. Psychologist Signed: 06/04/2024 10:52 ARIELA HAYES [facility]
--- OUTSIDE RECORDS SUMMARY | 2024-06-07 04:30 | XMS_ITS ---
Author Name [facility] [place] Organization [place] Address [address] [place] [address] Care Team Providers Care Fire Engineer Name Role Phone KALEB DUFF Primary Care [...] HEALTH PLAN W/HEALTH SAVINGS ACCOUNT MASSM UTUAL [facility] GR[facility] Apr 14, 2024 [id number] [facility] Lexie MARTIN SPOUSE CIGNA HIGH DEDUCTIBL E HEALTH PLAN W/HEALTH SAVINGS ACCOUNT MASSM UTUAL [facility] Apr 14, 2024 [id number] [facility] [phone] ADRIANA WILLETT SPOUSE CIGNA HIGH DEDUCTIBL E HEALTH PLAN W/HEALTH SAVINGS ACCOUNT MASSM UTUAL [facility] September 08, 2023 [id number] [phone] ADRIANA WILLETT SPOUSE CIGNA BEHAVIORAL HEALTH MENTAL HEALTH MASSM UTUAL [facility] Apr 14, 2024 [id number] [facility] [phone] Lexie MARTIN SPOUSE [facility] MENTAL HEALTH MASSM UTUAL [facility] Apr 14, 2024 [id number] GABRIELA WILLETT PATIENT EXPRESS SCRIPTS ([id number]) PRESCRIPT ION MASSM UTUAL [facility] Apr 14, 2024 K4UA [id number] [phone] BRENNONGABRIELA Thmoas PATIENT MEDCO (EXPRESS SCRIPTS) PRESCRIPT ION CIGNA /MEDC O [facility] Apr 14, 2024 K4UA [id number] [phone] GABRIELA WILLETT SPOUSE Selected Encounter This section includes the information on record at [place] for the Encounter. Date/Time Encounter Type Encounter Description Reason Pro vider Source Jun 07, 2024 08:30 AM Outpatient Encounter [facility] Encounter Template Text not used by [place] Plan of Treatment: Future Appointments (+ 6 [...] AMBULATORY - PS[facility]CHIATRY [facility] [place] [facility] Jun 21, 2024 08:30 AM AMBULATORY - PS[facility]CHIATRY [facility] [place] [facility] Jun 21, 2024 03:30 PM AMBULATORY - MEDICINE [facility] [place] [facility] Jun 22, 2024 08:30 AM AMBULATORY - PS[facility]CHIATRY [facility] [place] [facility] Jul 02, 2024 09:00 AM AMBULATORY - PS[facility]CHIATRY [facility] [place] [facility] Jul 05, 2024 09:00 AM AMBULATORY - PSYCHIATRY [facility] [place] [facility] Jul 22, 2024 08:30 AM AMBULATORY - PSYCHIATRY [facility] [place] [facility] Jul 26, 2024 08:30 AM AMBULATORY - PSYCHIATRY [facility] [place] [facility] Jul 26, 2024 03:30 PM AMBULATORY - MEDICINE [facility] [place] [facility] Jul 28, 2024 08:30 AM [facility] [place] [facility] Aug 02, 2024 03:00 PM [facility] Aug 02, 2024 05:00 PM [facility] [place] [facility] August 12, 2024 08:30 AM [facility] [place] [facility] August 16, 2024 08:30 AM [facility] [place] [facility] August 19, 2024 03:30 PM [facility] [place] [facility] August 26, 2024 03:30 PM [facility] [place] [facility] September 02, 2024 08:30 AM [facility] [place] [facility] September 08, 2024 08:00 AM AMBULATORY [facility] Sep 13, 2024 08:30 AM [facility] Sep 16, 2024 08:30 AM [facility]AT[facility] Active, Pending, and Scheduled Orders This [...] Chemi stry Order TSH BLOOD (SST-SERUM) [facility] Social History: Smoking Status (Most current) [...] 10:00 AM VA-TOBACCO USE FOR DORI C[facility]ARETTES [facility] Tobacco Use History This section includes a history of the smoking, or tobacco-related health factors, that were collected on or before the date of the Encounter. The data comes from the [place] facility where the Encounter took place. Date/Time Smoking Status/Tobac co Use Comment Facility Mar 18, 2024 10:00 AM VA-TOBACCO USE FORMER OTHER TYPE Quit more than 15 years ago [facility] Encounter Notes: All associated encounter notes This section contains the clinical notes associated to the Encounter. Date/Time Encounter Note(s) Provider Source Jun 07, 2024 09:16 AM ADMINISTRATIVE NOT E: LOCAL TITLE: ADMINISTRATIVE NOTE STANDARD TITLE: ADMINISTRATIVE NOTE DATE OF NOTE: JUN 07, 2024@09:16 ENTRY DATE: JUN 07, 2024@09:16:54 AUTHOR: JERROD FREEMAN COSIGNER: URGENCY: STATUS: COMPLETED Amsa contact regarding clinic cancelled appointment on [phone]. /prashanth/ JERROD FREEMAN [facility] CONSULTANT Signed: 06/07/2024 09:17 JERROD FREEMAN [facility]
--- OUTSIDE RECORDS SUMMARY | 2024-06-17 04:30 | XMS_ITS ---
Author Name [facility] [place] Address [address] [place] [id number] Care Team Providers Care Surgical Technologist Name Role Phone KALEB DUFF Primary Care [...] MASS UTUAL [facility] Apr 14, 2024 [id number] [facility] Lexie MARTIN SPOUSE CIGNA HIGH DEDUCTIBL E HEALTH PLAN W/HEALTH SAVINGS ACCOUNT MASSM UTUAL [facility] Apr 14, 2024 [id number] [facility] ADRIANA WILLETT SPOUSE CIGNA HIGH DEDUCTIBL E HEALTH PLAN W/HEALTH SAVINGS ACCOUNT MASSM UTUAL [facility] September 08, 2023 [id number] ADRIANA WILLETT SPOUSE CIGNA BEHAVIORAL HEALTH MENTAL HEALTH MASSM UTUAL [facility] Apr 14, 2024 [id number] [facility] Lexie MARTIN SPOUSE [facility] MENTAL HEALTH MASSM UTUAL [facility] Apr 14, 2024 [id number] GABRIELA WILLETT PATIENT EXPRESS SCRIPTS ([id number]) PRESCRIPT ION MASSM UTUAL [facility] Apr 14, 2024 [id number] [id number] [phone] GABRIELA WILLETT PATIENT MEDCO (EXPRESS SCRIPTS) PRESCRIPT ION CIGNA /MEDC O [facility] Apr 14, 2024 K4UA [id number] [phone] GABRIELA WILLETT SPOUSE Selected Encounter This section includes the information on record at [place] for the Encounter. Date/Time Encounter Type Encounter Description Reason Provider Source Jun 17, 2024 08:30 AM PH1 ASSMT&MGMT NQ [facility]IN[facility] - IND ICD-10-CM F32.A Depression, unspecified SHANIQUE FOWLER E Encounter Template Text not used by [place] Assessments - Encounter Diagnoses This section includes the primary and secondary diagnoses documented for the Encounter. Date/Time Primary/Secondary Diagnosis Diagnosis Name Provider Source Jun 17, 2024 08:30 AM PRIMARY Depression, unspecified SHANIQUE FOWLER [place] [facility] [place] [facility] Plan of Treatment: Future Appointments (+ 6 months) and Future Tests (+/- 45 days) The Plan of Treatment section includes future care activities for the patient from all [place] treatmentfacilities. This section includes future appointments and future orders which are active, pending or scheduled. Future Appointments This section includes appointments that were scheduled to occur 6 months from the date of the Encounter, up to a maximum of 20 appointments. The data comes from all [place] treatment facilities. Appointment Date/Time Appointment Type Appointme nt Facility Name Jun 21, 2024 08:30 AM AMBULATORY - PSYCHIATRY [place] [facility] [place] [facility] Jun 21, 2024 03:30 PM AMBULATORY - MEDICINE [place] [facility] [place] [facility] Jun 22, 2024 08:30 AM AMBULATORY - PSYCHIATRY [place] [facility] [place] [facility] Jul 02, 2024 09:00 AM AMBULATORY - PSYCHIATRY [place] [facility] [place] [facility] Jul 05, 2024 09:00 AM AMBULATORY - PSYCHIATRY [place] [facility] [place] [facility] Jul 22, 2024 08:30 AM AMBULATORY - PSYCHIATRY [facility] [place] [facility] Jul 26, 2024 08:30 AM AMBULATORY - PSYCHIATRY [facility] [place] [facility] Jul 26, 2024 03:30 PM AMBULATORY - MEDICINE [facility] [place] [facility] Jul 28, 2024 08:30 AM AMBULATORY - PSYCHIATRY [facility] [place] [facility] Aug 02, 2024 03:00 PM [facility] Aug 02, 2024 05:00 PM AMBULATORY - NEUROLOGY [facility] [place] [facility] August 12, 2024 08:30 AM AMBULATORY - PSYCHIATRY [facility] [place] [facility] August 16, 2024 08:30 AM AMBULATORY - PSYCHIATRY [facility] [place] [facility] August 19, 2024 03:30 PM AMBULATORY - PSYCHIATRY [facility] [place] [facility] August 26, 2024 03:30 PM AMBULATORY - PSYCHIATRY [facility] [place] [facility] September 02, 2024 08:30 AM AMBULATORY - PSYCHIATRY [facility] [place] [facility] September 08, 2024 08:00 AM AMBULATORY - REHAB MEDICIN E [facility] [place] [facility] Sep 13, 2024 08:30 AM AMBULATORY - PSYCHIATRY [facility] [place] [facility] Sep 16, 2024 08:30 AM AMBULATORY - PSYCHIATRY [facility] [place] [facility] Sep 17, 2024 08:30 AM AMBULATORY - PSYCHIATRY [facility] [place] [facility] Social History: Smoking Status (Most current) and Tobacco Use (All prior to encounter date) This section includes the most current, and the historical, smoking and tobacco- related health factors from the [place] facility where the Encounter took place. Current Smoking Status This section includes the most current smoking, or tobacco-related health factor, from the [place] facility where the Encounter took place. Date/Time Current Smoking Status Comment Facil ity Mar 18, 2024 10:00 AM VA-TOBACCO USE FOR DORI CIGARETTES [facility] [place] [facility] Tobacco Use History This section includes a history of the smoking, or tobacco-related health factors, that were collected on or before the date of the Encounter. The data comes from the [place] facility where the Encounter took place. Date/Time Smoking Status/Tobac co Use Comment Facility Mar 18, 2024 10:00 AM VA-TOBACCO USE FORMER OTHER TYPE Quit more than 15 years ago [place] [facility] [place] [facility]
--- OUTSIDE RECORDS SUMMARY | 2024-06-21 04:30 | XMS_ITS | Encounter Summary ---
Author Name [place] Address [address] [place] [address] Care Team Providers Care Certified Pediatric Nurse Practitioner Name Role Phone KALEB DUFF Primary Care [...] DEDUCTIBL E HEALTH PLAN W/HEALTH SAVINGS [facility] Apr 14, 2024 [id number] [facility] [phone] Lexie MARTIN SPOUSE CIGNA HIGH DEDUCTIBL E HEALTH PLAN W/HEALTH SAVINGS ACCOUNT [place] UTUAL [facility] Apr 14, 2024 [id number] [facility] [phone] ADRIANA WILLETT SPOUSE CIGNA HIGH DEDUCTIBL E HEALTH PLAN W/HEALTH SAVINGS ACCOUNT [facility] UTUAL [facility] September 08, 2023 [id number] ADRIANA WILLETT SPOUSE CIGNA BEHAVIORAL HEALTH MENTAL HEALTH MAS[place] UTUAL [facility] Apr 14, 2024 [id number] [facility] [phone] Lexie MARTIN SPOUSE [facility] MAS[facility] UTUAL [facility] Apr 14, 2024 [id number] GABRIELA WILLETT PATIENT EXPRESS SCRIPTS ([id number]) PRESCRIPT ION MASSM UTUAL [facility] Apr 14, 2024 K4UA [id number] [phone] GABRIELA WILLETT PATIENT MEDCO (EXPRESS SCRIPTS) PRESCRIPT ION CIGNA /MEDC O [facility] Apr 14, 2024 K4UA [id number] [phone] GABRIELA WILLETT SPOUSE Selected Encounter This section includes the information [place] at [place] for the Encounter. Date/Time Encounter Type Encounter Description Reason Provider Source Jun 21, 2024 08:30 AM FAMILY PSYTX W/PT 50 MIN [facility]IC - IND ICD-10-CM F43.10 Post-traumatic stress disorder, unspecified ARIELA HAYES Martha Encounter Template Text not used by [place] Assessments - Encounter Diagnoses This section includes the primary and secondary diagnoses documented for the Encounter. Date/Time Primary/Secondary Diagnosis Diagnosis Name Provider Source Jul 05, 2024 05:29 PM PRIMARY Post-traumatic stress disorder, unspecified GUICHO HAYES [facility] Jul 05, 2024 05:29 PM SECONDARY Problems in relationship with spouse or partner GUICHO HAYES [facility] Plan of Treatment: Future Appointments (+ 6 months) and Future Tests (+/- 45 days) The Plan of Treatment section includes future care activities for the patient [facility] [place] [facility] This section includes future appointments and future orders which are active, pending or scheduled. Future Appointments This section includes appointments that were scheduled to occur 6 months from the date of the Encounter, up to a maximum of 20 appointments. The data comes from all [place] treatment facilities. Appointment Date/Time Appointment Type Appointme nt Facility Name Jun 22, 2024 08:30 AM AMBULATORY - PSYCHIATRY [facility] Jul 02, 2024 09:00 AM AMBULATORY - PSYCHIATRY [facility] Jul 05, 2024 09:00 AM AMBULATORY - PSYCHIATRY [facility] Jul 22, 2024 08:30 AM AM[facility] [place] [facility] Jul 26, 2024 08:30 AM AMBULATORY [facility] [place] [facility] Jul 26, 2024 03:30 PM AMBULATORY [facility] MEDICINE [facility] [place] [facility] Jul 28, 2024 08:30 AM AMBULATORY [facility]IAT[facility] [place] [facility] Aug 02, 2024 03:00 PM AMBULATORY - MEDICINE [facility] Aug 02, 2024 05:00 PM AMBULATORY - NEUROLOGY [facility] [place] [facility] August 12, 2024 08:30 AM AMBULATORY [facility]IAT[facility] [place] [facility] August 16, 2024 08:30 AM AMBULATORY - PS[facility]IATRY [facility] [place] [facility] August 19, 2024 03:30 PM AMBULATORY - PS[facility]CHIATRY [facility] [place] [facility] August 26, 2024 03:30 PM AMBULATORY - PS[facility]CHIATRY [facility] [place] [facility] September 02, 2024 08:30 AM AMBULATORY - PS[facility]CHIATRY [facility] [place] [facility] September 08, 2024 08:00 AM AMBULATORY - REHAB MEDICIN E [facility] [place] [facility] Sep 13, 2024 08:30 AM AMBULATORY - PS[facility]IATRY [facility] [place] [facility] Sep 16, 2024 08:30 AM AMBULATORY - PS[facility]CHIATRY [facility] [place] [facility] Sep 17, 2024 08:30 AM AMBULATORY - PS[facility]CHIATRY [facility] [place] [facility] Sep 24, 2024 03:30 PM AMBULATORY - PS[facility]CHIATRY [facility] [place] [facility] Oct 05, 2024 08:30 AM AMBULATORY - PS[facility]CHIATRY [facility] [place] [facility] Vital Signs: All taken on the encounter date This section contains inpatient and outpatient Vital Signs collected on the date of the Encounter. Date/Time Temperature Pulse Blood Pressure Respiratory Rate SP02 Pain Height Weight Body Mass Index Source Jun 21, 2024 03:22 PM 98.1 81 130/88 16 98 0 195 29 [facility] [place] [facility] Social History: Smoking Status (Most current) [...] TYPE Quit more than 15 years ago [facility] Tobacco Use History This section includes a history of the smoking, or tobacco-related health factors, that were collected on or before the date of the Encounter. The data comes from the [place] facility where the Encounter took place. Date/Time Smoking Status/Tobac co Use Comment Facility Mar 18, 2024 10:00 AM [place]-TOBACCO USE FORMER OTHER TYPE Quit more than 15 years ago [facility] Encounter Notes: All associated encounter notes This section contains the clinical notes associated to the Encounter. Date/Time Encounter Note(s) Provider Source Jun 21, 2024 09:29 AM MENTAL HEALTH NOTE : LOCAL TITLE: BEHAVIORAL COUPLES THERAPY NOTE STANDARD TITLE: MENTAL HEALTH NOTE DATE OF NOTE: JUN 21, 2024@09:29 ENTRY DATE: JUN 21, 2024@09:29:56 AUTHOR: ARIELA HAYES COSIGNER: URGENCY: STATUS: COMPLETED INFORMED CONSENT TO PARTICIPATE IN SESSION: At beginning of session reviewed rights and limits of confidentiality, mandatory reporting situations, duty to warn and protect, [place]abezas Warning,(if treatment team finds patient to be an acute danger to himself or others, that this information could be relayed to a court of law and presented to a wood model builder), and DOD access for active duty service members. Provided Suicide Prevention Hotline number, and other contact numbers as necessary. DURATION OF SESSION: 50 minutes SESSION CONTENT: The couple and this contract writer explored ways to utilize communication skills to discuss emotions. Both partners were provided space to practice this by sharing verbal and nonverbal communication that is needed from each other when one is having a hard time. Part of this discussion focused on how at times one may not know what they need in moments of feeling depressed and recognition of this. MENTAL STATUS AND BEHAVIORAL OBSERVATIONS: The couple was polite and cooperative. They were able to actively practice with each other the communication skills. They showed intimate closeness in session through holding hands and comforting one another when emotions showed up. DSM5 DIAGNOSES: relationship distress with spouse; [place] with PTSD diagnosis. Plan: RTC on 06/28 @8:30am [facility] ([facility]) Standard Documentation [facility] Clinician Resources Only: E911 (Emergency Call Relay Center): [phone] [employer] Crisis Line - 988 then press #1. [facility] Suicide Coordinator [phone], Ext. [phone]; Back-up Ext. [phone] [place] Police, [place], Daniela [phone] Introduction: Visit is being conducted by [place] [facility]. [place] identified with 2 identifiers: [X] Full Name [X] Date of [ ] [place] ID Card Emergency Plan: confirmed and/or provided the following information in case of emergency or technology failure. PATIENT PHONE - NONE FOUND PHONE NUMBER [CELLULAR] - [phone] Is patient phone number correct, if not, enter below: [place]'s phone number: LGADIS WILLETT [address] [place] [address], [phone] [place]'s present location and address for appointment: Above address [place]'s emergency contact name and phone number: on file [place] reported that location is private and safe: Yes Informed Consent: [place] informed of the risks and benefits of Telehealth video care. has the right to refuse video services. If refuses video visit, a [id number] visit will be scheduled. [place] verbalized consent for this video visit: Yes [place] provided consent for any other persons present for visit: Yes If yes, who and relationship to patient:-Annamarie Secure visit: Visit was locked for security and privacy:Yes /prashanth/ Ariela Hayes Psy.D. Psychologist Signed: 06/22/2024 14:47 ARIELA HAYES [place] [facility]
--- OUTSIDE RECORDS SUMMARY | 2024-06-21 11:30 | XMS_ITS ---
Author Name [facility] [place] Address [address] [place] [address] Care Team Providers Care Commission Associate Name Role Phone FREDDY JACOBSON Primary Care Provider Unavail able Insurance Providers: [...] DEDUCTIBL E HEALTH PLAN W/HEALTH SAVINGS ACCOUNT [facility] Apr 14, 2024 [id number] [employer] Lexie MARTIN SPOUSE CIGNA HIGH DEDUCTIBL E HEALTH PLAN W/HEALTH SAVINGS ACCOUNT [place] UTUAL [facility] Apr 14, 2024 [id number] [facility] [phone] ADRIANA WILLETT SPOUSE CIGNA HIGH DEDUCTIBL E HEALTH PLAN W/HEALTH SAVINGS ACCOUNT [place] [facility]UAL [facility] September 08, 2023 [id number] ADRIANA WILLETT SPOUSE CIGNA BEHAVIORAL HEALTH MENTAL HEALTH [place] UTUAL [facility] Apr 14, 2024 [id number] [employer] Lexie MARTIN SPOUSE [facility] MASSM UTUAL [facility] Apr 14, 2024 [id number] GABRIELA WILLETT PATIENT EXPRESS SCRIPTS ([id number]) PRESCRIPT ION MASSM UTUAL [facility] Apr 14, 2024 K4UA [id number] AGBRIELA WILLETT PATIENT MEDCO (EXPRESS SCRIPTS) PRESCRIPT ION CIGNA /MEDC O [facility] Apr 14, 2024 K4UA [id number] GABRIELA WILLETT SPOUSE Selected Encounter This section includes the information on record at [place] for the Encounter. Date/Time Encounter Type Encounter Description Reason Provider Source Jun 21, 2024 03:30 PM OFFICE O/P EST MOD 30 MIN PRIMARY CARE/MEDICINE ICD-10-CM K50.90 Crohn's disease, unspecified, without complications NO JACOBSON Martha Encounter Template Text not used by [place] Assessments - Encounter Diagnoses This section includes the primary and secondary diagnoses documented for the Encounter. Date/Time Primary/Secondary Diagnosis Diagnosis Name Provider Source Jul 05, 2024 05:32 PM PRIMARY Crohn's disease, unspecified, without complications NO JACOBSON [facility] Jul 05, 2024 05:32 PM SECONDARY Encounter for immunization RIGOBERTO WATSON [facility] Jul 05, 2024 05:32 PM SECONDARY Essential (primary) hypertension NO JACOBSON [facility] Plan of Treatment: Future Appointments (+ 6 months) and Future Tests (+/- 45 days) The Plan of Treatment section includes future care activities for the patient from all [place] treatmentfacilities. This section includes future appointments and future orders which are active, pending or scheduled. Future Appointments This section includes appointments that were scheduled to occur 6 months from the date of the Encounter, up to a maximum of 20 appointments. The data comes from all [place] treatment facilities. Appointment Date/Time Appointment Type Appointme nt Facility Name Jun 22, 2024 08:30 AM AMBULATORY - PSYCHIATRY [facility] Jul 02, 2024 09:00 AM AMBULATORY - PSYCHIATRY [facility] Jul 05, 2024 09:00 AM AMBULATORY - [facility]IAT[facility] [place] [facility] Jul 22, 2024 08:30 AM AMBULATORY - PS[facility]CHIATRY [facility] [place] [facility] Jul 26, 2024 08:30 AM AMBULATORY - PSYCHIATRY [facility] [place] [facility] Jul 26, 2024 03:30 PM AMBULATORY - MEDICINE [facility] [place] [facility] Jul 28, 2024 08:30 AM AMBULATORY - PSYCHIATRY [facility] [place] [facility] Aug 02, 2024 03:00 PM AM[facility]UL[facility]ORY [place] [facility] [facility] Aug 02, 2024 05:00 PM AMBULATORY - NEUROLOGY [facility] [place] [facility] August 12, 2024 08:30 AM AMBULATORY - PSYCHIATRY [facility] [place] [facility] August 16, 2024 08:30 AM AMBULATORY - PSYCHIATRY [facility] [place] [facility] August 19, 2024 03:30 PM AMBULATORY - PSYCHIATRY [facility] [place] [facility] August 26, 2024 03:30 PM AMBULATORY - PSYCHIATRY [facility] [place] [facility] September 02, 2024 08:30 AM AMBULATORY - PSYCHIATRY [facility] [place] [facility] September 08, 2024 08:00 AM AMBULATORY - REHAB MEDICIN E [facility] [place] [facility] Sep 13, 2024 08:30 AM AMBULATORY - PSYCHIATRY [facility] [place] [facility] Sep 16, 2024 08:30 AM AMBULATORY - PSYCHIATRY [facility] [place] [facility] Sep 17, 2024 08:30 AM AMBULATORY - PS[facility]CHIATRY [facility] [place] [facility] Sep 24, 2024 03:30 PM AMBULATORY - PSYCHIATRY [facility] [place] [facility] Oct 05, 2024 08:30 AM AMBULATORY - PSYCHIATRY [facility] [place] [facility] Vital Signs: All taken on the encounter date This section contains inpatient and outpatient Vital Signs collected on the date of the Encounter. Date/Time Temperature Pulse Blood Pressure Respiratory Rate SP02 Pain Height Weight Body Mass Index Source Jun 21, 2024 03:22 PM 98.1 81 130/88 16 98 0 195 29 [facility] [place] Immunizations: All administered on the encounter date This section contains immunizations associated to the Encounter. Immunization Series Date Issued Administered By Site Reaction Lot Number CVX Code Drug Powder Coater Comment(s) Source HEP A, ADULT 1 Jun 21, 2024 RIGOBERTO WATSON E LEFT DELTO ID [id number] GLAXOSMITHKLI NE ADMINISTERE [facility] AT [facility] TDAP Jun 21, 2024 RIGOBERTO WATSON LEFT DELTO ID [id number] GLAXOSMITHKLI NE Booster for Series, ADMINISTERE D AT [facility] Social History: Smoking Status (Most current) and Tobacco Use (All prior to encounter date) This section includes the most current, and the historical, smoking and tobacco- related health factors from the [place] facility where the Encounter took place. Current Smoking Status This section includes the most current smoking, or tobacco-related health factor, from the [place] facility where the Encounter took place. Date/Time Current Smoking Status Comment [facility] Mar 18, 2024 10:00 AM [place]-TOBACCO USE FOR DORI CIGARETTES [facility] Tobacco Use History This section includes a history of the smoking, or tobacco-related health factors, that were collected on or before the date of the Encounter. The data comes from the [place] facility where the Encounter took place. Date/Time Smoking Status/Tobac co Use Comment [facility] Mar 18, 2024 10:00 AM [place]-TOBACCO USE FORMER OTHER TYPE Quit more than 15 years ago [facility] Encounter Notes: All associated encounter notes This section contains the clinical notes associated to the Encounter. Date/Time Encounter Note(s) Provider Source Jun 21, 2024 03:59 PM PHYSICIAN SCHOOL MANAGER NOTE: LOCAL TITLE: PA NOTE STANDARD TITLE: PHYSICIAN SCHOOL MANAGER NOTE DATE OF NOTE: JUN 21, 2024@15:59 ENTRY DATE: JUN 21, 2024@16:00:02 AUTHOR: FREDDY JACOBSON COSIGNER: URGENCY: STATUS: COMPLETED CC/HPI/A/P: 48 year old MALE here in follow-up for; Crohn's dis, last saw DR Gottlieb a few weeks ago. He will ask GI office for fax GI rxs to our pharmacy. htn, on two meds, at goal. ptsd, noonsc, pending f/u here. Review of systems: Patient reports no changes from [place], in meds or any admissions. Active problems - Computerized Problem List is the source for the followin. Essential hypertension 2. Posttraumatic stress disorder 3. Crohns disease of small intestine without complication 4. Depression 5. Anxiety 6. Insomnia SERVICE CONNECTED % - NONE FOUND VA and Non VA meds were reconciled with the patient who left with a corrected copy. See medication page for details. Active and Recently Outpatient Medications (excluding Supplies): Active Outpatient Medications Status 1) BUPROPION HCL 300MG 24HR SA TAB TAKE ONE TABLET BY MOUTH ACTIVE EVERY MORNING Indication: MOOD 2) DOXEPIN 6MG [...] MOUTH TWICE ACTIVE DAILY NEEDED Indication: ANXIETY Active Non-VA Medications Status 1) Non-VA OMEPRAZOLE 20MG EC CAP 20MG BY MOUTH EVERY MORNING 30 ACTIVE MINUTES BEFORE BREAKFAST Indication: FOR EXCESSIVE PRODUCTION OF STOMACH ACID 6 Total Medications 98.1 F [36.7 C] (06/21/2024 15:22) 81 (06/21/2024 15:22) 16 (06/21/2024 15:22) 130/88 (06/21/2024 15:22) 0 (06/21/2024 15:22) 69 in [175.3 cm] (03/25/2024 14:07) 195 lb [88.45 kg] (06/21/2024 15:22) BMI: 28.9 Neuro: Alert and oriented times three, grossly nonfocal, nasolabial folds intact. /prashanth/ Freddy Jacobson PA-C STAFF PHYSICIAN SCHOOL MANAGER Signed: 06/21/2024 16:02 FREDDY JACOBSON [facility] Jun 21, 2024 03:38 PM NURSING IMMUNIZATION NOTE: LOCAL TITLE: IMMUNIZATION OUTPATIENT STANDARD TITLE: NURSING IMMUNIZATION NOTE DATE OF NOTE: JUN 21, 2024@15:38 ENTRY DATE: JUN 21, 2024@15:39:10 AUTHOR: KB WATSON EXP COSIGNER: URGENCY: STATUS: COMPLETED O: 48 y.o. MALE referred to Nurse Clinic The patient has the following allergies: Patient has answered NKA Reason for referral: HEPATITIS VACCINE: Hepatitis A Vaccine Immunization site: Left Deltoid. Powder Coater: havarix Lot #/Expiration Date: 03/31/25 Administered by protocol/policy The VIS for the Hepatitis B vaccine dated Jan was given to the patient. /prashanth/ KB WATSON LPN Signed: 06/21/2024 15:41 KB WATSON [facility] Jun 21, 2024 03:29 PM PREVENTIVE MEDICINE NURSING NOTE: LOCAL TITLE: CLINICAL REMINDERS/NURSING STANDARD TITLE: PREVENTIVE MEDICINE NURSING NOTE DATE OF NOTE: JUN 21, 2024@15:29 ENTRY DATE: JUN 21, 2024@15:29:55 AUTHOR: KB WATSON EXP COSIGNER: URGENCY: STATUS: COMPLETED Tdap Immunization: Administered: TDAP Date Administered: Jun 21, 2024 15:30 Series: Booster Powder Coater: Method Lot: [id number] Exp Date: Jul 31, 2026 ND: [id number] Admin Route/Site: INTRAMUSCULAR/LEFT DELTOID Dosage: 0.5mL Vaccine Information Statement(s): TDAP (TETANUS, DIPHTHERIA, PERTUSSIS) VACCINE VIS Nov 17, 2020 (DANISH) Order By: Policy Administered By: Watson,Christopher E The TETANUS/DIPHTHERIA/PERTUSS IS (TDAP) Vaccine Information Statement (VIS) was reviewed with the patient/caregiver which lists the benefits and risks of the vaccine and the risks of not receiving the Tdap vaccine. The patient/caregiver denied any prior severe reaction to this vaccine or its components or a severe allergic reaction, such as anaphylaxis, to any vaccine or any injectable therapy. The patient/caregiver gave verbal consent to receive the vaccine. /prashanth/ KB WATSON LPN Signed: 06/21/2024 15:31 KB WATSON [place] [facility]
--- OUTSIDE RECORDS SUMMARY | 2024-06-22 04:30 | XMS_ITS | Encounter Summary ---
Author Name [facility] [place] [facility] [place] Organization [facility] [place] [facility] [place] Address [address] [place] [address] Care Team Providers Care Train Conductor Name Role Phone KALEB DUFF Primary Care [...] DEDUCTIBL E HEALTH PLAN W/HEALTH SAVINGS [facility] Apr 14, 2024 [id number] [facility] Lexie MARTIN SPOUSE CIGNA HIGH DEDUCTIBL E HEALTH PLAN W/HEALTH SAVINGS ACCOUNT [place] [facility]UAL [facility] Apr 14, 2024 [id number] [facility] [phone] ADRIANA WILLETT SPOUSE CIGNA HIGH DEDUCTIBL E HEALTH PLAN W/HEALTH SAVINGS ACCOUNT [place] [facility] September 08, 2023 [id number] [phone] ADRIANA WILLETT SPOUSE CIGNA BEHAVIORAL HEALTH MENTAL HEALTH [place] UTUAL [facility] Apr 14, 2024 [id number] [facility] Lexie MARTIN SPOUSE [facility] MENTAL HEALTH [facility] UTUAL [facility] Apr 14, 2024 [id number] GABRIELA WILLETT PATIENT EXPRESS SCRIPTS ([id number]) PRESCRIPT ION [place] UTUAL HDHP [facility] Apr 14, 2024 K4UA [id number] GABRIELA WILLETT PATIENT MEDCO (EXPRESS SCRIPTS) PRESCRIPT ION CIGNA /MEDC O [facility] Apr 14, 2024 K4UA [id number] [phone] GABRIELA WILLETT SPOUSE Selected Encounter This section includes the information on record at NH for the Encounter. Date/Time Encounter Type Encounter Description Reason Provider Source Jun 22, 2024 08:30 AM OFFICE O/P EST MOD 30 MIN MENTAL HEALTH CLINIC - IND ICD-10-CM F33.41 Major depressive disorder, recurrent, in partial remission CLAUDE SAAB [facility] Encounter Template Text not used by NH Assessments - Encounter Diagnoses This section includes the primary and secondary diagnoses documented for the Encounter. Date/Time Primary/Secondary Diagnosis Diagnosis Name Provider Source Jul 06, 2024 10:54 AM PRIMARY Major depressive disorder, recurrent, in partial remission CLAUDE SAAB [facility] Jul 06, 2024 10:54 AM SECONDARY Insomnia due to other mental disorder CLAUDE SAAB [facility] Plan of Treatment: Future Appointments (+ 6 months) and Future Tests (+/- 45 days) The Plan of Treatment section includes future care activities for the patient from all [place] treatmentfacilities. This section includes future appointments and future orders which are active, pending or scheduled. Future Appointments This section includes appointments that were scheduled to occur 6 months from the date of the Encounter, up to a maximum of 20 appointments. The data comes from all [place] treatment facilities. Appointment Date/Time Appointment Type Appointme nt Facility Name Jul 02, 2024 09:00 AM AMBUL[facility] Jul 05, 2024 09:00 AM [facility] Jul 22, 2024 08:30 AM [facility] Jul 26, 2024 08:30 AM [facility] [place] [facility] Jul 26, 2024 03:30 PM AMBULATORY - MEDICINE [facility] [place] [facility] Jul 28, 2024 08:30 AM AMBULATORY - PS[facility]CHIATRY [facility] [place] [facility] Aug 02, 2024 03:00 PM [facility] Aug 02, 2024 05:00 PM AMBULATORY - NEUROLOGY [facility] [place] [facility] August 12, 2024 08:30 AM AMBULATORY - PSYCHIATRY [facility] [place] [facility] August 16, 2024 08:30 AM AMBULATORY - PS[facility]CHIATRY [facility] [place] [facility] August 19, 2024 03:30 PM AMBULATORY - PSYCHIATRY [facility] [place] [facility] August 26, 2024 03:30 PM AMBULATORY - PSYCHIATRY [facility] [place] [facility] September 02, 2024 08:30 AM AMBULATORY - PSYCHIATRY [facility] [place] [facility] September 08, 2024 08:00 AM AMBULATORY - REHAB MEDICIN E [facility] [place] [facility] Sep 13, 2024 08:30 AM AMBULATORY - PSYCHIATRY [facility] [place] [facility] Sep 16, 2024 08:30 AM AMBULATORY - PSYCHIATRY [facility] [place] [facility] Sep 17, 2024 08:30 AM AMBULATORY - PSYCHIATRY [facility] [place] [facility] Sep 24, 2024 03:30 PM AMBULATORY - PSYCHIATRY [facility] [place] [facility] Oct 05, 2024 08:30 AM AMBULATORY - PSYCHIATRY [facility] [place] [facility] Oct 11, 2024 08:30 AM AMBULATORY - PSYCHIATRY [facility] [place] [facility] Social History: Smoking Status (Most current) and Tobacco Use (All prior to encounter date) This section includes the most current, and the historical, smoking and tobacco- related health factors from the VA facility where the Encounter took place. Current Smoking Status This section includes the most current smoking, or tobacco-related health factor, from the [place] facility where the Encounter took place. Date/Time Current Smoking Status Comment Facil ity Mar 18, 2024 10:00 AM VA-TOBACCO USE FOR DORI CIGARETTES [facility] [place] [facility] Tobacco Use History This section includes a history of the smoking, or tobacco-related health factors, that were collected on or before the date of the Encounter. The data comes from the [place] facility where the Encounter took place. Date/Time Smoking Status/Tobac co Use Comment Facility Mar 18, 2024 10:00 AM VA-TOBACCO USE FORMER OTHER TYPE Quit more than 15 years ago [facility] Encounter Notes: All associated encounter notes This section contains the clinical notes associated to the Encounter. Date/Time Encounter Note(s) Provider Source Jun 22, 2024 08:33 AM PRIMARY CARE NURSE PRACTITIONER OUTPATIENT NOTE: LOCAL TITLE: NURSE PRACTITIONER OUTPATIENT NOTE STANDARD TITLE: PRIMARY CARE NURSE PRACTITIONER OUTPATIENT NOTE DATE OF NOTE: JUN 22, 2024@08:33 ENTRY DATE: JUN 22, 2024@08:33:54 AUTHOR: VIOLA SAAB COSIGNER: URGENCY: STATUS: COMPLETED OUTPATIENT MENTAL HEALTH CLINIC: FOLLOW-UP Visit is being conducted by [place] [employer] [facility]. Loma Mar identified with 2 identifiers: Full Name Date of Emergency Plan: confirmed and/or provided the following information in case of emergency or technology failure. PATIENT PHONE - NONE FOUND PHONE NUMBER [CELLULAR] - [phone] Is patient phone number correct, if not, enter below: Loma Mar's phone number: GLADIS WILLETT [address], [place], [address] 's present location and address for appointment: home 's emergency contact name and phone number: up to date in CPRS Loma Mar reported that location is private and safe: yes HPI: BRENNONGLADIS ISBELL, a 48 y/o male Loma Mar previously diagnosed with MDD presents for [facility] Follow-Up appointment. Last seen by This Provider on 05/17/24 With regards to increased dose of BUPROPION I think it's working good. I've definitely noticed a difference. I just seem to have a little more energy and I'm not down as much. Denies side effects aside from some cotton mouth Still room for improvement with regards to depression. 3-4/10 in severity Anxiety is still there. About the same in severity as depression Has started to attend [employer]. Also attending couples and individual therapy which have both been of significant benefit Sleep has been better. About 7-8 hours per night, on average When something bad happens in my life I just go into a spiral of depression that can last several days. Tools garnered in therapy have helped pull him out of these ruminative episodes Reports one instance of passive SI in interim Just one thought. Just one day. Specifies that this was passive SI more not wanting to be alive and not active SI. Specifically denies active SI, intent or plan SUBSTANCE USE: Tobacco: denied Alcohol: once or twice per year Narcotics: denied Cannabis: daily; two grams per day on average PSYCHIATRIC HISTORY: Medication trials: BUPROPION Reports trial of bupropion approximately 10 years ago and that this medication was beneficial and well tolerated Inpatient Hospitalizations: March, for SI with intent and plan Documentation from [facility] is not available for review at this time Suicidal Acts and Self-Harm: SI with intent and plan in February, Denies any other suicide attemtps prepared to take his life the day after Thanksgi. He wrote a suicide note to his and went to the [facility] [place] with the intention of jumping from the spillway. He self-interrupted when he saw deer. He did not want to defile such a beautiful place. He reported chronic SI without any previous attempts. He was sectioned to [facility] where he was inpatient for 6 days. HISTORY OF VIOLENCE/ASSAULTING OTHERS: denied FAMILY MENTAL HEALTH AND SUBSTANCE USE HISTORY: Not that I'm aware of any Lethal Means Safety Counselling L[facility] was conducted. Denied access to firearms SOCIAL HISTORY: Per Uniform Outpatient Mental Health Assessment (04/19/2023), confirmed by during assessment Loma Mar is unaware of any family history in terms of MH issues or substancea buse. Born and raised in [facility]. Mother had him at aged 16, at which time his bio father denied paternity. He was then raised believing stepdad was bio father until actual bio father called him at age 13. Mom stepdad around that time but they remained in touch. Both fathers are now . Mom recently moved to [place] with a boyfriend. and she are in touch but not close. No abuse in home but Loma Mar acknowledges a pattern of being invalidated by mom or feeling like an inconvenience. Loma Mar has half sister he was raised with but they fell out of touch after father's . He believes she lives in [facility]. met his Annamarie about four years ago [...] his home and these are her children. Loma Mar has no children and no previous marriages. Loma Mar would like to enter a helping profession and help Veterans in some way. 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 Was laid off last summer but has a new job working FT at [employer]. Job is very sedentary, which may be contributing to Loma Mar's mental health issues. [employer], did a tour in [place] [facility] [place] and saw combat, discharged in [...] memory grossly intact to conversational testing Mood: okay Affect: mood congruent; full and appropriate range MEDICAL HISTORY: Active Problem Essential hypertension I10. 03/18/2024August,CHERYL Tariq Posttraumatic stress disorder F43.1 03/18/2024August,CHERYL Tariq Crohns disease K50.90 03/18/2024August,CHERYL Tariq Depression F32.A 03/18/2024August,CHERYL Tariq Anxiety F41.9 03/18/2024August,CHERYL Tariq Insomnia G47.00 03/18/2024August,CHERYL Tariq ALLERGIES: Data on this list may not be complete. Please check JLV. FACILITY ALLERGY/ADR -------- No Remote Allergy/ADR Data available for this patient [facility] [place] [facility] No Known Allergies [...] PRODUCTION OF STOMACH ACID 6 Total Medications SAFETY ASSESSMENT: No acute or imminent safety concerns that would justify an involuntary hospitalization. denies active SI in interim since last appointment. affirmed willingness to reach out to supports [...] in treatment and a strong support network. Acute risk low. No recent active SI and only one instance of passive SI in interim since last appointment Loma Mar was also future oriented and goal directed during today's assessment. Demonstration of help-seeking behaviors and familial responsibilities are also strong protective factors. IMPRESSION: Loma Mar presents as polite, cooperative and treatment motivated Reports adherence to current medications with significant therapeutic benefit and denies side effects. Reports desire to continue with current pharmacotherapy regimen. Will continue with upward titration of FLUOXETINE to address residual symptoms of depression and anxiety No acute safety concerns Diagnosis: MDD, recurrent, severe w/o psychotic features Insomnia Disorder, unspecified R/O Cannabis Use Disorder PLAN: 1) INCREASE Fluoxetine FROM 40 TO 60 mg PO DAILY 2) CONTINUE Hydroxyzine 50 mg PO PRN 3) CONTINUE BUPROPION XR 300 MG PO DAILY 4) CONTINUE DOXEPIN 6 MG PO QHS PRN Labs: none today Follow-Up: 07/28/24 Discussed risks and benefits of proposed medication treatments including FDA approved indications and off-label uses, as well as common and severe side effects. Loma Mar comprehended all information discussed, had opportunity to ask questions which were answered to their satisfaction, and voluntarily and without duress agreed to trial as documented. CONTACT AND CRISIS INFO: Loma Mar informed that This Provider can be contacted at , EXT [phone] or via Secure Messaging. We have reviewed the Crisis Hotline (205, dial #1 for line), and the has [...] court of law and presented to a sail finisher hand), and DOD access for active-duty service members. [...] of active outpatient prescriptions dispensed from this NH (local) and dispensed from another VA or [facility] facility (remote) as well as inpatient orders [...] SAAB Psychiatric Mental Health Nurse Practitioner Signed: 06/22/2024 08:59 VIOLA SAAB [facility]
--- OUTSIDE RECORDS SUMMARY | 2024-07-02 05:00 | XMS_ITS | Encounter Summary ---
Author Name [facility] [place] Organization [place] Address [address] [place] [address] Care Team Providers Care Supervisor Esters And Emulsifiers Name Role Phone KALEB DUFF Primary Care [...] DEDUCTIBL E HEALTH PLAN W/[facility] SAVINGS [facility] Apr 14, 2024 [id number] [facility] [phone] Lexie MARTIN SPOUSE CIGNA HIGH DEDUCTIBL E HEALTH PLAN W/HEALTH SAVINGS ACCOUNT [place] UTUAL [facility] Apr 14, 2024 [id number] [facility] [phone] ADRIANA WILLETT SPOUSE CIGNA HIGH DEDUCTIBL E HEALTH PLAN W/HEALTH SAVINGS ACCOUNT [facility] UTUAL [facility] September 08, 2023 [id number] ADRIANA WILLETT SPOUSE CIGNA BEHAVIORAL HEALTH MENTAL HEALTH [place] UTUAL [facility] Apr 14, 2024 [id number] [facility] Lexie MARTIN SPOUSE [facility] MENTAL HEALTH [facility] UTUAL [facility] Apr 14, 2024 [id number] GABRIELA WILLETT PATIENT EXPRESS SCRIPTS ([id number]) PRESCRIPT ION MASSM UTUAL HDHP [facility] Apr 14, 2024 K4UA [id number] BRENNONGABRIELA Thomas PATIENT MEDCO (EXPRESS SCRIPTS) PRESCRIPT ION CIGNA /MEDC O [facility] Apr 14, 2024 K4UA [id number] GABRIELA WILLETT SPOUSE Selected Encounter This section includes the information on record at [place] for the Encounter. Date/Time Encounter Type Encounter Description Reason Provider Source Jul 02, 2024 09:00 AM PSYTX W PT 45 MINUTES MENTAL HEALTH CLINIC - IND ICD-10-CM F32.A Depression, unspecified SHANIQUE FOWLER IHE Encounter Template Text not used by [place] Assessments - Encounter Diagnoses This section includes the primary and secondary diagnoses documented for the Encounter. Date/Time Primary/Secondary Diagnosis Diagnosis Name Provider Source Jul 21, 2024 12:35 PM PRIMARY Depression, unspecified SHANIQUE FOWLER M [facility] [place] [facility] Jul 21, 2024 12:35 PM SECONDARY Anxiety disorder, unspecified SHANIQUE FOWLER M [facility] [place] [facility] Plan of Treatment: Future Appointments (+ 6 months) and Future Tests (+/- 45 days) The Plan of Treatment section includes future care activities for the patient from all [place] treatmentfacilities. This section includes future appointments and future orders which are active, pending or scheduled. Future Appointments This section includes appointments that were scheduled to occur 6 months from the date of the Encounter, up to a maximum of 20 appointments. The data comes from all [place] treatment facilities. Appointment Date/Time Appointment Type Appointme nt Facility Name Jul 05, 2024 09:00 AM AMBULATORY - PSYCHIATRY [facility] [place] [facility] Jul 22, 2024 08:30 AM AMBULATORY - PSYCHIATRY [facility] [place] [facility] Jul 26, 2024 08:30 AM AMBULATORY - PSYCHIATRY [facility] [place] [facility] Jul 26, 2024 03:30 PM AMBULATORY - MEDICINE [facility] [place] [facility] Jul 28, 2024 08:30 AM AMBULATORY - PSYCHIATRY [facility] [place] [facility] Aug 02, 2024 03:00 PM [facility] Aug 02, 2024 05:00 PM AMBULATORY - NEUROLOGY [facility] [place] [facility] August 12, 2024 08:30 AM AMBULATORY - PSYCHIATRY [facility] [place] [facility] August 16, 2024 08:30 AM AMBULATORY - PSYCHIATRY [facility] [place] [facility] August 19, 2024 03:30 PM AMBULATORY - PSYCHIATRY [facility] [place] [facility] August 26, 2024 03:30 PM AMBULATORY - PSYCHIATRY [facility] [place] [facility] September 02, 2024 08:30 AM AMBULATORY - PSYCHIATRY [facility] [place] [facility] September 08, 2024 08:00 AM AMBULATORY - REHAB MEDICIN E [facility] [place] [facility] Sep 13, 2024 08:30 AM AMBULATORY - PSYCHIATRY [facility] [place] [facility] Sep 16, 2024 08:30 AM AMBULATORY - PSYCHIATRY [facility] [place] [facility] Sep 17, 2024 08:30 AM AMBULATORY - PSYCHIATRY [facility] [place] [facility] Sep 24, 2024 03:30 PM AMBULATORY - PSYCHIATRY [facility] [place] [facility] Oct 05, 2024 08:30 AM AMBULATORY - PSYCHIATRY [facility] [place] [facility] Oct 11, 2024 08:30 AM AMBULATORY - PSYCHIATRY [facility] [place] [facility] Oct 14, 2024 08:30 AM AMBULATORY - PSYCHIATRY [facility] [place] [facility] Social History: Smoking Status (Most current) and Tobacco Use (All prior to encounter date) This section includes the most current, and the historical, smoking and tobacco- related health factors from the VA facility where the Encounter took place. Current Smoking Status This section includes the most current smoking, or tobacco-related health factor, from the VA facility where the Encounter took place. Date/Time Current Smoking Status [facility] Facility Mar 18, 2024 10:00 AM VA-TOBACCO USE FORMER OTHER TYPE Quit more than 15 years ago [facility] Tobacco Use History This section includes a history of the smoking, or tobacco-related health factors, that were collected on or before the date of the Encounter. The data comes from the [place] facility where the Encounter took place. Date/Time Smoking Status/Tobac co Use Comment Facility Mar 18, 2024 10:00 AM VA-TOBACCO USE FORMER OTHER TYPE Quit more than 15 years ago [facility] Encounter Notes: All associated encounter notes This section contains the clinical notes associated to the Encounter. Date/Time Encounter Note(s) Provider Source Jul 02, 2024 09:00 AM TELEHEALTH NOTE: LOCAL TITLE: [place] [facility] PSYCHOLOGY NOTE STANDARD TITLE: TELEHEALTH NOTE DATE OF NOTE: JUL 02, 2024@09:00 ENTRY DATE: JUL 02, 2024@11:14:11 AUTHOR: TAO FOWLER COSIGNER: URGENCY: STATUS: COMPLETED [facility] ([facility]) Standard Documentation [facility] Clinician Resources Only: E911 (Emergency Call Relay Center): [phone] [facility] Crisis Line - 988 then press #1. [facility] Suicide Coordinator [phone], Ext. [phone]; Back-up Ext. [phone] [place] Police, [facility], [place] [phone] Introduction: Visit is being conducted by [place] [employer] [facility]. identified with 2 identifiers: [X] Full Name [X] Date of [ ] [place] ID Card Emergency Plan: Paauilo confirmed and/or provided the following information in case of emergency or technology failure. PATIENT PHONE - NONE FOUND PHONE NUMBER [CELLULAR] - [phone] Is patient phone number correct, if not, enter below: 's phone number: GLADIS [address], [place], [address] 's present location and address for appointment: Above address 's emergency contact name and phone number: on file reported that location is private and safe: Yes Informed Consent: Paauilo informed of the risks and benefits of Telehealth video care. Paauilo has the right to refuse video services. If refuses video visit, a [id number] visit will be scheduled. verbalized consent for this video visit: Yes provided consent for any other persons present for visit: Yes If yes, who and relationship to patient:-Annamarie Secure visit: Visit was locked for security and privacy:Yes identified with 2 identifiers: [X] Full Name [X] Visual recognition Procedure: Individual psychotherapy Date/time: 07/02/24; [id number] Session: 4 PROBLEM: Depressive sx, recent suicidality, psychosocial stressors, anxious sx Goals: Improvement mood and self-esteem, address psychosocial stressors/interpersonal dynamics Progress: Paauilo reports an increase in depressive sx over the past week, describing sx exacerbation consistent with a major depressive episode, problematizing his ability to attend work all week. TW empathized with painful emotionality and provided psychoed on cyclical nature of depression and barriers in starting to step out of process, as well as examples of active and passive efforts and costs/benefits therein, which he appeared able to appreciate. indicates that he plans to go for a drive today to [employer] as this has historically been an environment that supports mood improvement, which TW validated and encouraged while also encouraging him to consider likelihood of emergence of uncomfortable or triggering emotions as this was the area Paauilo had visited in the context of significant suicidality and a self-interrupted SA in Feb. Paauilo appeared able to appreciate this and receptive to strategies discussed to give space to this and work to reconnect with more positive associations. Despite worsening depressive sx, Paauilo denies significant experience or escalation in suicidality, including specified planning, intent, or bx. Dx: Unspecified depressive d/o r/o PTSD r/o Unspecified anxiety d/o MSE: A&Ox4, cooperative Speech: normal RRTP Psychomotor/bx/presentati on: unremarkable Thought process: linear; goal-directed Thought content: unremarkable Mood: appeared depressed; congruent, full affect No recent nor remote memory impairment endorsed; not formally assessed No recent AVH endorsed nor observed in present session; did not appear to be responding to internal stimuli Insight: good Judgment: fair to good did not endorse current SI/HI nor did he appear to be in any acute distress Ongoing Plan: Next appt with this script writer scheduled for 07/15/24. Paauilo encouraged to continue participation in couples counseling, psychiatry /es/ TAO FOWLER PSYD CLINICAL PSYCHOLOGIST - MENTAL HEALTH CLINIC Signed: 07/05/2024 08:42 TAO FOWLER [facility]
--- OUTSIDE RECORDS SUMMARY | 2024-07-05 05:00 | XMS_ITS | Encounter Summary ---
Author Name [facility] [place] Organization [place] Address [address] [place] [address] Care Team Providers Care It Program Manager Name Role Phone KALEB DUFF Primary Care [...] DEDUCTIBL E HEALTH PLAN W/HEALTH SAVINGS [facility] Apr 14, 2024 [id number] [facility] Lexie MARTIN SPOUSE CIGNA HIGH DEDUCTIBL E HEALTH PLAN W/HEALTH SAVINGS ACCOUNT [facility]ASS UTUAL [facility] Apr 14, 2024 [id number] [facility] ADRIANA WILLETT SPOUSE CIGNA HIGH DEDUCTIBL E HEALTH PLAN W/HEALTH SAVINGS ACCOUNT [facility] UTUAL [facility] September 08, 2023 [id number] ADRIANA WILLETT SPOUSE CIGNA BEHAVIORAL HEALTH MENTAL HEALTH [facility] UTUAL [facility] Apr 14, 2024 [id number] [facility] Lexie MARTIN SPOUSE [facility] UTUAL [facility] Apr 14, 2024 [id number] GABRIELA WILLETT PATIENT EXPRESS SCRIPTS ([id number]) PRESCRIPT ION MASSM UTUAL [facility] Apr 14, 2024 [id number] GABRIELA WILLETT PATIENT MEDCO (EXPRESS SCRIPTS) PRESCRIPT ION CIGNA /MEDC O [facility] Apr 14, 2024 [id number] GABRIELA WILLETT SPOUSE Selected Encounter This section includes the information on record at [place] for the Encounter. Date/Time Encounter Type Encounter Description Reason Provider Source Jul 05, 2024 09:00 AM FAMILY PSYTX W/PT 50 MIN [facility]AL [facility] CLINIC - IND ICD-10-CM F43.10 Post-traumatic stress disorder, unspecified ARIELA HAYES Martha Encounter Template Text not used by [place] Assessments - Encounter Diagnoses This section includes the primary and secondary diagnoses documented for the Encounter. Date/Time Primary/Secondary Diagnosis Diagnosis Name Provider Source Jul 21, 2024 05:13 PM PRIMARY Post-traumatic stress disorder, unspecified [facility] Jul 21, 2024 05:13 PM SECONDARY Problems in relationship with spouse or partner [facility] Plan of Treatment: Future Appointments (+ 6 months) and Future Tests (+/- 45 days) The Plan of Treatment section includes future care activities for the patient from all [place] [facility]. This section includes future appointments and future orders which are active, pending or scheduled. Future Appointments This section includes appointments that were scheduled to occur 6 months from the date of the Encounter, up to a maximum of 20 appointments. The data comes from all [place] treatment facilities. Appointment Date/Time Appointment Type Appointme nt Facility Name Jul 22, 2024 08:30 AM [facility] Jul 26, 2024 08:30 AM [facility] Jul 26, 2024 03:30 PM [facility] Jul 28, 2024 08:30 AM [facility] [place] [facility] Aug 02, 2024 03:00 PM [facility] Aug 02, 2024 05:00 PM AMBULATORY - NEUROLOGY [facility] [place] [facility] August 12, 2024 08:30 AM AMBULATORY [facility]IAT[facility] [place] [facility] August 16, 2024 08:30 AM AMBULATORY [facility] [place] [facility] August 19, 2024 03:30 PM AMBULATORY - [facility]IATRY [facility] [place] [facility] August 26, 2024 03:30 PM AMBULATORY - PS[facility]IATRY [facility] [place] [facility] September 02, 2024 08:30 AM AMBULATORY - PS[facility]CHIATRY [facility] [place] [facility] September 08, 2024 08:00 AM AMBULATORY - REHAB MEDICIN E [facility] [place] [facility] Sep 13, 2024 08:30 AM AMBULATORY - PS[facility]CHIATRY [facility] [place] [facility] Sep 16, 2024 08:30 AM AMBULATORY - PS[facility]CHIATRY [facility] [place] [facility] Sep 17, 2024 08:30 AM AMBULATORY - PS[facility]CHIATRY [facility] [place] [facility] Sep 24, 2024 03:30 PM AMBULATORY - PSYCHIATRY [facility] [place] [facility] Oct 05, 2024 08:30 AM AMBULATORY - PS[facility]CHIATRY [facility] [place] [facility] Oct 11, 2024 08:30 AM AMBULATORY - PS[facility]CHIATRY [facility] [place] [facility] Oct 14, 2024 08:30 AM AMBULATORY - PS[facility]CHIATRY [facility] [place] [facility] Oct 21, 2024 08:30 AM AMBULATORY - PS[facility]CHIATRY [facility] [place] [facility] Social History: Smoking Status (Most current) and Tobacco Use (All prior to encounter date) This section includes the most current, and the historical, smoking and tobacco- related health factors from the VA facility where the Encounter took place. Current Smoking Status This section includes the most current smoking, or tobacco-related health factor, from the [place] facility where the Encounter took place. Date/Time Current Smoking Status Comment Facil ity Mar 18, 2024 10:00 AM VA-TOBACCO USE FOR DORI CIGARETTES [facility] [place] [facility] Tobacco Use History This section includes a history of the smoking, or tobacco-related health factors, that were collected on or before the date of the Encounter. The data comes from the [place] facility where the Encounter took place. Date/Time Smoking Status/Tobac co Use Comment Facility Mar 18, 2024 10:00 AM [place]-TOBACCO USE FORMER OTHER TYPE Quit more than 15 years ago [facility] Encounter Notes: All associated encounter notes This section contains the clinical notes associated to the Encounter. Date/Time Encounter Note(s) Provider Source Jul 05, 2024 09:50 AM MENTAL HEALTH NOTE : LOCAL TITLE: BEHAVIORAL COUPLES THERAPY NOTE STANDARD TITLE: MENTAL HEALTH NOTE DATE OF NOTE: JUL 05, 2024@09:50 ENTRY DATE: JUL 05, 2024@09:51:05 AUTHOR: ARIELA HAYES COSIGNER: URGENCY: STATUS: COMPLETED INFORMED CONSENT TO PARTICIPATE IN SESSION: At beginning of session reviewed rights and limits of confidentiality, mandatory reporting situations, duty to warn and protect, [place]as Warning,(if treatment team finds patient to be an acute danger to himself or others, that this information could be relayed to a court of law and presented to a appellate court judge), and [facility] access for active duty service members. Provided Suicide Prevention Hotline number, and other contact numbers as necessary. DURATION OF SESSION: 50 minutes SESSION CONTENT: The couple and this policy writer focused on enhancing communication when one or both individuals are experiencing difficulty with their mental health. shared that he felt depressed this past week and did not go to work. 's provided her perspective on how she didn't know it was depression rather that her was stating it was related to a Chron's flare up. This policy writer helped the couple identify visible signs of depression and ways to communicate the way one is feeling as well as what one sees. Time in session was made for them to practice skill and open up communication. MENTAL STATUS AND BEHAVIORAL OBSERVATIONS: The couple was polite and cooperative. They showed physical affection through hand holding throughout session. Both seemed emotionally withdrawn during session today. No safety concerns were reported. DSM5 DIAGNOSES: relationship distress with spouse; [place] with PTSD diagnosis. Plan: RTC on 07/12 @8:30am [facility] ([facility]) Standard Documentation [facility] Clinician Resources Only: E911 (Emergency Call Relay Center): [phone] [employer] Crisis Line - 988 then press #1. CWJason Suicide Coordinator [phone], Ext. [phone]; Back-up Ext. [phone] [place] Police, LUCIAJason, Daniela [phone] Introduction: Visit is being conducted by [place] [facility]. identified with 2 identifiers: [X] Full Name [X] Date of [ ] [place] ID Card Emergency Plan: confirmed and/or provided the following information in case of emergency or technology failure. PATIENT PHONE - NONE FOUND PHONE NUMBER [CELLULAR] - [phone] Is patient phone number correct, if not, enter below: [place]'s phone number: GLADIS WILLETT [address] [place] [address], [phone] [place]'s present location and address for appointment: Above address 's emergency contact name and phone number: on file [place] reported that location is private and safe: Yes Informed Consent: [place] informed of the risks and benefits of Telehealth video care. has the right to refuse video services. If refuses video visit, a [id number] visit will be scheduled. [place] verbalized consent for this video visit: Yes [place] provided consent for any other persons present for visit: Yes If yes, who and relationship to patient: -Annamarie Secure visit: Visit was locked for security and privacy:Yes /prashanth/ Ariela Hayes Psy.D. Psychologist Signed: 07/06/2024 08:44 ARIELA HAYES [facility]
--- OUTSIDE RECORDS SUMMARY | 2024-07-14 12:58 | XMS_ITS ---
Author Name [facility] [place] Organization [place] Address [address] [place] [address] Care Team Providers Care High School Football Coach Name Role Phone KALEB DUFF Primary Care [...] [facility] Apr 14, 2024 [id number] [facility] Lexie MARTIN SPOUSE CIGNA HIGH DEDUCTIBL E HEALTH PLAN W/HEALTH SAVINGS ACCOUNT [place]ASS UTUAL [facility] Apr 14, 2024 [id number] [facility] [phone] ADRIANA WILLETT SPOUSE CIGNA HIGH DEDUCTIBL E HEALTH PLAN W/HEALTH SAVINGS ACCOUNT MASSM UTUAL [facility] September 08, 2023 [id number] [phone] ADRIANA WILLETT SPOUSE CIGNA BEHAVIORAL HEALTH MENTAL HEALTH MASSM UTUAL [facility] Apr 14, 2024 [id number] [facility] Lexie MARTIN SPOUSE [facility] MENTAL HEALTH MAS[facility] UTUAL [facility] Apr 14, 2024 [id number] GABRIELA WILLETT PATIENT EXPRESS SCRIPTS ([id number]) PRESCRIPT ION MASSM UTUAL [facility] Apr 14, 2024 [id number] GABRIELA WILLETT PATIENT MEDCO (EXPRESS SCRIPTS) PRESCRIPT ION CIGNA /MEDC O [facility] Apr 14, 2024 [id number] GABRIELA WILLETT SPOUSE Selected Encounter This section includes the information on record at [place] for the Encounter. Date/Time Encounter Type Encounter Description Reason Pro vider Source Jul 14, 2024 04:58 PM Outpatient Encounter ADMIN PAT ACTIVTIES (MASNONCT) I[facility] Encounter Template Text not used by [place] Plan of Treatment: Future Appointments (+ 6 months) and Future Tests (+/- 45 days) The Plan of Treatment section includes future care activities for the patient from all [place] treatmentfacilities. This section includes future appointments and [...] 22, 2024 08:30 AM AMBULATORY - [place]IATRY [place] [facility] [place] [facility] Jul 26, 2024 08:30 AM AMBULATORY - PSYCHIATRY [place] [facility] [place] [facility] Jul 26, 2024 03:30 PM AMBULATORY - MEDICINE [place] [facility] [place] [facility] Jul 28, 2024 08:30 AM AMBULATORY - PSYCHIATRY [facility] [place] [facility] Aug 02, 2024 03:00 PM AMBULATORY - MEDICINE [facility] Aug 02, 2024 05:00 PM AMBULATORY - NEUROLOGY [facility] [place] [facility] August 12, 2024 08:30 AM AMBULATORY - PSYCHIATRY [facility] [place] [facility] August 16, 2024 08:30 AM AMBULATORY - PSYCHIATRY [facility] [place] [facility] August 19, 2024 03:30 PM AMBULATORY - PSYCHIATRY [facility] [place] [facility] August 26, 2024 03:30 PM AMBULATORY - PSYCHIATRY [facility] [place] [facility] September 02, 2024 08:30 AM AMBULATORY - PSYCHIATRY [facility] [place] [facility] September 08, 2024 08:00 AM AMBULATORY - REHAB MEDICIN E [facility] [place] [facility] Sep 13, 2024 08:30 AM AMBULATORY - PSYCHIATRY [facility] [place] [facility] Sep 16, 2024 08:30 AM AMBULATORY - PSYCHIATRY [facility] [place] [facility] Sep 17, 2024 08:30 AM AMBULATORY - PSYCHIATRY [facility] [place] [facility] Sep 24, 2024 03:30 PM AMBULATORY - PSYCHIATRY [facility] [place] [facility] Oct 05, 2024 08:30 AM AMBULATORY - PSYCHIATRY [facility] [place] [facility] Oct 11, 2024 08:30 AM AMBULATORY - PSYCHIATRY [place] [facility] [place] [facility] Oct 14, 2024 08:30 AM AMBULATORY - PSYCHIATRY [place] [facility] [place] [facility] Oct 21, 2024 08:30 AM [facility] [place] [facility] Social History: Smoking Status (Most current) and Tobacco Use (All prior to encounter date) This section includes the most current, and the historical, smoking and tobacco- related health factors from the [place] facility where the Encounter took place. Current Smoking Status This section includes the most current smoking, or tobacco-related health factor, from the [place] facility where the Encounter took place. Date/Time Current Smoking Status Comment Facil it Mar 18, 2024 10:00 AM VA-TOBACCO USE FOR DORI CIGARETTES [facility] Tobacco Use History This section includes a history of the smoking, or tobacco-related health factors, that were collected on or before the date of the Encounter. The data comes from the [place] facility where the Encounter took place. Date/Time Smoking Status/Tobac co Use Comment Facility Mar 18, 2024 10:00 AM VA-TOBACCO USE FORMER OTHER TYPE Quit more than 15 years ago [facility] Encounter Notes: All associated encounter notes This section contains the clinical notes associated to the Encounter. Date/Time Encounter Note(s) Provider Source Jul 14, 2024 04:58 PM [facility] E [facility] M NOTE: LOCAL TITLE: VET-HOME MSA NOTE STANDARD TITLE: [facility] NOTE DATE OF NOTE: JUL 14, 2024@16:58 ENTRY DATE: JUL 14, 2024@16:58:24 AUTHOR: AMANDA ENGEL COSIGNER: URGENCY: STATUS: COMPLETED VET-HOME MSA NOTE Has ADDENDA [place] is scheduled for VVC appointment for a Exposure Evaluation based on the Airborne Hazards and Open Burn Pit Registry exam on (07/29/2024 @ 1700 Eastern Time) with VET-HOME provider (Polly Lopez). Any changes to this appointment need to be made by a VET-HOME MSA to ensure?the VVC appointment is cancelled/scheduled appropriately in all systems. Veterans Exposure Team-Health Outcomes Exposures (VET-HOME) Intake Center [facility] Phone Number Friday to Friday 9:00 AM - 7:30 PM ET /es/ AMANDA ENGEL VET-HOME LEAD [facility], Signed: 07/14/2024 17:00 07/16/2024 ADDENDUM STATUS: COMPLETED Vet-Home appt on 07/29/24 @ 1500 MT with provider John was cancelled by clinic. [place] will be contacted by an MSA to reschedule or can call Vet-Home at [phone] to reschedule appt. /es/ BEN LATIF MSA Fiberglass Machine Operator, Vet-Home Signed: 07/16/2024 10:09 07/16/2024 ADDENDUM STATUS: COMPLETED Called [place] to reschedule his appt for a GWR and AHOBPR 2.0 (MEEA). His appt was canceled by clinic. would like 1700 Time. No answer, LVM, and sent email. Please have [place] call VET-HOME to reschedule @ [phone]. /prashanth/ AMANDA ENGEL VET-HOME LEAD [facility], Signed: 07/16/2024 11:13 07/16/2024 ADDENDUM STATUS: COMPLETED [place] is rescheduled for VVC appointment for a GWR and Exposure Evaluation based on the Airborne Hazards and Open Burn Pit Registry exam on (08/02/2024 @ 1700 Eastern Time) with VET-HOME provider (Polly Lopez). Any changes to this appointment need to be made by a VET-HOME MSA to ensure?the VVC appointment is cancelled/scheduled appropriately in all systems. Veterans Exposure Team-Health Outcomes Exposures (VET-HOME) Intake Center [facility] Phone Number Friday to Friday 9:00 AM - 7:30 PM ET /es/ AMANDA ENGEL VET-HOME LEAD MSA, Signed: 07/16/2024 11:49 AMANDA ENGEL [place] [facility]
--- OUTSIDE RECORDS SUMMARY | 2024-07-22 04:30 | XMS_ITS | Encounter Summary ---
Author Name [place] Address [address] [place] [address] Care Team Providers Care Valve Tester Name Role Phone KALEB DUFF Primary Care [...] DEDUCTIBL E HEALTH PLAN W/HEALTH SAVINGS [facility] Apr 14, 2024 [id number] [facility] [phone] Lexie MARTIN SPOUSE CIG[employer] HIGH DEDUCTIBL E HEALTH PLAN W/HEALTH SAVINGS ACCOUNT [place] UTUAL [facility] Apr 14, 2024 [id number] [facility]5 ADRIANA WILLETT SPOUSE CIGNA HIGH DEDUCTIBL E HEALTH PLAN W/HEALTH SAVINGS ACCOUNT [facility] UTUAL [facility] September 08, 2023 [id number] [phone] ADRIANA WILLETT SPOUSE CIGNA BEHAVIORAL HEALTH MENTAL HEALTH [facility] UTUAL [facility] Apr 14, 2024 [id number] [facility] [phone] Lexie MARTIN SPOUSE [facility] UTUAL [facility] Apr 14, 2024 [id number] GABRIELA WILLETT PATIENT EXPRESS SCRIPTS ([id number]) PRESCRIPT ION MASSM UTUAL HDHP [facility] Apr 14, 2024 K4UA [id number] BRENNONGABRIELA Thomas PATIENT MEDCO (EXPRESS SCRIPTS) PRESCRIPT ION CIGNA /MEDC O [facility] Apr 14, 2024 K4UA [id number] [phone] GABRIELA WILLETT SPOUSE Selected Encounter This section includes the information on record at [place] for the Encounter. Date/Time Encounter Type Encounter Description Reason Provider Source Jul 22, 2024 08:30 AM PSYTX W PT 45 MINUTES [facility]IC - IND ICD-10-CM F32.A Depression, unspecified SHANIQUE FOWLER IHE Encounter Template Text not used by [place] Assessments - Encounter Diagnoses This section includes the primary and secondary diagnoses documented for the Encounter. Date/Time Primary/Secondary Diagnosis Diagnosis Name Provider Source Oct 07, 2024 11:42 AM PRIMARY Depression, unspecified SHANIQUE FOWLER [facility] Plan of Treatment: Future Appointments (+ 6 months) and Future Tests (+/- 45 days) The Plan of Treatment section includes future care activities for the patient from all [place] treatmentfacilities. This section includes future appointments and future orders which are active, pending or scheduled. Future Appointments This section includes appointments that were scheduled to occur 6 months from the date of the Encounter, up to a maximum of 20 appointments. The data comes from all [place] treatment facilities. Appointment Date/Time Appointment Type Appointme nt Facility Name Jul 26, 2024 08:30 AM AMBULATORY - [place]IATRY [place] [facility] [place] [facility] Jul 26, 2024 03:30 PM AMBULATORY - MEDICINE [facility] [place] [facility] Jul 28, 2024 08:30 AM AMBULATORY - PSYCHIATRY [place] [facility] [place] [facility] Aug 02, 2024 03:00 PM AMBULATORY - MEDICINE [facility] Aug 02, 2024 05:00 PM [facility] [place] [facility] August 12, 2024 08:30 AM AMBULATORY [facility] [place] [facility] August 16, 2024 08:30 AM AMBULATORY - [facility]CHIATRY [facility] [place] [facility] August 19, 2024 03:30 PM AMBULATORY - PS[facility]CHIATRY [facility] [place] [facility] August 26, 2024 03:30 PM AMBULATORY - PS[facility]CHIATRY [facility] [place] [facility] September 02, 2024 08:30 AM AMBULATORY - PSYCHIATRY [facility] [place] [facility] September 08, 2024 08:00 AM AMBULATORY - REHAB MEDICIN E [facility] [place] [facility] Sep 13, 2024 08:30 AM AMBULATORY - PSYCHIATRY [facility] [place] [facility] Sep 16, 2024 08:30 AM AMBULATORY - PSYCHIATRY [facility] [place] [facility] Sep 17, 2024 08:30 AM AMBULATORY - PSYCHIATRY [facility] [place] [facility] Sep 24, 2024 03:30 PM AMBULATORY - PSYCHIATRY [facility] [place] [facility] Oct 05, 2024 08:30 AM AMBULATORY - PSYCHIATRY [facility] [place] [facility] Oct 11, 2024 08:30 AM AMBULATORY - PSYCHIATRY [facility] [place] [facility] Oct 14, 2024 08:30 AM AMBULATORY - PSYCHIATRY [facility] [place] [facility] Oct 21, 2024 08:30 AM AMBULATORY - PSYCHIATRY [facility] [place] [facility] Nov 04, 2024 08:30 AM AMBULATORY - PSYCHIATRY [facility] [place] [facility] Social History: Smoking Status (Most current) and Tobacco Use (All prior to encounter date) This section includes the most current, and the historical, smoking and tobacco- related health factors from the [place] facility where the Encounter took place. Current Smoking Status This section includes the most current smoking, or tobacco-related health factor, from the [place] facility where the Encounter took place. Date/Time Current Smoking Status Comment Facil ity Mar 18, 2024 10:00 AM VA-TOBACCO USE FOR DORI CIGARETTES [place] [facility] [place] [facility] Tobacco Use History This section includes a history of the smoking, or tobacco-related health factors, that were collected on or before the date of the Encounter. The data comes from the [place] facility where the Encounter took place. Date/Time Smoking Status/Tobac co Use Comment Facility Mar 18, 2024 10:00 AM VA-TOBACCO USE FORMER OTHER TYPE Quit more than 15 years ago [place] [facility] [place] [facility] Encounter Notes: All associated encounter notes This section contains the clinical notes associated to the Encounter. Date/Time Encounter Note(s) Provider Source Jul 22, 2024 08:30 AM TELEHEALTH NOTE: LOCAL TITLE: [place] VIDEO CONNECT PSYCHOLOGY NOTE STANDARD TITLE: TELEHEALTH NOTE DATE OF NOTE: JUL 22, 2024@08:30 ENTRY DATE: JUL 22, 2024@11:57:01 AUTHOR: TAO FOWLER COSIGNER: URGENCY: STATUS: COMPLETED [place] Video Connect (VVC) Standard Documentation VVC Clinician Resources Only: E911 (Emergency Call Relay Center): [phone] [place] [employer] Crisis Line - 988 then press #1. [place] Suicide Coordinator [phone], Ext. [phone]; Back-up Ext. [phone] [place] Police, Daniela STEVENSON [phone] Introduction: Visit is being conducted by [place] [email or web address] identified with 2 identifiers: [X] Full Name [X] Date of [ ] [place] ID Card Emergency Plan: confirmed and/or provided the following information in case of emergency or technology failure. PATIENT PHONE - NONE FOUND PHONE NUMBER [CELLULAR] - [phone] Is patient phone number correct, if not, enter below: [place]'s phone number: GLADIS WILLETT [address] [place] [address], [phone] [place]'s present location and address for appointment: Above address [place]'s emergency contact name and phone number: on file reported that location is private and safe: Yes Informed Consent: informed of the risks and benefits of Telehealth video care. [place] has the right to refuse video services. If refuses video visit, a [id number] visit will be scheduled. verbalized consent for this video visit: Yes provided consent for any other persons present for visit: Yes If yes, who and relationship to patient:-Annamarie Secure visit: Visit was locked for security and privacy:Yes [place] identified with 2 identifiers: [X] Full Name [X] Visual recognition Procedure: Individual psychotherapy Date/time: 07/22/24; [id number] Session: 5 PROBLEM: Depressive sx, recent suicidality, psychosocial stressors, anxious sx Goals: Improvement mood and self-esteem, address psychosocial stressors/interpersonal dynamics Progress: TW joined appt several minutes late d/t connectivity issues. [place] reports that depressive sx have returned to a relative baseline, indicating that drive he took and time he spent at [employer] after left session supported mood improvement; while he was aware of circumstances around last visit ([place]) and had some emotional reaction, he was largely able to re-associate this location with mood improvement and found this to be a positive experience, which was validated. [place] and TW collaboratively discussed ongoing familial stressors and the balance continues to attempt to strike between staying informed enough to support his while being uninvolved in specifics to maintain deniability as it relates to his stepson's legal issues. As a complement to strategies and themes discussed during couples counseling, TW encouraged [place] to consider small but important things/bx that communicate support and attention to his wellbeing he could relay to his in an effort to bolster mood improvement by reinforcing support from others, particularly as he often feels significantly deprioritized and unvalued in his family system, to which he was agreeable. Dx: Unspecified depressive d/o r/o PTSD r/o Unspecified anxiety d/o MSE: A&Ox4, cooperative Speech: normal RRTP Psychomotor/bx/presentatio n: unremarkable Thought process: linear; goal-directed Thought content: unremarkable Mood: appeared dysthymic, somewhat anxious; congruent, full affect No recent nor remote memory impairment endorsed; not formally assessed No recent AVH endorsed nor observed in present session; did not appear to be responding to internal stimuli Insight: good Judgment: fair to good did not endorse current SI/HI nor did he appear to be in any acute distress Ongoing Plan: Next appt with this medical technical writer scheduled for 08/05/24. encouraged to continue participation in couples counseling, psychiatry /es/ TAO FOWLER PSYD CLINICAL PSYCHOLOGIST - MENTAL HEALTH CLINIC Signed: 07/28/2024 13:44 TAO FOWLER [place] [facility]
--- OUTSIDE RECORDS SUMMARY | 2024-07-26 04:30 | XMS_ITS | Encounter Summary ---
Author Name [facility] [place] Address [address] [place] [address] Care Team Providers Care Yardage Tufting Machine Operator Name Role Phone KALEB DUFF Primary Care [...] HEALTH PLAN W/HEALTH SAVINGS ACCOUNT [facility] Apr 14, 2024 [id number] [facility] [phone] Lexie MARTIN SPOUSE CIGNA HIGH DEDUCTIBL E HEALTH PLAN W/HEALTH SAVINGS ACCOUNT [place] UTUAL [facility] Apr 14, 2024 [id number] [facility] [phone] ADRIANA WILLETT SPOUSE CIGNA HIGH DEDUCTIBL E HEALTH PLAN W/HEALTH SAVINGS ACCOUNT MASSM UTUAL [facility] September 08, 2023 [id number] ADRIANA WILLETT SPOUSE CIGNA BEHAVIORAL HEALTH MENTAL HEALTH MASSM UTUAL [facility] Apr 14, 2024 [id number] [facility] [phone] Lexie MARTIN SPOUSE [facility] MENTAL HEALTH MASSM UTUAL [facility] Apr 14, 2024 [id number] GABRIELA WILLETT PATIENT EXPRESS SCRIPTS ([id number]) PRESCRIPT ION MASSM UTUAL [facility]HP [facility] Apr 14, 2024 K4UA [id number] [phone] GABRIELA WILLETT PATIENT MEDCO (EXPRESS SCRIPTS) PRESCRIPT ION CIGNA /MEDC O [facility] Apr 14, 2024 K4UA [id number] [phone] GABRIELA WILLETT SPOUSE Selected Encounter This section includes the information on record at [place] for the Encounter. Date/Time Encounter Type Encounter Description Reason Provider Source Jul 26, 2024 08:30 AM FAMILY PSYTX W/PT 50 MIN [facility] CLINIC - IND ICD-10-CM F43.10 Post-traumatic stress disorder, unspecified ARIELA HAYES Martha Encounter Template Text not used by [place] Assessments - Encounter Diagnoses This section includes the primary and secondary diagnoses documented for the Encounter. Date/Time Primary/Secondary Diagnosis Diagnosis Name Provider Source Sep 17, 2024 12:23 PM PRIMARY Post-traumatic stress disorder, unspecified GUICHO HAYES [facility] Sep 17, 2024 12:23 PM SECONDARY Problems in relationship with spouse or partner GUICHO HAYES [facility] Plan of Treatment: Future Appointments (+ 6 months) and Future Tests (+/- 45 days) The Plan of Treatment section includes future care activities for the patient [facility] all [place] [facility] This section includes future appointments and future orders which are active, pending or scheduled. Future Appointments This section includes appointments that were scheduled to occur 6 months from the date of the Encounter, up to a maximum of 20 appointments. The data comes from all [place] treatment facilities. Appointment Date/Time Appointment Type Appointme nt Facility Name Jul 28, 2024 08:30 AM AMBULATORY - PSYCHIATRY [facility] Aug 02, 2024 03:00 PM AMBULATORY - MEDICINE [facility] Aug 02, 2024 05:00 PM AMBULATORY - NEUROLOGY [facility] August 12, 2024 08:30 AM AMBULATORY - PS[facility]CHIATRY [facility] [place] [facility] August 16, 2024 08:30 AM AMBULATORY - PSYCHIATRY [facility] [place] [facility] August 19, 2024 03:30 PM AMBULATORY - PSYCHIATRY [facility] [place] [facility] August 26, 2024 03:30 PM AMBULATORY - PSYCHIATRY [facility] [place] [facility] September 02, 2024 08:30 AM AMBULATORY - PSYCHIATRY [facility] [place] [facility] September 08, 2024 08:00 AM AMBULATORY - REHAB MEDICIN E [facility] [place] [facility] Sep 13, 2024 08:30 AM AMBULATORY - PSYCHIATRY [facility] [place] [facility] Sep 16, 2024 08:30 AM AMBULATORY - PSYCHIATRY [facility] [place] [facility] Sep 17, 2024 08:30 AM AMBULATORY - PSYCHIATRY [facility] [place] [facility] Sep 24, 2024 03:30 PM AMBULATORY - PSYCHIATRY [facility] [place] [facility] Oct 05, 2024 08:30 AM AMBULATORY - PSYCHIATRY [facility] [place] [facility] Oct 11, 2024 08:30 AM AMBULATORY - PSYCHIATRY [facility] [place] [facility] Oct 14, 2024 08:30 AM AMBULATORY - PSYCHIATRY [facility] [place] [facility] Oct 21, 2024 08:30 AM AMBULATORY - PSYCHIATRY [facility] [place] [facility] Nov 04, 2024 08:30 AM AMBULATORY - PSYCHIATRY [facility] [place] [facility] Nov 18, 2024 08:30 AM AMBULATORY - PSYCHIATRY [facility] [place] [facility] Nov 26, 2024 08:30 AM AMBULATORY - PSYCHIATRY [facility] [place] [facility] Social History: Smoking Status (Most current) and [...] Comment Facility Mar 18, 2024 10:00 AM [place]-TOBACCO USE FORMER OTHER TYPE Quit more than 15 years ago [facility] Encounter Notes: All associated encounter notes This section contains the clinical notes associated to the Encounter. Date/Time Encounter Note(s) Provider Source Jul 26, 2024 09:59 AM MENTAL HEALTH NOTE : LOCAL TITLE: BEHAVIORAL COUPLES THERAPY NOTE STANDARD TITLE: MENTAL HEALTH NOTE DATE OF NOTE: JUL 26, 2024@09:59 ENTRY DATE: JUL 26, 2024@09:59:51 AUTHOR: ARIELA HAYES COSIGNER: URGENCY: STATUS: COMPLETED INFORMED CONSENT TO PARTICIPATE IN SESSION: At beginning of session reviewed rights and limits of confidentiality, mandatory reporting situations, duty to warn and protect, Cabezas Warning,(if treatment team finds patient to be an acute danger to himself or others, that this information could be relayed to a court of law and presented to a pole lift operator), and DOD access for active duty service members. Provided Suicide Prevention Hotline number, and other contact numbers as necessary. DURATION OF SESSION: 50 minutes SESSION CONTENT: The couple shared examples of how they have been using the communication skills discussed in session. They feel that they are checking in with each other more and, although at times, they don't know what they specifically need in moments of depression, discussing emotions have helped. The couple also identified not experiencing any conflicts recently which they are happy with. This conventional underwriter reinforced skills used and explored any possible barriers. The couple and this conventional underwriter discussed reducing frequency of sessions for more time to practice skills in between. MENTAL STATUS AND BEHAVIORAL OBSERVATIONS: The couple was polite and cooperative. They showed physical affection through hand holding throughout session. No safety concerns were reported. DSM5 DIAGNOSES: relationship distress with spouse; [place] with PTSD diagnosis. Plan: RTC on 08/16 @8:30am [place] Video Connect (VVC) Standard Documentation VVC Clinician Resources Only: E911 (Emergency Call Relay Center): [phone] [employer] Crisis Line - 988 then press #1. LUCIAJason Suicide Coordinator [phone], Ext. [phone]; Back-up Ext. [phone] [place] Police, [place], Daniela [phone] Introduction: Visit is being conducted by [place] Video Connect. identified with 2 identifiers: [X] Full Name [X] Date of [ ] [place] ID Card Emergency Plan: [place] confirmed and/or provided the following information in case of emergency or technology failure. PATIENT PHONE - NONE FOUND PHONE NUMBER [CELLULAR] - [phone] Is patient phone number correct, if not, enter below: [place]'s phone number: GLADIS WILLETT [address] [place] [address], [phone] [place]'s present location and address for appointment: above address 's emergency contact name and phone number: on file reported that location is private and safe: Yes Informed Consent: [place] informed of the risks and benefits of Telehealth video care. [place] has the right to refuse video services. If refuses video visit, a [id number] visit will be scheduled. [place] verbalized consent for this video visit: Yes provided consent for any other persons present for visit: Yes If yes, who and relationship to patient:-Severiano Secure visit: Visit was locked for security and privacy:Yes Does this visit involve laterality/specific side of body? N/A /prashanth/ Ariela Hayes Psy.D. Psychologist Signed: 07/27/2024 08:25 ARIELA HAYES [place] [facility] [place] [facility]
--- OUTSIDE RECORDS SUMMARY | 2024-07-28 04:30 | XMS_ITS ---
Author Name [facility] [place] Organization [facility] [place] Address [address] [place] [address] Care Team Providers Care Senior Housekeeper Name Role Phone KALEB DUFF Primary Care [...] DEDUCTIBL E HEALTH PLAN W/HEALTH SAVINGS ACCOUNT [facility]. [facility] Apr 14, 2024 [id number] [facility] Leixe MARTIN SPOUSE CIGNA HIGH DEDUCTIBL E HEALTH PLAN W/HEALTH SAVINGS ACCOUNT MASS UTUAL [facility] Apr 14, 2024 [id number] [facility] ADRIANA WILLETT SPOUSE CIGNA HIGH DEDUCTIBL E HEALTH PLAN W/HEALTH SAVINGS ACCOUNT MASS UTUAL [facility] September 08, 2023 [id number] ADRIANA WILLETT SPOUSE CIGNA BEHAVIORAL HEALTH MENTAL HEALTH MASS UTUAL [facility] Apr 14, 2024 [id number] [facility] Lexie MARTIN SPOUSE [facility] MASSM UTUAL [facility] Apr 14, 2024 [id number] GABRIELA WILLETT PATIENT [employer] ([id number]) PRESCRIPT ION MASSM UTUAL [facility] Apr 14, 2024 [id number] GABRIELA WILLETT PATIENT MEDCO ([employer]) PRESCRIPT ION CIGNA /MEDC O [facility] Apr 14, 2024 [id number] GABRIELA WILLETT SPOUSE Selected Encounter This section includes the information on record at [place] for the Encounter. Date/Time Encounter Type Encounter Description Reason Provider Source Jul 28, 2024 08:30 AM OFFICE O/P EST MOD 30 MIN [facility]ENTAL [facility] CLINIC - IND ICD-10-CM 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, recurrent severe w/o psych features CLAUDE SAAB [facility] Encounter Template Text not used by [place] Assessments - Encounter Diagnoses This section includes the primary and secondary diagnoses documented for the Encounter. Date/Time Primary/Secondary Diagnosis Diagnosis Name Provider Source Oct 12, 2024 10:53 AM PRIMARY Major depressv disorder, recurrent severe w/o psych features [facility] Oct 12, 2024 10:53 AM SECONDARY Generalized anxiety disorder [facility] Oct 12, 2024 10:53 AM SECONDARY Insomnia due to other mental disorder CLAUDE SAAB [facility] Plan of Treatment: Future Appointments [...] Date/Time Appointment Type Appointme nt Facility Name Aug 02, 2024 03:00 PM [facility] Aug 02, 2024 05:00 PM AMBULATORY - NEUROLOGY [facility] August 12, 2024 08:30 AM AMBULATORY [facility]IAT[facility] August 16, 2024 08:30 AM AMBULATORY - [facility]CHIATRY [facility] August 19, 2024 03:30 PM AMBULATORY - PSYCHIATRY [facility] August 26, 2024 03:30 PM AMBULATORY - PSYCHIATRY [facility] September 02, 2024 08:30 AM AMBULATORY - PSYCHIATRY [facility] September 08, 2024 08:00 AM AMBULATORY - REHAB MEDICIN E [facility] Sep 13, 2024 08:30 AM AMBULATORY - PSYCHIATRY [facility] Sep 16, 2024 08:30 AM AMBULATORY - PSYCHIATRY [facility] Sep 17, 2024 08:30 AM AMBULATORY - PSYCHIATRY [facility] Sep 24, 2024 03:30 PM AMBULATORY - PSYCHIATRY [facility] Oct 05, 2024 08:30 AM AMBULATORY - PSYCHIATRY [facility] Oct 11, 2024 08:30 AM AMBULATORY - PSYCHIATRY [facility] Oct 14, 2024 08:30 AM AMBULATORY - PSYCHIATRY [facility] Oct 21, 2024 08:30 AM AMBULATORY - PSYCHIATRY [facility] Nov 04, 2024 08:30 AM AMBULATORY - PSYCHIATRY [facility] Nov 18, 2024 08:30 AM AMBULATORY - PSYCHIATRY [facility] Nov 26, 2024 08:30 AM AMBULATORY - PSYCHIATRY [facility] Dec 02, 2024 08:30 AM AMBULATORY - PSYCHIATRY [facility] Social History: Smoking Status (Most current) [...] 10:00 AM VA-TOBACCO USE FOR DORI CIGARETTES [facility] Tobacco Use History This section includes a history of the smoking, or tobacco-related health factors, that were collected on or before the date of the Encounter. The data comes from the [place] facility where the Encounter took place. Date/Time Smoking Status/Tobac co Use Comment Facility Mar 18, 2024 10:00 AM VA-TOBACCO USE FORMER OTHER TYPE Quit more than 15 years ago [facility] Encounter Notes: All associated encounter notes This section contains the clinical notes associated to the Encounter. Date/Time Encounter Note(s) Provider Source Jul 28, 2024 08:35 AM PRIMARY CARE NURSE PRACTITIONER OUTPATIENT NOTE: LOCAL TITLE: NURSE PRACTITIONER OUTPATIENT NOTE STANDARD TITLE: PRIMARY CARE NURSE PRACTITIONER OUTPATIENT NOTE DATE OF NOTE: JUL 28, 2024@08:35 ENTRY DATE: JUL 28, 2024@08:35:40 AUTHOR: VIOLA SAAB COSIGNER: URGENCY: STATUS: COMPLETED OUTPATIENT MENTAL HEALTH CLINIC: FOLLOW-UP Visit is being conducted by [place] [facility]. Premier identified with 2 identifiers: Full Name Date of Emergency Plan: Premier confirmed and/or provided the following information in case of emergency or technology failure. PATIENT PHONE - NONE FOUND PHONE NUMBER [CELLULAR] - [phone] Is patient phone number correct, if not, enter below: 's phone number: GLADIS WILLETT [address] [place] [address], [phone] 's present location and address for appointment: home 's emergency contact name and phone number: up to date in CPRS reported that location is private and safe: yes HPI: GLADIS WILLETT, a 48 y/o male previously diagnosed with MDD presents for MHC Follow-Up appointment. Last seen by This Provider on 06/22/24 denies any perceptible benefit or side effects from increased dose of FLUOXETINE Symptoms of depression and anxiety both remain elevated but specified that symptoms of depression are significantly worse I had a week where I was so depressed that I didn't go to work Premier explicitly denies active or passive SI despite these elevated symptoms Reports persistent/unremitting symptoms of depression with avolition, lethargy and anhedonia being particularly salient. Also endorsed transient moments of despair. I would say I'm always depressed Still has significant amount of cooccurring anxiety. I just get fidgety. I start rubbing my fingers. I can't stand still. Occurs in episoes and not continuously Sleep has still been okay. About 7-8 hours per night, on average Has been taking a capsule of HYDROXYZINE every morning and feels that it helps. Denies side effects. No change in Cannabis use. Still using daily. Longest periods of abstinence in recent years has been 1-2 weeks with cravings and rebound insomnia explicitly and convincingly denied SI, intent or plan and denied thoughts of harming others. SUBSTANCE USE: Tobacco: denied Alcohol: once or twice per year Narcotics: denied Cannabis: daily; two grams per day on average PSYCHIATRIC HISTORY: Medication trials: BUPROPION Reports trial of bupropion approximately 10 years ago and that this medication was beneficial and well tolerated Inpatient Hospitalizations: March, for SI with intent and plan [facility] not available for review at this time Suicidal Acts and Self-Harm: SI with intent and plan in February, Denies any other suicide attemtps Premier prepared to take his life the day after Thanksgiving. He wrote a suicide note to his [facility] [place] of [place]. He self-interrupted when he saw deer. He did not want to defile such a beautiful place. He reported chronic SI without any previous attempts. He was sectioned to [facility] where he was inpatient for 6 days. HISTORY OF VIOLENCE/ASSAULTING OTHERS: denied FAMILY MENTAL HEALTH AND SUBSTANCE USE HISTORY: Not that I'm aware of any Lethal Means Safety Counselling [facility] was conducted. Denied access to firearms SOCIAL HISTORY: Per [facility] Outpatient Mental Health Assessment (04/19/2023), confirmed by during assessment Premier is unaware of any family history in terms of MH issues or substancea buse. Born and raised in [facility] [place] [facility]. Mother had him at aged 16, at which time his bio father denied paternity. He was then raised believing stepdad was bio father until actual bio father called him at age 13. Mom stepdad around that time but they remained in touch. Both fathers are now . Mom recently moved to [place] with a boyfriend. Xenia and she are in touch but not close. No abuse in home but acknowledges a pattern of being invalidated by mom or feeling like an inconvenience. Xenia has half sister he was raised with but they fell out of touch after father's . He believes she lives in [facility] [facility]. Xenia met his Annamarie about four [...] some way. 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 Was laid off last summer but has a new job working FT at [employer]. Job is very sedentary, which may be contributing to 's mental health issues. [employer], did a tour in [facility] and saw combat, discharged in 1996, exposure [...] full and appropriate range LABS AND STUDIES: REVIEWED IN CPRS MEDICAL HISTORY: Active Problem Essential hypertension I10. 03/18/2024August,CHERYL Tariq Posttraumatic stress disorder F43.1 03/18/2024August,CHERYL Tarqi Crohns disease K50.90 03/18/2024AugustCHERYL Depression F32.A 03/18/2024August,CHERYL Tariq Anxiety F41.9 03/18/2024August,CHERYL Tariq Insomnia G47.00 03/18/2024August,CHERYL Tariq ALLERGIES: Data on this list may not be complete. Please check JLV. FACILITY ALLERGY/ADR -------- No Remote Allergy/ADR Data available for this patient [facility] No Known Allergies MEDICATIONS: reviewed and updated in CPRS Active Outpatient Medications (including Supplies): Active Outpatient Medications Status 1) BUPROPION HCL 300MG 24HR SA TAB TAKE ONE TABLET BY MOUTH ACTIVE EVERY MORNING Indication: MOOD 2) DOXEPIN 6MG TAB TAKE ONE TABLET BY MOUTH AT BEDTIME ACTIVE NEEDED FOR INSOMNIA Indication: SLEEP 3) FLUOXETINE HCL 20MG CAP TAKE THREE CAPSULES BY MOUTH ONCE ACTIVE DAILY FOR [...] that would justify an involuntary hospitalization. denies recurrence of active SI in interim since last appointment but elevated symptoms of depression and anxiety are certainly risk factors. convincingly denied active SI, intent or plan and confirms willingness to [...] in treatment and a strong support network. was also future oriented and goal directed during today's assessment. Demonstration of help-seeking behaviors and familial responsibilities are also strong protective factors. IMPRESSION: presents as polite, cooperative and treatment motivated identifies depression as the symptom that he would like to prioritize in treatment and the risks and benefits of various treatment options were discussed including ARIPIPRAZOLE, QUETIAPINE, LITHIUM and ARMODAFINIL expressed a preference for ARIPIPRAZOLE Discussed common and rare side effects of aripiprazole including tremor, akathisia, EPS/involuntary movements, hypertension, dry mouth, weight gain, orthostatic hypotension, blurred vision, tremor and neuroleptic malignant syndrome, metabolic effects, somnolence, insomnia and cardiac effects. Also informed of increased risk of impulsive/compulsive behaviors Suggested that CANNABIS use could conceivably be contributing to mood symptoms and attempted to assess Premier's motivation to change cannabis use. does not feel that this medication has significant negative impacts (aside from limiting employment options) and worries about mood, sleep and anxiety worsening without cannabis. Will continue to assess role of cannabis and Premier's motivation to discontinue use but no clear indication that CUD would be an appropriate diagnosis at present Also agreed to titrate FLUOXETINE back down to 40 mg given lack of benefit from increased dose No acute safety concerns Diagnosis: MDD, recurrent, severe w/o psychotic features Generalized Anxiety Disorder Insomnia Disorder, unspecified R/O Cannabis Use Disorder PLAN: 1) DECREASE Fluoxetine FROM 60 TO 40 mg PO DAILY 2) CONTINUE Hydroxyzine 50 mg PO PRN 3) CONTINUE BUPROPION XR 300 MG PO DAILY 4) CONTINUE DOXEPIN 6 MG PO QHS PRN 5) INITIATE ARIPIPRAZOLE 2 MG PO DAILY Labs: none today Follow-Up: 08/19/24 Discussed risks and benefits of proposed medication treatments including FDA approved indications and off-label uses, as well as common and severe side effects. comprehended all information discussed, had opportunity to ask questions which were answered to their satisfaction, and voluntarily and without duress agreed to trial as documented. CONTACT AND CRISIS INFO: informed that This Provider can be contacted at , [phone] or via Secure Messaging. We have reviewed the Crisis Hotline (477, dial #1 for line), and the has been instructed to call 911 or go to the nearest ED if acutely suicidal or experiencing a mental health emergency. INFORMED CONSENT REVIEWED: At beginning of session reviewed rights and limits of confidentiality, mandatory reporting situations, duty to warn and protect, risk of suicide or homicide, potential elder or child abuse/neglect and Cabezsa Warning, (if treatment team finds patient to be an acute danger to himself or others, that this information could be relayed to a court of law and presented to a rfid analyst), and DOD access for active-duty service members. [...] SAAB Psychiatric Mental Health Nurse Practitioner Signed: 07/28/2024 12:55 VIOLA SAAB [facility]
--- OUTSIDE RECORDS SUMMARY | 2024-08-02 13:00 | XMS_ITS ---
Author Name [facility] [place] Organization [facility] [place] Address [address] [place] [address] Care Team Providers Care Freight Sorter Name Role Phone KALEB DUFF Primary Care [...] [facility] Apr 14, 2024 [id number] [facility] Lexie MARTIN SPOUSE CIGNA HIGH DEDUCTIBL E HEALTH PLAN W/HEALTH SAVINGS ACCOUNT MASS UTUAL HDHP [facility] Apr 14, 2024 [id number] [facility] [phone] ADRIANA WILLETT SPOUSE CIGNA HIGH DEDUCTIBL E HEALTH PLAN W/HEALTH SAVINGS ACCOUNT MASSM UTUAL HDHP [facility] September 08, 2023 [id number] [phone] ADRIANA WILLETT SPOUSE CIGNA BEHAVIORAL HEALTH MENTAL HEALTH MASSM UTUAL [facility] Apr 14, 2024 [id number] [facility] Lexie MARTIN SPOUSE [facility] MASSM UTUAL [facility] Apr 14, 2024 [id number] GABRIELA WILLETT PATIENT [employer] ([id number]) PRESCRIPT ION MASSM UTUAL HDHP [facility] Apr 14, 2024 [id number] [phone] GABRIELA WILLETT PATIENT MEDCO (EXPRESS SCRIPTS) PRESCRIPT ION CIGNA /MEDC O [facility] Apr 14, 2024 [id number] [phone] GABRIELA WILLETT SPOUSE Selected Encounter This section includes the information on record at [place] for the Encounter. Date/Time Encounter Type Encounter Description Reason Provider Source Aug 02, 2024 05:00 PM Outpatient Encounter ADMIN PAT ACTIVTIES (MASNONCT) ICD-10-CM Z77.29 Contact with and exposure to other hazardous substances [facility] Encounter Template Text not used by [place] Assessments - Encounter Diagnoses This section includes the primary and secondary diagnoses documented for the Encounter. Date/Time Primary/Secondary Diagnosis Diagnosis Name Provider Source Aug 02, 2024 05:19 PM SECONDARY Contact w and (suspected) exposure to oth environ pollution [facility] Aug 02, 2024 05:19 PM SECONDARY Contact with and exposure to other hazardous substances [facility] Plan of Treatment: Future Appointments (+ 6 months) and Future Tests (+/- 45 days) The Plan of Treatment section includes future care activities for the patient from [facility] [place] [facility] This section includes future appointments and future orders which are active, pending or scheduled. Future Appointments This section includes appointments that were scheduled to occur 6 months from the date of the Encounter, up to a maximum of 20 appointments. The data comes from all [place] treatment facilities. Appointment Date/Time Appointment Type Appointme nt Facility Name August 12, 2024 08:30 AM AMBULATORY - PSYCHIATRY [facility] August 16, 2024 08:30 AM AMBULATORY - PSYCHIATRY [facility] August 19, 2024 03:30 PM AMBULATORY - PSYCHIATRY [facility] August 26, 2024 03:30 PM [facility] [place] September 02, 2024 08:30 AM AMBULATORY [facility] [place] [facility] September 08, 2024 08:00 AM AMBULATORY - REHAB MEDICIN E [facility] [place] [facility] Sep 13, 2024 08:30 AM AMBULATORY - [facility] [place] [facility] Sep 16, 2024 08:30 AM AMBULATORY [facility] [place] [facility] Sep 17, 2024 08:30 AM AMBULATORY [facility] [place] [facility] Sep 24, 2024 03:30 PM AMBULATORY - [facility] [place] [facility] Oct 05, 2024 08:30 AM AMBULATORY - [facility] [place] [facility] Oct 11, 2024 08:30 AM AMBULATORY [facility] [place] [facility] Oct 14, 2024 08:30 AM AMBULATORY - [facility] [place] [facility] Oct 21, 2024 08:30 AM AMBULATORY - PS[facility] [place] [facility] Nov 04, 2024 08:30 AM AMBULATORY - [facility] [place] [facility] Nov 18, 2024 08:30 AM AMBULATORY - [facility] [place] [facility] Nov 26, 2024 08:30 AM AMBULATORY - PS[facility] [place] [facility] Dec 02, 2024 08:30 AM AMBULATORY - [facility] [place] [facility] Dec 14, 2024 08:30 AM AMBULATORY - [facility] [place] [facility] Dec 16, 2024 08:30 AM AMBULATORY - PS[facility]AT[facility] [place] [facility] Social History: Smoking Status (Most current) [...] 10:00 AM VA-TOBACCO USE FOR DORI CIGARETTES [facility] Tobacco Use History This section includes a history of the smoking, or tobacco-related health factors, that were collected on or before the date of the Encounter. The data comes from the [place] facility where the Encounter took place. Date/Time Smoking Status/Tobac co Use Comment Facility Mar 18, 2024 10:00 AM [place]-TO[place]ACCO USE FORMER OTHER TYPE Quit more than 15 years ago [facility] Encounter Notes: All associated encounter notes This section contains the clinical notes associated to the Encounter. Date/Time Encounter Note(s) Provider Source Aug 02, 2024 05:37 PM WRIISC E & M NOTE: LOCAL TITLE: VET-HOME PROVIDER NOTE STANDARD TITLE: WRIISC E & M NOTE DATE OF NOTE: AUG 02, 2024@17:37 ENTRY DATE: AUG 02, 2024@17:37:51 AUTHOR: [facility] COSIGNER: URGENCY: STATUS: COMPLETED AUG 02, 2024 GLADIS WILLETT [address] [place] [id number] DEAR: GLADIS PAREDES It was a pleasure to meet you for your recent [place] Environmental Exposures Assessment. As part of your evaluation, you may have had labs, imaging, and/or breathing tests done. Any [facility] [place] provider will be able to see your evaluation and all your test results; you can also access your evaluation and test results by signing up for My HealtheVet at [email or web address] Based on your exam and test results, I recommend: Following up with your primary care provider (PCP) or specialty care for Crohn's disease, GERD and MENTAL HEALTH concerns. It was truly a pleasure speaking with you today! Best wishes and thank you for your service. I also encourage you to work with your primary care provider to optimize your overall health. With environmental exposures, it is especially important to take care of yourself by eating a healthy diet, exercising regularly, avoiding tobacco and excessive alcohol consumption, and staying current on age-appropriate cancer screenings and vaccinations. If you have any additional health concerns and/or treatment needs, please schedule a follow up appointment with your primary care provider. DISABILITY: Environmental Exposures Assessments like the one you just completed are not disability exams. If you wish to file an original disability claim related to your environmental exposures, you have a few choices: 1. File a claim online using an [employer] Go account at [email or web address].[email or web address] [email or web address]. This is the fastest way to proceed. 2. Complete and mail the VA Form 21-366EZ (Application for Disability Compensation and Related Compensation Benefits) with a copy of your service treatment records to the following address: Department of [facility] Claims Intake Center [address] [place] [address]. 3. Contact the [place] Regional Office at for assistance. Included is a list of PACT Act Presumptions* related to deployments in the following locations. * On or after December 23, 2000, in any of these locations: [place], [place], [place], [place], [place], [place], [place], [place], or the airspace above any of these locations. * On or after November 13, 1989, in any of these locations: [place], [place], [place], [place], [place], [place], [place], the [place]), or the airspace above any of these locations. I encourage you to view [place]'s Health Outcomes Exposures website at https://www.publichealth.ma.g ov/exposures/index.asp for additional information and resources on exposures related to your service. Should you have additional questions, please contact your VET-HOME at [phone] or https://vethome.va.gov. I hope this information is helpful to you. Thank you again for your service to our country. Sincerely, [facility] DNP, RACHEL-GONZALES VET-HOME Clinician, /prashanth/ [facility] DNP, FNP-GONZALES VET-HOME CLINICIAN, Signed: 08/02/2024 17:39 [facility] [place] [facility] [place] [facility] Aug 02, 2024 04:54 PM ENVIRONMENTAL HEALTH NOTE: LOCAL TITLE: ENVIRONMENTAL EXPOSURE ASSESSMENT STANDARD TITLE: ENVIRONMENTAL HEALTH NOTE DATE OF NOTE: AUG 02, 2024@16:54 ENTRY DATE: AUG 02, 2024@16:54:43 AUTHOR: [facility] COSIGNER: URGENCY: STATUS: COMPLETED MODULE 1: INTRODUCTION AND TELEHEALTH Chief complaint/[place] concern(s): I have crohn' s disease. PURPOSE OF EXAM: REGISTRY: The [place] was advised that registry exams are limited to diagnostic and research purposes only. PRIVACY: Reviewed Privacy Act Statement and educated that no individual identifying information will be shared with any third parties outside the VA without the 's consent. The was also advised that only non-identifiable data is used to assess conditions affecting deployed groups of Veterans. Primary Care name and phone number: KALEB DUFF Appointment was a Telehealth CVT/VVC visit. VVC appointment information: C - Consent: The [place] was notified of the right to decline telehealth services and the availability of other options. The consented to be seen via CVT/VVC. A - Address: Obtained or verified [place]'s address for this appointment. Patient location during visit: Home [address] [place] [id number] P - Phone Numbers: - If e911 service is not available, get local police, puppet master or other emergency contact numbers from the . If [place] does not know contact emergency contact numbers, you will need to use Emergency Call Relay Center at [phone]. - The [place] confirms the location is safe and private for the visit. - Others are not in the home or local area who may be contacted in an urgent situation Others present at this appointment with the [place]'s consent (caregiver, family member, etc.) S - Surveyed the environment and identified all participants in room. L - Locked the virtual medical room for the encounter. EMERGENCY PLAN In the event of an emergency, the or family may call emergency services, if capable. The telehealth clinician will remain in the virtual medical room until emergency response arrives and handoff to emergency services is complete. If the is unable to make an emergency call, the telehealth clinician should follow the process outlined in the CAPS LOCK section. VETERANS CRISIS LINE: press 1 or 988 and press 1. [employer] Help Desk (NTD): [phone] Verified telehealth clinician's contact information for this appointment: VET-HOME Clinician: BYRON Titus. Tel# MODULE 2: HISTORY AND EXPOSURE ASSESSMENT /Deployment history reviewed and discussed with : Deployment history verbally reviewed with . Details: confirmed by . 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 His duty was rotational, and his exposure was at least 1-2 hours+ each day, daily. The burn pits were a size of a 55 gallon barrel and a swimming pool size. Besides working the burn pit, parker also lived close to the burn pit, about 100 yards. Parker worked around the burn pit where he could see the smoke and smell the fume. SAND/DUST AND PARTICULATE MATTER: Kaylat exposed to many sand and dust storms including inhalable particulate matter < 2.5 microns. FUEL & VEHICLE/AIRCRAFT EXHAUST: Parker was exposed to diesel fuel, generator, and vehicle exhaust. 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 OTHERS: Parker was sent into the vehicle graveyards to get parts. The exposure was about 3 hrs and it was a 1 time visit. MODULE 3: COMBINED HPI AND ROS Combined HPI and ROS. Gastrointestinal: Details: Parker endorses having Crohn's disease and is being followed by Gastroentorologist. The symptoms started in 1996 where he had abd pain, diarrhea, constipation and sometimes fever. It was diagnosed in 2022. He also has GERD Mental Health: Details: Parker is diagnosed with PTSD and depression, and is taking medication, as well as being seen by . MODULE 4: ALLERGIES/MEDICATIONS/PROBLEM LIST/PAST MEDICAL HISTORY Allergies reviewed in CPRS. Active Medications: Active Outpatient Medications (including Supplies): ARIPIPRAZOLE 2MG TAB TAKE ONE TABLET BY MOUTH ONCE DAILY ACTIVE FOR MOOD/ Indication: DEPRESSION BUPROPION HCL 300MG 24HR SA TAB TAKE ONE TABLET BY MOUTH ACTIVE EVERY MORNING Indication: MOOD DOXEPIN 6MG TAB TAKE ONE TABLET BY MOUTH AT BEDTIME ACTIVE NEEDED FOR INSOMNIA Indication: SLEEP FLUOXETINE HCL 20MG CAP TAKE TWO CAPSULES BY MOUTH ONCE ACTIVE DAILY FOR DEPRESSION AND ANXIETY Indication: MOOD HCTZ 12.5/LISINOPRIL 10MG TAB TAKE 1 TABLET BY MOUTH ONCE ACTIVE DAILY Indication: FOR HIGH BLOOD PRESSURE HYDROXYZINE HCL 50MG TAB TAKE ONE TABLET BY MOUTH TWICE ACTIVE DAILY NEEDED Indication: ANXIETY Non-VA OMEPRAZOLE 20MG EC CAP 20MG BY MOUTH EVERY MORNING ACTIVE 30 MINUTES BEFORE BREAKFAST Indication: FOR EXCESSIVE PRODUCTION OF STOMACH ACID 7 Total Medications Medication list reviewed in [facility]. NOTE: This list does not reflect any updates made to the problem list during today's appointment. Please refer to the assessment section in module 7 for additional diagnoses. 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 Parker grew up in a household where parent(both) smoked but parker was relatively healthy during his childhood. He was never diagnosed with asthma and participated in sports in school such as baseball. Parker is with children. Substances: Cigarettes Parker is an ex-smoker, smoking about up to a pack a day for 10 years. Cigars No Marijuana, including tetrahydrocannabinol (THC) and cannabidiol (CBD) products. Details: Parker smokes marijuana to help with his MH. Hobbies: Details: Parker likes to hike, camp and going out on his boat on the weekend. He also likes to go to [employer] and Hockey games. 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 Family history Cancers: Details: MGF with pancreatic CA. Mother with breast CA (in her 40s and is still alive) and father of lung CA (at 62 y/o from fpc smoker). MODULE 6: PHYSICAL EXAM/ RECORDS REVIEW/ DIAGNOSTIC TESTS A previous physical exam of record was reviewed. Date of previous exam: 03/25/24 Evaluation was completed via Telehealth and physical exam was not performed. MODULE 7: ASSESSMENT AND PLAN EXPOSURE/S: Contact with and (suspected) Exposure to Other Environmental Pollution Add to Problem List Comment: please see PONCE exam on 08/02/24 Exposure Assessment Summary/Plan: The received guidance to continue to follow up with 's primary care provider and/or specialist(s) for the continued management/further evaluation of the above mentioned health conditions and concerns. It is important to note that a risk factor does not guarantee that an adverse health outcome with occur. was encouraged to minimize any ongoing exposures and to use appropriate PPE when necessary. Furthermore, recommend continuing with routine physical exam and blood work, along with USPSTF age appropriate health screening guidelines. Answered all the questions that the may have. The voiced understanding and agreement with this proposed course of action. Educated regarding: [place] was advised on preventive health measures to include eating a healthy diet, exercising regularly, avoiding tobacco and excessive alcohol consumption, and staying current on age-appropriate cancer screenings and vaccinations. was advised to follow up with their primary care provider for treatment needs and/or further evaluation as indicated. [place] was made aware of educational resources that include information on Public Health Exposures website. Exposure fact sheet was provided. Toxic Exposure Screening: The [place]/caregiver was asked if they believe the experienced any toxic exposure(s), such as Airborne Hazards and Open Burn Pit, [place] related exposures, Agent Clyo, Radiation, contaminated water at [place] or other such exposures, while serving in the Armed [employer]. [place]/caregiver believes the [place] was exposed to the following while serving in the Armed Forces: Airborne Hazards and Open Burn Pit (Occuring in [facility] after [facility]): /caregiver was made aware of educational resources that includes information on presumptive conditions and how to file a claim. Printed information was offered and provided if desired. [place] War related exposures: /caregiver was made aware of educational resources that includes information on the Registry Program, presumptive conditions and how to file a claim. Printed information was offered and provided if desired. [place]/caregiver has health or medical concerns related to their concern of environmental exposure. Question: Crohn's disease, GERD, PTSD No questions at this time /caregiver was informed of local points of contact. Contact information for local resources: Benefits/Claim for Disability Compensation Questions:National VBA [place] Healthcare Enrollment: [facility] Eligibility direct dialed at [phone] Registry: [facility] Coordinator ext [phone] The following connections were provided to the [place]/caregiver: No connections needed at this time /prashanth/ [facility] DNP, HOME WORKER-BC VET-HOME CLINICIAN, Signed: 08/02/2024 17:37 [facility] [place] [facility]
--- OUTSIDE RECORDS SUMMARY | 2024-08-12 04:30 | XMS_ITS | Encounter Summary ---
Author Name [facility] [place] Organization [facility] [facility] [place] Address [address] [place] [address] Care Team Providers Care Manager Small Business Name Role Phone KALEB DUFF Primary Care [...] DEDUCTIBL E HEALTH PLAN W/HEALTH SAVINGS [facility] Apr 14, 2024 [id number] [facility] Lexie MARTIN SPOUSE CIGNA HIGH DEDUCTIBL E HEALTH PLAN W/HEALTH SAVINGS ACCOUNT [facility]ASS UTUAL [facility] Apr 14, 2024 [id number] [facility]2 [phone] ADRIANA WILLETT SPOUSE CIGNA HIGH DEDUCTIBL E HEALTH PLAN W/HEALTH SAVINGS ACCOUNT MASSM UTUAL [facility] September 08, 2023 [id number] [phone] ADRIANA WILLETT SPOUSE CIGNA BEHAVIORAL HEALTH MENTAL HEALTH MASSM UTUAL [facility] Apr 14, 2024 [id number] [facility] Lexie MARTIN SPOUSE [facility] MENTAL HEALTH MASSM UTUAL [facility] Apr 14, 2024 [id number] GABRIELA WILLETT PATIENT EXPRESS SCRIPTS ([id number]) PRESCRIPT ION MASSM UTUAL HDHP [facility] Apr 14, 2024 K4UA [id number] [phone] BRENNONGABRIELA ISBELL PATIENT MEDCO (EXPRESS SCRIPTS) PRESCRIPT ION CIGNA /MEDC O [facility] Apr 14, 2024 K4UA [id number] GABRIELA WILLETT SPOUSE Selected Encounter This section includes the information on record at OR for the Encounter. Date/Time Encounter Type Encounter Description Reason Provider Source August 12, 2024 08:30 AM PSYTX W PT 60 MINUTES MENTAL [facility]ALTH CLINIC - IND ICD-10-CM F32.A Depression, unspecified SHANIQUE FOWLER IHE Encounter Template Text not used by [place] Assessments - Encounter Diagnoses This section includes the primary and secondary diagnoses documented for the Encounter. Date/Time Primary/Secondary Diagnosis Diagnosis Name Provider Source Nov 03, 2024 11:12 AM PRIMARY Depression, unspecified SHANIQUE FOWLER M [place] [facility] [place] [facility] Nov 03, 2024 11:12 AM SECONDARY Anxiety disorder, unspecified SHANIQUE FOWLER M [place] [facility] [place] [facility] Plan of Treatment: Future Appointments (+ 6 months) and Future Tests (+/- 45 days) The Plan of Treatment section includes future care activities for the patient from all [place] treatmentfacilities. This section includes future appointments and future orders which are active, pending or scheduled. Future Appointments This section includes appointments that were scheduled to occur 6 months from the date of the Encounter, up to a maximum of 20 appointments. The data comes from all [place] treatment facilities. Appointment Date/Time Appointment Type Appointme nt Facility Name August 16, 2024 08:30 AM AMBULATORY - PSYCHIATRY [place] [facility] [place] [facility] August 19, 2024 03:30 PM AMBULATORY - PSYCHIATRY [place] [facility] [place] [facility] August 26, 2024 03:30 PM AMBULATORY - PSYCHIATRY [place] [facility] [place] [facility] September 02, 2024 08:30 AM AMBULATORY - PSYCHIATRY [facility] [place] [facility] September 08, 2024 08:00 AM AMBULATORY - REHAB MEDICIN E [facility] [place] [facility] Sep 13, 2024 08:30 AM AMBULATORY - PSYCHIATRY [facility] [place] [facility] Sep 16, 2024 08:30 AM AMBULATORY - PSYCHIATRY [facility] [place] [facility] Sep 17, 2024 08:30 AM AMBULATORY - PSYCHIATRY [facility] [place] [facility] Sep 24, 2024 03:30 PM AMBULATORY - PSYCHIATRY [facility] [place] [facility] Oct 05, 2024 08:30 AM AMBULATORY - PSYCHIATRY [facility] [place] [facility] Oct 11, 2024 08:30 AM AMBULATORY - PSYCHIATRY [facility] [place] [facility] Oct 14, 2024 08:30 AM AMBULATORY - PSYCHIATRY [facility] [place] [facility] Oct 21, 2024 08:30 AM AMBULATORY - PSYCHIATRY [facility] [place] [facility] Nov 04, 2024 08:30 AM AMBULATORY - PSYCHIATRY [facility] [place] [facility] Nov 18, 2024 08:30 AM AMBULATORY - PSYCHIATRY [facility] [place] [facility] Nov 26, 2024 08:30 AM AMBULATORY - PSYCHIATRY [facility] [place] [facility] Dec 02, 2024 08:30 AM AMBULATORY - PSYCHIATRY [facility] [place] [facility] Dec 14, 2024 08:30 AM AMBULATORY - PSYCHIATRY [facility] [place] [facility] Dec 16, 2024 08:30 AM AMBULATORY - PSYCHIATRY [facility] [place] [facility] Dec 20, 2024 03:00 PM AMBULATORY - MEDICINE [facility] [place] [facility] Social History: Smoking Status (Most current) [...] the Encounter. The data comes from the [place] facility where the Encounter took place. Date/Time Smoking Status/Tobac co Use Comment Facility Mar 18, 2024 10:00 AM [place]-TOBACCO USE FORMER OTHER TYPE Quit more than 15 years ago [facility] Encounter Notes: All associated encounter notes This section contains the clinical notes associated to the Encounter. Date/Time Encounter Note(s) Provider Source August 12, 2024 08:30 AM TELEHEALTH NOTE: LOCAL TITLE: OR VIDEO CONNECT PSYCHOLOGY NOTE STANDARD TITLE: TELEHEALTH NOTE DATE OF NOTE: AUGUST 12, 2024@08:30 ENTRY DATE: AUGUST 12, 2024@12:45:30 AUTHOR: TAO FOWLER COSIGNER: URGENCY: STATUS: COMPLETED [facility] Video Connect ([facility]VC) Standard Documentation VVC Clinician Resources Only: E911 (Emergency Call Relay Center): [phone] [facility] Crisis Line - 988 then press #1. [facility] Suicide Coordinator [phone], Ext. [phone]; Back-up Ext. [phone] [place] Police, LUCIA, Daniela [phone] Introduction: Visit is being conducted by [place] [employer]. Freer identified with 2 identifiers: [X] Full Name [X] Date of [ ] OR ID Card Emergency Plan: confirmed and/or provided the following information in case of emergency or technology failure. PATIENT PHONE - NONE FOUND PHONE NUMBER [CELLULAR] - [phone] Is patient phone number correct, if not, enter below: 's phone number: GLADIS WILLETT [address], [place], [address] 's present location and address for appointment: Above address Freer's emergency contact name and phone number: on file reported that location is private and safe: Yes Informed Consent: Freer informed of the risks and benefits of Telehealth video care. Freer has the right to refuse video services. If refuses video visit, a ujgw-ya-[id number] visit will be scheduled. Freer verbalized consent for this video visit: Yes Freer provided consent for any other persons present for visit: Yes If yes, who and relationship to patient:Juni Secure visit: Visit was locked for security and privacy:Yes identified with 2 identifiers: [X] Full Name [X] Visual recognition Procedure: Individual psychotherapy Date/time: 08/12/24; Session: 6 PROBLEM: Depressive sx, recent suicidality, psychosocial stressors, anxious sx Goals: Improvement mood and self-esteem, address psychosocial stressors/interpersonal dynamics Progress: Freer reports experiencing an increase in depressive sx over the last several days without obvious antecedent or stressor; TW briefly engaged in exploring potential contributing factors, to include cyclical nature of depression. TW engaged in completing an automatic thoughts task and introduced fundamental CBT concepts, using cognitive trial to highlight the relationship between thoughts, feelings, and bx. Using this framework, and TW collaboratively discussed bidirectional relationship between mood states and thoughts/perceptions, and TW utilized an example relevant to Freer's personal experience to illustrate CBT model, which he appeared able to appreciate. Plan was collaboratively discussed to prioritize CBT/CBT-D in subsequent sessions to bolster mood and self-concept. Dx: Unspecified depressive d/o r/o PTSD r/o Unspecified anxiety d/o MSE: A&Ox4, cooperative Speech: normal RRTP Psychomotor/bx/presentatio n: unremarkable Thought process: linear; goal-directed Thought content: unremarkable Mood: appeared generally dysthymic, somewhat anxious; congruent, full affect No recent nor remote memory impairment endorsed; not formally assessed No recent AVH endorsed nor observed in present session; did not appear to be responding to internal stimuli Insight: good Judgment: fair to good did not endorse current SI/HI nor did he appear to be in any acute distress Ongoing Plan: Next appt with this chart writer scheduled for 08/26/24. Freer encouraged to continue participation in couples counseling, psychiatry /es/ TAO FOWLER PSYD CLINICAL PSYCHOLOGIST - MENTAL HEALTH CLINIC Signed: 08/15/2024 07:51 [facility] FOWLER [facility]
--- OUTSIDE RECORDS SUMMARY | 2024-08-16 04:30 | XMS_ITS | Encounter Summary ---
Author Name [facility] [place] Organization [facility] [place] Address [address] [place] [address] Care Team Providers Care Clinic Office Assistant Name Role Phone KALEB DUFF Primary [...] DEDUCTIBL E HEALTH PLAN W/HEALTH SAVINGS [facility] Apr 14, 2024 [id number] [facility] [phone] Lexie MARTIN SPOUSE CIGNA HIGH DEDUCTIBL E HEALTH PLAN W/HEALTH SAVINGS ACCOUNT MASS UTUAL HDHP [facility] Apr 14, 2024 [id number] [facility] ADRIANA WILLETT SPOUSE CIGNA HIGH DEDUCTIBL E HEALTH PLAN W/HEALTH SAVINGS ACCOUNT MASSM UTUAL HDHP [facility] September 08, 2023 [id number] ADRIANA WILLETT SPOUSE CIGNA BEHAVIORAL HEALTH MENTAL HEALTH MASSM UTUAL [facility] Apr 14, 2024 [id number] [facility] [phone] Lexie MARTIN SPOUSE [facility] MENTAL HEALTH MASSM UTUAL [facility] Apr 14, 2024 [id number] GABRIELA WILLETT PATIENT EXPRESS SCRIPTS ([id number]) PRESCRIPT ION MASSM UTUAL HDHP [facility] Apr 14, 2024 K4UA [id number] [phone] GABRIELA WILLETT PATIENT MEDCO (EXPRESS SCRIPTS) PRESCRIPT ION CIGNA /MEDC O [facility] Apr 14, 2024 K4UA [id number] GABRIELA WILLETT SPOUSE Selected Encounter This section includes the information on record at [place] for the Encounter. Date/Time Encounter Type Encounter Description Reason Provider Source August 16, 2024 08:30 AM FAMILY PSYTX W/PT 50 MIN MENTAL HEALTH CLINIC - IND ICD-10-CM F43.10 Post-traumatic stress disorder, unspecified ARIELA HAYES Martha Encounter Template Text not used by [place] Assessments - Encounter Diagnoses This section includes the primary and secondary diagnoses documented for the Encounter. Date/Time Primary/Secondary Diagnosis Diagnosis Name Provider Source Nov 03, 2024 11:13 AM PRIMARY Post-traumatic stress disorder, unspecified GUICHO HAYES [facility] Nov 03, 2024 11:13 AM SECONDARY Problems in relationship with spouse or partner GUICHO HAYES [facility] Plan of Treatment: Future Appointments (+ 6 months) and Future Tests (+/- 45 days) The Plan of Treatment section includes [facility] care [facility] for the [facility] This section includes future appointments and future orders which are active, pending or scheduled. Future Appointments This section includes appointments that were scheduled to occur 6 months from the date of the Encounter, up to a maximum of 20 appointments. The data comes from all [place] treatment facilities. Appointment Date/Time Appointment Type Appointme nt Facility Name August 19, 2024 03:30 PM AMBULATORY - PSYCHIATRY [facility] August 26, 2024 03:30 PM AMBULATORY - PSYCHIATRY [facility] September 02, 2024 08:30 AM AMBULATORY - PSYCHIATRY [facility] September 08, 2024 08:00 AM AMBULATORY - REHAB MEDICIN E [facility] [place] [facility] Sep 13, 2024 08:30 AM AMBULATORY - PSYCHIATRY [place] [facility] [place] [facility] Sep 16, 2024 08:30 AM AMBULATORY - PSYCHIATRY [place] [facility] [place] [facility] Sep 17, 2024 08:30 AM AMBULATORY - PSYCHIATRY [place] [facility] [place] [facility] Sep 24, 2024 03:30 PM AMBULATORY - PSYCHIATRY [place] [facility] [place] [facility] Oct 05, 2024 08:30 AM AMBULATORY - PSYCHIATRY [place] [facility] [place] [facility] Oct 11, 2024 08:30 AM AMBULATORY - PSYCHIATRY [place] [facility] [place] [facility] Oct 14, 2024 08:30 AM AMBULATORY - PSYCHIATRY [place] [facility] [place] [facility] Oct 21, 2024 08:30 AM AMBULATORY - PSYCHIATRY [facility] [place] [facility] Nov 04, 2024 08:30 AM AMBULATORY - PSYCHIATRY [place] [facility] [place] [facility] Nov 18, 2024 08:30 AM AMBULATORY - PSYCHIATRY [place] [facility] [place] [facility] Nov 26, 2024 08:30 AM AMBULATORY - PSYCHIATRY [facility] [place] [facility] Dec 02, 2024 08:30 AM AMBULATORY - PSYCHIATRY [place] [facility] [place] [facility] Dec 14, 2024 08:30 AM AMBULATORY - PSYCHIATRY [facility] [place] [facility] Dec 16, 2024 08:30 AM AMBULATORY - PSYCHIATRY [facility] [place] [facility] Dec 20, 2024 03:00 PM AMBULATORY - MEDICINE [facility] C [facility] [place] [facility] 2024 03:30 PM AMBULATORY - MEDICINE [facility] [place] [facility] Social History: Smoking Status (Most current) [...] 10:00 AM VA-TOBACCO USE FOR DORI CIGARETTES [facility] Tobacco Use History This section includes a history of the smoking, or tobacco-related health factors, that were collected on or before the date of the Encounter. The data comes from the [place] facility where the Encounter took place. Date/Time Smoking Status/Tobac co Use Comment Facility Mar 18, 2024 10:00 AM [place]-TOBACCO USE FORMER OTHER TYPE Quit more than 15 years ago [facility] Encounter Notes: All associated encounter notes This section contains the clinical notes associated to the Encounter. Date/Time Encounter Note(s) Provider Source August 16, 2024 08:43 AM MENTAL HEALTH NOTE : LOCAL TITLE: BEHAVIORAL COUPLES THERAPY NOTE STANDARD TITLE: MENTAL HEALTH NOTE DATE OF NOTE: AUGUST 16, 2024@08:43 ENTRY DATE: AUGUST 16, 2024@08:45:06 AUTHOR: ARIELA HAYES COSIGNER: URGENCY: STATUS: COMPLETED INFORMED CONSENT TO PARTICIPATE IN SESSION: At beginning of session reviewed rights and limits of confidentiality, mandatory reporting situations, duty to warn and protect, [place] Warning,(if treatment team finds patient to be an acute danger to himself or others, that this information could be relayed to a court of law and presented to a dinkey locomotive operator), and [facility] access for active duty service members. Provided Suicide Prevention Hotline number, and other contact numbers as necessary. DURATION OF SESSION: 45 minutes SESSION CONTENT: The couple shared that the past month has continued successfully. They have been utilizing the skills learned and have noticed an improvement in their communication. 's shared that she feels that couples therapy is no longer necessary yet reported hesitation as he feels that no conflict has occurred to test them recently. This hand sign writer normalized concern and assessed areas he would wish to continue targeting. He shared that he feels communication can still improve by addressing communications about emotions. The couple and this hand sign writer practiced discussing communications, perspective taking, and boundary setting. They agreed to practice in between session and report back to session in a month to measure progress. MENTAL STATUS AND BEHAVIORAL OBSERVATIONS: The couple was polite and cooperative. They showed physical affection through hand holding throughout session. They support each other and expressions of emotions. No safety concerns were reported. DSM5 DIAGNOSES: relationship distress with spouse; [place] with PTSD diagnosis. Plan: RTC on 6/2 @8:30am [facility] Video Connect (VVC) Standard Documentation VVC Clinician Resources Only: E911 (Emergency Call Relay Center): [phone] [facility] [place] Crisis Line - 988 then press #1. [facility] Suicide Coordinator [phone], Ext. [phone]; Back-up Ext. [phone] [place] Police, LUCIAJason, Daniela [phone] Introduction: Visit is being conducted by [place] [facility]. [place] identified with 2 identifiers: [X] Full Name [X] Date of [ ] [place] ID Card Emergency Plan: [place] confirmed and/or provided the following information in case of emergency or technology failure. PATIENT PHONE - NONE FOUND PHONE NUMBER [CELLULAR] - [phone] Is patient phone number correct, if not, enter below: [place]'s phone number: GLADIS WILLETT [address], [place], [address] 's present location and address for appointment: above address [place]'s emergency contact name and phone number: on file reported that location is private and safe: Yes Informed Consent: informed of the risks and benefits of Telehealth video care. has the right to refuse video services. If refuses video visit, a [id number]-hm-[id number] visit will be scheduled. [place] verbalized consent for this video visit: Yes provided consent for any other persons present for visit: Yes If yes, who and relationship to patient:-Severiano Secure visit: Visit was locked for security and privacy:Yes Does this visit involve laterality/specific side of body? N/A /prashanth/ Ariela Hayes Psy.D. Psychologist Signed: 08/16/2024 15:46 ARIELA HAYES [facility]
--- OUTSIDE RECORDS SUMMARY | 2024-08-19 11:30 | XMS_ITS | Encounter Summary ---
Author Name Department of Vetera Affairs ([place]) Organization Department of [place] Affairs [place]) Address [address] [place] [address] Care Team Providers Care Program Analyst Name Role Phone KALEB DUFF Primary Care [...] HEALTH PLAN W/HEALTH SAVINGS ACCOUNT [facility] Apr 14, 2024 [id number] [facility] [phone] Lexie MARTIN SPOUSE CIGNA HIGH DEDUCTIBL E HEALTH PLAN W/HEALTH SAVINGS ACCOUNT [facility] UTUAL [facility] Apr 14, 2024 [id number] [facility] [phone] ADRIANA WILLETT SPOUSE CIGNA HIGH DEDUCTIBL E HEALTH PLAN W/HEALTH SAVINGS ACCOUNT [facility] September 08, 2023 [id number] ADRIANA WILLETT SPOUSE [facility]IGNA BEHAVIORAL HEALTH MENTAL HEALTH [place] UTUAL [facility] Apr 14, 2024 [id number] [facility] [phone] Lexie MARTIN SPOUSE [facility] MAS[facility] UTUAL [facility] Apr 14, 2024 [id number] GABRIELA WILLETT PATIENT EXPRESS SCRIPTS ([id number]) PRESCRIPT ION MASSM UTUAL HDHP [facility] Apr 14, 2024 K4UA [id number] [phone] GABRIELA WILLETT PATIENT MEDCO (EXPRESS SCRIPTS) PRESCRIPT ION CIGNA /MEDC O [facility] Apr 14, 2024 K4UA [id number] GABRIELA WILLETT SPOUSE Selected Encounter This section includes the information on record at MD for the Encounter. Date/Time Encounter Type Encounter Description Reason Provider Source August 19, 2024 03:30 PM OFFICE O/P EST MOD 30 MIN MENTAL HEALTH CLINIC - IND ICD-10-CM F33.1 Major depressive disorder, recurrent, moderate BRENDA SINGHI Carol E Encounter Template Text not used by MD Assessments - Encounter Diagnoses This section includes the primary and secondary diagnoses documented for the Encounter. Date/Time Primary/Secondary Diagnosis Diagnosis Name Provider Source Nov 03, 2024 11:15 AM PRIMARY Major depressive disorder, recurrent, moderate CLAUDE SINGH [place] [facility] [place] [facility] Nov 03, 2024 11:15 AM SECONDARY Generalized anxiety disorder [facility]UDE SINGH [facility] Nov 03, 2024 11:15 AM SECONDARY Insomnia due to other mental disorder [facility] Plan of Treatment: Future Appointments (+ 6 months) and Future Tests (+/- 45 days) The Plan of Treatment section includes future care activities for the patient from all MD treatmentfacilities. This section includes future appointments and future orders which are active, pending or scheduled. Future Appointments This section includes appointments that were scheduled to occur 6 months from the date of the Encounter, up to a maximum of 20 appointments. The data comes from all MD treatment facilities. Appointment Date/Time Appointment Type Appointme nt Facility Name August 26, 2024 03:30 PM [facility] September 02, 2024 08:30 AM [facility] September 08, 2024 08:00 AM AMBULATORY - [facility]AB [facility]ICIN [facility] [place] [facility] Sep 13, 2024 08:30 AM AMBULATORY - PS[facility]CHIATRY [facility] [place] [facility] Sep 16, 2024 08:30 AM AMBULATORY - PS[facility]CHIATRY [facility] [place] [facility] Sep 17, 2024 08:30 AM AMBULATORY - PS[facility]CHIATRY [facility] [place] [facility] Sep 24, 2024 03:30 PM AMBULATORY - PSYCHIATRY [facility] [place] [facility] Oct 05, 2024 08:30 AM AMBULATORY - PSYCHIATRY [facility] [place] [facility] Oct 11, 2024 08:30 AM AMBULATORY - PSYCHIATRY [facility] [place] [facility] Oct 14, 2024 08:30 AM AMBULATORY - PSYCHIATRY [facility] [place] [facility] Oct 21, 2024 08:30 AM AMBULATORY - PSYCHIATRY [facility] [place] [facility] Nov 04, 2024 08:30 AM AMBULATORY - PS[facility]CHIATRY [facility] [place] [facility] Nov 18, 2024 08:30 AM AMBULATORY - PSYCHIATRY [facility] [place] [facility] Nov 26, 2024 08:30 AM AMBULATORY - PSYCHIATRY [facility] [place] [facility] Dec 02, 2024 08:30 AM AMBULATORY - PSYCHIATRY [facility] [place] [facility] Dec 14, 2024 08:30 AM AMBULATORY - PSYCHIATRY [facility] [place] [facility] Dec 16, 2024 08:30 AM AMBULATORY - PSYCHIATRY [facility] [place] [facility] Dec 20, 2024 03:00 PM AMBULATORY - MEDICINE [facility] [place] [facility] 2024 03:30 PM AMBULATORY - MEDICINE [facility] [place] [facility] Social History: Smoking Status (Most current) and Tobacco Use (All prior to encounter date) This section includes the most current, and the historical, smoking and tobacco- related health factors from the VA facility where the Encounter took place. Current Smoking Status This section includes the most current smoking, or tobacco-related health factor, from the MD facility where the Encounter took place. Date/Time Current Smoking Status Comment Facil ity Mar 18, 2024 10:00 AM VA-TOBACCO USE FOR DORI CIGARETTES [facility] [place] [facility] Tobacco Use History This section includes a history of the smoking, or tobacco-related health factors, that were collected on or before the date of the Encounter. The data comes from the MD facility where the Encounter took place. Date/Time Smoking Status/Tobac co Use Comment Facility Mar 18, 2024 10:00 AM MD-TOBACCO USE FORMER OTHER TYPE Quit more than 15 years ago [facility] Encounter Notes: All associated encounter notes This section contains the clinical notes associated to the Encounter. Date/Time Encounter Note(s) Provider Source August 19, 2024 03:49 PM ACCOUNTING OF DISC LOSURES NOTE: LOCAL TITLE: STATE PRESCRIPTION DRUG MONITORING PROGRAM STANDARD TITLE: ACCOUNTING OF DISCLOSURES NOTE DATE OF NOTE: AUGUST 19, 2024@15:49:09 ENTRY DATE: AUGUST 19, 2024@15:49:09 AUTHOR: LAZARO SINGH EXP COSIGNER: URGENCY: STATUS: COMPLETED This PDMP query was submitted by Lazaro Singh. The clinical justification for this PDMP query is to review controlled substances prescribed outside of the MD, and any additional information that may become available, as an important component of standard clinical care, and in accordance with [facility] policy. Patient information was shared with the PDMP [place]. No prescription(s) for controlled substances outside the MD were found in the last 90 days. /prashanth/ LAZARO SINGH Psychiatric Mental Health Nurse Practitioner Signed: 08/19/2024 15:49 LAZARO SINGH [facility] August 19, 2024 03:38 PM PRIMARY CARE NURSE PRACTITIONER OUTPATIENT NOTE: LOCAL TITLE: NURSE PRACTITIONER OUTPATIENT NOTE STANDARD TITLE: PRIMARY CARE NURSE PRACTITIONER OUTPATIENT NOTE DATE OF NOTE: AUGUST 19, 2024@15:38 ENTRY DATE: AUGUST 19, 2024@15:38:46 AUTHOR: LAZARO SINGH EXP TAVONIGNER: URGENCY: STATUS: COMPLETED OUTPATIENT MENTAL HEALTH CLINIC: FOLLOW-UP Visit is being conducted by MD [employer]. Pevely identified with 2 identifiers: Full Name Date of Emergency Plan: Pevely confirmed and/or provided the following information in case of emergency or technology failure. PATIENT PHONE - NONE FOUND PHONE NUMBER [CELLULAR] - [phone] Is patient phone number correct, if not, enter below: 's phone number: GLADIS WILLETT [address], [place], [address] Pevely's present location and address for appointment: home 's emergency contact name and phone number: up to date in CPRS Pevely reported that location is private and safe: yes HPI: GLADIS WILLETT, a 48 y/o male Pevely previously diagnosed with MDD presents for [facility] Follow-Up appointment. Last seen by This Provider on 07/28/24 reports mood as I'm still depressed and I didn't go to work today Denies any perceptible benefit from ARIPIPRAZOLE. I actually feel more anxious and I can't sit still Energy is poor and anhedonia and avolition are still salient symptoms Bored with things a lot quicker than I used to A little bit less cannabis. I get more anxious when use decreases Having a very hard time sleeping again. Sleep is broken. Two hours at a time. Six hours per night total Also endorses significant symptoms of anxiety but specifies that depression is most significant and impairing at present Endorses intermittent passive SI in interim Just one thought. Just one day. Specifies that this was passive SI not wanting to be alive and not active SI. Specifically denies active SI, intent or plan SUBSTANCE USE: Tobacco: denied Alcohol: once or twice per year Narcotics: denied Cannabis: daily; two grams per day on average PSYCHIATRIC HISTORY: Medication trials: BUPROPION Reports trial of bupropion approximately 10 years ago and that this medication was beneficial and well tolerated ARIPIPRAZOLE possible Akathisia Inpatient Hospitalizations: March, for SI with intent and plan Documentation from [facility] is not available for review at this time Suicidal Acts and Self-Harm: SI with intent and plan in February, Denies any other suicide attemtps Pevely prepared to take his life the day after Thanksgi. He wrote a suicide note to his and went [place] with the intention of jumping from the spillway. He self-interrupted when he saw deer. He did not want to defile such a beautiful place. He reported chronic SI without any previous attempts. He was sectioned to [facility] where he was inpatient for 6 days. HISTORY OF VIOLENCE/ASSAULTING OTHERS: denied FAMILY MENTAL HEALTH AND SUBSTANCE USE HISTORY: Not that I'm aware of any Lethal Means Safety Counselling LMSC was conducted. Denied access to firearms SOCIAL HISTORY: Per [facility] Outpatient Mental Health Assessment (04/19/2023), confirmed by Pevely during assessment Pevely is unaware of any family history in terms of MH issues or substancea buse. Born and raised in [place]. Mother had him at aged 16, at which time his bio father denied paternity. He was then raised believing carolinad was bio father until actual bio father called him at age 13. Mom stepgabrielad around that time but they remained in touch. Both fathers are now . Mom recently moved to [place] with a boyfriend. Xenia and she are in touch but not close. No abuse in home but Pevely acknowledges a pattern of being invalidated by mom or feeling like an inconvenience. Xenia has half sister he was raised with but they fell out of touch after father's . He believes she lives in [facility]. Xenia met his Annamarie about four [...] in some way. 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 Was laid off last summer but has a new job working FT at [employer]. Job is very sedentary, which may be contributing to Xenia's mental health issues. [employer], did a tour in [place] [facility] and saw combat, discharged in 1996, [...] memory grossly intact to conversational testing Mood: still depressed Affect: mood congruent; full and appropriate range LABS AND STUDIES: REVIEWED IN CPRS MEDICAL HISTORY: Active Problem Exposure to potentially hazardous s 08/02/2024 WILIAN SOUTHYVES [place] Essential hypertension I10. 03/18/2024August,CHERYL Tariq Posttraumatic stress disorder F43.1 03/18/2024August,CHERYL Tariq Crohns disease K50.90 03/18/2024August,CHERYL Tariq Depression F32.A 03/18/2024August,CHERYL Tariq Anxiety F41.9 03/18/2024August,CHERYL Tariq Insomnia G47.00 03/18/2024August,CHERYL Tariq ALLERGIES: Data on this list may not be complete. Please check [facility]. FACILITY ALLERGY/ADR -------- No Remote Allergy/ADR Data available for this patient MD [facility] [place] [facility] No Known Allergies MEDICATIONS: reviewed and updated in CPRS Active Outpatient Medications (including Supplies): Active Outpatient Medications Status 1) ARIPIPRAZOLE 2MG TAB TAKE ONE TABLET BY MOUTH ONCE DAILY FOR ACTIVE MOOD/ Indication: DEPRESSION 2) BUPROPION HCL 300MG 24HR SA TAB TAKE ONE TABLET BY MOUTH ACTIVE EVERY MORNING Indication: MOOD 3) DOXEPIN 6MG TAB TAKE ONE TABLET BY MOUTH AT BEDTIME ACTIVE NEEDED FOR INSOMNIA Indication: SLEEP 4) FLUOXETINE HCL 20MG CAP TAKE TWO CAPSULES BY MOUTH ONCE ACTIVE DAILY FOR DEPRESSION AND ANXIETY Indication: MOOD 5) HCTZ 12.5/LISINOPRIL 10MG TAB TAKE 1 TABLET BY MOUTH ONCE ACTIVE DAILY Indication: FOR HIGH BLOOD PRESSURE 6) HYDROXYZINE HCL 50MG TAB TAKE ONE TABLET BY MOUTH TWICE ACTIVE DAILY NEEDED Indication: ANXIETY Active Non-VA Medications Status 1) Non-VA OMEPRAZOLE 20MG EC CAP 20MG BY MOUTH EVERY MORNING 30 ACTIVE MINUTES BEFORE BREAKFAST Indication: FOR EXCESSIVE PRODUCTION OF STOMACH ACID 7 Total Medications SAFETY ASSESSMENT: No acute safety concerns. Convincingly denies any thoughts, intents, or plans to harm self or others. Chronic risk is elevated by status and mental illness but is currently mitigated by participation in treatment and demonstration of help-seeking behaviors. IMPRESSION: presents as polite, cooperative and treatment motivated Reports adherence to current medications with significant therapeutic benefit and denies side effects. Reports desire to continue with current pharmacotherapy regimen. The increased anxiety and restlessness that Pevely describes could conceivably be symptoms of akathisia. Pevely has note experienced any benefit after two weeks on this medication and plausibly attributes side effects to this medication. Will discontinue and augment with another antidepressant. Discussed risks and benefits of ARMODAFINIL, QUETIAPINE and LITHIUM expressed preference for ARMODAFINIL given its relatively benign side effect profile, rapid onset of therapeutic effects and efficacy for lethargy in particular. Aware that this is being used off label for depression Discussed potential side effects of armodafinil including headache, nausea, dry mouth, anorexia, and diarrhea. Also discussed back pain, anxiety, insomnia, rhinitis and rare but serious adverse reactions including hypertension, tachycardia, palpitations and anaphylaxis/hypersensitivi ty reactions. Pevely was reminded that cannabis use could be exacerbating mood symptoms but agreed that now would not be the opportune time to make an abrupt change to pattern of use. Will also increase DOXEPIN in the hopes of improving sleep No acute safety concerns Diagnosis: MDD, recurrent, severe w/o psychotic features Generalized Anxiety Disorder Insomnia Disorder, unspecified R/O Cannabis Use Disorder PLAN: 1) DECREASE Fluoxetine FROM 60 TO 40 mg PO DAILY 2) CONTINUE Hydroxyzine 50 mg PO PRN 3) CONTINUE BUPROPION XR 300 MG PO DAILY 4) INCREASE DOXEPIN FROM 6 TO 10 MG PO QHS PRN 5) DISCONTINUE ARIPIPRAZOLE 2 MG PO DAILY 6) INITIATE ARMODAFINIL 150 MG PO QAM Labs: none today Follow-Up: 09/17/24 Discussed risks and benefits of proposed medication treatments including FDA approved indications and off-label uses, as well as common and severe side effects. comprehended all information discussed, had opportunity to ask questions which were answered to their satisfaction, and voluntarily and without duress agreed to trial as documented. CONTACT AND CRISIS INFO: Pevely informed that This Provider can be contacted at , EXT [phone] or via Secure Messaging. We have reviewed the Crisis Hotline (241, dial #1 for line), and the Pevely has been instructed to call 911 or [...] court of law and presented to a biology adjunct instructor), and DOD access for active-duty service members. [...] with a VA or non-VA provider. /prashanth/ LAZARO SINGH Psychiatric Mental Health Nurse Practitioner Signed: 08/20/2024 10:40 LAZARO SINGH [facility]
--- OUTSIDE RECORDS SUMMARY | 2024-09-08 04:00 | XMS_ITS | Encounter Summary ---
Author Name [place] Address [address] [place] [id number] Care Team Providers Care Swine Genetics Researcher Name Role Phone KALEB DUFF Primary Care [...] MASS UTUAL [facility]. GR[facility] Apr 14, 2024 [id number] [facility]5 Lexie MARTIN SPOUSE CIGNA HIGH DEDUCTIBL E HEALTH PLAN W/HEALTH SAVINGS ACCOUNT [facility] Apr 14, 2024 [id number] [facility] [phone] ADRIANA WILLETT SPOUSE CIGNA HIGH DEDUCTIBL E HEALTH PLAN W/HEALTH SAVINGS ACCOUNT MASSM UTUAL HDHP [facility] September 08, 2023 [id number] [phone] ADRIANA WILLETT SPOUSE CIGNA BEHAVIORAL HEALTH MENTAL HEALTH MASSM UTUAL [facility] Apr 14, 2024 [id number] [facility] [phone] Lexie MARTIN SPOUSE [facility] UTUAL [facility] Apr 14, 2024 [id number] GABRIELA WILLETT PATIENT EXPRESS SCRIPTS ([id number]) PRESCRIPT ION MASSM UTUAL HDHP [facility] Apr 14, 2024 K4UA [id number] GABRIELA WILLETT PATIENT MEDCO (EXPRESS SCRIPTS) PRESCRIPT ION CIGNA /MEDC O [facility] Apr 14, 2024 K4UA [id number] GABRIELA WILLETT SPOUSE Selected Encounter This section includes the information on record at [place] for the Encounter. Date/Time Encounter Type Encounter Description Reason Provider Source September 08, 2024 08:00 AM TYMPANOMETRY AUDIOLOGY ICD-10-CM H93.11 Tinnitus, right ear CAMINITI,TAWANA E IHE Encounter Template Text not used by [place] Assessments - Encounter Diagnoses This section includes the primary and secondary diagnoses documented for the Encounter. Date/Time Primary/Secondary Diagnosis Diagnosis Name Provider Source Dec 06, 2024 10:27 AM PRIMARY Tinnitus, right ear CAMINITI,TAWANA E [place] [facility] [place] [facility] Dec 06, 2024 10:27 AM SECONDARY Sensorineural hearing loss, bilateral CAMINITI,TAWANA E [facility] [place] [facility] Plan of Treatment: Future Appointments (+ 6 months) and Future Tests (+/- 45 days) The Plan of Treatment section includes future care activities for the patient from all [place] treatmentfacilities. This section includes future appointments and future orders which are active, pending or scheduled. Future Appointments This section includes appointments that were scheduled to occur 6 months from the date of the Encounter, up to a maximum of 20 appointments. The data comes from all [place] treatment facilities. Appointment Date/Time Appointment Type Appointme nt Facility Name Sep 13, 2024 08:30 AM AMBULATORY - PSYCHIATRY [facility] [place] [facility] Sep 16, 2024 08:30 AM AMBULATORY - PSYCHIATRY [facility] [place] [facility] Sep 17, 2024 08:30 AM AMBULATORY - PSYCHIATRY [facility] [place] [facility] Sep 24, 2024 03:30 PM AMBULATORY - PSYCHIATRY [facility] [place] [facility] Oct 05, 2024 08:30 AM AMBULATORY - PSYCHIATRY [facility] [place] [facility] Oct 11, 2024 08:30 AM AMBULATORY - PSYCHIATRY [facility] [place] [facility] Oct 14, 2024 08:30 AM AMBULATORY - PSYCHIATRY [facility] [place] [facility] Oct 21, 2024 08:30 AM AMBULATORY - PSYCHIATRY [facility] [place] [facility] Nov 04, 2024 08:30 AM AMBULATORY - PSYCHIATRY [facility] [place] [facility] Nov 18, 2024 08:30 AM AMBULATORY - PSYCHIATRY [facility] [place] [facility] Nov 26, 2024 08:30 AM AMBULATORY - PSYCHIATRY [facility] [place] [facility] Dec 02, 2024 08:30 AM AMBULATORY - PSYCHIATRY [facility] [place] [facility] Dec 14, 2024 08:30 AM AMBULATORY - PSYCHIATRY [facility] [place] [facility] Dec 16, 2024 08:30 AM AMBULATORY - PSYCHIATRY [facility] [place] [facility] Dec 20, 2024 03:00 PM AMBULATORY - MEDICINE [facility] [place] [facility] 2024 03:30 PM AMBULATORY - MEDICINE [facility] [place] [facility] Mar 09, 2025 08:00 AM AMBULATORY - REHAB MEDICIN E [place] [facility] [place] [facility] Social History: Smoking Status (Most current) and Tobacco Use (All prior to encounter date) This section includes the most current, and the historical, smoking and tobacco- related health factors from the [place] facility where the Encounter took place. Current Smoking Status This section includes the most current smoking, or tobacco-related health factor, from the [place] facility where the Encounter took place. Date/Time Current Smoking Status Comment Facil it Mar 18, 2024 10:00 AM VA-TOBACCO USE FOR [facility]I C[facility]AR[facility]TES [facility] Tobacco Use History This section includes a history of the smoking, or tobacco-related health factors, that were collected on or before the date of the Encounter. The data comes from the [place] facility where the Encounter took place. Date/Time Smoking Status/Tobac co Use Comment Facility Mar 18, 2024 10:00 AM VA-TOBACCO USE FORMER OTHER TYPE Quit more than 15 years ago [facility] Encounter Notes: All associated encounter notes This section contains the clinical notes associated to the Encounter. Date/Time Encounter Note(s) Provider Source September 08, 2024 07:43 AM AUDIOLOGY E & M NO TE: LOCAL TITLE: AUDIOLOGY CLINIC STANDARD TITLE: AUDIOLOGY E & M NOTE DATE OF NOTE: SEPTEMBER 08, 2024@07:43 ENTRY DATE: SEPTEMBER 08, 2024@07:43:28 AUTHOR: TAWANA CEDENO EXP COSIGNER: URGENCY: STATUS: COMPLETED [place]ron was seen 09-08-24 for a hearing evaluation. He reports diminished hearing, right ear. Cimarron reports right-sided tinnitus for the last couple years and denies vertigo. denies past/current hearing aid use. Significant otologic history is reportedly unremarkable. 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 Medical history includes: Active problems - Computerized Problem List is the source for the followin. Exposure to potentially hazardous substance 2. Essential hypertension 3. Posttraumatic stress disorder 4. Crohns disease 5. Depression 6. Anxiety 7. Insomnia Results are as follow: Otoscopy is WNL for both ears. Pure tone audiometric testing with headphones revealed normal hearing from 250-4000 Hz for both ears and at 8000 Hz for the left ear, mild sensorineural hearing loss at 6000 Hz for both ears and at 8000 Hz for the right ear. Right ear threshold at 8k was confirmed with an insert. Asymmetry, worse right ear, was noted at 8000 Hz. Word recognition scores were excellent/good with 96% correct for the right ear and 92% correct for the left ear for recorded speech presented at 65 dB HL (masked). Normal tympanograms were obtained bilaterally. Cimarron was counseled on today's test results. Included was a discussion on tinnitus management and use of hearing protection when in loud noise. he is not considered a candidate for amplification given normal hearing throughout the speech range bilaterally. Hearing re-evaluation/OAEs (if possible) is recommended in six months to monitor slight asymmetry, RTC placed. /prashanth/ Sunny RIOS, [facility]-A STAFF REHABILITATION THERAPY TECHNICIAN Signed: 09/08/2024 08:57 TAWANA CEDENO [facility]
--- OUTSIDE RECORDS SUMMARY | 2024-09-13 04:30 | XMS_ITS | Encounter Summary ---
Author Name [facility] [place] Address [address] [place] [address] Care Team Providers Care Associate Director Regulatory Affairs Name Role Phone KALEB DUFF Primary Care [...] DEDUCTIBL E HEALTH PLAN W/HEALTH SAVINGS [facility] Apr 14, 2024 [id number] [facility] Lexie MARTIN SPOUSE CIGNA HIGH DEDUCTIBL E HEALTH PLAN W/HEALTH SAVINGS ACCOUNT MASS UTUAL [facility] Apr 14, 2024 [id number] [facility] ADRIANA WILLETT SPOUSE CIGNA HIGH DEDUCTIBL E HEALTH PLAN W/HEALTH SAVINGS ACCOUNT MASSM UTUAL [facility] September 08, 2023 [id number] [phone] ADRIANA WILLETT SPOUSE CIGNA BEHAVIORAL HEALTH MENTAL HEALTH MASSM UTUAL [facility] Apr 14, 2024 [id number] [facility] Lexie MARTIN SPOUSE [facility] MENTAL HEALTH MASSM UTUAL [facility] Apr 14, 2024 [id number] GABRIELA WILLETT PATIENT EXPRESS SCRIPTS ([id number]) PRESCRIPT ION MASSM UTUAL [facility] Apr 14, 2024 K4UA [id number] GABRIELA WILLETT PATIENT MEDCO (EXPRESS SCRIPTS) PRESCRIPT ION CIGNA /MEDC O [facility] Apr 14, 2024 K4UA [id number] [phone] GABRIELA WILLETT SPOUSE Selected Encounter This section includes the information on record at [place] for the Encounter. Date/Time Encounter Type Encounter Description Reason Provider Source Sep 13, 2024 08:30 AM FAMILY PSYTX W/PT 50 MIN MENTAL HEALTH CLINIC - IND ICD-10-CM F43.10 Post-traumatic stress disorder, unspecified ARIELA HAYES Martha Encounter Template Text not used by [place] Assessments - Encounter Diagnoses This section includes the primary and secondary diagnoses documented for the Encounter. Date/Time Primary/Secondary Diagnosis Diagnosis Name Provider Source Dec 06, 2024 10:30 AM PRIMARY Post-traumatic stress disorder, unspecified ARIELA HAYES [facility] Dec 06, 2024 10:30 AM SECONDARY Depression, unspecified [facility] Plan of Treatment: Future Appointments (+ 6 months) and Future Tests (+/- 45 days) The Plan of Treatment section includes future care activities for the patient from [facility] [place] [facility] This section includes future appointments and future orders which are active, pending or scheduled. Future Appointments This section includes appointments that were scheduled to occur 6 months from the date of the Encounter, up to a maximum of 20 appointments. The data comes from all [place] treatment facilities. Appointment Date/Time Appointment Type Appointme nt Facility Name Sep 16, 2024 08:30 AM AMBULATORY - PS[facility]CHIATRY [facility] Sep 17, 2024 08:30 AM [facility] Sep 24, 2024 03:30 PM [facility] Oct 05, 2024 08:30 AM AMBULATORY [facility] [place] [facility] Oct 11, 2024 08:30 AM AMBULATORY - [facility]IATRY [facility] [place] [facility] Oct 14, 2024 08:30 AM AMBULATORY - PS[facility]CHIATRY [facility] [place] [facility] Oct 21, 2024 08:30 AM AMBULATORY - PSYCHIATRY [facility] [place] [facility] Nov 04, 2024 08:30 AM AMBULATORY - PS[facility]CHIATRY [facility] [place] [facility] Nov 18, 2024 08:30 AM AMBULATORY - PSYCHIATRY [facility] [place] [facility] Nov 26, 2024 08:30 AM AMBULATORY - PSYCHIATRY [facility] [place] [facility] Dec 02, 2024 08:30 AM AMBULATORY - PSYCHIATRY [facility] [place] [facility] Dec 14, 2024 08:30 AM AMBULATORY - PSYCHIATRY [facility] [place] [facility] Dec 16, 2024 08:30 AM AMBULATORY - PSYCHIATRY [facility] [place] [facility] Dec 20, 2024 03:00 PM AMBULATORY - MEDICINE [facility] [place] [facility] 2024 03:30 PM AMBULATORY - MEDICINE [facility] [place] [facility] Mar 09, 2025 08:00 AM AMBULATORY - REHAB MEDICIN E [place] [facility] [place] [facility] Social History: Smoking Status (Most current) and Tobacco Use (All prior to encounter date) This section includes the most current, and the historical, smoking and tobacco- related health factors from the [place] facility where the Encounter took place. Current Smoking Status This section includes the most current smoking, or tobacco-related health factor, from the [place] facility where the Encounter took place. Date/Time Current Smoking Status Comment Facil it Mar 18, 2024 10:00 AM VA-TOBACCO USE FOR DORI CIGARETTES [facility] Tobacco Use History This section includes a history of the smoking, or tobacco-related health factors, that were collected on or before the date of the Encounter. The data comes from the [place] facility where the Encounter took place. Date/Time Smoking Status/Tobac co Use Comment Facility Mar 18, 2024 10:00 AM VA-TOBACCO USE FORMER OTHER TYPE Quit more than 15 years ago [place] [facility] [place] [facility] Encounter Notes: All associated encounter notes This section contains the clinical notes associated to the Encounter. Date/Time Encounter Note(s) Provider Source Sep 13, 2024 09:18 AM MENTAL HEALTH NOTE : LOCAL TITLE: BEHAVIORAL COUPLES THERAPY NOTE STANDARD TITLE: MENTAL HEALTH NOTE DATE OF NOTE: SEP 13, 2024@09:18 ENTRY DATE: SEP 13, 2024@09:18:48 AUTHOR: ARIELA HAYES COSIGNER: URGENCY: STATUS: COMPLETED INFORMED CONSENT TO PARTICIPATE IN SESSION: At beginning of session reviewed rights and limits of confidentiality, mandatory reporting situations, duty to warn and protect, Cabezas Warning,(if treatment team finds patient to be an acute danger to himself or others, that this information could be relayed to a court of law and presented to a district associate judge), and DOD access for active duty service members. Provided Suicide Prevention Hotline number, and other contact numbers as necessary. DURATION OF SESSION: 50 minutes SESSION CONTENT: The couple originally reported that they felt things were going well and the last month was quiet. This sentiment changed quickly as started discussing how he has been isolating more and playing videogames. He shared that he feels he would like his to ask him to do something with her. 's shared that she feels she has tried but that Chugiak has not been interested. Chugiak's then visibly shut down. This production underwriter utilized questioning to explore how his was feeling. She stated, I'm just not good enough . The couple and this production underwriter discussed how each other's mental health plays into relationship satisfaction. It was identified that they both hold the same value of spending time together. This production underwriter helped them make a goal to go on a walk together this week. In addition, they were encouraged to individually make a list of things they would like to do with their partner and then share it with each other. MENTAL STATUS AND BEHAVIORAL OBSERVATIONS: The couple was polite and cooperative. They seemed more distant than prior sessions and Chugiak's was tearful. showed affection to his when she was crying. No safety concerns were reported. DSM5 DIAGNOSES: relationship distress with spouse; with PTSD diagnosis. Plan: RTC on 09/24 @3:30pm [facility] Connect ([facility]VC) Standard Documentation [facility] Clinician Resources Only: E911 (Emergency Call Relay Center): [phone] [employer] Crisis Line - 988 then press #1. [place] Suicide Coordinator [phone], Ext. [phone]; Back-up Ext. [phone] [place] Police, LUCIAJason, Daniela [phone] Introduction: Visit is being conducted by [place] [facility] Connect. [place] identified with 2 identifiers: [X] Full Name [X] Date of [ ] VA ID Card Emergency Plan: [place] confirmed and/or provided the following information in case of emergency or technology failure. PATIENT PHONE - NONE FOUND PHONE NUMBER [CELLULAR] - [phone] Is patient phone number correct, if not, enter below: Ch[place]iak's phone number: GLADIS WILLETT [address] [place] [address], [phone] Chugiak's present location and address for appointment: above address 's emergency contact name and phone number: on file reported that location is private and safe: Yes Informed Consent: [place] informed of the risks and benefits of Telehealth video care. has the right to refuse video services. If refuses video visit, a [id number] visit will be scheduled. [place] verbalized consent for this video visit: Yes [place]ak provided consent for any other persons present for visit: Yes If yes, who and relationship to patient:-Severiano Secure visit: Visit was locked for security and privacy:Yes Does this visit involve laterality/specific side of body? N/A /prashanth/ Ariela Hayes Psy.D. Psychologist Signed: 09/13/2024 13:54 ARIELA HAYES [place] [facility] [place] [facility]
--- OUTSIDE RECORDS SUMMARY | 2024-09-16 04:30 | XMS_ITS | Encounter Summary ---
Author Name [facility] [place] Organization [facility] [place] Address [address] [place] [address] Care Team Providers Care Rivet Spinner Name Role Phone KALEB DUFF Primary Care [...] DEDUCTIBL E HEALTH PLAN W/HEALTH SAVINGS ACCOUNT [facility] [employer] [facility] Apr 14, 2024 [id number] [facility] Lexie MARTIN SPOUSE CIGNA HIGH DEDUCTIBL E HEALTH PLAN W/HEALTH SAVINGS ACCOUNT MASS UTUAL [facility] Apr 14, 2024 [id number] [facility] ADRIANA WILLETT SPOUSE CIGNA HIGH DEDUCTIBL E HEALTH PLAN W/HEALTH SAVINGS ACCOUNT MASSM UTUAL [facility] September 08, 2023 [id number] ADRIANA WILLETT SPOUSE CIGNA BEHAVIORAL HEALTH MENTAL HEALTH MASSM UTUAL [facility] Apr 14, 2024 [id number] [facility] Lexie MARTIN SPOUSE [facility] MENTAL HEALTH MASSM UTUAL [facility] Apr 14, 2024 [id number] GABRIELA WILLETT PATIENT EXPRESS SCRIPTS ([id number]) PRESCRIPT ION MASSM UTUAL [facility] Apr 14, 2024 K4UA [id number] [phone] BRENNONGABRIELA ISBELL PATIENT MEDCO (EXPRESS SCRIPTS) PRESCRIPT ION CIGNA /MEDC O [facility] Apr 14, 2024 K4UA [id number] [phone] GABRIELA WILLETT SPOUSE Selected Encounter This section includes the information on record at [place] for the Encounter. Date/Time Encounter Type Encounter Description Reason Provider Source Sep 16, 2024 08:30 AM PSYTX W PT 60 MINUTES MENTAL HEALTH CLINIC - IND ICD-10-CM F32.A Depression, unspecified SHANIQUE FOWLER IHE Encounter Template Text not used by [place] Assessments - Encounter Diagnoses This section includes the primary and secondary diagnoses documented for the Encounter. Date/Time Primary/Secondary Diagnosis Diagnosis Name Provider Source Dec 06, 2024 10:32 AM PRIMARY Depression, unspecified SHANIQUE FOWLER M [place] [facility] [place] [facility] Dec 06, 2024 10:32 AM SECONDARY Anxiety disorder, unspecified SHANIQUE FOWLER M [place] [facility] [place] [facility] Plan of Treatment: Future Appointments [...] Appointment Type Appointme nt Facility Name Sep 17, 2024 08:30 AM AMBULATORY - PSYCHIATRY [place] [facility] [place] [facility] Sep 24, 2024 03:30 PM AMBULATORY - PSYCHIATRY [place] [facility] [place] [facility] Oct 05, 2024 08:30 AM AMBULATORY - PSYCHIATRY [place] [facility] [place] [facility] Oct 11, 2024 08:30 AM AMBULATORY - PSYCHIATRY [facility] [place] [facility] Oct 14, 2024 08:30 AM AMBULATORY - PSYCHIATRY [facility] [place] [facility] Oct 21, 2024 08:30 AM AMBULATORY - PSYCHIATRY [facility] [place] [facility] Nov 04, 2024 08:30 AM AMBULATORY - PSYCHIATRY [facility] [place] [facility] Nov 18, 2024 08:30 AM AMBULATORY - PSYCHIATRY [facility] [place] [facility] Nov 26, 2024 08:30 AM AMBULATORY - PSYCHIATRY [facility] [place] [facility] Dec 02, 2024 08:30 AM AMBULATORY - PSYCHIATRY [facility] [place] [facility] Dec 14, 2024 08:30 AM AMBULATORY - PSYCHIATRY [facility] [place] [facility] Dec 16, 2024 08:30 AM AMBULATORY - PSYCHIATRY [facility] [place] [facility] Dec 20, 2024 03:00 PM AMBULATORY - MEDICINE [facility] [place] [facility] 2024 03:30 PM AMBULATORY - MEDICINE [facility] [place] [facility] Mar 09, 2025 08:00 AM AMBULATORY - [facility] [place] [facility] Social History: Smoking Status (Most [...] took place. Date/Time Current Smoking Status Comment [facility] Mar 18, 2024 10:00 AM VA-TOBACCO USE FOR DORI CIGARETTES [facility] Tobacco Use History This section includes a history of the smoking, or tobacco-related health factors, that were collected on or before the date of the Encounter. The data comes from the [place] facility where the Encounter took place. Date/Time Smoking Status/Tobac co Use Comment Facility Mar 18, 2024 10:00 AM VA-TOBACCO USE FORMER OTHER TYPE [facility] Encounter Notes: All associated encounter notes This section contains the clinical notes associated to the Encounter. Date/Time Encounter Note(s) Provider Source Sep 16, 2024 08:30 AM TELEHEALTH NOTE: LOCAL TITLE: [place] VIDEO CONNECT PSYCHOLOGY NOTE STANDARD TITLE: TELEHEALTH NOTE DATE OF NOTE: SEP 16, 2024@08:30 ENTRY DATE: SEP 16, 2024@10:46:08 AUTHOR: TAO FOWLER COSIGNER: URGENCY: STATUS: COMPLETED [facility] Connect ([facility]) Standard Documentation VVC Clinician Resources Only: E911 (Emergency Call Relay Center): [phone] [employer] Crisis Line - 988 then press #1. [place] Suicide Coordinator [phone], Ext. [phone]; Back-up Ext. [phone] [place] Police, [place], [place] [phone] Introduction: Visit is being conducted by [place] [employer]. identified with 2 identifiers: [X] Full Name [X] Date of [ ] [place] ID Card Emergency Plan: confirmed and/or provided the following information in case of emergency or technology failure. PATIENT PHONE - NONE FOUND PHONE NUMBER [CELLULAR] [phone] Is patient phone number correct, if not, enter below: [place]'s phone number: GLADIS WILLETT [address] [place] [address], [phone] 's present location and address for appointment: Above address 's emergency contact name and phone number: on file reported that location is private and safe: Yes Informed Consent: [place] informed of the risks and benefits of Telehealth video care. [place] has the right to refuse video services. If refuses video visit, a [id number] visit will be scheduled. verbalized consent for this video visit: Yes provided consent for any other persons present for visit: Yes If yes, who and relationship to patient:-Annamarie Secure visit: Visit was locked for security and privacy:Yes [place] identified with 2 identifiers: [X] Full Name [X] Visual recognition Procedure: Individual psychotherapy Date/time: 09/16/24; Session: 9 PROBLEM: Depressive sx, recent suicidality, psychosocial stressors, anxious sx Goals: Improvement mood and self-esteem, address psychosocial stressors/interpersonal dynamics Progress: Xenia briefly describes ongoing depressive sx, generally consistent with although somewhat increased from recent baseline, highlighting isolation and summarizing how this was touched on in their recent couples appt, as well as a sense of relief he experienced from 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 Xenia and TW collaboratively reviewed ABC sheet he completed since last session and developed others using relevant examples he provides, expanding upon basic model using the downward arrow technique to identify how automatic thoughts relate to core beliefs. Xenia and TW also collaboratively expanded upon ways to challenge automatic beliefs and in reframing; TW updated personalized ABC sheets with expanded sections in line with what was covered today for him to practice between sessions. Dx: Unspecified depressive d/o Unspecified anxiety d/o r/o PTSD MSE: A&Ox4, cooperative Speech: normal RRTP Psychomotor/bx/presentatio n: unremarkable Thought process: linear; goal-directed Thought content: unremarkable Mood: appeared dysthymic, somewhat anxious; congruent, full affect No recent nor remote memory impairment endorsed; not formally assessed No recent AVH endorsed nor observed in present session; did not appear to be responding to internal stimuli Insight: good Judgment: fair to good Xenia did not endorse current SI/HI nor did he appear to be in any acute distress Ongoing Plan: Next appt with this travel writer scheduled for 10/01/24. encouraged to continue participation in couples counseling, psychiatry /es/ TAO FOWLER PSYD CLINICAL PSYCHOLOGIST - MENTAL HEALTH CLINIC Signed: 09/23/2024 10:07 TAO FOWLER [place] [facility]
--- OUTSIDE RECORDS SUMMARY | 2024-09-17 04:30 | XMS_ITS ---
Author Name [facility] [place] Organization [place] Address [address] [place] [address] Care Team Providers Care School Curriculum Developer Name Role Phone KALEB DUFF Primary Care [...] E HEALTH PLAN [facility] S[facility] Apr 14, 2024 [id number] [facility] Lexie MARTIN SPOUSE CIGNA HIGH DEDUCTIBL E HEALTH PLAN W/HEALTH SAVINGS ACCOUNT MASS UTUAL [facility] Apr 14, 2024 [id number] [facility]3 ADRIANA WILLETT SPOUSE CIGNA HIGH DEDUCTIBL E HEALTH PLAN W/HEALTH SAVINGS ACCOUNT [facility] September 08, 2023 [id number] [phone] ADRIANA WILLETT SPOUSE CIGNA BEHAVIORAL HEALTH MENTAL HEALTH MASS UTUAL [facility] Apr 14, 2024 [id number] [facility] Lexie MARTIN SPOUSE [facility] MENTAL HEALTH MASSM UTUAL [facility] Apr 14, 2024 [id number] GABRIELA WILLETT PATIENT EXPRESS SCRIPTS ([id number]) PRESCRIPT ION MASSM UTUAL [facility] Apr 14, 2024 [id number] GABRIELA WILLETT PATIENT MEDCO (EXPRESS SCRIPTS) PRESCRIPT ION CIGNA /MEDC O [facility] Apr 14, 2024 K4UA [id number] [phone] GABRIELA WILLETT SPOUSE Selected Encounter This section includes the information on record at [place] for the Encounter. Date/Time Encounter Type Encounter Description Reason Provider Source Sep 17, 2024 08:30 AM OFFICE O/P EST MOD 30 MIN MENTAL HEALTH CLINIC - IND ICD-10-CM F33.1 Major depressive disorder, recurrent, moderate BRENDA SINGHI Carol E Encounter Template Text not used by [place] Assessments - Encounter Diagnoses This section includes the primary and secondary diagnoses documented for the Encounter. Date/Time Primary/Secondary Diagnosis Diagnosis Name Provider Source Dec 06, 2024 10:44 AM PRIMARY Major depressive disorder, recurrent, moderate CLAUDE SINGH [facility] Dec 06, 2024 10:44 AM SECONDARY Generalized anxiety disorder [facility] [place] [facility] Dec 06, 2024 10:44 AM SECONDARY Insomnia due to other mental disorder [facility] Plan of Treatment: Future Appointments [...] Appointment Type Appointme nt Facility Name Sep 24, 2024 03:30 PM [facility] Oct 05, 2024 08:30 AM [facility] Oct 11, 2024 08:30 AM AMBULATORY - [facility]IATRY [facility] [place] [facility] Oct 14, 2024 08:30 AM AMBULATORY - PS[facility]CHIATRY [facility] [place] [facility] Oct 21, 2024 08:30 AM AMBULATORY - PS[facility]CHIATRY [facility] [place] [facility] Nov 04, 2024 08:30 AM AMBULATORY - PS[facility]CHIATRY [facility] [place] [facility] Nov 18, 2024 08:30 AM AMBULATORY - PS[facility]CHIATRY [facility] [place] [facility] Nov 26, 2024 08:30 AM AMBULATORY - PS[facility]CHIATRY [facility] [place] [facility] Dec 02, 2024 08:30 AM AMBULATORY - PS[facility]CHIATRY [facility] [place] [facility] Dec 14, 2024 08:30 AM AMBULATORY - PSYCHIATRY [facility] [place] [facility] Dec 16, 2024 08:30 AM AMBULATORY - PSYCHIATRY [facility] [place] [facility] Dec 20, 2024 03:00 PM AMBULATORY - MEDICINE [facility] [place] [facility] 2024 03:30 PM AMBULATORY - MEDICINE [facility] [place] [facility] Mar 09, 2025 08:00 AM AMBULATORY - REHAB MEDICIN E [facility] Social History: Smoking Status (Most [...] place. Date/Time Current Smoking Status Comment [facility] Mar 18, 2024 10:00 AM VA-TOBACCO USE FOR DORI CIGARETTES [facility] Tobacco Use History This [...] TYPE Quit more than 15 years ago [facility] Encounter Notes: All associated encounter notes This section contains the clinical notes associated to the Encounter. Date/Time Encounter Note(s) Provider Source Sep 17, 2024 08:54 AM ACCOUNTING OF DISC LOSURES NOTE: LOCAL TITLE: STATE PRESCRIPTION DRUG MONITORING PROGRAM STANDARD TITLE: ACCOUNTING OF DISCLOSURES NOTE DATE OF NOTE: SEP 17, 2024@08:54:36 ENTRY DATE: SEP 17, 2024@08:54:36 AUTHOR: LAZARO SINGH EXP TAVONIGNER: URGENCY: STATUS: COMPLETED This PDMP query was submitted by Lazaro Singh. The clinical justification for this PDMP query is to review controlled substances prescribed outside of the [facility], and any additional information that may become available, as an important component of standard clinical care, and in accordance with [facility] policy. Patient information was shared with the PDMP [place]riss [place]. No prescription(s) for controlled substances outside the [facility] were found in the last 90 days. /prashanth/ LAZARO SINGH Psychiatric Mental Health Nurse Practitioner Signed: 09/17/2024 08:54 LAZARO SINGH [facility] [place] [facility] Sep 17, 2024 08:39 AM PRIMARY CARE NURSE PRACTITIONER OUTPATIENT NOTE: LOCAL TITLE: NURSE PRACTITIONER OUTPATIENT NOTE STANDARD TITLE: PRIMARY CARE NURSE PRACTITIONER OUTPATIENT NOTE DATE OF NOTE: SEP 17, 2024@08:39 ENTRY DATE: SEP 17, 2024@08:39:49 AUTHOR: LAZARO SINGH EXP TAVONIGNER: URGENCY: STATUS: COMPLETED NURSE PRACTITIONER OUTPATIENT NOTE Has ADDENDA OUTPATIENT MENTAL HEALTH CLINIC: FOLLOW-UP Visit is being conducted by [place] Video Connect. [place] identified with 2 identifiers: Full Name Date of Emergency Plan: [facility] confirmed and/or provided the following information in case of emergency or technology failure. PATIENT PHONE - NONE FOUND PHONE NUMBER [CELLULAR] - [phone] Is patient phone number correct, if not, enter below: [facility] Leonard's phone number: GLADIS WILLETT [address] [place] [address], [phone] [facility] Leonard's present location and address for appointment: home [facility] Leonard's emergency contact name and phone number: up to date in CPRS [facility] [place] reported that location is private and safe: yes HPI: GLADIS WILLETT, a 48 y/o male [facility] previously diagnosed with MDD presents for [facility] Follow-Up appointment. Last seen by This Provider on 08/19/24 With regards to addition of ARMODAFINIL I think it's working. I'm in a better mood. I seem to have more energy Notes that he is less depressed but still depressed pretty much every day Estimates severity to 4/10 versus 7-8/10 previously and agrees that severity has decreased from severe to mild to moderate but with significant room for improvement still Notes short term memory loss that has been apparent since before ARMODAFINIL was initiated; started approximately four weeks ago I'll walk into a room and not remember why I walked into the room Sleep has improved with increased dose of DOXEPIN; approximately 7 hours per night Less fidgety since ARIPIPRAZOLE was discontinued but still fidgety and anxious Ruminative episodes and worry still occur but not as frequently as before No cannabis in two weeks. The first week was hard. Now it's just getting over muscle memory Notes positives. I have more memory Couples therapy has been very helpful, definitely. Definitely improved communication and opened up some new perspectives [facility] [place] explicitly denies both active and passive SI in interim since last appointment SUBSTANCE USE: Tobacco: denied Alcohol: once or twice per year Narcotics: denied Cannabis: none since 08/2024; two grams per day previously PSYCHIATRIC HISTORY: Medication trials: BUPROPION Reports trial of bupropion approximately 10 years ago and that this medication was beneficial and well tolerated ARIPIPRAZOLE possible Akathisia Inpatient Hospitalizations: March, for SI with intent and plan Documentation from [facility] is not available for review at this time Suicidal Acts and Self-Harm: SI with intent and plan in February, Denies any other suicide attemtps [facility] prepared to take his life the day after Thanksgi. He wrote a suicide note to his and went to the [facility] with the intention of jumping from the spillway. He self-interrupted when he saw deer. He did not want to defile such a beautiful place. He reported chronic SI without any previous attempts. He was sectioned to [facility] where he was inpatient for 6 days. HISTORY OF VIOLENCE/ASSAULTING OTHERS: denied FAMILY MENTAL HEALTH AND SUBSTANCE USE HISTORY: Not that I'm aware of any Lethal Means Safety Counselling LMSC was conducted. Denied access to firearms SOCIAL HISTORY: Per [facility] Outpatient Mental Health Assessment (04/19/2023), confirmed by [place] during assessment is unaware of any family history in terms of MH issues or substancea buse. Born and raised in [place]. Mother had him at aged 16, [...] father's . He believes she lives in [place]. Xenia met his Annamarie about four [...] in some way. 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 Was laid off last summer but has a new job working FT at [employer]. Job is very sedentary, which may be contributing to [place] Leonard's mental health issues. [employer], did a tour in [place] [facility] and saw combat, discharged in 1996, [...] to potentially hazardous s 08/02/2024 WILIAN SOUTHYVES Maylin Essential hypertension I10. 03/18/2024August,CHERYL Tariq Posttraumatic stress disorder F43.1 03/18/2024August,CHERYL Tariq Crohns disease K50.90 03/18/2024August,CHERYL Tariq Depression F32.A 03/18/2024August,CHERYL Tariq Anxiety F41.9 03/18/2024August,CHERYL Tariq Insomnia G47.00 03/18/2024August,CHERYL Tariq ALLERGIES: Data on this list may not be complete. Please check [facility] ALLERGY/ADR -------- No Remote Allergy/ADR Data available for this patient [facility] [place] [facility] No Known Allergies MEDICATIONS: reviewed and updated in CPRS Active Outpatient Medications (including Supplies): Active Outpatient Medications Status 1) ARMODAFINIL 150MG TAB TAKE ONE TABLET BY MOUTH EVERY MORNING ACTIVE Indication: MOOD 2) AZATHIOPRINE 50MG TAB TAKE THREE TABLETS BY MOUTH ONCE DAILY ACTIVE 3) BUPROPION HCL 300MG 24HR SA TAB TAKE ONE TABLET BY MOUTH ACTIVE EVERY MORNING Indication: MOOD 4) DOXEPIN HCL 10MG CAP TAKE ONE CAPSULE BY MOUTH AT BEDTIME ACTIVE NEEDED Indication: SLEEP 5) FLUOXETINE HCL 20MG CAP TAKE TWO CAPSULES BY MOUTH ONCE ACTIVE DAILY FOR DEPRESSION AND ANXIETY Indication: MOOD 6) HCTZ 12.5/LISINOPRIL 10MG TAB TAKE 1 TABLET BY MOUTH ONCE ACTIVE DAILY Indication: FOR HIGH BLOOD PRESSURE 7) HYDROXYZINE HCL 50MG TAB TAKE ONE TABLET BY MOUTH TWICE ACTIVE DAILY NEEDED Indication: ANXIETY Active Non-VA Medications Status 1) Non-VA OMEPRAZOLE 20MG EC CAP 20MG BY MOUTH EVERY MORNING 30 ACTIVE MINUTES BEFORE BREAKFAST Indication: FOR EXCESSIVE PRODUCTION OF STOMACH ACID 8 Total Medications SAFETY ASSESSMENT: No acute safety [...] desire to continue with current pharmacotherapy regimen. reports improvement in symptoms of depression with addition of ARMODAFINIL but with significant residual symptoms still remaining. Discussed increasing dose in the hopes of addressing residual symptoms. is aware that this medication is being used off label but use appears justified given limited response to multiple first and 2nd line treatment options with anergic symptoms of depression being particularly salient Improvement in symptoms of depression and abscence of recent SI is a welcome development Cessation of cannabis use was commended and encouraged No acute safety concerns Diagnosis: MDD, recurrent, moderate Generalized Anxiety Disorder Insomnia Disorder, unspecified R/O Cannabis Use Disorder PLAN: 1) CONTINUE Fluoxetine 40 mg PO DAILY 2) CONTINUE Hydroxyzine 50 mg PO BID PRN 3) CONTINUE BUPROPION XR 300 MG PO DAILY 4) CONTINUE DOXEPIN 10 MG PO QHS PRN 5) INCREASE ARMODAFINIL FROM 150 TO 250 MG PO QAM Labs: none today Follow-Up: 10/14/24 Discussed risks and benefits of proposed medication treatments including FDA approved indications and off-label uses, as well as common and severe side effects. comprehended all information discussed, had opportunity to ask questions which were answered to their satisfaction, and voluntarily and without duress agreed to trial as documented. CONTACT AND CRISIS INFO: [facility] informed that This Provider can be contacted at , EXT [phone] or via Secure Messaging. We have reviewed the Crisis Hotline (988, dial #1 for line), and the [place] has been instructed to call 911 or [...] court of law and presented to a social media marketing specialist), and DOD access for active-duty service members. [...] whether with a VA or non-VA provider. /mone SINGH Psychiatric Mental Health Nurse Practitioner Signed: 09/17/2024 11:53 10/06/2024 ADDENDUM STATUS: COMPLETED This encounter occurred via VVC. Not in person /mone SINGH Psychiatric Mental Health Nurse Practitioner Signed: 10/06/2024 08:04 LAZARO SINGH [facility]
--- OUTSIDE RECORDS SUMMARY | 2024-10-05 04:30 | XMS_ITS | Encounter Summary ---
Author Name [facility] [place] Organization [place] Address [address] [place] [address] Care Team Providers Care Driver'S License Examiner Name Role Phone KALEB DUFF Primary Care [...] DEDUCTIBL E HEALTH PLAN W/HEALTH SAVINGS [facility] Apr 14, 2024 [id number] [facility] [phone] Lexie MARTIN SPOUSE CIGNA HIGH DEDUCTIBL E HEALTH PLAN W/HEALTH SAVINGS ACCOUNT MASS UTUAL [facility] Apr 14, 2024 [id number] [facility] [phone] ARDIANA WILLETT SPOUSE CIGNA HIGH DEDUCTIBL E HEALTH PLAN W/HEALTH SAVINGS ACCOUNT MASSM UTUAL [facility] September 08, 2023 [id number] ADRIANA WILLETT SPOUSE CIGNA BEHAVIORAL HEALTH MENTAL HEALTH MASSM UTUAL [facility] Apr 14, 2024 [id number] [facility] Lexie MARTIN SPOUSE [facility] MENTAL HEALTH MASSM UTUAL [facility] Apr 14, 2024 [id number] GABRIELA WILLETT PATIENT EXPRESS SCRIPTS ([id number]) PRESCRIPT ION MASSM UTUAL [facility] Apr 14, 2024 K4UA [id number] BRENNONGABRIELA Thomas PATIENT MEDCO (EXPRESS SCRIPTS) PRESCRIPT ION CIGNA /MEDC O [facility] Apr 14, 2024 K4UA [id number] [phone] GABRIELA WILLETT SPOUSE Selected Encounter This section includes the information on record at [place] for the Encounter. Date/Time Encounter Type Encounter Description Reason Provider Source Oct 05, 2024 08:30 AM PSYTX W PT 60 MINUTES MENTAL HEALTH CLINIC - IND ICD-10-CM F32.A Depression, unspecified SHANIQUE FOWLER M IHE Encounter Template Text not used by [place] Assessments - Encounter Diagnoses This section includes the primary and secondary diagnoses documented for the Encounter. Date/Time Primary/Secondary Diagnosis Diagnosis Name Provider Source Oct 13, 2024 09:46 AM PRIMARY Depression, unspecified SHANIQUE FOWLER M [facility] [place] [facility] Oct 13, 2024 09:46 AM SECONDARY Anxiety disorder, unspecified SHANIQUE FOWLER M [facility] [place] [facility] Plan of Treatment: Future Appointments (+ 6 months) and Future Tests (+/- 45 days) The Plan of Treatment section includes future care activities for the patient from all [place] treatmentfacilities. This section includes future appointments and future orders which are active, pending or scheduled. Future Appointments This section includes appointments that were scheduled to occur 6 months from the date of the Encounter, up to a maximum of 20 appointments. The data comes from all [place] treatment facilities. Appointment Date/Time Appointment Type Appointme nt Facility Name Oct 11, 2024 08:30 AM AMBULATORY - PSYCHIATRY [facility] [place] [facility] Oct 14, 2024 08:30 AM AMBULATORY - PSYCHIATRY [facility] [place] [facility] Oct 21, 2024 08:30 AM AMBULATORY - PSYCHIATRY [facility] [place] [facility] Nov 04, 2024 08:30 AM AMBULATORY - PSYCHIATRY [facility] [place] [facility] Nov 18, 2024 08:30 AM AMBULATORY - PSYCHIATRY [facility] [place] [facility] Nov 26, 2024 08:30 AM AMBULATORY - PSYCHIATRY [facility] [place] [facility] Dec 02, 2024 08:30 AM AMBULATORY - PSYCHIATRY [facility] [place] [facility] Dec 14, 2024 08:30 AM AMBULATORY - PSYCHIATRY [facility] [place] [facility] Dec 16, 2024 08:30 AM AMBULATORY - PSYCHIATRY [facility] [place] [facility] Dec 20, 2024 03:00 PM AMBULATORY - MEDICINE [facility] [place] [facility] 2024 03:30 PM AMBULATORY - MEDICINE [facility] [place] [facility] Mar 09, 2025 08:00 AM AMBULATORY - REHAB [facility] Social History: Smoking [...] took place. Date/Time Current Smoking Status Comment [facility] Mar 18, 2024 10:00 AM VA-TOBACCO USE FOR DORI CIGARETTES [facility] Tobacco Use History This section includes a history of the smoking, or tobacco-related health factors, that were collected on or before the date of the Encounter. The data comes from the [place] facility where the Encounter took place. Date/Time Smoking Status/Tobac co Use Comment Facility Mar 18, 2024 10:00 AM VA-TOBACCO USE FORMER OTHER TYPE Quit more than 15 years ago [facility] Encounter Notes: All associated encounter notes This section contains the clinical notes associated to the Encounter. Date/Time Encounter Note(s) Provider Source Oct 05, 2024 08:30 AM TELEHEALTH NOTE: LOCAL TITLE: [place] VIDEO CONNECT PSYCHOLOGY NOTE STANDARD TITLE: TELEHEALTH NOTE DATE OF NOTE: OCT 05, 2024@08:30 ENTRY DATE: OCT 05, 2024@08:44:29 AUTHOR: TAO FOWLER EXP COSIGNER: URGENCY: STATUS: COMPLETED [facility] ([facility]) Standard Documentation V[facility] Clinician Resources Only: E911 (Emergency Call Relay Center): [phone] National Veterans Crisis Line - 988 then press #1. LUCIAJason Suicide Coordinator [phone], Ext. [phone]; Back-up Ext. [phone] [place] Police, Daniela STEVENSON [phone] Introduction: Visit is being conducted by [place] Video Connect. [place] identified with 2 identifiers: [X] Full Name [X] Date of [ ] VA ID Card Emergency Plan: confirmed and/or provided the following information in case of emergency or technology failure. PATIENT PHONE - NONE FOUND PHONE NUMBER [CELLULAR] - [phone] Is patient phone number correct, if not, enter below: 's phone number: GLADIS WILLETT [address], [place], [address] 's present location and address for appointment: Above address 's emergency contact name and phone number: on file [place] reported that location is private and safe: Yes Informed Consent: informed of the risks and benefits of Telehealth video care. [place] has the right to refuse video services. If refuses video visit, a affr-jg-yuup visit will be scheduled. verbalized consent for this video visit: Yes [place] provided consent for any other persons present for visit: Yes If yes, who and relationship to patient:-Annamarie Secure visit: Visit was locked for security and privacy:Yes identified with 2 identifiers: [X] Full Name [X] Visual recognition Procedure: Individual psychotherapy Date/time: 10/05/24; Session: 10 PROBLEM: Depressive sx, recent suicidality, psychosocial stressors, anxious sx Goals: Improvement mood and self-esteem, address psychosocial stressors/interpersonal dynamics Progress: [place] reports that he is generally doing somewhat better over the past few weeks, noting intermittent experience of more persistent/significant depressive sx, though relative mood improvement overall, due in part to opportunities to engage in preferred activities, particularly those that he and his did jointly. [place] and TW collaboratively discussed how receiving direct yet supportively-oriented feedback from boss about his attendance has helped his commitment to work despite periods of worsening depressive sx and reinforced his value to the company. TW engaged in MBC discussion. Bridging from previous session, and TW collaboratively reviewed patterns of problematic thinking/common cognitive distortion and expanded upon ABC sheets, which he'll complete between sessions. Dx: Unspecified depressive d/o Unspecified [...] stimuli Insight: good Judgment: fair to good [place] did not endorse current SI/HI nor did he appear to be in any acute distress Ongoing Plan: Next appt with this sheet writer scheduled for 10/21/24. [place] encouraged to continue participation in couples counseling, psychiatry Depression Monitoring (PHQ-9): PHQ-9 A PHQ-9 screen was performed. The score was 9. 1. Little interest or pleasure in doing things Several days 2. Feeling down, depressed, or hopeless Several days 3. Trouble falling or staying asleep, or sleeping too much More than half the days 4. Feeling tired or having little energy More than half the days 5. Poor appetite or overeating Several days 6. Feeling bad about yourself or that you are a failure or have let yourself or your family down Several days 7. Trouble concentrating on things, such as reading the newspaper or watching television Several days 8. Moving or speaking so slowly that other people could have noticed. Or the opposite being so fidgety or restless that you have been moving around a lot more than usual Not at all 9. Thoughts that you would be better off or of hurting yourself in some way Not at all 10. If you checked off any problems, how DIFFICULT have these problems made it for you to do your work, take care of things at home or get along with other people? Somewhat difficult [place]'s PHQ9 score IMPROVED from the most recent score /es/ TAO MALCOLM, PSYD CLINICAL PSYCHOLOGIST - MENTAL HEALTH CLINIC Signed: 10/13/2024 09:46 TAO FOWLER [facility]
--- OUTSIDE RECORDS SUMMARY | 2024-10-11 04:30 | XMS_ITS | Encounter Summary ---
Author Name [facility] [place] Organization [facility] [place] Address [address] [place] [address] Care Team Providers Care Disbursing Officer Name Role Phone KALEB DUFF Primary Care [...] [facility] Apr 14, 2024 [id number] [facility] Lexie MARTIN SPOUSE CIGNA HIGH DEDUCTIBL E HEALTH PLAN W/HEALTH SAVINGS ACCOUNT MASS UTUAL [facility] Apr 14, 2024 [id number] [facility] ADRIANA WILLETT SPOUSE CIGNA HIGH DEDUCTIBL E HEALTH PLAN W/HEALTH SAVINGS ACCOUNT MASSM UTUAL [facility] September 08, 2023 [id number] ADRIANA WILLETT SPOUSE CIGNA BEHAVIORAL HEALTH MENTAL HEALTH MASSM UTUAL [facility] Apr 14, 2024 [id number] [facility] Lexie MARTIN SPOUSE [facility] MENTAL HEALTH MASSM UTUAL [facility] Apr 14, 2024 [id number] GABRIELA WILLETT PATIENT EXPRESS SCRIPTS ([id number]) PRESCRIPT ION MASSM UTUAL [facility] Apr 14, 2024 K4UA [id number] GABRIELA WILLETT PATIENT MEDCO (EXPRESS SCRIPTS) PRESCRIPT ION CIGNA /MEDC O [facility] Apr 14, 2024 K4UA [id number] GABRIELA WILLETT SPOUSE Selected Encounter This section includes the information on record at [place] for the Encounter. Date/Time Encounter Type Encounter Description Reason Provider Source Oct 11, 2024 08:30 AM FAMILY PSYTX W/PT 50 MIN MENTAL HEALTH CLINIC - IND ICD-10-CM F43.10 Post-traumatic stress disorder, unspecified MAYRA HAYES Martha Encounter Template Text not used by [place] Assessments - Encounter Diagnoses This section includes the primary and secondary diagnoses documented for the Encounter. Date/Time Primary/Secondary Diagnosis Diagnosis Name Provider Source Oct 11, 2024 09:55 AM PRIMARY Post-traumatic stress disorder, unspecified GUICHO HAYES [facility] Oct 11, 2024 09:55 AM SECONDARY Problems in relationship with spouse or partner GUICHO HAYES [facility] Plan of Treatment: Future Appointments (+ 6 months) and Future Tests (+/- 45 days) The Plan of Treatment section includes future care activities for the patient from [facility] [place] [facility] This section includes future appointments and future orders which are active, pending or scheduled. Future Appointments This section includes appointments that were scheduled to occur 6 months from the date of the Encounter, up to a maximum of 20 appointments. The data comes from all [place] treatment facilities. Appointment Date/Time Appointment Type Appointme nt Facility Name Oct 14, 2024 08:30 AM [facility] Oct 21, 2024 08:30 AM AMBULATORY - PSYCHIATRY [facility] Nov 04, 2024 08:30 AM [facility] Nov 18, 2024 08:30 AM [facility] [place] [facility] Nov 26, 2024 08:30 AM AMBUL[facility]ORY [facility] [place] [facility] Dec 02, 2024 08:30 AM AMBULATORY [facility] [place] [facility] Dec 14, 2024 08:30 AM AMBULATORY [facility] [place] [facility] Dec 16, 2024 08:30 AM AMBULATORY - [facility]IAT[facility] [place] [facility] Dec 20, 2024 03:00 PM AMBULATORY - MEDICINE [facility] [place] [facility] 2024 03:30 PM AMBULATORY [facility]ICINE [facility] [place] [facility] Mar 09, 2025 08:00 AM AMBULATORY - REHAB MEDICIN E [facility] Social History: Smoking Status (Most current) and Tobacco Use (All prior to encounter date) This section includes the most current, and the historical, smoking and tobacco- related health factors from the [place] facility where the Encounter took place. Current Smoking Status This section includes the most current smoking, or tobacco-related health factor, from the [place] facility where the Encounter took place. Date/Time Current Smoking Status Comment [facility] Mar 18, 2024 10:00 AM VA-TOBACCO USE FOR DORI CIGARETTES [facility] Tobacco Use History This section includes a history of the smoking, or tobacco-related health factors, that were collected on or before the date of the Encounter. The data comes from the [place] facility where the Encounter took place. Date/Time Smoking Status/Tobac co Use Comment Facility Mar 18, 2024 10:00 AM VA-TOBACCO USE FORMER OTHER TYPE Quit more than 15 years ago [facility] Encounter Notes: All associated encounter notes This section contains the clinical notes associated to the Encounter. Date/Time Encounter Note(s) Provider Source Oct 14, 2024 09:06 AM MENTAL HEALTH ZEINAB TMENT PLAN NOTE: LOCAL TITLE: MH TREATMENT PLAN STANDARD TITLE: MENTAL HEALTH TREATMENT PLAN NOTE DATE OF NOTE: OCT 14, 2024@09:06:50 ENTRY DATE: OCT 14, 2024@09:07:02 AUTHOR: MAYRA HAYES COSIGNER: URGENCY: STATUS: COMPLETED MH TREATMENT PLAN - Oct, @ 09:06AM Visit Date: Sep, @ 08:30 - [facility] PSYLG 13 TRIMMER TAILER: OLIVE CANCINO / TDE [place] PRESENTING PROBLEM: has a history of PTSD with associated depression and chronic SI STRENGTHS AND ABILITIES: Active partnership in [place] Accepts guidance/feedback Has supportive family and/or friends TREATMENT PLAN: Problem: has been experiencing relationship distress, described by as feeling like he is a burden to his and difficulty with communication. Status: ACTIVE Goal: Fowler would like to increase satisfaction in relationship. Status: ACTIVE Objective: will report an improved rating of overall satisfaction with relationship as measured by Couple Satisfaction Index. Status: ACTIVE Projected Target: 01/06/2025 Intervention: At least 12 sessions of Integrative Behavioral Couple Therapy (IBCT) Status: ACTIVE Discipline: Mental Health Clinic Time Frame: One time every 2 weeks for 12 weeks Providers: MAYRA HAYES: PSYCHOLOGIST DISCIPLINE: Mental Health Clinic Entered Treatment: 10/14/2024 @ 09:07AM Review Date: 10/14/2025 Anticipated Discharge: None INTERDISCIPLINARY TEAM: MAYRA HAYES: PSYCHOLOGIST COMMUNICATION: Relevant treatment options, including evidence-based interventions, were considered and discussed with the Fowler. NO A copy of the treatment plan was given to the Fowler. NO Risks, benefits, and potential complications were discussed with the . NO /prashanth/ Mayra Hayes Psy.D. Psychologist Signed: 10/14/2024 09:07 Receipt Acknowledged By: * AWAITING SIGNATURE * OLIVE CANCINO 10/14/2024 12:08 /es/ TAO FOWLER PSYD CLINICAL PSYCHOLOGIST - MENTAL HEALTH CLINIC MAYRA HAYES [place] [facility] [place] [facility] Oct 11, 2024 09:04 AM MENTAL HEALTH NOTE : LOCAL TITLE: BEHAVIORAL COUPLES THERAPY NOTE STANDARD TITLE: MENTAL HEALTH NOTE DATE OF NOTE: OCT 11, 2024@09:04 ENTRY DATE: OCT 11, 2024@09:05:05 AUTHOR: MARYA HAYES EXP COSIGNER: URGENCY: STATUS: COMPLETED INFORMED CONSENT TO PARTICIPATE IN SESSION: At beginning of session reviewed rights and limits of confidentiality, mandatory reporting situations, duty to warn and protect, Cabezas Warning,(if treatment team finds patient to be an acute danger to himself or others, that this information could be relayed to a court of law and presented to a supreme court judge), and DOD access for active duty service members. Provided Suicide Prevention Hotline number, and other contact numbers as necessary. DURATION OF SESSION: 30 minutes SESSION CONTENT: The couple reported no concerns at today's appointment. They shared many examples of how they have been spending more time together. They also added that they have been intentional about their communication and during activities together they have been putting their phones away and having open discussion. This jingle writer reinforced this by asking them to reflect on how they felt this has improved relationship satisfaction. In addition, the couple and this jingle writer discussed an upcoming family wedding and ways that can support his as she prepares to help with the wedding. 's was able to communicate her needs and they were able to come up with a game plan. MENTAL STATUS AND BEHAVIORAL OBSERVATIONS: The couple was polite and cooperative. They were laughing and expressing physical and verbal compassion towards each other. No safety concerns were reported. DSM5 DIAGNOSES: relationship distress with spouse; Fowler with PTSD diagnosis. Plan: RTC on 11/05 @8:30am My Dentist (VV) Standard Documentation [facility] Clinician Resources Only: E911 (Emergency Call Relay Center): [phone] National Veterans Crisis Line - 988 then press #1. [facility] Suicide Coordinator [phone], Ext. [phone]; Back-up Ext. [phone] [place] [employer], [place], Ted [phone] Introduction: Visit is being conducted by [facility]. identified with 2 identifiers: [X] Full Name [X] Date of [ ] [place] ID Card Emergency Plan: confirmed and/or provided the following information in case of emergency or technology failure. PATIENT PHONE - NONE FOUND PHONE NUMBER [CELLULAR] - [phone] Is patient phone number correct, if not, enter below: Fowler's phone number: GLADIS WILLETT [address], [place], [address] Fowler's present location and address for appointment: above address 's emergency contact name and phone number: on file reported that location is private and safe: Yes Informed Consent: informed of the risks and benefits of Telehealth video care. has the right to refuse video services. If refuses video visit, a yunw-bj-myly visit will be scheduled. Fowler verbalized consent for this video visit: Yes Fowler provided consent for any other persons present for visit: Yes If yes, who and relationship to patient:-Severiano Secure visit: Visit was locked for security and privacy:Yes Does this visit involve laterality/specific side of body? N/A /prashanth/ Mayra Hayes Psy.D. Psychologist Signed: 10/11/2024 10:01 MAYRA HAYES [place] [facility]
--- OUTSIDE RECORDS SUMMARY | 2024-10-14 04:30 | XMS_ITS | Encounter Summary ---
Author Name [facility] [place] Organization [facility] [place] Address [address] [place] [address] Care Team Providers Care Print Line Tailer Name Role Phone KALEB DUFF Primary Care [...] HEALTH PLAN W/[facility] SAVINGS [facility] Apr 14, 2024 [id number] [facility] [phone] Lexie MARTIN SPOUSE CIGNA HIGH DEDUCTIBL E HEALTH PLAN W/HEALTH SAVINGS ACCOUNT MASS UTUAL [facility] Apr 14, 2024 [id number] [facility] ADRIANA WILLETT SPOUSE CIGNA HIGH DEDUCTIBL E HEALTH PLAN W/HEALTH SAVINGS ACCOUNT [facility] September 08, 2023 [id number] ADRIANA WILLETT SPOUSE CIGNA BEHAVIORAL HEALTH MENTAL HEALTH MASS UTUAL [facility] Apr 14, 2024 [id number] [facility] Lexie MARTIN SPOUSE [facility] MENTAL HEALTH MASSM UTUAL [facility] Apr 14, 2024 [id number] GABRIELA WILLETT PATIENT EXPRESS SCRIPTS ([id number]) PRESCRIPT ION MASSM UTUAL HDHP [facility] Apr 14, 2024 K4UA [id number] GABRIELA WILLETT PATIENT MEDCO (EXPRESS SCRIPTS) PRESCRIPT ION CIGNA /MEDC O [facility] Apr 14, 2024 K4UA [id number] GABRIELA WILLETT SPOUSE Selected Encounter This section includes the information on record at [place] for the Encounter. Date/Time Encounter Type Encounter Description Reason Provider Source Oct 14, 2024 08:30 AM OFFICE O/P EST MOD 30 MIN MENTAL HEALTH CLINIC - IND ICD-10-CM F33.0 Major depressive disorder, recurrent, mild KATIANA,CLAUDE N IHE Encounter Template Text not used by [place] Assessments - Encounter Diagnoses This section includes the primary and secondary diagnoses documented for the Encounter. Date/Time Primary/Secondary Diagnosis Diagnosis Name Provider Source Oct 14, 2024 08:51 AM PRIMARY Major depressive disorder, recurrent, mild KATIANA,CLAUDE N [place] [facility] [place] [facility] Oct 14, 2024 08:51 AM SECONDARY Insomnia, unspecified KATIANA,CLAUDE N [facility] [place] [facility] Plan of Treatment: Future Appointments (+ [...] Appointment Type Appointme nt Facility Name Oct 21, 2024 08:30 AM AMBULATORY - PS[place]CHIATRY [facility] [place] [facility] Nov 04, 2024 08:30 AM AMBULATORY - PS[facility]CHIATRY [facility] [place] [facility] Nov 18, 2024 08:30 AM AMBULATORY - PS[place]CHIATRY [facility] [place] [facility] Nov 26, 2024 08:30 AM AMBULATORY - PS[place]CHIATRY [facility] [place] [facility] Dec 02, 2024 08:30 AM AMBULATORY - PSYCHIATRY [facility] [place] [facility] Dec 14, 2024 08:30 AM AMBULATORY - PSYCHIATRY [facility] [place] [facility] Dec 16, 2024 08:30 AM AMBULATORY - PSYCHIATRY [facility] [place] [facility] Dec 20, 2024 03:00 PM [facility] 2024 03:30 PM AMBULATORY - MEDICINE [place] [facility] [place] [facility] Mar 09, 2025 08:00 AM AMBULATORY - [facility] Social History: Smoking Status (Most [...] took place. Date/Time Current Smoking Status Comment [facility] Mar 18, 2024 10:00 AM VA-TOBACCO USE FOR DORI CIGARETTES [facility] Tobacco Use History This section includes a history of the smoking, or tobacco-related health factors, that were collected on or before the date of the Encounter. The data comes from the [place] facility where the Encounter took place. Date/Time Smoking Status/Tobac co Use Comment Facility Mar 18, 2024 10:00 AM VA-TOBACCO USE FORMER OTHER TYPE Quit more than 15 years ago [facility] Encounter Notes: All associated encounter notes This section contains the clinical notes associated to the Encounter. Date/Time Encounter Note(s) Provider Source Oct 14, 2024 08:30 AM PRIMARY CARE NURSE PRACTITIONER OUTPATIENT NOTE: LOCAL TITLE: NURSE PRACTITIONER OUTPATIENT NOTE STANDARD TITLE: PRIMARY CARE NURSE PRACTITIONER OUTPATIENT NOTE DATE OF NOTE: OCT 14, 2024@08:30 ENTRY DATE: OCT 14, 2024@08:30:45 AUTHOR: VIOLA SAAB COSIGNER: URGENCY: STATUS: COMPLETED OUTPATIENT MENTAL HEALTH CLINIC: FOLLOW-UP Visit is being conducted by [place] [facility]. Donaldson identified with 2 identifiers: Full Name Date of Emergency Plan: Donaldson confirmed and/or provided the following information in case of emergency or technology failure. PATIENT PHONE - NONE FOUND PHONE NUMBER [CELLULAR] - [phone] Is patient phone number correct, if not, enter below: 's phone number: GLADIS WILLETT [address], [place], [address] Donaldson's present location and address for appointment: home 's emergency contact name and phone number: up to date in CPRS Donaldson reported that location is private and safe: yes HPI: GLADIS WILLETT, a 48 y/o male previously diagnosed with MDD presents for [facility] [place]Up appointment. Last seen by This Provider on 08/19/24 Reports mood as I've been doing pretty good and I've been feeling pretty good Feels that residual symptoms of depression are mild in severity and transient and tolerable at current baseline Resumed cannabis use I started again, but not every day and not as much With regards to brief period of abstinence I had more energy and more motivation With regards to motivations for use It helps my Crohn's symptoms. Does not feel that use at current levels has a deleterious impact on mood or MH symptoms Anxiety has been very low. Ruminative episodes still happen, but far less frequently. Notes that therapy has been especially beneficial Sleep has been okay and has improved recently Energy has been improving Appetite is poor explicitly denies both active and passive SI SUBSTANCE USE: Tobacco: denied Alcohol: once or twice per year Narcotics: denied Cannabis: none since 08/2024; two grams per day previously -resumed use in September, 'but not as much. Not daily' PSYCHIATRIC HISTORY: Medication trials: BUPROPION Reports trial of bupropion approximately 10 years ago and that this medication was beneficial and well tolerated ARIPIPRAZOLE possible Akathisia Inpatient Hospitalizations: March, for SI with intent and plan Documentation from [facility] is not available for review at this time Suicidal Acts and Self-Harm: SI with intent and plan in February, Denies any other suicide attemtps prepared to take his life the day after Thanksgiving. He wrote a suicide note to his and [facility] with the intention of jumping from the spillway. He self-interrupted when he saw deer. He did not want to defile such a beautiful place. He reported chronic SI without any previous attempts. He was sectioned to [facility] where he was inpatient for 6 days. HISTORY OF VIOLENCE/ASSAULTING OTHERS: denied FAMILY MENTAL HEALTH AND SUBSTANCE USE HISTORY: Not that I'm aware of any Lethal Means Safety Counselling [facility] was conducted. Denied access to firearms SOCIAL HISTORY: Per [facility] Outpatient Mental Health Assessment (04/19/2023), confirmed by during assessment Donaldson is unaware of any family history in terms of MH issues or substancea buse. Born and raised in [facility] [place]. Mother had him at aged 16, at which time his bio father denied paternity. He was then raised believing faustino was bio father until actual bio father called him at age 13. Mom faustino around that time but they remained in touch. Both fathers are now . Mom recently moved to [place] with a boyfriend. Xenia and she are in touch but not close. No abuse in home but acknowledges a pattern of being invalidated by mom or feeling like an inconvenience. Xenia has half sister he was raised with but they fell out of touch after father's . He believes she lives in [facility]. Xenia met his Annamarie about [...] some way. 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 Was laid off last summer but has a new job working FT at [employer]. Job is very sedentary, which may be contributing to Xenia's mental health issues. [employer], [place] a [place] and saw combat, discharged in 1996, exposure [...] memory grossly intact to conversational testing Mood: good Affect: mood congruent; full and appropriate range LABS AND STUDIES: RE[facility]ED IN [facility] MEDICAL HISTORY: Active Problem Exposure to potentially hazardous s 08/02/2024 [facility] Essential hypertension I10. 03/18/2024August,CHERYL Tariq Posttraumatic stress disorder F43.1 03/18/2024August,CHERYL Tariq Crohns disease K50.90 03/18/2024August,CHERYL Tariq Depression F32.A 03/18/2024August,CHERYL Tariq Anxiety F41.9 03/18/2024August,CHERYL Tariq Insomnia G47.00 03/18/2024August,CHERYL Tariq ALLERGIES: Data on this list may not be complete. Please check [facility]. [facility] ALLERGY/ADR -------- No Remote Allergy/ADR Data available for this patient [facility] No Known Allergies MEDICATIONS: reviewed and updated in [facility] Active Outpatient Medications (including Supplies): Active Outpatient Medications Status 1) ARMODAFINIL 250MG TAB TAKE ONE TABLET BY MOUTH EVERY [...] with significant therapeutic benefit and denies side effects aside from decreased appetite. Reports desire to continue with current pharmacotherapy regimen. Donaldson reports significant improvements in symptoms of depression with increased dose of ARMODAFINIL. is aware that this medication is being used off label but use appears justified given limited response to multiple first and 2nd line treatment options and 's having declined LITHIUM No acute safety concerns Diagnosis: MDD, recurrent, moderate Generalized Anxiety Disorder Insomnia Disorder, unspecified R/O Cannabis Use Disorder PLAN: 1) CONTINUE Fluoxetine 40 mg PO DAILY 2) CONTINUE Hydroxyzine 50 mg PO BID PRN 3) CONTINUE BUPROPION XR 300 MG PO DAILY 4) CONTINUE DOXEPIN 10 MG PO QHS PRN 5) CONTINUE ARMODAFINIL 250 MG PO QAM Labs: none today Follow-Up: 12/14/24 Discussed risks and benefits of proposed medication treatments including FDA approved indications and off-label uses, as well as common and severe side effects. comprehended all information discussed, had opportunity to ask questions which were answered to their satisfaction, and voluntarily and without duress agreed to trial as documented. CONTACT AND CRISIS INFO: informed that This Provider can be contacted at , EXT [phone] or via Secure Messaging. We have reviewed the Crisis Hotline (938, dial #1 for line), and the Donaldson has been instructed to call 911 or [...] court of law and presented to a municipal court judge), and DOD access for active-duty service members. CODING: Total time today was 30 minutes, which included an [id number] visit with the patient, providing counseling and [...] SAAB Psychiatric Mental Health Nurse Practitioner Signed: 10/14/2024 08:51 VIOLA SAAB [place] [facility]
--- OUTSIDE RECORDS SUMMARY | 2024-10-21 04:30 | XMS_ITS | Encounter Summary ---
Author Name [facility] [place] Address [address] [place] [address] Care Team Providers Care Locket Maker Name Role Phone KALEB DUFF Primary Care [...] [facility] Apr 14, 2024 [id number] [facility]5 Lexie MARTIN SPOUSE CIGNA HIGH DEDUCTIBL E HEALTH PLAN W/HEALTH SAVINGS ACCOUNT MASS UTUAL [facility] Apr 14, 2024 [id number] [facility]1 [phone] ADRIANA WILLETT SPOUSE CIGNA HIGH DEDUCTIBL E HEALTH PLAN W/HEALTH SAVINGS ACCOUNT MASSM UTUAL [facility] September 08, 2023 [id number] ADRIANA WILLETT SPOUSE CIGNA BEHAVIORAL HEALTH MENTAL HEALTH MASSM UTUAL [facility] Apr 14, 2024 [id number] [facility] [phone] Lexie MARTIN SPOUSE [facility] MASSM UTUAL [facility] Apr 14, 2024 [id number] GABRIELA WILLETT PATIENT EXPRESS SCRIPTS ([id number]) PRESCRIPT ION MASSM UTUAL HDHP [facility] Apr 14, 2024 K4UA [id number] BRENNONGABRIELA Thomas PATIENT MEDCO (EXPRESS SCRIPTS) PRESCRIPT ION CIGNA /MEDC O [facility] Apr 14, 2024 K4UA [id number] [phone] GABRIELA WILLETT SPOUSE Selected Encounter This section includes the information on record at [place] for the Encounter. Date/Time Encounter Type Encounter Description Reason Provider Source Oct 21, 2024 08:30 AM PSYTX W PT 60 MINUTES [facility] - IND ICD-10-CM F32.A Depression, unspecified SHANIQUE FOWLER IHE Encounter Template Text not used by [place] Assessments - Encounter Diagnoses This section includes the primary and secondary diagnoses documented for the Encounter. Date/Time Primary/Secondary Diagnosis Diagnosis Name Provider Source Oct 27, 2024 10:14 AM PRIMARY Depression, unspecified SHANIQUE FOWLER M [place] [facility] [facility] Oct 27, 2024 10:14 AM SECONDARY Anxiety disorder, unspecified SHANIQUE FOWLER M [place] [facility] [facility] Plan of Treatment: Future Appointments (+ 6 months) and Future Tests (+/- 45 days) The Plan of Treatment section includes future care activities for the patient from all [place] treatmentfacilities. This section includes future appointments and future orders which are active, pending or scheduled. Future Appointments This section includes appointments that were scheduled to occur 6 months from the date of the Encounter, up to a maximum of 20 appointments. The data comes from all [place] treatment facilities. Appointment Date/Time Appointment Type Appointme nt Facility Name Nov 04, 2024 08:30 AM AMBULATORY - [place]CHIATRY [place] [facility] [place] [facility] Nov 18, 2024 08:30 AM AMBULATORY - [place]CHIATRY [place] [facility] [facility] Nov 26, 2024 08:30 AM AMBULATORY - [place]CHIATRY [place] [facility] [facility] Dec 02, 2024 08:30 AM AMBULATORY [place] [facility] [place] [facility] Dec 14, 2024 08:30 AM [facility] Dec 16, 2024 08:30 AM [facility] Dec 20, 2024 03:00 PM AM[place]UL[place] [place] [facility] 2024 03:30 PM AMBULATORY - MEDICINE [facility] N[facility]L TRN [facility] Mar 09, 2025 08:00 AM AMBULATORY - REHAB MEDICIN E [facility] Social History: Smoking Status (Most current) [...] took place. Date/Time Current Smoking Status Comment [facility] Mar 18, 2024 10:00 AM VA-TOBACCO USE FOR DORI CIGARETTES [facility] Tobacco Use History This section includes a history of the smoking, or tobacco-related health factors, that were collected on or before the date of the Encounter. The data comes from the [place] facility where the Encounter took place. Date/Time Smoking Status/Tobac co Use Comment Facility Mar 18, 2024 10:00 AM VA-TOBACCO USE FORMER OTHER TYPE Quit more than 15 years ago [facility] Encounter Notes: All associated encounter notes This section contains the clinical notes associated to the Encounter. Date/Time Encounter Note(s) Provider Source Oct 21, 2024 08:30 AM TELEHEALTH NOTE: LOCAL TITLE: [place] VIDEO CONNECT PSYCHOLOGY NOTE STANDARD TITLE: TELEHEALTH NOTE DATE OF NOTE: OCT 21, 2024@08:30 ENTRY DATE: OCT 21, 2024@09:43:23 AUTHOR: TAO FOWLER COSIGNER: URGENCY: STATUS: COMPLETED [place] [facility] Connect ([facility]VC) Standard Documentation VVC Clinician Resources Only: E911 (Emergency Call Relay Center): [phone] [facility] Crisis Line - 988 then press #1. [facility] Suicide Coordinator [phone], Ext. [phone]; Back-up Ext. [phone] [place] GRAHAM U[place] [phone] Introduction: Visit is being conducted by [place] [facility] Connect. [place] identified with 2 identifiers: [X] Full Name [X] Date of [ ] [place] ID Card Emergency Plan: confirmed and/or provided the following information in case of emergency or technology failure. PATIENT PHONE - NONE FOUND PHONE NUMBER [CELLULAR] - [phone] Is patient phone number correct, if not, enter below: [place]'s phone number: GLADIS WILLETT [address] [place] [address], [phone] [place]'s present location and address for appointment: Above address 's emergency contact name and phone number: on file [place] reported that location is private and safe: Yes Informed Consent: [place] informed of the risks and benefits of Telehealth video care. [place] has the right to refuse video services. If refuses video visit, a vycv-pe-txrb visit will be scheduled. verbalized consent for this video visit: Yes [place] provided consent for any other persons present for visit: Yes If yes, who and relationship to patient:-Annamarie Secure visit: Visit was locked for security and privacy:Yes [place] identified with 2 identifiers: [X] Full Name [X] Visual recognition Procedure: Individual psychotherapy Date/time: 10/21/24; [id number] (The length of this appointment was necessary in order to attend to evidence-based practice, measurement-based care, safety concerns, and the provision of effective and ethical psychotherapy) Session: 11 PROBLEM: Depressive sx, recent suicidality, psychosocial stressors, anxious sx Goals: Improvement mood and self-esteem, address psychosocial stressors/interpersonal dynamics Progress: [place] reports doing generally better over the past few weeks, noting improvement in overall communication and relational satisfaction within his marriage, and shared that he recently got a raise at work, which was validated/encouraged. Bridging from previous session, and TW collaboratively overviewed 3 ABC sheets he completed between sessions to support CBT skill acquisition. For each, using downward arrow technique, TW engaged in identifying core beliefs that underlie automatic thoughts for a given situation, namely those centered around self-worth/esteem and personal responsibility, to which he appeared receptive. and TW collaboratively explored unhelpful patterns of thinking that influence automatic thoughts, as well as reframes to assist in restructuring. Dx: Unspecified depressive d/o Unspecified anxiety d/o r/o PTSD MSE: A&Ox4, cooperative Speech: normal RRTP Psychomotor/bx/presentatio n: unremarkable Thought process: linear; goal-directed Thought content: unremarkable Mood: appeared mildly anxious/dysthymic; congruent, full affect No recent nor remote memory impairment endorsed; not formally assessed No recent AVH endorsed nor observed in present session; did not appear to be responding to internal stimuli Insight: good Judgment: good [place] did not endorse current SI/HI nor did he appear to be in any acute distress Ongoing Plan: Next appt with this magazine writer scheduled for 11/04/24. [place] encouraged to continue participation in couples counseling, psychiatry /es/ TAO FOWLER PSYD CLINICAL PSYCHOLOGIST - [facility]INIC Signed: 10/27/2024 10:14 TAO FOWLER [place] [facility] [facility] [facility]
--- OUTSIDE RECORDS SUMMARY | 2024-11-04 04:30 | XMS_ITS ---
Author Name [facility] [place] Organization [place] Address [address] [place] [address] Care Team Providers Care Collection Manager Name Role Phone KALEB DUFF Primary [...] MASSM UTUAL [facility] Apr 14, 2024 [id number] [facility]9 Lexie MARTIN SPOUSE CIGNA HIGH DEDUCTIBL E HEALTH PLAN W/HEALTH SAVINGS ACCOUNT MASSM UTUAL [facility] Apr 14, 2024 [id number] [facility]6 ADRIANA WILLETT SPOUSE CIGNA HIGH DEDUCTIBL E HEALTH PLAN W/HEALTH SAVINGS ACCOUNT MASSM UTUAL HDHP [facility] September 08, 2023 [id number] ADRIANA WILLETT SPOUSE CIGNA BEHAVIORAL HEALTH MENTAL HEALTH MASSM UTUAL [facility] Apr 14, 2024 [id number] [facility] Lexie MARTIN SPOUSE [facility] MASSM UTUAL [facility] Apr 14, 2024 [id number] GABRIELA WILLETT PATIENT EXPRESS SCRIPTS ([id number]) PRESCRIPT ION MASSM UTUAL HDHP [facility] Apr 14, 2024 K4UA [id number] [phone] GABRIELA WILLETT PATIENT MEDCO (EXPRESS SCRIPTS) PRESCRIPT ION CIGNA /MEDC O [facility] Apr 14, 2024 K4UA [id number] GABRIELA WILLETT SPOUSE Selected Encounter This section includes the information on record at [place] for the Encounter. Date/Time Encounter Type Encounter Description Reason Pro vider Source Nov 04, 2024 08:30 AM Outpatient Encounter [facility] Encounter Template Text not used by [place] Plan of Treatment: Future Appointments (+ 6 months) and Future Tests (+/- 45 days) The Plan of Treatment section includes future care activities for the patient from all [place] treatmentfacilities. This section includes future appointments and future orders which are active, pending or scheduled. Future Appointments This section includes appointments that were scheduled to occur 6 months from the date of the Encounter, up to a maximum of 20 appointments. The data comes from all [place] treatment facilities. Appointment Date/Time Appointment Type Appointme nt Facility Name Nov 18, 2024 08:30 AM AMBULATORY - PS[place]CHIATRY [place] [facility] [place] [facility] Nov 26, 2024 08:30 AM AMBULATORY - PSYCHIATRY [place] [facility] [place] [facility] Dec 02, 2024 08:30 AM AMBULATORY - PSYCHIATRY [place] [facility] [place] [facility] Dec 14, 2024 08:30 AM AMBULATORY - PSYCHIATRY [place] [facility] [place] [facility] Dec 16, 2024 08:30 AM AMBULATORY - PSYCHIATRY [place] [facility] [place] [facility] Dec 20, 2024 03:00 PM AMBULATORY - MEDICINE [place] C [place] [facility] 2024 03:30 PM AMBULATORY - MEDICINE [place] C [place] [facility] Mar 09, 2025 08:00 AM AMBULATORY - REHAB MEDICIN E [place] [facility] [place] [facility] Active, Pending, and Scheduled Orders This section includes a listing of several types of active, pending, and scheduled orders, including clinic medications orders, diagnostic test orders, procedure orders and consult orders; where the start date of the order is 45 days before the date of the Encounter or 45 days after the date of theEncounter. The data comes from all [place] treatment facilities. Test Date/Time Test Type Test Details Facility Name Dec 10, 2024 12:52 PM Consult Order COMMUNITY CARE-GI GENERAL Cons Stitcher Standard Machine's Choice [facility] Social History: Smoking Status (Most current) and Tobacco Use (All prior to encounter date) This section includes the most current, and the historical, smoking and tobacco- related health factors from the [place] facility where the Encounter took place. Current Smoking Status This section includes the most current smoking, or tobacco-related health factor, from the [place] facility where the Encounter took place. Date/Time Current Smoking Status Comment [facility] Mar 18, 2024 10:00 AM VA-TOBACCO USE FOR DORI CIGARETTES [facility] Tobacco Use History This section includes a history of the smoking, or tobacco-related health factors, that were collected on or before the date of the Encounter. The data comes from the [place] facility where the Encounter took place. Date/Time Smoking Status/Tobac co Use Comment Facility Mar 18, 2024 10:00 AM VA-TOBACCO USE FORMER OTHER TYPE Quit more than 15 years ago [facility] Encounter Notes: All associated encounter notes This section contains the clinical notes associated to the Encounter. Date/Time Encounter Note(s) Provider Source Nov 04, 2024 09:09 AM CLERICAL NOTE: LOCAL TITLE: APPOINTMENT NO SHOW STANDARD TITLE: CLERICAL NOTE DATE OF NOTE: NOV 04, 2024@09:09 ENTRY DATE: NOV 04, 2024@09:09:20 AUTHOR: TAO FOWLER COSIGNER: URGENCY: STATUS: COMPLETED APPOINTMENT NO SHOW Has ADDENDA Patient Name: GLADIS WILLETT Patient SSN: [id number] Date and time of Appointment No show : 11/04/24 08:30 PATIENT PHONE - NONE FOUND PHONE NUMBER [CELLULAR] [phone] Patient's medical record was reviewed. Follow-up actions were determined and initiated: Please check/complete as applies: [X]Telephoned Directly [ ]Re-scheduled for next available appt [ ]Sent a N0-show letter ( must call for appointment) [ ]Other (Emergent/Overbook, etc.): Additional Comments: TW outreached the [place] at 0850 as they had not yet presented for scheduled appointment. TW left a discreet VM with contact information referencing todays appointment and encouraged [place] to return call at their convenience to r/s. Future Clinic Visits 11/05/2024 08:30 DEM VV MHC PSYLG 13 12/14/2024 08:30 [facility] VV MHC AMPOULE INSPECTOR 1 12/20/2024 15:00 [facility] OPTOMETRY 4 2024 15:30 DEM PACT 3 PA 03/09/2025 08:00 DEM AUDIO EVAL 2 /prashanth/ TAO FOWLER PSYD CLINICAL PSYCHOLOGIST - [facility] CLINIC Signed: 11/04/2024 09:09 11/04/2024 ADDENDUM STATUS: COMPLETED RTC orders: Unable to contact patient: Attempts to contact: 1st attempt: Provider Left voicemail 2nd attempt: Letter mailed: 11/05/24 Disposition on: 11/19/24 3rd attempt: 4th attempt: Provider called patient to schedule. No answer. Left voicemail to call office back at [phone]. [phone] to schedule appointment. *FIRST ATTEMPT Letter sent on: 11/05/24 SECOND ATTEMPT Day 14 to Disposition is: 11/19/24 /prashanth/ MYRON AYALA ADVANCED DENTAL SERVICE TECHNICIAN Signed: 11/04/2024 09:53 11/05/2024 ADDENDUM STATUS: COMPLETED RTC dispositioned-NO SHOW Removed/No Longer Necessary ([facility])APPT: 2 OF 2 Entered:10/05/24 PID:11/04/24 [place] has other appointments: NOT SCHEDULED /prashanth/ MYRON AYALA ADVANCED DENTAL SERVICE TECHNICIAN Signed: 11/05/2024 15:12 TAO FOWLER [place] [facility] [facility]
--- OUTSIDE RECORDS SUMMARY | 2024-11-18 04:30 | XMS_ITS ---
Author Name [place] Address [address] [place] [address] Care Team Providers Care Adult Neurologist Name Role Phone KALEB DUFF Primary Care [...] DEDUCTIBL E HEALTH PLAN W/HEALTH SAVINGS [facility] Apr 14, 2024 [id number] [facility] [phone] Lexie MARTIN SPOUSE CIGNA HIGH DEDUCTIBL E HEALTH PLAN W/HEALTH SAVINGS ACCOUNT MASS UTUAL [facility] Apr 14, 2024 [id number] [facility]7 ADRIANA WILLETT SPOUSE CIGNA HIGH DEDUCTIBL E HEALTH PLAN W/HEALTH SAVINGS ACCOUNT MASSM UTUAL [facility] September 08, 2023 [id number] [phone] ADRIANA WILLETT SPOUSE CIGNA BEHAVIORAL HEALTH MENTAL HEALTH MASSM UTUAL [facility] Apr 14, 2024 [id number] [facility] Lexie MARTIN SPOUSE [facility] MENTAL HEALTH MASSM UTUAL [facility] Apr 14, 2024 [id number] GABRIELA WILLETT PATIENT EXPRESS SCRIPTS ([id number]) PRESCRIPT ION MASSM UTUAL HDHP [facility] Apr 14, 2024 K4UA [id number] BRENNONGABRIELA Thomas PATIENT MEDCO (EXPRESS SCRIPTS) PRESCRIPT ION CIGNA /MEDC O [facility] Apr 14, 2024 K4UA [id number] [phone] GABRIELA WILLETT SPOUSE Selected Encounter This section includes the information on record at [place] for the Encounter. Date/Time Encounter Type Encounter Description Reason Provider Source Nov 18, 2024 08:30 AM PSYTX W PT 45 MINUTES [facility] - IND ICD-10-CM F32.A Depression, unspecified SHANIQUE FOWLER M IHE Encounter Template Text not used by CT Assessments - Encounter Diagnoses This section includes the primary and secondary diagnoses documented for the Encounter. Date/Time Primary/Secondary Diagnosis Diagnosis Name Provider Source Nov 30, 2024 08:48 AM PRIMARY Depression, unspecified SHANIQUE FOWLER M [place] [facility]TR [place] [facility] Nov 30, 2024 08:48 AM SECONDARY Anxiety disorder, unspecified SHANIQUE FOWLER M [place] CNTR [place] [facility] Plan of Treatment: Future Appointments (+ 6 months) and Future Tests (+/- 45 days) The Plan of Treatment section includes future care activities for the patient from all [place] treatmentfacilities. This section includes future appointments and future orders which are active, pending or scheduled. Future Appointments This section includes appointments that were scheduled to occur 6 months from the date of the Encounter, up to a maximum of 20 appointments. The data comes from all [place] treatment facilities. Appointment Date/Time Appointment Type Appointme nt Facility Name Nov 26, 2024 08:30 AM AMBULATORY - PSYCHIATRY [place]L [place] [facility] Dec 02, 2024 08:30 AM AMBULATORY - PSYCHIATRY [place] [place] [facility] Dec 14, 2024 08:30 AM AMBULATORY - PSYCHIATRY [place] [facility]L [place] [facility] Dec 16, 2024 08:30 AM AMBULATORY - PSYCHIATRY [facility] Dec 20, 2024 03:00 PM AMBULATORY [facility] 20[facility] 03:30 PM AM[facility]ULATORY - [facility] Mar 09, 2025 08:00 AM AMBULATORY - REHAB MEDICIN E [facility] Active, Pending, and Scheduled Orders This section includes a listing of several types of active, pending, and scheduled orders, including clinic medications orders, diagnostic test orders, procedure orders and consult orders; where the start date of the order is 45 days before the date of the Encounter or 45 days after the date of theEncounter. The data comes from all [place] treatment facilities. Test Date/Time Test Type Test Details Facility Name Dec 10, 2024 12:52 PM Consult Order COMMUNITY CARE-GI GENERAL Cons Community Theater Actor's Choice [facility] Dec 22, 2024 12:00 AM Laboratory - Chemi stry Order BASIC METABOLIC PANEL (fasting) BLOOD (SST-SERUM) [facility] Dec 22, 2024 12:00 AM Laboratory - Chemi stry Order LIVER FUNCTION BLOOD (SST-SERUM) [facility] Dec 22, 2024 12:00 AM Laboratory - Chemi stry Order LIPID PANEL FASTING BLOOD (SST-SERUM) [facility] Social History: Smoking Status (Most current) and Tobacco Use (All prior to encounter date) This section includes the most current, and the historical, smoking and tobacco- related health factors from the [place] facility where the Encounter took place. Current Smoking Status This section includes the most current smoking, or tobacco-related health factor, from the [place] facility where the Encounter took place. Date/Time Current Smoking Status Comment [facility] it Mar 18, 2024 10:00 AM VA-TOBACCO USE FOR DORI CIGARETTES [facility] Tobacco Use History This section includes a history of the smoking, or tobacco-related health factors, that were collected on or before the date of the Encounter. The data comes from the [place] facility where the Encounter took place. Date/Time Smoking Status/Tobac co Use Comment Facility Mar 18, 2024 10:00 AM VA-TOBACCO USE FORMER OTHER TYPE Quit more than [address] [place] [facility] Encounter Notes: All associated encounter notes This section contains the clinical notes associated to the Encounter. Date/Time Encounter Note(s) Provider Source Nov 18, 2024 08:30 AM TELEHEALTH NOTE: LOCAL TITLE: CT VIDEO CONNECT PSYCHOLOGY NOTE STANDARD TITLE: TELEHEALTH NOTE DATE OF NOTE: NOV 18, 2024@08:30 ENTRY DATE: NOV 19, 2024@12:09:52 AUTHOR: TAO FOWLER COSIGNER: URGENCY: STATUS: COMPLETED [place] Video Connect (VVC) Standard Documentation VVC Clinician Resources Only: E911 (Emergency Call Relay Center): [phone] [facility] Crisis Line - 988 then press #1. [place] Suicide Coordinator [phone], Ext. [phone]; Back-up Ext. [phone] [place] Police, Daniela STEVENSON [phone] Introduction: Visit is being conducted by [place] [employer] Connect. [place] identified with 2 identifiers: [X] Full Name [X] Date of [ ] CT ID Card Emergency Plan: confirmed and/or provided the following information in case of emergency or technology failure. PATIENT PHONE - NONE FOUND PHONE NUMBER [CELLULAR] - [phone] Is patient phone number correct, if not, enter below: [place]'s phone number: GLADIS WILLETT [address] [place] [address], [phone] 's present location and address for appointment: Above address 's emergency contact name and phone number: on file reported that location is private and safe: Yes Informed Consent: [place] informed of the risks and benefits of Telehealth video care. has the right to refuse video services. If refuses video visit, a ucox-sw-fjdm visit will be scheduled. [place] verbalized consent for this video visit: Yes [place] provided consent for any other persons present for visit: Yes If yes, who and relationship to patient:-Annamarie Secure visit: Visit was locked for security and privacy:Yes identified with 2 identifiers: [X] Full Name [X] Visual recognition Procedure: Individual psychotherapy Date/time: 10/21/24; [id number] Session: 12 PROBLEM: Depressive sx, recent suicidality, psychosocial stressors, anxious sx Goals: Improvement mood and self-esteem, address psychosocial stressors/interpersonal dynamics Progress: reports an increase in depressive sx over the past several weeks, which he and TW collaboratively discuss as likely r/t the cyclical nature of depression given the lack of obvious antecedents/stressors. Bridging from previous sessions, TW utilized CBT to engage [place] in a collaborative exploration of the role of unhelpful patterns of thinking on experience of depressogenic cognitions, thereby furthering mood sx, which he appeared able to appreciate. [place] and TW collaboratively discussed challenging questions to assist in examining the accuracy and helpfulness of automatic beliefs, and TW sent [place] a list of same to practice with between sessions via [employer]. Dx: Unspecified depressive d/o Unspecified anxiety d/o [...] to internal stimuli Insight: good Judgment: good [place] did not endorse current SI/HI nor did he appear to be in any acute distress Ongoing Plan: Next appt with this field underwriter scheduled for 12/02/24. encouraged to continue participation in couples counseling, psychiatry /es/ TAO FOWLER PSYD CLINICAL PSYCHOLOGIST - [facility]ENTAL [facility] CLINIC Signed: 11/30/2024 08:[address] [facility]
--- OUTSIDE RECORDS SUMMARY | 2024-11-26 04:30 | XMS_ITS | Encounter Summary ---
Author Name [place] Address [address] [place] [address] Care Team Providers Care Outside Production Inspector Name Role Phone KALEB DUFF Primary [...] DEDUCTIBL E HEALTH PLAN W/HEALTH SAVINGS [facility] Apr 14, 2024 [id number] [facility] Lexie MARTIN SPOUSE CIGNA HIGH DEDUCTIBL E HEALTH PLAN W/HEALTH SAVINGS ACCOUNT [place]ASS UTUAL [facility]HP [facility] Apr 14, 2024 [id number] [facility] [phone] ADRIANA WILLETT SPOUSE CIGNA HIGH DEDUCTIBL E HEALTH PLAN W/HEALTH SAVINGS ACCOUNT MASSM UTUAL [facility] September 08, 2023 [id number] [phone] ADRIANA WILLETT SPOUSE CIGNA BEHAVIORAL HEALTH MENTAL HEALTH MASSM UTUAL [facility] Apr 14, 2024 [id number] [facility] [phone] Lexie MARTIN SPOUSE [facility]ENTAL HEALTH MASSM UTUAL [facility] Apr 14, 2024 [id number] GABRIELA WILLETT PATIENT EXPRESS SCRIPTS ([id number]) PRESCRIPT ION MASSM UTUAL [facility] Apr 14, 2024 K4UA [id number] GABRIELA WILLETT PATIENT MEDCO (EXPRESS SCRIPTS) PRESCRIPT ION CIGNA /MEDC O [facility] Apr 14, 2024 K4UA [id number] [phone] GABRIELA WILLETT SPOUSE Selected Encounter This section includes the information on record at [place] for the Encounter. Date/Time Encounter Type Encounter Description Reason Provider Source Nov 26, 2024 08:30 AM FAMILY PSYTX W/PT 50 MIN MENTAL HEALTH CLINIC - IND ICD-10-CM F43.10 Post-traumatic stress disorder, unspecified ARIELA HAYES Martha Encounter Template Text not used by [place] Assessments - Encounter Diagnoses This section includes the primary and secondary diagnoses documented for the Encounter. Date/Time Primary/Secondary Diagnosis Diagnosis Name Provider Source Nov 26, 2024 03:16 PM PRIMARY Post-traumatic stress disorder, unspecified GUICHO HAYES [facility] Nov 26, 2024 03:16 PM SECONDARY Problems in relationship with spouse or partner GUICHO HAYES [facility] Plan of Treatment: Future Appointments (+ 6 months) and Future Tests (+/- 45 days) The Plan of Treatment section includes future care activities for the patient from all [place] [facility]. This section includes future appointments and future orders which are active, pending or scheduled. Future Appointments This section includes appointments that were scheduled to occur 6 months from the date of the Encounter, up to a maximum of 20 appointments. The data comes from all [place] treatment facilities. Appointment Date/Time Appointment Type Appointme nt Facility Name Dec 02, 2024 08:30 AM AMBULATORY - PSYCHIATRY [facility] Dec 14, 2024 08:30 AM AMBULATORY - PSYCHIATRY [facility] Dec 16, 2024 08:30 AM AMBULATORY - PSYCHIATRY [facility] Dec 20, 2024 03:00 PM AMBULATORY - MEDICINE [facility] 2024 03:30 PM AMBULATORY - MEDICINE [facility] Mar 09, 2025 08:00 AM AMBULATORY - REHAB MEDICIN E [facility] Active, Pending, and Scheduled Orders This section includes a listing of several types of active, pending, and scheduled orders, including clinic medications orders, diagnostic test orders, procedure orders and consult orders; where the start date of the order is 45 days before the date of the Encounter or 45 days after the date of theEncounter. The data comes from all [facility] facilities. Test Date/Time Test Type Test Details Facility Name Dec 10, 2024 12:52 PM Consult Order COMMUNITY CARE-GI GENERAL Cons Retail Cashier's Choice [facility] Dec 22, 2024 12:00 AM Laboratory - Chemi stry Order BASIC METABOLIC PANEL (fasting) BLOOD (SST-SERUM) [facility] Dec 22, 2024 12:00 AM Laboratory - Chemi stry Order LIVER FUNCTION BLOOD (SST-SERUM) [facility] Dec 22, 2024 12:00 AM Laboratory - Chemi stry Order LIPID PANEL FASTING BLOOD (SST-SERUM) [facility] Social History: Smoking Status (Most current) [...] took place. Date/Time Current Smoking Status Comment [facility] it Mar 18, 2024 10:00 AM VA-TOBACCO USE FOR DORI CIGARETTES [facility] Tobacco Use History This section includes a history of the smoking, or tobacco-related health factors, that were collected on or before the date of the Encounter. The data comes from the [place] facility where the Encounter took place. Date/Time Smoking Status/Tobac co Use Comment Facility Mar 18, 2024 10:00 AM VA-TOBACCO USE FORMER OTHER TYPE Quit more than 15 years ago [facility] [place] [facility] Encounter Notes: All associated encounter notes This section contains the clinical notes associated to the Encounter. Date/Time Encounter Note(s) Provider Source Nov 26, 2024 08:55 AM MENTAL HEALTH NOTE : LOCAL TITLE: BEHAVIORAL COUPLES THERAPY NOTE STANDARD TITLE: MENTAL HEALTH NOTE DATE OF NOTE: NOV 26, 2024@08:55 ENTRY DATE: NOV 26, 2024@08:55:55 AUTHOR: ARIELA HAYES COSIGNER: URGENCY: STATUS: COMPLETED INFORMED CONSENT TO PARTICIPATE IN SESSION: At beginning of session reviewed rights and limits of confidentiality, mandatory reporting situations, duty to warn and protect, Cabezas Warning,(if treatment team finds patient to be an acute danger to himself or others, that this information could be relayed to a court of law and presented to a chart writer), and DOD access for active duty service members. Provided Suicide Prevention Hotline number, and other contact numbers as necessary. DURATION OF SESSION: 30 minutes SESSION CONTENT: The couple reported no concerns at today's appointment. They shared that they continue to practice communication skills and are working on allowing one another in when the other is having a bad day. [place]ster reported less isolation on his part which has helped with improving closeness. This commercial insurance underwriter reinforced use of skills. Discussed options moving forward and both this commercial insurance underwriter and the couple agreed that they have met their treatment goals for this episode of care. They aware of how to get ahold of this commercial insurance underwriter if they need to touch base. MENTAL STATUS AND BEHAVIORAL OBSERVATIONS: The couple was polite and cooperative. They were laughing and expressing physical and verbal compassion towards each other. No safety concerns were reported. DSM5 DIAGNOSES: relationship distress with spouse; [place] with PTSD diagnosis. Plan: The couple will call this commercial insurance underwriter as needed for an appointment. Episode of care has been completed. [facility] Connect ([facility]VC) Standard Documentation [facility] Clinician Resources Only: E911 (Emergency Call Relay Center): [phone] [facility] Crisis Line - 581 then press #1. [facility] Suicide Coordinator [phone], Ext. [phone]; Back-up Ext. [phone] [place] Police, Daniela STEVENSON [phone] Introduction: Visit is being conducted by [place] Video Connect. identified with 2 identifiers: [X] Full Name [X] Date of [ ] [place] ID Card Emergency Plan: [place] confirmed and/or provided the following information in case of emergency or technology failure. PATIENT PHONE - NONE FOUND PHONE NUMBER [CELLULAR] - [phone] Is patient phone number correct, if not, enter below: [place]ster's phone number: GLADIS WILLETT [address], [place], [address] Gl[place]ster's present location and address for appointment: above address 's emergency contact name and phone number: on file reported that location is private and safe: Yes Informed Consent: [place] informed of the risks and benefits of Telehealth video care. [place] has the right to refuse video services. If refuses video visit, a [id number] visit will be scheduled. [place] verbalized consent for this video visit: Yes [place] provided consent for any other persons present for visit: Yes If yes, who and relationship to patient:-Severiano Secure visit: Visit was locked for security and privacy:Yes Does this visit involve laterality/specific side of body? N/A /prashanth/ Ariela Hayse Psy.D. Psychologist Signed: 11/26/2024 15:19 ARIELA HAYES [place] [facility]
--- OUTSIDE RECORDS SUMMARY | 2024-12-02 04:30 | XMS_ITS | Encounter Summary ---
Author Name [place] Address [address] [place] [address] Care Team Providers Care Post Splitter Name Role Phone KALEB DUFF Primary Care [...] [facility] Apr 14, 2024 [id number] [facility] [phone] Lexie MARTIN SPOUSE CIGNA HIGH DEDUCTIBL E HEALTH PLAN W/HEALTH SAVINGS ACCOUNT [place]ASS UTUAL [facility] Apr 14, 2024 [id number] [facility] ADRIANA WILLETT SPOUSE CIGNA HIGH DEDUCTIBL E HEALTH PLAN W/HEALTH SAVINGS ACCOUNT MASSM UTUAL [facility] September 08, 2023 [id number] [phone] ADRIANA WILLETT SPOUSE CIGNA BEHAVIORAL HEALTH MENTAL HEALTH MASSM UTUAL [facility] Apr 14, 2024 [id number] [facility] Lexie MARTIN SPOUSE [facility] MENTAL HEALTH MASSM UTUAL [facility] Apr 14, 2024 [id number] GABRIELA WILLETT PATIENT EXPRESS SCRIPTS ([id number]) PRESCRIPT ION MASSM UTUAL [facility]HP [facility] Apr 14, 2024 K4UA [id number] BRENNONGABRIELA Thomas PATIENT MEDCO (EXPRESS SCRIPTS) PRESCRIPT ION CIGNA /MEDC O [facility] Apr 14, 2024 K4UA [id number] [phone] GABRIELA WILLETT SPOUSE Selected Encounter This section includes the information on record at [place] for the Encounter. Date/Time Encounter Type Encounter Description Reason Provider Source Dec 02, 2024 08:30 AM PSYTX W PT 30 MINUTES MENTAL HEALTH CLINIC - IND ICD-10-CM F32.A Depression, unspecified SHANIQUE FOWLER IHE Encounter Template Text not used by [place] Assessments - Encounter Diagnoses This section includes the primary and secondary diagnoses documented for the Encounter. Date/Time Primary/Secondary Diagnosis Diagnosis Name Provider Source Dec 10, 2024 02:05 PM PRIMARY Depression, unspecified SHANIQUE FOWLER [place] [facility] [place] [facility] Dec 10, 2024 02:05 PM SECONDARY Anxiety disorder, unspecified SHANIQUE FOWLER M [place] [facility] [place] [facility] Plan of Treatment: Future Appointments (+ 6 months) and Future Tests (+/- 45 days) The Plan of Treatment section includes future care activities for the patient from all [place] treatmentfacilities. This section includes future appointments and future orders which are active, pending or scheduled. Future Appointments This section includes appointments that were scheduled to occur 6 months from the date of the Encounter, up to a maximum of 20 appointments. The data comes from all [place] treatment facilities. Appointment Date/Time Appointment Type Appointme nt Facility Name Dec 14, 2024 08:30 AM AMBULATORY - PSYCHIATRY [place] [facility] [place] [facility] Dec 16, 2024 08:30 AM AMBULATORY - PSYCHIATRY [place] [facility] [place] [facility] Dec 20, 2024 03:00 PM AMBULATORY - MEDICINE [place] C NTRL [facility] [place] [facility] 2024 03:30 PM AMBULATORY - MEDICINE [facility] Mar 09, 2025 08:00 AM AMBULATORY - REHAB MEDICIN E [facility] Active, Pending, and Scheduled Orders This section includes a listing of several types of active, pending, and scheduled orders, including clinic medications orders, diagnostic test orders, procedure orders and consult orders; where the start date of the order is 45 days before the date of the Encounter or 45 days after the date of theEncounter. The data comes from all [facility] facilities. Test Date/Time Test Type Test Details Facility Name Dec 10, 2024 12:52 PM Consult Order COMMUNITY CARE-GI GENERAL Cons Ice Skating Instructor's Choice [facility] Dec 22, 2024 12:00 AM Laboratory - Chemi stry Order BASIC METABOLIC PANEL (fasting) BLOOD (SST-SERUM) [facility] Dec 22, 2024 12:00 AM Laboratory - Chemi stry Order LIVER FUNCTION BLOOD (SST-SERUM) [facility] Dec 22, 2024 12:00 AM Laboratory - Chemi stry Order LIPID PANEL FASTING BLOOD (SST-SERUM) [facility] Social History: Smoking Status (Most current) and Tobacco Use (All prior to encounter date) This section includes the most current, and the historical, smoking and tobacco- related health factors from the [place] facility where the Encounter took place. Current Smoking Status This section includes the most current smoking, or tobacco-related health factor, from the [place] facility where the Encounter took place. Date/Time Current Smoking Status Comment [facility] Mar 18, 2024 10:00 AM VA-TOBACCO USE FOR DORI CIGARETTES [facility] Tobacco Use History This section includes a history of the smoking, or tobacco-related health factors, that were collected on or before the date of the Encounter. The data comes from the [place] facility where the Encounter took place. Date/Time Smoking Status/Tobac co Use Comment [facility] Mar 18, 2024 10:00 AM [place]-TOBACCO USE FORMER OTHER TYPE Quit more than 15 years ago [facility] Encounter Notes: All associated encounter notes This section contains the clinical notes associated to the Encounter. Date/Time Encounter Note(s) Provider Source Dec 02, 2024 08:30 AM TELEHEALTH NOTE: LOCAL TITLE: [place] VIDEO CONNECT PSYCHOLOGY NOTE STANDARD TITLE: TELEHEALTH NOTE DATE OF NOTE: DEC 02, 2024@08:30 ENTRY DATE: DEC 02, 2024@14:23:32 AUTHOR: TAO FOWLER COSIGNER: URGENCY: STATUS: COMPLETED [facility] Video Connect ([facility]VC) Standard Documentation VVC Clinician Resources Only: E911 (Emergency Call Relay Center): [phone] [facility] Crisis Line - 988 then press #1. [facility] Suicide Coordinator [phone], Ext. [phone]; Back-up Ext. [phone] [place] Police, [place], [place] [phone] Introduction: Visit is being conducted by [place] [employer] Connect. identified with 2 identifiers: [X] Full Name [X] Date of [ ] [place] ID Card Emergency Plan: [place] confirmed and/or provided the following information in case of emergency or technology failure. PATIENT PHONE - NONE FOUND PHONE NUMBER [CELLULAR] [phone] Is patient phone number correct, if not, enter below: 's phone number: GLADIS WILLETT [address] [place] [address], [phone] 's present location and address for appointment: Above address [place]'s emergency contact name and phone number: on file [place] reported that location is private and safe: Yes Informed Consent: [place] informed of the risks and benefits of Telehealth video care. [place] has the right to refuse video services. If refuses video visit, a [id number] visit will be scheduled. [place] verbalized consent for this video visit: Yes [place] provided consent for any other persons present for visit: Yes If yes, who and relationship to patient:-Annamarie Secure visit: Visit was locked for security and privacy:Yes identified with 2 identifiers: [X] Full Name [X] Visual recognition Procedure: Individual psychotherapy Date/time: 12/02/24; [id number] Session: 13 PROBLEM: Depressive sx, recent suicidality, psychosocial stressors, anxious sx Goals: Improvement mood and self-esteem, address psychosocial stressors/interpersonal dynamics Progress: and TW collaboratively discussed relevant updates since last session, to include marital dynamics, experience of depressive sx, & familial stressors, among others. and TW collaboratively discussed a recent argument with his SO stemming from a misunderstanding and her suspicion about his bx, which while she has since acknowledged her error, continues to affect them as he feels she is having difficulty managing her emotionality in light of ongoing familial stressors. TW validated support offered and the plan they have collaboratively discussed, engaging him in exploring communication strategies to prevent the likelihood of a recurrence of similar concerns while also maintaining his own personal boundaries and working on theme of over-accepting personal responsibility for others' actions. Dx: Unspecified depressive d/o Unspecified anxiety d/o r/o PTSD MSE: A&Ox4, cooperative Speech: normal RRTP Psychomotor/bx/presentatio n: unremarkable Thought process: linear; goal-directed Thought content: unremarkable Mood: appeared anxious/dysthymic; congruent, full affect No recent nor remote memory impairment endorsed; not formally assessed No recent AVH endorsed nor observed in present session; did not appear to be responding to internal stimuli Insight: good Judgment: good [place] did not endorse current SI/HI nor did he appear to be in any acute distress Ongoing Plan: Next appt with this screenplay writer scheduled for 12/16/24. encouraged to continue participation in psychiatry services /prashanth/ TAO FOWLER PSYD CLINICAL PSYCHOLOGIST - MENTAL HEALTH CLINIC Signed: 12/10/2024 14:05 TAO FOWLER [place] [facility]
--- OUTSIDE RECORDS SUMMARY | 2024-12-10 05:42 | XMS_ITS ---
Author Name [place] Address [address] [place] [id number] Care Team Providers Care Artificial Flowers Starcher Name Role Phone KALEB JACOBSON Primary Care Provider Unavail able Insurance [...] MASS UTUAL [facility] Apr 14, 2024 [id number] [facility] Lexie MARTIN SPOUSE CIGNA HIGH DEDUCTIBL E HEALTH PLAN W/HEALTH SAVINGS ACCOUNT MASS UTUAL [facility] Apr 14, 2024 [id number] [facility] [phone] ADRIANA WILLETT SPOUSE CIGNA HIGH DEDUCTIBL E HEALTH PLAN W/HEALTH SAVINGS ACCOUNT MASS UTUAL [facility]HP [facility] September 08, 2023 [id number] ADRIANA WILLETT SPOUSE CIGNA BEHAVIORAL HEALTH MENTAL HEALTH [place] UTUAL [facility] Apr 14, 2024 [id number] [facility] [phone] Lexie MARTIN SPOUSE [facility] Apr 14, 2024 [id number] GABRIELA WILLETT PATIENT EXPRESS SCRIPTS ([id number]) PRESCRIPT ION MASSM UTUAL [facility]HP [facility] Apr 14, 2024 K4UA [id number] GABRIELA WILLETT PATIENT MEDCO (EXPRESS SCRIPTS) PRESCRIPT ION CIGNA /MEDC O [facility] Apr 14, 2024 K4UA [id number] GABRIELA WILLETT SPOUSE Selected Encounter This section includes the information on record at [place] for the Encounter. Date/Time Encounter Type Encounter Description Reason Pro vider Source Dec 10, 2024 09:42 AM Outpatient Encounter COMMUNITY CARE CONSULT IHE Encounter Template Text not used by [place] Plan of Treatment: Future Appointments (+ 6 months) and Future Tests (+/- 45 days) The Plan of Treatment section includes future care activities for the patient from all [place] [facility]. This section includes future appointments and future orders which are active, pending or scheduled. Future Appointments This section includes appointments that were scheduled to occur 6 months from the date of the Encounter, up to a maximum of 20 appointments. The data comes from all [facility]. Appointment Date/Time Appointment Type Appointme nt Facility Name Dec 14, 2024 08:30 AM AMBULATORY - PSYCHIATRY [facility] Dec 16, 2024 08:30 AM AMBULATORY - PSYCHIATRY [facility] Dec 20, 2024 03:00 PM AMBULATORY - MEDICINE [facility] 2024 03:30 PM AMBULATORY - MEDICINE [facility] Mar 09, 2025 08:00 AM AMBULATORY - REHAB MEDICIN E [facility] Active, Pending, and Scheduled Orders This section includes a listing of several types of active, pending, and scheduled orders, including clinic medications orders, diagnostic test orders, procedure orders and consult orders; where the start date of the order is 45 days before the date of the Encounter or 45 days after the date of theEncounter. The data comes from all [facility]. Test Date/Time Test Type Test Details Facility Name Dec 10, 2024 12:52 PM Consult Order COMMUNITY CARE-GI GENERAL Cons Legal Technician's Choice [facility] Dec 22, 2024 12:00 AM Laboratory - Chemi stry Order BASIC METABOLIC PANEL (fasting) BLOOD (SST-SERUM) [facility] Dec 22, 2024 12:00 AM Laboratory - Chemi stry Order LIVER FUNCTION BLOOD (SST-SERUM) [facility] Dec 22, 2024 12:00 AM Laboratory - Chemi stry Order LIPID PANEL FASTING BLOOD (SST-SERUM) [facility] Social History: Smoking Status (Most current) and Tobacco Use (All prior to encounter date) This section includes the most current, and the historical, smoking and tobacco- related health factors from the [place] facility where the Encounter took place. Current Smoking Status This section includes the most current smoking, or tobacco-related health factor, from the [place] facility where the Encounter took place. Date/Time Current Smoking Status Comment [facility] Mar 18, 2024 10:00 AM VA-TOBACCO USE FOR DORI CIGARETTES [facility] Tobacco Use History This section includes a history of the smoking, or tobacco-related health factors, that were collected on or before the date of the Encounter. The data comes from the [place] facility where the Encounter took place. Date/Time Smoking Status/Tobac co Use Comment [facility] Mar 18, 2024 10:00 AM VA-TOBACCO USE FORMER OTHER TYPE Quit more than 15 years ago [facility] Encounter Notes: All associated encounter notes This section contains the clinical notes associated to the Encounter. Date/Time Encounter Note(s) Provider Source Dec 10, 2024 09:42 AM NONVA NOTE: LOCAL TITLE: COMMUNITY CARE-REQUEST FOR SERVICE NOTE STANDARD TITLE: NONVA NOTE DATE OF NOTE: DEC 10, 2024@09:42 ENTRY DATE: DEC 10, 2024@09:42:50 AUTHOR: KERRI MARTINEZ COSIGNER: URGENCY: STATUS: COMPLETED COMMUNITY CARE-REQUEST FOR SERVICE NOTE Has ADDENDA Request for Services (RFS) documentation has been sent for scanning to [facility] Consult: COMMUNITY CARE-GI General Consult No: TBD Date sent to scanning: Nov A Request for Service (RFS) form [id number] has been received which includes the following: Care Requested: has a continuation of care visit scheduled 01/12/25 for a diagnosis of Crohn's disease. Previous authorization 09/02/24. ICD-10 Dx code: K50.00 Date VA received request: Nov Date service required: Jan Requesting Community Provider Information: Name of Ordering Provider: Julio Gottlieb Office:[facility] Address, City, State: [address] [place] [address] [address] [place] [address] /prashanth/ KERRI MARTINEZ RN Registered Nurse Signed: 12/10/2024 09:48 Receipt Acknowledged By: 12/10/2024 12:04 /mone LAWRENCE Registered Nurse for SIRENA WILSON 12/10/2024 12:50 /prashanth/ Kaleb Jacobson PA-C STAFF PHYSICIAN DAIRY FEED WORKER 12/10/2024 ADDENDUM STATUS: COMPLETED financial underwriter placed consult on hold for provider to sign if apprpriate /mone LAWRENCE Registered Nurse Signed: 12/10/2024 12:04 KERRI MARTINEZ CNTRL WSTRCarol [facility]
--- OUTSIDE RECORDS SUMMARY | 2024-12-11 03:23 | XMS_ITS | Continuity of Care Document ---
Author Name [facility] Organization [facility] Care Team Providers Care Dairy Chemist Name Role Phone [facility] Unavailable Unavailable Problems Combined list of problems [...] Condition [facility] Exposure to potentially hazardous substance Active Condition [facility] Exposure to potentially hazardous substance Active Condition Aug 02, 2024 Entered By: G[place] Comment: please see PONCE exam on 08/02/24 [facility] Insomnia Active Condition [facility] Posttraumatic stress disorder Active Condition [facility] Diagnosis: ICD-10-CM F32.A Depression, unspecified Active Diagnosis [facility] Diagnosis: ICD-10-CM F43.10 Post-traumatic stress disorder, unspecified Active Diagnosis [facility] Diagnosis: ICD-10-CM F33.0 Major depressive disorder, recurrent, mild Active Diagnosis [facility] Diagnosis: ICD-10-CM F33.1 Major depressive disorder, recurrent, moderate Active Diagnosis [facility] Diagnosis: ICD-10-CM K50.90 Crohn's disease, unspecified, without complications Active Diagnosis [facility] Diagnosis: ICD-10-CM H93.11 Tinnitus, right ear Active Diagnosis [facility] Diagnosis: ICD-10-CM Z77.29 Contact with and exposure to other hazardous substances Active Diagnosis [facility] Diagnosis: ICD-10-CM 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, 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 [facility] Diagnosis: ICD-10-CM Z23 Encounter for immunization Active Diagnosis [facility] Diagnosis[facility] ICD-10-CM G35 Multiple sclerosis Active Diagnosis [facility] Diagnosis: ICD-10-CM F33.41 Major depressive disorder, recurrent, in partial remission Active Diagnosis [facility] [place] [facility] Diagnosis: ICD-10-CM Z63.0 Problems in relationship with spouse or partner Active Diagnosis [facility] [place] [facility] Diagnosis: ICD-10-CM I10 Essential (primary) hypertension Active Diagnosis [facility] [place] [facility] Diagnosis: ICD-10-CM Z71.9 Counseling, unspecified Active [facility] Medications Combined list of outpatient medications from Department of Defense and [facility] facilities.Medications provided include 1) outpatient medications from the last 15 months, and 2) patient-reported medications. Medication Details Route Status Patient Instructions Prescription Expires Prescription Number Last Dispense Date Ordering Provider Order Date Order Qty Source ARIPIPRAZOL E 2MG TAB TAKE ONE TABLET BY MOUTH ONCE DAILY FOR MOOD/DEP RESSION ORAL DISCONT INUED BY PROVIDE R 07/29/2025 [id number] 5 [facility]AAB [facility] ARMODAFINIL 150MG TAB TAKE ONE TABLET BY MOUTH EVERY MORNING ORAL DISCONT INUED BY PROVIDE R 02/19/2025 [id number] 5 VIOLA SAAB 2024 30 [facility] ARMODAFINIL 250MG TAB TAKE ONE TABLET BY MOUTH EVERY MORNING ORAL ACTIVE 03/20/2025 [id number] 5 VIOLA SAAB 2024 30 [facility] AZATHIOPRIN E 50MG TAB TAKE THREE TABLETS BY MOUTH ONCE DAILY ORAL ACTIVE 09/10/2025 [id number] 5 BONIFACIO GORDON 2024 270 [facility] BUPROPION HCL 150MG 24HR TAB,SA TAKE ONE TABLET BY MOUTH EVERY MORNING FOR 7 DAYS, THEN TAKE TWO TABLETS EVERY MORNING MOOD ORAL DISCONT INUED (EDIT) 05/26/2024 [id number] 5 KATIANA VIOLA 2024 53 [facility] BUPROPION HCL 300MG 24HR TAB,SA TAKE ONE TABLET BY MOUTH EVERY MORNING MOOD ORAL ACTIVE 08/20/2025 [id number] 5 VIOLA SAAB 2024 90 [facility] BUPROPION HCL 300MG 24HR TAB,SA TAKE ONE TABLET BY MOUTH EVERY MORNING MOOD ORAL DISCONT INUED 05/18/2025 [id number] 5 VIOLA SAAB 2024 30 [facility] DOXEPIN 6MG TAB TAKE ONE TABLET BY MOUTH AT BEDTIME NEEDED FOR INSOMNIA ORAL DISCONT INUED BY PROVIDE R 04/27/2025 [id number] 5 VIOLA SAAB 2024 30 [facility] DOXEPIN HCL 10MG CAP TAKE ONE CAPSULE BY MOUTH AT BEDTIME NEEDED SLEEP ORAL ACTIVE 08/20/2025 [id number] 5 VIOLA SAAB 2024 30 [facility] FLUOXETINE HCL 20MG CAP TAKE TWO CAPSULES BY MOUTH ONCE DAILY FOR DEPRESSI ON AND ANXIETY ORAL ACTIVE 07/29/2025 [id number] 5 VIOLA SAAB 2024 60 [facility] FLUOXETINE HCL 20MG CAP TAKE THREE CAPSULES BY MOUTH ONCE DAILY FOR DEPRESSI ON AND ANXIETY ORAL DISCONT INUED (EDIT) 06/23/2025 [id number] 5 VIOLA SAAB 2024 90 [facility] FLUOXETINE HCL 20MG CAP TAKE TWO CAPSULES BY MOUTH ONCE DAILY FOR DEPRESSI ON AND ANXIETY ORAL DISCONT INUED (EDIT) 04/27/2025 [id number] 5 VI[facility]A SAAB 2024 60 [facility] HYDROCHLORO THIAZIDE 12.5MG/ANKITA NOPRIL 10MG TAB TAKE 1 TABLET BY MOUTH ONCE DAILY FOR HIGH BLOOD PRESSURE ORAL ACTIVE 03/26/2025 [id number] 5 KALEB DUFF 2023 90 [facility] HYDROXYZINE HCL 50MG TAB TAKE ONE TABLET BY MOUTH TWICE DAILY NEEDED ANXIETY ORAL ACTIVE 08/20/2025 [id number] 5 VIOLA SAAB 2024 180 [facility] HYDROXYZINE HCL 50MG TAB TAKE ONE TABLET BY MOUTH TWICE DAILY NEEDED ANXIETY ORAL DISCONT INUED (EDIT) 04/27/2025 [id number] 5 VIOLA SAAB 2024 60 [facility] OMEPRAZOLE 20MG CAP,EC TAKE 1 CAPSULE BY MOUTH EVERY MORNING 30 MINUTES BEFORE BREAKFAS T ORAL ACTIVE KALEB DUFF 2024 [facility] Immunizations Combined list of available immunizations from the Department of Defense and Veterans Affairs facilities. Immunization Series Date Given Administered By Site Reaction Lot Number CVX Code Drug Police Chief Status Comments Source HEP A, ADULT 2 2024 PRADEEP WILSON LEFT DELTO ID [id number] 52 complet ed [facility] HEP A, ADULT 1 2024 RIGOBERTO WATSON E LEFT DELTO ID [id number] 52 complet ed [facility] TDAP 2024 RIGOBERTO WATSON LEFT DELTO ID [id number] 115 complet ed Booster for Series, [facility] COVID-19 (MODERNA), MRNA, LNP-S, PF, 50 MCG/0.5 ML (AGES 12+ YEARS) 4 2023 ALLYSON العلي LEFT DELTO ID [id number] 312 complet ed [facility]MIN[facility] AT [facility] INFLUENZA, SPLIT VIRUS, TRIVALENT, PF 2023 SHIVALLYSON PARADA LEFT DELTO ID [id number] 140 complet ed Completed Series, ADMINISTMartha HERRERA AT [facility] COVID-19 (MODERNA), MRNA, LNP-S, PF, 100 MCG/0.5ML DOSE OR 50 MCG/0.25ML DOSE 3 2020 207 complet ed HISTORICA L INFORMATI ON - FROM OTHER REGISTRY, Lot#: [id number] Mfr: [employer] [facility] COVID-19 (MODERNA), MRNA, LNP-S, PF, 100 MCG/0.5ML DOSE OR 50 MCG/0.25ML DOSE 2 2020 207 complet ed HISTORICA L INFORMATI ON - FROM OTHER REGISTRY, Lot#: [id number] Mfr: [employer]. [facility] COVID-19 (MODERNA), MRNA, LNP-S, PF, 100 MCG/0.5ML DOSE OR 50 MCG/0.25ML DOSE 1 2020 207 complet ed HISTORICA L INFORMATI ON - FROM OTHER REGISTRY, Lot#: [id number] Mfr: [employer] [facility] Results Combined list of recent chemistry, hematology [...] PM Reporting Lab: [facility] [place] [facility] [address] [facility] [address] Performing Lab: [facility] [place] [address] [address] [facility] VITAMIN D (25-OH) 25-HYDROXY VITAMIN D3 [MASS/VOLU ME] IN SERUM OR PLASMA 38 ng/mL 20 - 50 03/25 Specimen Type: SERUM No comment entered. Ordering Provider: Yifan DUFF Report Released Date/Time: Mar 25, 2024 03:17 PM Reporting Lab: [facility] [place] [facility] [address] [facility] [address] Performing Lab: [facility] [place] [facility] [address] [facility] [address] [facility] IRON & TIBC PANEL IRON BINDING CAPACITY [MASS/VOLU ME] IN SERUM OR PLASMA 458 ug/dL 204 - 475 03/25 Specimen Type: SERUM No comment entered. Ordering Provider: Yifan DUFF Report Released Date/Time: Mar 25, 2024 03:17 PM Reporting Lab: [facility] [place] [facility] [address] [facility] [address] Performing Lab: [facility] [place] [facility] [address] [facility] [address] [facility] IRON & TIBC PANEL IRON [MASS/VOLU ME] IN SERUM OR PLASMA 98 ug/dL 40 - 160 03/25 Specimen Type: SERUM No comment entered. Ordering Provider: Yifan DUFF Report Released Date/Time: Mar 25, 2024 03:17 PM Reporting Lab: [facility] [place] [facility] [address] [facility] [address] Performing Lab: [facility] [place] [facility] [address] [facility] [address] [facility] IRON & TIBC PANEL IRON/IRON BINDING CAPACITY.T OTAL [MASS RATIO] IN SERUM OR PLASMA 21.4 20.0 - 50.0 03/25 Specimen Type: SERUM No comment entered. Ordering Provider: Yifan DUFF Report Released Date/Time: Mar 25, 2024 03:17 PM Reporting Lab: [facility] [place] [facility] [address] [facility] [address] Performing Lab: [facility] [place] [facility] [address] [facility] [address] [facility] IRON & TIBC PANEL TRANSFERRI N [MASS/VOLU ME] IN SERUM OR PLASMA 347 mg/dL 200 - 360 03/25 Specimen Type: SERUM No comment entered. Ordering Provider: Yifan DUFF Report Released Date/Time: Mar 25, 2024 03:17 PM Reporting Lab: [facility] [place] [facility] [address] [facility] [address] Performing Lab: [facility] [place] [facility] [address] [facility] [address] [facility] FERRITIN FERRITIN [MASS/VOLU ME] IN SERUM OR PLASMA 53 ng/mL 20 - 300 03/25 Specimen Type: SERUM No comment entered. Ordering Provider: Yifan DUFF Report Released Date/Time: Mar 25, 2024 03:17 PM Reporting Lab: [facility] [place] [address] [address] Performing Lab: [facility] [place] [facility] [address] [facility] [address] [facility] HEPATITI S C ANTIBODY (HCV)-AR C HEPATITIS C VIRUS AB [PRESENCE] IN SERUM NON-REAC TIVE 03/25 Specimen Type: SERUM Comment: Hep C Ab: No HCV antibody detected. If recent infection is suspected or other evidence suggests HCV infection, consider HCV nucleic acid testing Ordering Provider: Yifan DUFF Report Released Date/Time: Mar 25, 2024 03:17 PM Reporting Lab: [facility] [address] [facility] [address] Performing Lab: [facility] [address] [facility] [address] [facility] CBC AND DIFF (AUTO) LEUKOCYTES [#/VOLUME] IN BLOOD BY AUTOMATED COUNT 8.01 10*3/uL 4.50 - 11.00 03/25 Specimen Type: BLOOD No comment entered. Ordering Provider: Yifan DUFF Report Released Date/Time: Mar 25, 2024 03:17 PM Reporting Lab: [facility] [address] [facility] [address] Performing Lab: [facility] [place] [facility] [address] [facility] [address] [facility] CBC AND DIFF (AUTO) ERYTHROCYT ES [#/VOLUME] IN BLOOD BY AUTOMATED COUNT 5.05 10*6/uL 4.23 - 5.66 03/25 Specimen Type: BLOOD No comment entered. Ordering Provider: Yifan DUFF Report Released Date/Time: Mar 25, 2024 03:17 PM Reporting Lab: [facility] [address] [facility] [address] Performing Lab: [facility] [place] [facility] [address] [facility] [address] [facility] CBC AND DIFF (AUTO) HEMOGLOBIN [MASS/VOLU ME] IN BLOOD 15.6 g/dL 12.8 - 17 03/25 Specimen Type: BLOOD No comment entered. Ordering Provider: Yifan DUFF Report Released Date/Time: Mar 25, 2024 03:17 PM Reporting Lab: [facility] [address] [facility] [address] Performing Lab: [facility] [address] [facility] [address] [facility] CBC AND DIFF (AUTO) HEMATOCRIT [VOLUME FRACTION] OF BLOOD BY AUTOMATED COUNT 45.7 39.2 - 50.4 03/25 Specimen Type: BLOOD No comment entered. Ordering Provider: Yifan DUFF Report Released Date/Time: Mar 25, 2024 03:17 PM Reporting Lab: [facility] [place] [facility] [address] [facility] [address] Performing Lab: [facility] [place] [facility] [address] [facility] [address] [facility] CBC AND DIFF (AUTO) MCV [ENTITIC VOLUME] BY AUTOMATED COUNT 90.5 fL 82 - 99 03/25 Specimen Type: BLOOD No comment entered. Ordering Provider: Yifan DUFF Report Released Date/Time: Mar 25, 2024 03:17 PM Reporting Lab: [facility] [place] [facility] [address] [facility] [address] Performing Lab: [facility] [place] [facility] [address] [facility] [address] [facility] CBC AND DIFF (AUTO) MCHC [MASS/VOLU ME] BY AUTOMATED COUNT 34.1 g/dL 30.8 - 35.1 03/25 Specimen Type: BLOOD No comment entered. Ordering Provider: Yifan DUFF Report Released Date/Time: Mar 25, 2024 03:17 PM Reporting Lab: [facility] [place] [facility] [address] [facility] [address] Performing Lab: [facility] [place] [facility] [address] [facility] [address] [facility] CBC AND DIFF (AUTO) PLATELETS [#/VOLUME] IN BLOOD BY AUTOMATED COUNT 262 10*3/uL 140 - 360 03/25 Specimen Type: BLOOD No comment entered. Ordering Provider: Yifan DUFF Report Released Date/Time: Mar 25, 2024 03:17 PM Reporting Lab: [facility] [place] [facility] [address] [facility] [address] Performing Lab: [facility] [place] [facility] [address] [facility] [address] [facility] CBC AND DIFF (AUTO) ERYTHROCYT E DISTRIBUTI ON WIDTH [RATIO] BY AUTOMATED COUNT 13.8 12.0 - 16.0 03/25 Specimen Type: BLOOD No comment entered. Ordering Provider: Yifan DUFF Report Released Date/Time: Mar 25, 2024 03:17 PM Reporting Lab: [facility] [place] [facility] [address] [facility] [address] Performing Lab: [facility] [place] [facility] [address] [facility] [address] [facility] CBC AND DIFF (AUTO) MONOCYTES [#/VOLUME] IN BLOOD BY AUTOMATED COUNT 1.08 10*3/uL 0.30 - 1.10 03/25 Specimen Type: BLOOD No comment entered. Ordering Provider: Yifan DUFF Report Released Date/Time: Mar 25, 2024 03:17 PM Reporting Lab: [facility] [place] [facility] [address] [facility] [address] Performing Lab: [facility] [place] [facility] [address] [facility] [address] [facility] CBC AND DIFF (AUTO) MCH [ENTITIC MASS] BY AUTOMATED COUNT 30.9 pg 26.2 - 32.6 03/25 Specimen Type: BLOOD No comment entered. Ordering Provider: Yifan DUFF Report Released Date/Time: Mar 25, 2024 03:17 PM Reporting Lab: [facility] [place] [facility] [address] [facility] [address] Performing Lab: [facility] [place] [facility] [address] [facility] [address] [facility] CBC AND DIFF (AUTO) NEUTROPHIL S/100 LEUKOCYTES IN BLOOD BY AUTOMATED COUNT 71.7 43.7 - 75.8 03/25 Specimen Type: BLOOD No comment entered. Ordering Provider: Yifan DUFF Report Released Date/Time: Mar 25, 2024 03:17 PM Reporting Lab: [facility] [address] [facility] [address] Performing Lab: [facility] [address] [facility] [address] [facility] CBC AND DIFF (AUTO) LYMPHOCYTE S/100 LEUKOCYTES IN BLOOD BY AUTOMATED COUNT 12.1 14.0 - 42.3 03/25 L Specimen Type: BLOOD No comment entered. Ordering Provider: Yifan DUFF Report Released Date/Time: Mar 25, 2024 03:17 PM Reporting Lab: [facility] [address] [facility] [address] Performing Lab: [facility] [address] [facility] [address] [facility] CBC AND DIFF (AUTO) MONOCYTES/ 100 LEUKOCYTES IN BLOOD BY AUTOMATED COUNT 13.5 5.1 - 13.7 03/25 Specimen Type: BLOOD No comment entered. Ordering Provider: Yifan DUFF Report Released Date/Time: Mar 25, 2024 03:17 PM Reporting Lab: [facility] [place] [facility] [address] [facility] [address] Performing Lab: [facility] [address] [facility] [address] [facility] CBC AND DIFF (AUTO) EOSINOPHIL S/100 LEUKOCYTES IN BLOOD BY AUTOMATED COUNT 1.6 0.4 - 6.8 03/25 Specimen Type: BLOOD No comment entered. Ordering Provider: Yifan DUFF Report Released Date/Time: Mar 25, 2024 03:17 PM Reporting Lab: [facility] [address] [facility] [address] Performing Lab: [facility] [address] [facility] [address] [facility] CBC AND DIFF (AUTO) BASOPHILS/ 100 LEUKOCYTES IN BLOOD BY AUTOMATED COUNT 0.5 0.1 - 2.0 03/25 Specimen Type: BLOOD No comment entered. Ordering Provider: Yifan DUFF Report Released Date/Time: Mar 25, 2024 03:17 PM Reporting Lab: [facility] [address] [facility] [address] Performing Lab: [facility] [address] [facility] [address] [facility] CBC AND DIFF (AUTO) NEUTROPHIL S [#/VOLUME] IN BLOOD BY AUTOMATED COUNT 5.74 10*3/uL 2.20 - 7.60 03/25 Specimen Type: BLOOD No comment entered. Ordering Provider: Yifan DUFF Report Released Date/Time: Mar 25, 2024 03:17 PM Reporting Lab: [facility] [place] [facility] [address] [facility] [address] Performing Lab: [facility] [place] [facility] [address] [facility] [address] [facility] CBC AND DIFF (AUTO) LYMPHOCYTE S [#/VOLUME] IN BLOOD BY AUTOMATED COUNT 0.97 10*3/uL 1.00 - 3.20 03/25 L Specimen Type: BLOOD No comment entered. Ordering Provider: Yifan DUFF Report Released Date/Time: Mar 25, 2024 03:17 PM Reporting Lab: [facility] [place] [address] [address] Performing Lab: [facility] [place] [facility] [address] [facility] [address] [facility] CBC AND DIFF (AUTO) EOSINOPHIL S [#/VOLUME] IN BLOOD BY AUTOMATED COUNT 0.13 10*3/uL 0.03 - 0.44 03/25 Specimen Type: BLOOD No comment entered. Ordering Provider: Yifan DUFF Report Released Date/Time: Mar 25, 2024 03:17 PM Reporting Lab: [facility] [place] [facility] [address] [facility] [address] Performing Lab: [facility] [place] [facility] [address] [facility] [address] [facility] CBC AND DIFF (AUTO) BASOPHILS [#/VOLUME] IN BLOOD BY AUTOMATED COUNT 0.04 10*3/uL 0.01 - 0.13 03/25 Specimen Type: BLOOD No comment entered. Ordering Provider: Yifan DUFF Report Released Date/Time: Mar 25, 2024 03:17 PM Reporting Lab: [facility] [address] [facility] [address] Performing Lab: [facility] [address] [facility] [address] [facility] CBC AND DIFF (AUTO) IMMATURE GRANULOCYT ES/100 LEUKOCYTES IN BLOOD BY AUTOMATED COUNT 0.6 0.0 - 0.7 03/25 Specimen Type: BLOOD No comment entered. Ordering Provider: Yifan DUFF Report Released Date/Time: Mar 25, 2024 03:17 PM Reporting Lab: [facility] [address] [place] [address] Performing Lab: [facility] [place] [facility] [address] [facility] [address] [facility] CBC AND DIFF (AUTO) IMMATURE GRANULOCYT ES [#/VOLUME] IN BLOOD 0.05 10*3/uL 0.00 - 0.06 03/25 Specimen Type: BLOOD No comment entered. Ordering Provider: Yifan DUFF Report Released Date/Time: Mar 25, 2024 03:17 PM Reporting Lab: [facility] [address] [facility] [address] Performing Lab: [facility] [address] [place] [address] [facility] CBC AND DIFF (AUTO) NRBC % 0.0 0.0 - 0.0 03/25 Specimen Type: BLOOD No comment entered. Ordering Provider: Yifan DUFF Report Released Date/Time: Mar 25, 2024 03:17 PM Reporting Lab: [facility] [place] [facility] [address] [facility] [address] Performing Lab: [facility] [place] [facility] [address] [facility] [address] [facility] CBC AND DIFF (AUTO) NRBC, ABS 0.00 10*3/uL 0.00 - 0.00 03/25 Specimen Type: BLOOD No comment entered. Ordering Provider: Yifan DUFF Report Released Date/Time: Mar 25, 2024 03:17 PM Reporting Lab: [facility] [place] [facility] [address] [facility] [address] [facility]: [facility] [address] [address] [facility] BASIC METABOLI C PANEL (non-fas ting) UREA NITROGEN [MASS/VOLU ME] IN SERUM OR PLASMA 13 mg/dL 7 - 25 03/25 Specimen Type: SERUM No comment entered. Ordering Provider: Yifan DUFF Report Released Date/Time: Mar 25, 2024 03:17 PM Reporting Lab: [facility] [address] [address] Per[facility] [facility] [address] [facility] [address] [facility] BASIC METABOLI C PANEL (non-fas ting) GLUCOSE [MASS/VOLU ME] IN SERUM OR PLASMA 100 mg/dL 65 - 100 03/25 Specimen Type: SERUM No comment entered. Ordering Provider: Yifan DUFF Report Released Date/Time: Mar 25, 2024 03:17 PM Reporting Lab: [place] [facility] [address] [facility] [address] Performing Lab: [place] [facility] [address] [facility] [address] [place] [facility] [facility] BASIC METABOLI C PANEL (non-fas ting) SODIUM [MOLES/VOL UME] IN SERUM OR PLASMA 140 mmol/L 135 - 145 03/25 Specimen Type: SERUM No comment entered. Ordering Provider: Yifan DUFF Report Released Date/Time: Mar 25, 2024 03:17 PM Reporting Lab: [facility] [address] [address] Performing Lab: [facility] TRN [address] [address] [facility] BASIC METABOLI C PANEL (non-fas ting) POTASSIUM [MOLES/VOL UME] IN SERUM OR PLASMA 3.6 mmol/L 3.5 - 5.0 03/25 Specimen Type: SERUM No comment entered. Ordering Provider: Yifan DUFF Report Released Date/Time: Mar 25, 2024 03:17 PM Reporting Lab: [facility] [address] [address] Performing Lab: [facility]USE[address] [address] [facility]ENTERRENCOMPASS [facility] L[facility] HOSPITALN [facility] HOSPITALUSE [facility] BASIC METABOLI C PANEL (non-fas ting) CHLORIDE [MOLES/VOL UME] IN SERUM OR PLASMA 104 mmol/L 100 - 110 03/25 Specimen Type: SERUM No comment entered. Ordering Provider: Yifan DUFF Report Released Date/Time: Mar 25, 2024 03:17 PM Reporting Lab: [facility] [address] Performing Lab: [facility] [address] [facility]ITALUSE [facility] BASIC METABOLI C PANEL (non-fas ting) CARBON DIOXIDE, TOTAL [MOLES/VOL UME] IN SERUM OR PLASMA 24 meq/L 20 - 30 03/25 Specimen Type: SERUM No comment entered. Ordering Provider: Yifan DUFF Report Released Date/Time: Mar 25, 2024 03:17 PM Reporting Lab: [facility] [address] Performing Lab: [facility] [place] [facility] [address] [facility] [address] [facility] [place] [facility] BASIC METABOLI C PANEL (non-fas ting) CREATININE [MASS/VOLU ME] IN SERUM OR PLASMA 0.86 mg/dL 0.50 - 1.40 03/25 Specimen Type: SERUM No comment entered. Ordering Provider: Yifan DUFF Report Released Date/Time: Mar 25, 2024 03:17 PM Reporting Lab: [facility] [place] [facility] [address] [facility] [address] Performing Lab: [facility] [place] [facility] [address] [facility] [address] [facility] [place] [facility] BASIC METABOLI C PANEL (non-fas ting) GLOMERULAR FILTRATION RATE/1.73 SQ M.PREDICTE D [VOLUME RATE/AREA] IN SERUM, PLASMA OR BLOOD BY CREATININE -BASED FORMULA (CKD-EPI 2020) >90mL/mi n 60 03/25 Specimen Type: SERUM No comment entered. Ordering Provider: Yifan DUFF Report Released Date/Time: Mar 25, 2024 03:17 PM Reporting Lab: [facility] [place] [facility] [address] [facility] [address] Performing Lab: [facility] [address] [facility] BASIC METABOLI C PANEL (fasting ) UREA NITROGEN [MASS/VOLU ME] IN SERUM OR PLASMA 13 mg/dL 7 - 25 03/25 Specimen Type: SERUM No comment entered. Ordering Provider: Yifan DUFF Report Released Date/Time: Mar 25, 2024 03:17 PM Reporting Lab: [facility] [place] [facility] [address] [facility] [address] Performing Lab: [facility] [address] [facility] BASIC METABOLI C PANEL (fasting ) GLUCOSE [MASS/VOLU ME] IN SERUM OR PLASMA 100 mg/dL 65 - 100 03/25 Specimen Type: SERUM No comment entered. Ordering Provider: Yifan DUFF Report Released Date/Time: Mar 25, 2024 03:17 PM Reporting Lab: [facility] CENTERRWALKER BAPTIST MEDICAL CENTERTRN [address] [address] Performing Lab: [facility]ENTERRENCOMPASS [facility] REHABILITATION HOSPITALN [address] [address] [facility]ENTERRWALKER BAPTIST MEDICAL CENTERTRN [facility] BASIC METABOLI C PANEL (fasting ) SODIUM [MOLES/VOL UME] IN SERUM OR PLASMA 140 mmol/L 135 - 145 03/25 Specimen Type: SERUM No comment entered. Ordering Provider: Yifan DUFF Report Released Date/Time: Mar 25, 2024 03:17 PM Reporting Lab: [facility] [address] [address] Performing Lab: [facility] TRN [address] [address] [facility]ERRENCOM[facility] RE[facility]ABILITATION HOSPITALN [facility] BASIC METABOLI C PANEL (fasting ) POTASSIUM [MOLES/VOL UME] IN SERUM OR PLASMA 3.6 mmol/L 3.5 - 5.0 03/25 Specimen Type: SERUM No comment entered. Ordering Provider: Yifan DUFF Report Released Date/Time: Mar 25, 2024 03:17 PM Reporting Lab: [facility] [address] Performing Lab: [facility] [address] [facility]N [facility] BASIC METABOLI C PANEL (fasting ) CHLORIDE [MOLES/VOL UME] IN SERUM OR PLASMA 104 mmol/L 100 - 110 03/25 Specimen Type: SERUM No comment entered. Ordering Provider: Yifan DUFF Report Released Date/Time: Mar 25, 2024 03:17 PM Reporting Lab: [facility] CENTERRWALKER BAPTIST MEDICAL CENTERTRN [address] [address] Performing Lab: [facility] [place] [facility] [address] [facility] [address] [facility] WSTRN [facility] HOSPITALUSE [facility] BASIC METABOLI C PANEL (fasting ) CARBON DIOXIDE, TOTAL [MOLES/VOL UME] IN SERUM OR PLASMA 24 meq/L 20 - 30 03/25 Specimen Type: SERUM No comment entered. Ordering Provider: Yifan DUFF Report Released Date/Time: Mar 25, 2024 03:17 PM Reporting Lab: [facility] [place] [facility] [address] [facility] [address] Performing Lab: [facility]N [facility]USE[address] [address] [facility] CENTERRWALKER BAPTIST MEDICAL CENTERTRN [facility] HOSPITALUSE [facility] BASIC METABOLI C PANEL (fasting ) CREATININE [MASS/VOLU ME] IN SERUM OR PLASMA 0.86 mg/dL 0.50 - 1.40 03/25 Specimen Type: SERUM No comment entered. Ordering Provider: Yifan DUFF Report Released Date/Time: Mar 25, 2024 03:17 PM Reporting Lab: [facility] TRN [facility] HOSPITALUSETS [address] [address] Performing Lab: [facility] [address] [facility] HOS[facility]ITALUSE [facility] BASIC METABOLI C PANEL (fasting ) GLOMERULAR FILTRATION RATE/1.73 SQ M.PREDICTE D [VOLUME RATE/AREA] IN SERUM, PLASMA OR BLOOD BY CREATININE -BASED FORMULA (CKD-EPI 2020) >90mL/mi n 60 03/25 Specimen Type: SERUM No comment entered. Ordering Provider: Yifan DUFF Report Released Date/Time: Mar 25, 2024 03:17 PM Reporting Lab: [facility]N [facility] HOSPITALUSETS [address] [address] Performing Lab: [facility]N [facility]USE[address] [address] [facility] CENTERRENCOMPASS [facility] REHABILITATION HOSPITALN [facility] LIVER FUNCTION PROTEIN [MASS/VOLU ME] IN SERUM OR PLASMA 7.7 g/dL 6.0 - 8.3 03/25 Specimen Type: SERUM No comment entered. Ordering Provider: Yifan DUFF Report Released Date/Time: Mar 25, 2024 03:17 PM Reporting Lab: [facility] [place] [facility] [address] [facility] [address] Performing Lab: [facility] [place] [facility] [address] [facility] [address] [facility] [place] [facility] LIVER FUNCTION ALBUMIN [MASS/VOLU ME] IN SERUM OR PLASMA 4.4 g/dL 3.5 - 5.0 03/25 Specimen Type: SERUM No comment entered. Ordering Provider: Yifan DUFF Report Released Date/Time: Mar 25, 2024 03:17 PM Reporting Lab: [facility] [place] [address] [address] Performing Lab: [facility] [place] [address] [address] [facility] [place] [facility] LIVER FUNCTION ALKALINE PHOSPHATAS E [ENZYMATIC ACTIVITY/V OLUME] IN SERUM OR PLASMA 80 U/L 40 - 150 03/25 Specimen Type: SERUM No comment entered. Ordering Provider: Yifan DUFF Report Released Date/Time: Mar 25, 2024 03:17 PM Reporting Lab: [facility] [place] [address] [address] Performing Lab: [facility] [place] [facility] [address] [facility] [address] [facility] [place] [facility] LIVER FUNCTION ASPARTATE AMINOTRANS FERASE [ENZYMATIC ACTIVITY/V OLUME] IN SERUM OR PLASMA 11 U/L 5 - 34 03/25 Specimen Type: SERUM No comment entered. Ordering Provider: Yifan DUFF Report Released Date/Time: Mar 25, 2024 03:17 PM Reporting Lab: [facility] [place] [address] [address] Performing Lab: [facility] [place] [address] [address] [facility] [place] [facility] LIVER FUNCTION ALANINE AMINOTRANS FERASE [ENZYMATIC ACTIVITY/V OLUME] IN SERUM OR PLASMA 14 U/L 03/25 Specimen Type: SERUM No comment entered. Ordering Provider: Yifan DUFF Report Released Date/Time: Mar 25, 2024 03:17 PM Reporting Lab: [facility] [place] [facility] [address] [facility] [address] Performing Lab: [facility] [place] [facility] [address] [facility] [address] [facility] [place] [facility] LIVER FUNCTION BILIRUBIN. TOTAL [MASS/VOLU ME] IN SERUM OR PLASMA 1.3 mg/dL 0.2 - 1.2 03/25 H Specimen Type: SERUM No comment entered. Ordering Provider: Yifan DUFF Report Released Date/Time: Mar 25, 2024 03:17 PM Reporting Lab: [facility] [place] [facility] [address] [facility] [address] Performing Lab: [facility] [place] [facility] [address] [facility] [address] [facility] [place] [facility] LIVER FUNCTION BILIRUBIN. DIRECT [MASS/VOLU ME] IN SERUM OR PLASMA 0.4 mg/dL 0 - 0.5 03/25 Specimen Type: SERUM No comment entered. Ordering Provider: Yifan DUFF Report Released Date/Time: Mar 25, 2024 03:17 PM Reporting Lab: [facility] [place] [facility] [address] [facility] [address] Performing Lab: [facility] [place] [address] [address] [facility] [place] [place] [facility] Vital Signs Combined list of inpatient and outpatient Vital Signs from Department of Defense and Veterans Affairs, ranging from 12 months to all on record, depending upon the facility. Vital Sign Value Date Comments Source SYSTOLIC BLOOD PRESSURE 130 06/22/19 25 15:22:47 [facility] [place] [facility] DIASTOLIC BLOOD PRESSURE 88 025 15:22:47 [facility] [place] [facility] PULSE OXIMETRY 98 06/21/2024 15:22:47 [facility] [place] [facility] WEIGHT 195 06/21/2024 15:22:47 [facility] [place] [facility] BMI 29 kg/m2 06/21/2024 15:22:47 [facility] [place] [facility] PAIN 0 06/21/2024 15:22:47 [facility] [place] [facility] TEMPERATURE 98.1 06/21/2024 15:22:47 [facility] [place] [facility] PULSE 81 06/21/2024 15:22:47 [facility] [place] [facility] RESPIRATION 16 06/21/2024 15:22:47 [facility] [place] [facility] SYSTOLIC BLOOD PRESSURE 142 03/25/20 24 14:07:58 [facility] [place] [facility] DIASTOLIC BLOOD PRESSURE 88 024 14:07:58 [facility] [place] [facility] PULSE OXIMETRY 96 03/25/2024 14:07:58 [facility] [place] [facility] WEIGHT 191 03/25/2024 14:07:58 [facility] [place] [facility] BMI 28 kg/m2 03/25/2024 14:07:58 [facility] [place] [facility] PAIN 0 03/25/2024 14:07:58 [facility] [place] [facility] HEIGHT 69 03/25/2024 14:07:58 [facility] [place] [facility] TEMPERATURE 97.8 03/25/2024 14:07:58 [facility] [...] 10:59:29 [facility] [place] [facility] BMI 28 kg/m2 03/18/2024 10:59:29 [facility] [place] [facility] [...] from Department of Veterans Affairs facilities going backup to the last 18 months, not all VA inpatient encounters are included; 2) Encounters from the Department of Defense facilities going backup to 280 months. Location Location Details Encounter Type Encounter Number Reason For Visit Attending Provider ADM Date DC Date Status Disposition Source [facility] [place] [facility] Outpatient Encounter [id number] 03/18 [facility] [place] [facility] OFF/OP EST AUGUST X REQ PHY/QHP [id number] Diagnos is: ICD-10- CM Z71.9 [employer] ing, unspeci fied AMEE WAYNE 03/18 [facility] [place] [facility] HC PRO PHONE CALL 11-20 MIN [id number] 1. Diagnos is: ICD-10- CM K50.90 Crohn's disease , unspeci fied, without complic ations JADA ANGELES 03/25 [facility] [place] [facility] OFFICE O/P NEW MOD 45 MIN [id number] Diagnos is: ICD-10- CM I10 Essenti al (primar y) hyperte KALEB Santos 03/25 [facility] PSYTX W PT 45 MINUTES [id number] Diagnos is: ICD-10- CM F32.A Depress ion, unspeci Dar Estrada M 04/01 [facility] [place] [facility] Outpatient Encounter [id number] 04/01 [facility] PSYTX W PT 30 MINUTES [id number] Diagnos is: ICD-10- CM F32.A Depress ion, unspeci Dar Etsrada M 04/05 [facility] PSYTX W PT 30 MINUTES [id number] Diagnos is: ICD-10- CM F32.A Depress ion, unspeci Dar Estrada M 04/15 [facility] [place] [facility] PSYCH DIAGNOSTIC EVALUATION [id number] Diagnos is: ICD-10- CM F33.2 Major depress v disorde r, recurre nt severe w/o psych feature s AJ EDWARDS N 04/19 [facility] [place] [facility] Outpatient Encounter [id number] AJ EDWARDS N 04/19 [facility] [place] [facility] Outpatient Encounter [id number] GRACEAJ N 04/19 [facility] En[facility] [id number] GRACEAJ N 04/19 [facility] En[facility] [id number]/22 [facility] OFF/OP CONSLTJ NEW/EST HI 55 [id number] 1. Diagnos is: ICD-10- CM F33.2 Major depress v disorde r, recurre nt severe w/o psych feature s Jason SAAB 04/26 [facility] PSYTX W PT 30 MINUTES [id number] Diagnos is: ICD-10- CM F43.10 Post-tr aumatic stress disorde r, unspeci Dar Estrada 04/30 [facility] En[facility] [id number] 05/05 [facility] FAMILY PSYTX W/PT 50 MIN [id number] Diagnos is: ICD-10- CM F43.10 Post-tr aumatic stress disorde r, unspeci Dar Estrada 05/07 [facility] En[facility] [id number] 05/08 [facility] FAMILY PSYTX W/PT 50 MIN [id number] Diagnos is: ICD-10- CM F43.10 Post-tr aumatic stress disorde r, unspeci Dar Estrada 05/10 [facility] [place] [facility] PSYTX W PT 60 MINUTES [id number] Diagnos is: ICD-10- CM F32.A Depress ion, unspeci SANDRINE Telles M 05/11 [facility] [place] [facility] OFFICE O/P EST MOD 30 MIN [id number] Diagnos is: ICD-10- CM F33.2 Major depress v disorde r, recurre nt severe w/o psych feature s Jason SAAB 05/17 [facility] [place] [facility] FAMILY PSYTX W/PT 50 MIN [id number] Diagnos is: ICD-10- CM F43.10 Post-tr aumatic stress disorde r, unspeci Dar Estrada 05/21 [facility] [place] [facility] [place] [facility] PSYTX W PT 60 MINUTES [id number] Diagnos is: ICD-10- CM F32.A Depress ion, unspeci SANDRINE Telles M 06/03 [facility] [place] [facility] [place] [facility] FAMILY PSYTX W/PT 50 MIN [id number] Diagnos is: ICD-10- CM Z63.0 Problem s in relatio nship with spouse or partner Dar OCHOA 06/04 [facility] [place] [facility] [place] [facility] Outpatient Encounter [id number] 06/07 [facility] [place] PH1 ASSMT&MGMT NQHP 11-20 [id number] Diagnos is: ICD-10- CM F43.10 Post-tr aumatic stress disorde r, unspeci fied JAYDA,CHR ISTIE 06/07 [facility] [place] [facility] FAMILY PSYTX W/PT 50 MIN [id number] Diagnos is: ICD-10- CM F43.10 Post-tr aumatic stress disorde r, unspeci fied Dar OCHOA M 06/14 [facility] [place] [facility] PH1 ASSMT&MGMT NQHP 21-30 [id number] Diagnos is: ICD-10- CM F32.A Depress ion, unspeci fied MALCOLM,SANDRINE ITTNEY M 06/17 [facility] [place] [facility] [place] [facility] PH1 ASSMT&MGMT NQHP 21-30 [id number] Diagnos is: ICD-10- CM F32.A Depress ion, unspeci fied SANDRINE FOWLER ITTNEY M 06/17 [facility] [place] [facility] [place] [facility] FAMILY PSYTX W/PT 50 MIN [id number] Diagnos is: ICD-10- CM F43.10 Post-tr aumatic stress disorde r, unspeci fied Dar OCHOA 06/21 [facility] [place] [facility] OFFICE O/P EST MOD 30 MIN [id number] Diagnos is: ICD-10- CM K50.90 Crohn's disease , unspeci fied, without complic ations KALEB DUFF 06/21 [facility] [place] [facility] OFFICE O/P EST MOD 30 MIN [id number] Diagnos is: ICD-10- CM F33.41 Major depress monroe disorde r, recurre nt, in partial remissi on Jason SAAB 06/22 [facility] [place] [facility] CASE MANAGEMENT [id number] Diagnos is: ICD-10- CM G35 Multipl e scleros is ABDOUL OLSEN 06/29 [facility] [place] [facility] PSYTX W PT 45 MINUTES [id number] Diagnos is: ICD-10- CM F32.A Depress ion, unspeci SANDRINE Telles 07/02 [facility] [place] Outpatient Encounter [id number] 07/02 [facility] [place] [facility] FAMILY PSYTX W/PT 50 MIN [id number] Diagnos is: ICD-10- CM F43.10 Post-tr aumatic stress disorde r, unspeci Dar Estrada 07/05 [facility] En[facility] [id number] 07/14 [facility] En[facility] [id number] 07/15 [facility] PSYTX W PT 45 MINUTES [id number] Diagnos is: ICD-10- CM F32.A Depress ion, unspeci stacieSANDRINE Kim VERN M 07/22 [facility] [place] [facility] [place] [facility] FAMILY PSYTX W/PT 50 MIN [id number] Diagnos is: ICD-10- CM F43.10 Post-tr aumatic stress disorde r, unspeci fied Dar OCHOA M 07/26 [facility] [place] [facility] [place] OFF/OP EST MAY X REQ PHY/QHP [id number] Diagnos is: ICD-10- CM Z23 Encount er for immuniz shanelle WILSONParadise M 07/26 [facility] [place] [facility] [place] [facility] OFFICE O/P EST MOD 30 MIN [id number] Diagnos is: ICD-10- CM F33.2 Major depress v disorde r, recurre nt severe w/o psych feature s Jason SAABIN 07/28 [facility] [place] [place] [facility] OFFICE O/P NEW MOD 45 MIN [id number] Diagnos is: ICD-10- CM Z77.29 Contact with and exposur e to other hazardo us substan ching [place] A 08/02 [facility] [place] [facility] Outpatient Encounter [id number] [place] 08/02 [facility] [place] [facility] [place] [facility] PSYTX W PT 60 MINUTES [id number] Diagnos is: ICD-10- CM F32.A Depress ion, unspeci stacieSANDRINE Kim VERN M 08/12 [facility] FAMILY PSYTX W/PT 50 MIN [id number] Diagnos is: ICD-10- CM F43.10 Post-tr aumatic stress disorde r, unspeci fiDar Crocker 08/16 [facility] En[facility] [id number] 08/19 [facility] OFFICE O/P EST MOD 30 MIN [id number] Diagnos is: ICD-10- CM F33.1 Major depress monroe disorde r, recurre nt, Jason Santana 08/19 [facility] En[facility] [id number] [facility] En[facility] [id number] [facility] En[facility] [id number] [facility] PSYTX W PT 60 MINUTES [id number] Diagnos is: ICD-10- CM F32.A Depress ion, unspeci fiSANDRINE Kim M 08/26 [facility] PSYTX W PT 60 MINUTES [id number] Diagnos is: ICD-10- CM F32.A Depress ion, unspeci fied SANDRINE FOWLER ITTNEY M 09/02 [facility] [place] [id number] Diagnos is: ICD-10- CM H93.11 Tinnitu s, right ear Lexie CEDENO HAL E 09/08 [facility] FAMILY PSYTX W/PT 50 MIN [id number] Diagnos is: ICD-10- CM F43.10 Post-tr aumatic stress disorde r, unspeci fiDar Crocker 09/13 [facility] NQHP OL DIG ASSMT&MGMT 5-10 [id number] Diagnos is: ICD-10- CM K50.90 Crohn's disease , unspeci fied, without complic ations SOVEROW, RISTY A 09/14 [facility] PSYTX W PT 60 MINUTES [id number] Diagnos is: ICD-10- CM F32.A Depress ion, unspeci fiSANDRINE Kim 09/16 [facility] OFFICE O/P EST MOD 30 MIN [id number] Diagnos is: ICD-10- CM F33.1 Major depress monroe disorde r, recurre nt, moderat Jason Shaver SALO 09/17 [facility] PSYTX W PT 30 MINUTES [id number] Diagnos is: ICD-10- CM F43.10 Post-tr aumatic stress disorde r, unspeci fiDar Crocker 09/24 [facility] Outpatient Encounter [id number] 10/01 [facility] PSYTX W PT 60 MINUTES [id number] Diagnos is: ICD-10- CM F32.A Depress ion, unspeci fied MALCOLM,BR ITTNEY M 10/05 [facility] FAMILY PSYTX W/PT 50 MIN 66342-3.63 [id number] Diagnos is: ICD-10- CM F43.10 Post-tr aumatic stress disorde r, unspeci fied DONK ADEBAYO M 10/11 [facility] OFFICE O/P EST MOD 30 MIN 70658-9.63 [id number] Diagnos is: ICD-10- CM F33.0 Major depress monroe disorde r, recurre nt, mild KATIANA,M SALO 10/14 [facility] PSYTX W PT 60 MINUTES 01493-8.63 [id number] Diagnos is: ICD-10- CM F32.A Depress ion, unspeci fied MALCOLM,BR ITTNEY M 10/21 [facility] Outpatient Encounter [id number] 11/04 [facility] PSYTX W PT 45 MINUTES 91403-8.63 [id number] Diagnos is: ICD-10- CM F32.A Depress ion, unspeci fied MALCOLM,BR ITTNEY M 11/18 [facility] FAMILY PSYTX W/PT 50 MIN 71019-3.63 [id number] Diagnos is: ICD-10- CM F43.10 Post-tr aumatic stress disorde r, unspeci Dar Estrada M 11/26 [facility] PSYTX W PT 30 MINUTES [id number] Diagnos is: ICD-10- CM F32.A Depress ion, unspeci beltran SANDRINE FOWLER M 12/02 [facility] Outpatient Encounter [id number] 12/10 [facility] Social History Combined list of available smoking, tobacco, and other social history from Department of Defense and Veterans Affairs facilities. Social History Type Response Date Comment Source Tobacco smoking status NHIS WA-TOBACCO USE FORMER CIGARETTES 03/18/2024 [facility] History of tobacco use WA-TOBACCO USE FORMER OTHER TYPE 03/18/2024 Quit more than 15 years ago [facility] Plan of Care List of future care activities from Department of Veterans Affairs facilities. Additional future care activities may be listed in the Assessment and Plan section. Date/Time Care Activity Care Activity Detail Facili ty 12/14/2024 AMBULATORY - PSYCHIATRY AMBULATORY - PSYC HIATRY [facility]
--- OUTSIDE RECORDS SUMMARY | 2024-12-11 08:28 | XMS_ITS | Clinical Summary ---
Author Organization [facility] Address [address] [place] [address] Care Team Providers Care Network Operations Technician Name Role Phone Unavailable Primary Care Provider Unavailabl e Social History Tobacco Use Types Packs/Day Years Used Date Smoking Tobacco: Never Assessed Sex and Gender Information Value Date Recorded Sex Assigned at Not on file Legal Sex Male 10:27 AM EDT Gender Identity Male 11/22/2021 12:27 PM EDT Sexual Orientation Not on file Plan of Treatment Health Maintenance Due Date Last Done Comments Hepatitis C Virus Screening 1975 HIV Screening 12/29/1988 DTaP/Tdap/Td Vaccines (1 - Tdap) 12/29/1994 Hepatitis B Vaccines (1 of 3 - 19+ 3-dose series) 12/29/1994 Colonoscopy 12/29/2020 COVID-19 Vaccine (1 - 2023-2 5 season) 2023 Influenza Vaccine 11/12/2024 Pneumococcal Vaccine: Pediat ana (0-5 Years) and At-Risk Patients (6 to 49 Years) Aged Out No longer eligible b ased on patient's age to complete this topic Insurance [employer]
--- OUTSIDE RECORDS SUMMARY | 2024-12-11 08:28 | XMS_ITS ---
[facility] Care Team Organization Name Specialty Phone Email Start Date End parviz [facility] 12/20/2021 12/20/2021
--- OUTSIDE RECORDS SUMMARY | 2024-12-11 08:28 | XMS_ITS | Patient Health Record ---
Author Organization [facility] Address [address] [place] [address] Care Team Providers Care Confidential Secretary Name Role Phone Freddy Gonzales Primary Care Provider Un available Julio Gottlieb Unavailable [phone] Allergies No Known Allergies Results Component Value Reference Range Notes Complete Blood Count Auto Di ff Reviewed date:02/28/2024 11:21:24 AM Interpretation: Performing Lab:[facility], [address] [place] [phone] Notes/Report: White Blood Count 7.4 4.8-10.8 X10*3/uL [...] Panel Reviewed date:02/28/2024 11:21:42 AM Interpretation: Performing Lab:[facility], [address] [place] [phone] Notes/Report: Bilirubin Total 2.1 0.0-1.0 mg/dL Slight Icte marina. Bilirubin Direct 0.5 0.0-0.5 mg/dL Slight Ict erus. Aspartate Amino Transferase 15 5-37 U/L Alanine Aminotransferase 14 0-40 U/L Total Protein 6.9 6.5-8.0 g/dL Albumin Level 4.3 3.5-5.0 g/dL Alkaline Phosphatase 69 39-117 U/L Vitamin B12 Reviewed date:02/28/2024 11:27:16 AM Interpretation: Performing Lab:[facility], [address] [place] [phone] Notes/Report: Vitamin B12 1502 200-900 pg/mL NORMAL 200-900 PG/ML INDETERMINATE 160-199 PG/ML DEFICIENT < 160 PG/ML Krystle Watts UST Reviewed date:03/20/2024 04:16:06 PM Interpretation: Performing Lab:[facility], [address] [place] [phone] Notes/Report: Prometheus Mac UST SEE NOTE SEE SCA NNED RESULTS IN EMR Complete Blood Count Auto Di ff Reviewed date:05/08/2024 04:05:03 PM Interpretation: Performing Lab:[facility], [address] [place] [phone] Notes/Report: White Blood Count 6.4 4.8-10.8 X10*3/uL Red Blood Count 4.55 4.60-5.80 X10*6/uL Hemoglobin 14.3 14.0-18.0 g/dl Hematocrit 42.3 42.0-52.0 % Mean Corpuscular Volume 93.0 80.0-98.0 fL Mean Corpuscular Hemoglobin 31.4 27.0-33.0 pg Mean Corpuscular HGB Conc 33.8 31.0-36.0 g/dl Red Cell Distribution Width 14.7 11.0-16.0 % Platelet Count 239 160-400 X10*3/uL Mean Platelet Volume 9.1 9.4-12.4 fL Neutrophils Percent Auto 68.2 45-73 % Imm Gran Pct Auto 0.5 0.0-0.4 % Lymphocytes Percent Auto 16.1 20-40 % Monocytes Percent Auto 11.9 2-11 % Eosinophils Percent Auto 2.5 0-4 % Basophils Percent Auto 0.8 0-2 % NRBC Pct Auto 0.0 0.0-0.2 /100WBC Neutrophils Absolute Auto 4.4 2.0-8.3 x10*3/u L Imm Gran Abs Auto 0.03 0.00-0.03 X10*3/uL Lymphocytes Absolute Auto 1.0 1.2-4.9 X10*3/u L Monocytes Absolute Auto 0.8 0.1-1.2 X10*3/uL Eosinophils Absolute Auto 0.2 0.0-0.4 X10*3/u L Basophils Absolute Auto 0.1 0.0-0.2 X10*3/uL NRBC Abs Auto 0.000 0.0-0.012 X10*3/uL Liver Panel Reviewed date:05/08/2024 04:05:17 PM Interpretation: Performing Lab:[facility], [address] [place] [phone] Notes/Report: Bilirubin Total 0.8 0.0-1.0 mg/dL Bilirubin Direct 0.2 0.0-0.5 mg/dL Aspartate Amino Transferase 13 5-37 U/L Alanine Aminotransferase 16 0-40 U/L Total Protein 7.3 6.5-8.0 g/dL Albumin Level 4.2 3.5-5.0 g/dL Alkaline Phosphatase 76 39-117 U/L Reason For Referral Referring Provider First Name Freddy Referring Provider Last Name Indira Referring Provider Speciality Internal M edicine Referred Organization [facility] Referred Provider Julio Gottlieb Referred Address [address] [place] [address],[place], [place],[address],[place] Referred Provider Specialty Gastroentero logy Referral Priority Routine Medications Medication SIG (Take, Route, Frequency, Duration) Notes Start Date End Date Status azaTHIOprine 50 MG TAKE 3 TABLETS BY MO [facility] DAILY Active Budesonide 3 MG 2 capsules Act monroe FLUoxetine HCl 40 MG TAKE 1 CAPSULE BY M OUT EVERY DAY Orally Active azaTHIOprine 50 MG 3 tablets Orally Janelle ly for 90 days 09/09/2024 Active buPROPion HCl ER (SR) 150 MG 1 tablet in the morning Orally Once a day for 30 day(s) Active Budesonide 3 MG 3 Orally Daily for 9 0 days 09/09/2024 Active Aspirin 81 Not-Takin g Mesalamine ER 500 MG TAKE 2 CAPSULES BY MOUTH 4 TIMES A DAY for 90 Not-Taking Omeprazole 40 MG TAKE 1 CAPSULE BY MO [facility] EVERY DAY (30 MINUTES BEFORE MORNING MEAL) Oral Active Lisinopril-hydroCHLOROthi azide 10-12.5 MG TAKE 1 TABLET BY MOUTH EVERY DAY Oral for 90 Active Stelara 90 MG/ML INJECT 1 ML (90 MG) UNDER THE SKIN EVERY 4 WEEKS Active hydrOXYzine HCl 50 MG 1 tablet as needed Orally Once a day for 30 day(s) Active Immunizations Vaccine Route Administration Date Status Comme nts Influenza Unknown 04/02/2022 Administered Influenza Unknown 03/02/2024 Administered Social History Tobacco Use: Social History Observation Description Date Details (start date - stop date) Former Smoker NA - NA Tobacco Use/Smoking Question Answer Notes Patient is a former smoker How long has it been since you last smoked? > 10 years Alcohol Screen Question Answer Notes Did you have a drink containing alcohol in the p ast year? No Points 0 Interpretation Negative Section Notes: Smokes marijuana daily for y ears Smokes marijuana daily for y ears Smokes marijuana daily for y ears Smokes marijuana daily for y ears Smokes marijuana daily for y ears Problems Problem Type SNOMED Code ICD Code Onset Dates Problem Status W/U Status Risk Notes Problem 51969549 Crohn's disease of small intestine without complication (K50.00) Active confirmed Problem 49285767 Diarrhea, unspecified type (R19.7) Active confirmed Problem Crohn's disease of small intestine (20021900) Crohn''s disease of small intestine without complication (K50.00) Active confirmed Problem 934853203 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 (Z79.624) Active confirmed Vital Signs Temperature 97.8 degrees Fahrenheit 05/05/2024 Blood pressure diastolic 00 mm Hg 05/05/2024 Height 69 in 05/05/2024 Blood pressure systolic 000 mm Hg 05/05/2024 Weight 193 lbs 05/05/2024 BMI 28.50 kg/m2 05/05/2024 Encounters Encounter Location Date Provider Diagnosis [facility] [address] [place] [phone] 01/07/2024 Julio Gottlieb Crohn's disease of small intestine without complication K50.00 and Diarrhea, unspecified type R19.7 [facility] [address] [place] [phone] 05/05/2024 Julio Gottlieb Crohn's disease of small intestine without complication K50.00 [facility] [address] [place] [phone] 03/19/2024 Julio Gottlieb [facility] [address] [place] [phone] 07/08/2024 Julio Gottlieb [facility] [address] [place] [phone] 07/19/2024 Julio Gottlieb [facility] [address] [place] [phone] 09/09/2024 Julio Gottlieb [facility] [address] [place] [phone] 09/10/2024 Julio Gottlieb Assessments Encounter Date Diagnosis (ICD Code) Assessment Notes Treatment Notes Treatment Clinical Notes Section Notes 01/07/2024 Crohn's disease of small intestine without complication (ICD-10 - K50.00) Start using 2 Imodium every morning and 2 every afternoon on a daily and regular basis Minimize junk food Continue the Vitamins but add a Calcium supplement Overall, Jono appears well. It does appear that his Crohn's disease is under somewhat better control on his current regimen. As such, I advised him to continue his current regimen but did instruct him to begin using Imodium more regularly to see if that can help alleviate some of the frequency and loose bowel movements. I advised him to use 2 every morning and then again 2 every afternoon on a regular and daily basis. I did advise him to decrease that if he becomes constipated. I am going to check another Stelara trough level in early January when he has his next laboratories with the azathioprine monitoring. We did review that obviously avoiding the binge eating and junk food would definitely help with his bowel movements and help him feel better as well. I told him that he definitely needs to try to do that. I also advised him to continue his current vitamins including B12 and vitamin D, but I did advise him to add a calcium supplement as well. I did advise him to see me in several months for a followup visit and advised him to definitely call me prior to that if he has any problems or questions I can be of assistance with. Jono and Annamarie were comfortable with this plan. Thank you again for allowing me to participate in Jono's care. I shall continue to keep you advised of his progress. 01/07/2024 Diarrhea, unspecified type (ICD-10 - R19.7) Overall, Jono appears well. It does appear that his Crohn's disease is under somewhat better control on his current regimen. As such, I advised him to continue his current regimen but did instruct him to begin using Imodium more regularly to see if that can help alleviate some of the frequency and loose bowel movements. I advised him to use 2 every morning and then again 2 every afternoon on a regular and daily basis. I did advise him to decrease that if he becomes constipated. I am going to check another Stelara trough level in early January when he has his next laboratories with the azathioprine monitoring. We did review that obviously avoiding the binge eating and junk food would definitely help with his bowel movements and help him feel better as well. I told him that he definitely needs to try to do that. I also advised him to continue his current vitamins including B12 and vitamin D, but I did advise him to add a calcium supplement as well. I did advise him to see me in several months for a followup visit and advised him to definitely call me prior to that if he has any problems or questions I can be of assistance with. Jono and Annamarie were comfortable with this plan. Thank you again for allowing me to participate in Jono's care. I shall continue to keep you advised of his progress. 05/05/2024 Crohn's disease of small intestine without complication (ICD-10 - K50.00) Start using 2 Imodium every morning and 2 every afternoon on a daily and regular basis Minimize junk food Continue the Vitamins and Calcium supplement Overall, Zeke appears well and does seem to be clinically improved in regard to his Crohn's disease on the current regimen compared to when I first met him. I did advise him to continue the current regimen of the Stelara and azathioprine at the current dosage. I did remind him, as well as giving him a new lab slip, to check his CBC and liver profile every other month beginning with this month while on the azathioprine. I shall decrease the budesonide to 6 mg daily and we'll try to slowly taper him off of this at some point. I did advise him to increase the Imodium to 2 every morning and 2 with lunch to see if that can help improve his bowel pattern as well. We did review the importance of trying to eliminate the binge eating at night as I do think that would likely help to contribute to improvement in his bowel movements. He is well aware of this and reports that he is currently being treated for depression which he thinks is definitely helping with the eating problem. I did advise him to continue his calcium and vitamins as well. If things remain stable I will plan to see Zeke in the Fall for a followup visit. However, I did advise him to certainly call me prior to that if he has any problems or questions I can be of assistance with. I reminded him to be sure to keep up with any refills he needs for his medical regimen. Zeke was comfortable with this plan. Thank you again for allowing me to participate in Zeke's care. I shall continue to keep you advised of his progress. Plan Of Treatment Pending Test Test Name Order Date CHEM 7 PROFILE 08/27/2022 LIVER PROFILE 09/21/2022 LIVER PROFILE 04/08/2023 LIVER PROFILE 12/04/2022 LIVER PROFILE 08/27/2022 LIVER PROFILE 10/06/2023 LIVER PROFILE 05/05/2024 CRP 08/27/2022 CBC w DIFF 05/05/2024 CBC w DIFF 09/21/2022 CBC w DIFF 04/08/2023 CBC w DIFF 12/04/2022 CBC w DIFF 08/27/2022 CBC w DIFF 10/06/2023 SED RATE (ESR) 08/27/2022 HEPATITIS B PROFILE 08/27/2022 PROMETHEUS THIOPURINE METABOLITES (TPMT) 12/04/2022 HUMIRA LEVEL/AB (ADALIMUMAB LEVEL/AB) STOOL WBC 08/27/2022 Vitamin B12 01/07/2024 Prometheus Anser UST 07/18/2023 Prometheus Anser UST 01/07/2024 Prom Thiopurine Metabolites 09/03/2022 Prometheus TPMT Enzyme 09/03/2022 [facility] TPMT Genetics 09/03/2022 CDiff with Reflex to PCR 08/27/2022 GI PANEL 08/27/2022 Next Appt Details Provider Name:Julio Gottlieb , 01/12/2025 04:20:00 PM, [address] [place] [address], [address], [place], [address], Insurance Providers Payer Name Payer Address Payer Phone Subscriber Number Group Number Insured Name Patient Relationship to Insured Coverage Start Date Coverage End Date [facility] [employer] [address] [place] [phone] [id number] ZEKE WILLETT Self - patient is the insured Medical (General) History Medical History History ICD Code Denies SD,DM,CVA,Lung disease,renal dise ase Hypertension COVID 03/2023 hospitalized [...]
[2024-12-11 08:33] LABS: MANUAL DIFF FLAG NO
[2024-12-11 08:57] LABS: Hematocrit 43.1 % (42.0-52.0); Hemoglobin 14.5 g/dl (14.0-18.0); Imm Gran Abs Auto 0.02 X10*3/uL (0.00-0.03); Imm Gran Pct Auto 0.3 % (0.0-0.4); Lymphocytes Absolute Auto 1.0 X10*3/uL (1.2-4.9); Mean Corpuscular HGB Conc 33.6 g/dl (31.0-36.0); Mean Corpuscular Hemoglobin 31.0 pg (27.0-33.0); Mean Corpuscular Volume 92.3 fL (80.0-98.0); NRBC Abs Auto 0.000 X10*3/uL (0.0-0.012); NRBC Pct Auto 0.0 /100WBC (0.0-0.2); Platelet Count 226 X10*3/uL (160-400); Red Blood Count 4.67 X10*6/uL (4.60-5.80); White Blood Count 5.9 X10*3/uL (4.8-10.8)
[2024-12-11 09:40] LABS: Alanine Aminotransferase 15 U/L (0-40); Albumin Level 4.7 g/dL (3.5-5.0); Alkaline Phosphatase 87 U/L (39-117); Aspartate Amino Transferase 15 U/L (5-37); Total Protein 7.2 g/dL (6.5-8.0)
== END 2024-12-11 08:22 | disposition home or self-care (01) ==
LOC: HO.LAB 08:21
PROVIDERS: PCP Physician Assistant; Visit Provider Internal Medicine
DX: K50.00 Crohn's disease of small intestine without complications (principal)
CPT/HCPCS: 36415; 80076; 85025

== ENCOUNTER 2025-01-28 09:19 | Outpatient (REF) | payer OTHER, SELFPAY ==
[2025-01-28 09:49] LABS: MANUAL DIFF FLAG NO
[2025-01-28 09:59] LABS: Hematocrit 46.4 % (42.0-52.0); Hemoglobin 15.4 g/dl (14.0-18.0); Imm Gran Abs Auto 0.04 X10*3/uL (0.00-0.03); Imm Gran Pct Auto 0.8 % (0.0-0.4); Lymphocytes Absolute Auto 0.8 X10*3/uL (1.2-4.9); Mean Corpuscular HGB Conc 33.2 g/dl (31.0-36.0); Mean Corpuscular Hemoglobin 30.9 pg (27.0-33.0); Mean Corpuscular Volume 93.2 fL (80.0-98.0); NRBC Abs Auto 0.000 X10*3/uL (0.0-0.012); NRBC Pct Auto 0.0 /100WBC (0.0-0.2); Platelet Count 227 X10*3/uL (160-400); Red Blood Count 4.98 X10*6/uL (4.60-5.80); White Blood Count 5.3 X10*3/uL (4.8-10.8)
[2025-01-28 12:29] LABS: Alanine Aminotransferase 20 U/L (0-40); Albumin Level 4.8 g/dL (3.5-5.0); Alkaline Phosphatase 95 U/L (39-117); Aspartate Amino Transferase 15 U/L (5-37); Total Protein 7.5 g/dL (6.5-8.0)
== END 2025-01-28 09:20 | disposition home or self-care (01) ==
LOC: HO.LAB 09:19
PROVIDERS: PCP Physician Assistant; Visit Provider Internal Medicine
DX: K50.00 Crohn's disease of small intestine without complications (principal); Z79.624 Long term (current) use of inhibitors of nucleotide synthesis
CPT/HCPCS: 36415; 80076; 80299; 82542; 85025

== ENCOUNTER 2025-03-18 09:26 | Outpatient (REF) | payer OTHER, SELFPAY ==
[2025-03-18 09:39] LABS: MANUAL DIFF FLAG NO
[2025-03-18 10:29] LABS: Hematocrit 41.1 % (42.0-52.0); Hemoglobin 13.8 g/dl (14.0-18.0); Imm Gran Abs Auto 0.05 X10*3/uL (0.00-0.03); Imm Gran Pct Auto 0.7 % (0.0-0.4); Lymphocytes Absolute Auto 1.0 X10*3/uL (1.2-4.9); Mean Corpuscular HGB Conc 33.6 g/dl (31.0-36.0); Mean Corpuscular Hemoglobin 31.5 pg (27.0-33.0); Mean Corpuscular Volume 93.8 fL (80.0-98.0); NRBC Abs Auto 0.000 X10*3/uL (0.0-0.012); NRBC Pct Auto 0.0 /100WBC (0.0-0.2); Platelet Count 236 X10*3/uL (160-400); Red Blood Count 4.38 X10*6/uL (4.60-5.80); White Blood Count 7.2 X10*3/uL (4.8-10.8)
[2025-03-18 11:26] LABS: Alanine Aminotransferase 23 U/L (0-40); Albumin Level 4.5 g/dL (3.5-5.0); Alkaline Phosphatase 80 U/L (39-117); Aspartate Amino Transferase 39 U/L (5-37); Total Protein 7.4 g/dL (6.5-8.0)
== END 2025-03-18 09:27 | disposition home or self-care (01) ==
LOC: HO.LABR 09:26
PROVIDERS: PCP Physician Assistant; Visit Provider Internal Medicine
DX: K50.00 Crohn's disease of small intestine without complications (principal)
CPT/HCPCS: 36415; 80076; 85025